=== PATIENT | female | born 1945 | race Caucasian/White ===

== ENCOUNTER 2016-08-18 08:45 | Outpatient (RCR) | payer MEDICARE, OTHER ==
[~2016-08-18 08:45] MED LIST: ACET325T38 PO; CELE200C PO; CETI10TA20 PO; CIPR-225 PO; METR500T PO; PANT40SU PO
[2016-08-21] MEDS ORDERED: CEFD300C3 PO (13:04)
[2016-08-21] MEDS ORDERED: CELE200C PO (13:04)
[2016-08-21] MEDS ORDERED: TRAMADOL (13:13)
[2016-09-02] MEDS ORDERED: PANT40TA3 PO (12:32)
[2016-09-02] MEDS ORDERED: TRAM50TA2 PO (12:32)
[2016-09-02] MEDS ORDERED: LEVO750T9 PO (12:38)
[2016-09-03] MEDS ORDERED: HYDR-3812 PO ×2 (15:54→17:06)
== END 2016-11-12 | disposition home or self-care (01) ==
LOC: LAB 08:45
PROVIDERS: ATTEND Surgery
DX: R10.31 Right lower quadrant pain (principal)
CPT/HCPCS: 87045; 87046; 87177; 87324

== ENCOUNTER 2016-10-07 09:56 | Outpatient (RCR) | payer MEDICARE, OTHER ==
[2016-09-08 12:07] LABS: BASOPHILS % (AUTO) 0 % (0-10); EOSINOPHILS # (AUTO) 0.1 10^3/uL (0.0-0.3); EOSINOPHILS % (AUTO) 1 % (0-10); LYMPHOCYTES # (AUTO) 1.3 X 10^3 (1.0-4.0); LYMPHOCYTES % (AUTO) 11 % (12-44); MEAN CORPUSCULAR HEMOGLOBIN 28 PG (25-34); MEAN CORPUSCULAR HGB CONC 32 G/DL (32-36); MEAN CORPUSCULAR VOLUME 87 FL (80-99); MONOCYTES # (AUTO) 0.8 X 10^3 (0.0-1.0); MONOCYTES % (AUTO) 7 % (0-12); NEUTROPHILS # (AUTO) 9.2 X 10^3 (1.8-7.8); NEUTROPHILS % (AUTO) 81 % (42-75); PLATELET COUNT 273 10^3/uL (130-400); RED BLOOD COUNT 4.52 10^6/uL (4.35-5.85); RED CELL DISTRIBUTION WIDTH 15.1 % (10.0-14.5); WHITE BLOOD COUNT 11.4 10^3/uL (4.3-11.0)
[2016-09-08 12:38] LABS: ALANINE AMINOTRANSFERASE < 6 U/L (0-55); ALBUMIN 4.3 G/DL (3.2-4.5); ANION GAP 10 MMOL/L (5-14); ASPARTATE AMINO TRANSFERASE 13 U/L (5-34); BILIRUBIN,TOTAL 0.4 MG/DL (0.1-1.0); BLOOD UREA NITROGEN 9 MG/DL (7-18); BUN/CREATININE RATIO 12; CALCIUM 9.6 MG/DL (8.5-10.1); CARBON DIOXIDE 27 MMOL/L (21-32); CHLORIDE 100 MMOL/L (98-107); CREATININE SERUM 0.73 MG/DL (0.60-1.30); GFR ESTIMATED > 60; GLUCOSE 97 MG/DL (70-105); LACTATE DEHYDROGENASE 184 U/L (125-220); POTASSIUM 5.1 MMOL/L (3.6-5.0); SODIUM 137 MMOL/L (135-145); TOTAL PROTEIN 7.1 G/DL (6.4-8.2); URIC ACID 4.8 MG/DL (2.6-7.2)
[2016-09-09 05:37] LABS: IMMUNOGLOBULIN IGA 76 mg/dL (71-263); IMMUNOGLOBULIN IGG 1020 mg/dL (672-1680)
[2016-09-09 07:48] LABS: IMMUNOGLOBULIN IGM 208 mg/dL (47-209)
[2016-09-17 10:31] LABS: BASOPHILS % (AUTO) 0 % (0-10); EOSINOPHILS % (AUTO) 1 % (0-10); LYMPHOCYTES % (AUTO) 12 % (12-44); MEAN CORPUSCULAR HEMOGLOBIN 28 PG (25-34); MEAN CORPUSCULAR HGB CONC 33 G/DL (32-36); MEAN CORPUSCULAR VOLUME 85 FL (80-99); MEAN PLATELET VOLUME 9.3 FL (7.4-10.4); MONOCYTES # (AUTO) 0.8 X 10^3 (0.0-1.0); MONOCYTES % (AUTO) 9 % (0-12); NEUTROPHILS # (AUTO) 6.6 X 10^3 (1.8-7.8); NEUTROPHILS % (AUTO) 78 % (42-75); PLATELET COUNT 267 10^3/uL (130-400); RED BLOOD COUNT 4.26 10^6/uL (4.35-5.85); RED CELL DISTRIBUTION WIDTH 14.5 % (10.0-14.5); WHITE BLOOD COUNT 8.5 10^3/uL (4.3-11.0)
[2016-09-17 11:00] LABS: ALANINE AMINOTRANSFERASE 10 U/L (0-55); ANION GAP 10 MMOL/L (5-14); ASPARTATE AMINO TRANSFERASE 15 U/L (5-34); BILIRUBIN,TOTAL 0.3 MG/DL (0.1-1.0); BLOOD UREA NITROGEN 7 MG/DL (7-18); BUN/CREATININE RATIO 11; CALCIUM 9.3 MG/DL (8.5-10.1); CARBON DIOXIDE 24 MMOL/L (21-32); CHLORIDE 101 MMOL/L (98-107); CREATININE SERUM 0.63 MG/DL (0.60-1.30); GFR ESTIMATED > 60; GLUCOSE 93 MG/DL (70-105); LACTATE DEHYDROGENASE 214 U/L (125-220); POTASSIUM 3.9 MMOL/L (3.6-5.0); SODIUM 135 MMOL/L (135-145); URIC ACID 4.5 MG/DL (2.6-7.2)
[2016-09-22 10:35] LABS: BASOPHILS % (AUTO) 0 % (0-10); EOSINOPHILS # (AUTO) 0.1 10^3/uL (0.0-0.3); EOSINOPHILS % (AUTO) 1 % (0-10); LYMPHOCYTES # (AUTO) 0.4 X 10^3 (1.0-4.0); LYMPHOCYTES % (AUTO) 3 % (12-44); MEAN CORPUSCULAR HEMOGLOBIN 28 PG (25-34); MEAN CORPUSCULAR HGB CONC 33 G/DL (32-36); MEAN CORPUSCULAR VOLUME 86 FL (80-99); MEAN PLATELET VOLUME 8.7 FL (7.4-10.4); MONOCYTES # (AUTO) 0.8 X 10^3 (0.0-1.0); MONOCYTES % (AUTO) 7 % (0-12); NEUTROPHILS # (AUTO) 10.8 X 10^3 (1.8-7.8); NEUTROPHILS % (AUTO) 89 % (42-75); PLATELET COUNT 287 10^3/uL (130-400); RED CELL DISTRIBUTION WIDTH 14.4 % (10.0-14.5)
[2016-09-22 11:11] LABS: ALANINE AMINOTRANSFERASE 8 U/L (0-55); ALBUMIN 3.9 G/DL (3.2-4.5); ANION GAP 12 MMOL/L (5-14); ASPARTATE AMINO TRANSFERASE 9 U/L (5-34); BILIRUBIN,TOTAL 0.5 MG/DL (0.1-1.0); BLOOD UREA NITROGEN 6 MG/DL (7-18); BUN/CREATININE RATIO 9; CARBON DIOXIDE 28 MMOL/L (21-32); CHLORIDE 97 MMOL/L (98-107); GFR ESTIMATED > 60; GLUCOSE 119 MG/DL (70-105); LACTATE DEHYDROGENASE 165 U/L (125-220); SODIUM 137 MMOL/L (135-145); TOTAL PROTEIN 6.6 G/DL (6.4-8.2); URIC ACID 3.1 MG/DL (2.6-7.2)
[2016-09-29 10:54] LABS: BASOPHILS % (AUTO) 0 % (0-10); EOSINOPHILS # (AUTO) 0.1 10^3/uL (0.0-0.3); EOSINOPHILS % (AUTO) 1 % (0-10); LYMPHOCYTES # (AUTO) 0.5 X 10^3 (1.0-4.0); LYMPHOCYTES % (AUTO) 4 % (12-44); MEAN CORPUSCULAR HEMOGLOBIN 28 PG (25-34); MEAN CORPUSCULAR HGB CONC 32 G/DL (32-36); MEAN CORPUSCULAR VOLUME 86 FL (80-99); MEAN PLATELET VOLUME 8.5 FL (7.4-10.4); MONOCYTES # (AUTO) 0.9 X 10^3 (0.0-1.0); MONOCYTES % (AUTO) 7 % (0-12); NEUTROPHILS # (AUTO) 11.8 X 10^3 (1.8-7.8); NEUTROPHILS % (AUTO) 89 % (42-75); PLATELET COUNT 357 10^3/uL (130-400); RED BLOOD COUNT 4.27 10^6/uL (4.35-5.85); RED CELL DISTRIBUTION WIDTH 14.6 % (10.0-14.5); WHITE BLOOD COUNT 13.3 10^3/uL (4.3-11.0)
[2016-09-29 11:37] LABS: ALANINE AMINOTRANSFERASE 9 U/L (0-55); ALBUMIN 4.1 G/DL (3.2-4.5); ANION GAP 8 MMOL/L (5-14); ASPARTATE AMINO TRANSFERASE 15 U/L (5-34); BILIRUBIN,TOTAL 0.3 MG/DL (0.1-1.0); BLOOD UREA NITROGEN 5 MG/DL (7-18); BUN/CREATININE RATIO 8; CALCIUM 9.7 MG/DL (8.5-10.1); CARBON DIOXIDE 28 MMOL/L (21-32); CHLORIDE 101 MMOL/L (98-107); CREATININE SERUM 0.64 MG/DL (0.60-1.30); GFR ESTIMATED > 60; GLUCOSE 103 MG/DL (70-105); LACTATE DEHYDROGENASE 213 U/L (125-220); SODIUM 137 MMOL/L (135-145); TOTAL PROTEIN 7.2 G/DL (6.4-8.2); URIC ACID 2.3 MG/DL (2.6-7.2)
[~2016-10-07] VITALS: Ht 162.6 cm; Wt 61.7 kg
[~2016-10-07 09:56] MED LIST changes: +ACETAMINOPHEN 500 MG TAB (TYLENOL) CANCER CTR PO PRN; +ALLOPURINOL 300 MG (ZYLOPRIM) TAB PO ONE; +BENDAMUSTINE HCL 150 MG in NS (IVPB) CANCER CENTER 50 ML IV SCH; +CEFD300C3 PO; +FAMOTIDINE 20MG/2ML IV (CANCER CTR) IV SCH; +HYDR-3812 PO; +LEVO750T9 PO; +MEPERIDINE (DEMEROL) INJ 50 MG/ML CANCER CTR IV ONE; +NS IV 1000 ML (CANCER CTR) IV SCH; +NS IV 500 ML (CANCER CENTER) 500 ML ONE; +ONDANSETRON 16 MG, DEXAMETHASONE 10 MG/NS 50 ML IVPB IV SCH; +PANT40TA3 PO; +TRAM50TA2 PO; +TRAMADOL; +diphenhydrAMINE 25 MG TAB (BENADRYL) CANCER CENTER PO SCH; +riTUXimab 500 MG, riTUXimab FOR IV INJ CONC 100 MG in NS (IVPB) CANCER CENTER ONLY 150 ML IV SCH
[2016-10-07 10:36] LABS: BASOPHILS # (AUTO) 0.1 10^3/uL (0.0-0.1); BASOPHILS % (AUTO) 1 % (0-10); EOSINOPHILS # (AUTO) 0.1 10^3/uL (0.0-0.3); EOSINOPHILS % (AUTO) 1 % (0-10); LYMPHOCYTES # (AUTO) 0.9 X 10^3 (1.0-4.0); LYMPHOCYTES % (AUTO) 8 % (12-44); MEAN CORPUSCULAR HEMOGLOBIN 29 PG (25-34); MEAN CORPUSCULAR HGB CONC 33 G/DL (32-36); MEAN CORPUSCULAR VOLUME 87 FL (80-99); MONOCYTES # (AUTO) 0.7 X 10^3 (0.0-1.0); MONOCYTES % (AUTO) 7 % (0-12); NEUTROPHILS # (AUTO) 9.6 X 10^3 (1.8-7.8); NEUTROPHILS % (AUTO) 85 % (42-75); PLATELET COUNT 313 10^3/uL (130-400); RED BLOOD COUNT 4.18 10^6/uL (4.35-5.85); RED CELL DISTRIBUTION WIDTH 14.3 % (10.0-14.5); WHITE BLOOD COUNT 11.3 10^3/uL (4.3-11.0)
[2016-10-07 10:56] LABS: ALANINE AMINOTRANSFERASE 8 U/L (0-55); ALBUMIN 3.9 G/DL (3.2-4.5); ANION GAP 11 MMOL/L (5-14); ASPARTATE AMINO TRANSFERASE 14 U/L (5-34); BILIRUBIN,TOTAL 0.2 MG/DL (0.1-1.0); BLOOD UREA NITROGEN 6 MG/DL (7-18); BUN/CREATININE RATIO 9; CALCIUM 9.1 MG/DL (8.5-10.1); CARBON DIOXIDE 24 MMOL/L (21-32); CHLORIDE 100 MMOL/L (98-107); GFR ESTIMATED > 60; GLUCOSE 108 MG/DL (70-105); LACTATE DEHYDROGENASE 217 U/L (125-220); POTASSIUM 3.6 MMOL/L (3.6-5.0); SODIUM 135 MMOL/L (135-145); TOTAL PROTEIN 6.9 G/DL (6.4-8.2); URIC ACID 2.3 MG/DL (2.6-7.2)
[2016-10-14 10:43] LABS: BASOPHILS # (AUTO) 0.1 10^3/uL (0.0-0.1); BASOPHILS % (AUTO) 1 % (0-10); EOSINOPHILS # (AUTO) 0.3 10^3/uL (0.0-0.3); EOSINOPHILS % (AUTO) 2 % (0-10); LYMPHOCYTES % (AUTO) 9 % (12-44); MEAN CORPUSCULAR HEMOGLOBIN 28 PG (25-34); MEAN CORPUSCULAR HGB CONC 33 G/DL (32-36); MEAN CORPUSCULAR VOLUME 86 FL (80-99); MEAN PLATELET VOLUME 8.7 FL (7.4-10.4); MONOCYTES # (AUTO) 0.8 X 10^3 (0.0-1.0); MONOCYTES % (AUTO) 7 % (0-12); NEUTROPHILS % (AUTO) 81 % (42-75); PLATELET COUNT 305 10^3/uL (130-400); RED CELL DISTRIBUTION WIDTH 15.5 % (10.0-14.5); WHITE BLOOD COUNT 11.1 10^3/uL (4.3-11.0)
[2016-10-14 11:02] LABS: ALANINE AMINOTRANSFERASE 11 U/L (0-55); ANION GAP 11 MMOL/L (5-14); ASPARTATE AMINO TRANSFERASE 13 U/L (5-34); BILIRUBIN,TOTAL 0.3 MG/DL (0.1-1.0); BLOOD UREA NITROGEN 7 MG/DL (7-18); BUN/CREATININE RATIO 10; CALCIUM 9.3 MG/DL (8.5-10.1); CARBON DIOXIDE 25 MMOL/L (21-32); CHLORIDE 98 MMOL/L (98-107); CREATININE SERUM 0.73 MG/DL (0.60-1.30); GFR ESTIMATED > 60; GLUCOSE 109 MG/DL (70-105); LACTATE DEHYDROGENASE 136 U/L (125-220); POTASSIUM 3.9 MMOL/L (3.6-5.0); SODIUM 134 MMOL/L (135-145); TOTAL PROTEIN 6.9 G/DL (6.4-8.2); URIC ACID 2.4 MG/DL (2.6-7.2)
== END 2016-10-14 10:48 | disposition home or self-care (01) ==
LOC: ONC 09:56
PROVIDERS: ATTEND Internal Medicine Hematology & Oncology
DX: Z51.11 Encounter for antineoplastic chemotherapy (principal); C85.13 Unspecified B-cell lymphoma, intra-abdominal lymph nodes; K57.92 Diverticulitis of intestine, part unspecified, without perforation or abscess without bleeding; R19.7 Diarrhea, unspecified; M89.8X0 Other specified disorders of bone, multiple sites; M25.50 Pain in unspecified joint; F17.210 Nicotine dependence, cigarettes, uncomplicated; Z79.899 Other long term (current) drug therapy
CPT/HCPCS: 36415; 36591; 80053; 80074; 82232; 82784; 83615; 84550; 85025; 96375; 96376; 96409; 96411; 96413; 96415; 99213; 99214

== ENCOUNTER → 2016-10-28 | Outpatient (CLI) | payer OTHER ==
[~2016-10-28] MED LIST changes: -ACETAMINOPHEN 500 MG TAB (TYLENOL) CANCER CTR PO PRN; -ALLOPURINOL 300 MG (ZYLOPRIM) TAB PO ONE; -BENDAMUSTINE HCL 150 MG in NS (IVPB) CANCER CENTER 50 ML IV SCH; +CEFU500T63 PO; +CIPR500T4 PO; +DOCU-143 PO; -FAMOTIDINE 20MG/2ML IV (CANCER CTR) IV SCH; +GENT100P4 IV; +MELA1TAB10 PO; -MEPERIDINE (DEMEROL) INJ 50 MG/ML CANCER CTR IV ONE; +MORP-34 PO; -NS IV 1000 ML (CANCER CTR) IV SCH; -NS IV 500 ML (CANCER CENTER) 500 ML ONE; +ONDA8TAB12 PO; +ONDA8TAB13 PO; -ONDANSETRON 16 MG, DEXAMETHASONE 10 MG/NS 50 ML IVPB IV SCH; -diphenhydrAMINE 25 MG TAB (BENADRYL) CANCER CENTER PO SCH; -riTUXimab 500 MG, riTUXimab FOR IV INJ CONC 100 MG in NS (IVPB) CANCER CENTER ONLY 150 ML IV SCH
[2016-10-28 11:23] LABS: BILIRUBIN,URINE NEGATIVE (NEGATIVE); KETONES,URINE NEGATIVE (NEGATIVE); LEUKOCYTE ESTERASE ,URINE 1+ (NEGATIVE); NITRITE,URINE NEGATIVE (NEGATIVE); PH,URINE 6 (5-9); PROTEIN,URINE 1+ (NEGATIVE); UROBILINOGEN,URINE NORMAL (NORMAL)
[2016-10-28 11:33] LABS: WBC,URINE 0-2 /HPF
== END ==
LOC: LAB 11:10
PROVIDERS: ATTEND Family Medicine
DX: R30.0 Dysuria (principal)
CPT/HCPCS: 81000

== ENCOUNTER → 2016-12-02 | Outpatient (CLI) | payer OTHER ==
[~2016-12-02] MED LIST changes: +BARIUM SUSPENSION 2.1% (VANILLA SILQ) 450 ML PO ONE; +CATHETER FLUSH 10 ML SYR IV PRN; +IOHEXOL 350 MG/ML 100 ML (OMNIPAQUE 350) VIAL IV ONE; +NS 100 ML (IVPB) BAG IV ONE
--- NOTE | 2016-12-02 13:19 | Diagnostic Imaging Report ---
PROCEDURE: CT chest, abdomen, and pelvis with contrast. TECHNIQUE: Multiple contiguous axial images were obtained through the chest, abdomen, and pelvis after the administration of intravenous contrast. INDICATION: Lymphoma. FINDINGS: The previous CT abdomen/pelvis exam performed on 08/15/16 noted abdominal and pelvic retroperitoneal adenopathy. Reportedly in the interval since the prior exam, a diagnosis of lymphoma has been established. The previous study did reveal a 3.1 x 4.3 cm soft tissue mass adjacent to the abdominal aorta on the left or just proximal to the bifurcation. This measured 4.3 x 3.1 cm in size. That mass has diminished and now measures only 1.5 x 2.3 cm. There are also frank masses in place on the right with the largest of these measuring approximately 2.9 x 3.8 cm. That mass has also decreased in size and now measures 1.8 x 2.1 cm. The previous study also identified a poorly defined 3.2 x 4.0 cm mass adjacent to the sigmoid colon. That finding has decreased in size as well and now measures 2.3 x 3.1 cm. There still appears to be generalized thickening of the wall of the sigmoid colon. This finding is of uncertain etiology. The remainder of the abdomen and pelvis has not changed adversely since the prior exam. There is cholelithiasis but there is no sign of acute cholecystitis. There is a small 7.5 mm area of diminished density within the left lobe of the liver on the initial precontrast series. This finding is not seen on the delayed series. I suspect this is more likely due to hemangioma than to a metastatic focus. If further imaging is desired, then MRI of the abdomen would be recommended. The liver is otherwise unremarkable. The spleen, adrenals, kidneys, aorta and inferior vena cava show no sign of an acute abnormality. The stomach is partially filled with oral contrast and consequently difficult to assess. The uterus and urinary bladder are grossly unremarkable. As noted on the prior exam, there is an area of mixed density involving the right ilium. That finding is essentially no different on this exam. There are no previous CT chest examinations available for comparison. The heart size is within normal limits. The lungs are generally clear and well aerated. There is no sign of failure, pneumonia or of a pleural effusion. There is no parenchymal lung mass identified either. There is no defect within the pulmonary arteries to indicate a pulmonary embolus. The aorta is not abnormally dilated and there is no sign of a dissection. There are a number of calcified right hilar nodes and a few calcified mediastinal nodes. These are not pathologically enlarged. The thyroid gland is unremarkable. There is no obvious breast mass. The bone windows show no evidence for a fracture or for a destructive lesion. IMPRESSION: 1. The appearance of the abdomen and pelvis has improved since the prior exam as the retroperitoneal adenopathy noted previously has decreased. 2. There is still generalized thickening of the wall of the sigmoid colon. This is of uncertain etiology. 3. The area of mixed density involving the right ilium seen previously is again visualized and no different. 4. There is no acute abnormality of the abdomen or pelvis identified. 5. There is no sign of an acute cardiopulmonary abnormality either. There is no evidence for metastatic disease to the thorax. 6. These results were discussed with Dr. Cano. Dictated by: Dictated on workstation # [id number]
== END ==
LOC: RAD 09:25
PROVIDERS: ATTEND Internal Medicine Hematology & Oncology
DX: C85.90 Non-Hodgkin lymphoma, unspecified, unspecified site (principal)
CPT/HCPCS: 71260; 74177

== ENCOUNTER 2016-12-31 19:11 | Inpatient (IN) | payer MEDICARE, OTHER ==
[~2016-12-31] VITALS: Ht 162.6 cm; Wt 57.4 kg
[~2016-12-31 19:11] MED LIST changes: -BARIUM SUSPENSION 2.1% (VANILLA SILQ) 450 ML PO ONE; -CATHETER FLUSH 10 ML SYR IV PRN; -CEFU500T63 PO; -CIPR500T4 PO; -DOCU-143 PO; -GENT100P4 IV; -IOHEXOL 350 MG/ML 100 ML (OMNIPAQUE 350) VIAL IV ONE; -MELA1TAB10 PO; -MORP-34 PO; -NS 100 ML (IVPB) BAG IV ONE; -ONDA8TAB12 PO; -ONDA8TAB13 PO
[2016-12-31] MEDS ORDERED: PHENAZOPYRIDINE 100 MG (PYRIDIUM) TABLET PO ONE (19:30)
[2016-12-31] MEDS ORDERED: NS IV 500 ML 500 ML IV SCH (19:30)
[2016-12-31] MEDS ORDERED: KETOROLAC 30 MG/ML VIAL IVP ONE (19:30)
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
[2016-12-31 19:49] LABS: BILIRUBIN,URINE NEGATIVE (NEGATIVE); KETONES,URINE NEGATIVE (NEGATIVE); LEUKOCYTE ESTERASE ,URINE 2+ (NEGATIVE); NITRITE,URINE NEGATIVE (NEGATIVE); PH,URINE 6 (5-9); PROTEIN,URINE 1+ (NEGATIVE); UROBILINOGEN,URINE NORMAL (NORMAL)
[2016-12-31 19:56] LABS: BASOPHILS % (AUTO) 0 % (0-10); EOSINOPHILS # (AUTO) 0.1 10^3/uL (0.0-0.3); EOSINOPHILS % (AUTO) 1 % (0-10); LYMPHOCYTES # (AUTO) 0.3 X 10^3 (1.0-4.0); LYMPHOCYTES % (AUTO) 3 % (12-44); MEAN CORPUSCULAR HEMOGLOBIN 29 PG (25-34); MEAN CORPUSCULAR HGB CONC 33 G/DL (32-36); MEAN CORPUSCULAR VOLUME 87 FL (80-99); MEAN PLATELET VOLUME 8.7 FL (7.4-10.4); MONOCYTES # (AUTO) 1.3 X 10^3 (0.0-1.0); MONOCYTES % (AUTO) 10 % (0-12); NEUTROPHILS # (AUTO) 11.1 X 10^3 (1.8-7.8); NEUTROPHILS % (AUTO) 86 % (42-75); PLATELET COUNT 358 10^3/uL (130-400); RED BLOOD COUNT 4.28 10^6/uL (4.35-5.85); RED CELL DISTRIBUTION WIDTH 14.9 % (10.0-14.5); WHITE BLOOD COUNT 12.9 10^3/uL (4.3-11.0)
[2016-12-31] MEDS ORDERED: ONDANSETRON 4 MG/2 ML (SDV) Z0FRAN ONE (19:57)
[2016-12-31] MEDS ORDERED: ONDANSETRON 4 MG/2 ML (SDV) Z0FRAN IVP ONE (20:00)
[2016-12-31 20:01] LABS: WBC,URINE 25-50 /HPF
[2016-12-31 20:13] LABS: ANION GAP 16 MMOL/L (5-14); BLOOD UREA NITROGEN 5 MG/DL (7-18); BUN/CREATININE RATIO 7; CALCIUM 9.3 MG/DL (8.5-10.1); CARBON DIOXIDE 24 MMOL/L (21-32); CHLORIDE 93 MMOL/L (98-107); CREATININE SERUM 0.75 MG/DL (0.60-1.30); GFR ESTIMATED > 60; GLUCOSE 124 MG/DL (70-105); POTASSIUM 3.4 MMOL/L (3.6-5.0); SODIUM 133 MMOL/L (135-145)
[2016-12-31 20:18] LABS: BAND NEUTROPHILS 3 %; NEUTROPHILS % (MANUAL) 86 %
[2016-12-31 20:19] LABS: BASOPHILS % (MANUAL) 1 %; EOSINOPHILS % (MANUAL) 0 %; LYMPHOCYTES % (MANUAL) 6 %
[2016-12-31] MEDS ORDERED: MEROPENEM 1,000 MG in NS (IVPB) 100 ML IV ONE (20:30)
[2016-12-31 21:25] VITALS: BP 153/70
[2016-12-31] MEDS ORDERED: ONDANSETRON 4 MG/2 ML (SDV) Z0FRAN IV PRN (22:45)
[2016-12-31] MEDS ORDERED: KETOROLAC 30 MG/ML VIAL IV PRN (22:45)
[2016-12-31] MEDS ORDERED: CATHETER FLUSH 10 ML SYR IV PRN (22:45)
[2016-12-31] MEDS: NS IV 1000 ML 1,000 ML IV SCH (22:47)
[2017-01-01] VITALS: BP 111/52
[2017-01-01] MEDS: MEROPENEM 500 MG/NS 100 ML IVPB IV SCH ×4 (00:04→06:02)
[2017-01-01 03:52] VITALS: BP 133/63
[2017-01-01] MEDS: CATHETER FLUSH 10 ML SYR IV SCH ×3 (06:00→20:48)
[2017-01-01] MEDS ORDERED: FLU TRIvalent (5 YOA+) 2016-17 (AFLURIA) 0.5 ML IM ONE (07:15)
[2017-01-01 08:00] VITALS: BP 150/63
[2017-01-01] MEDS ORDERED: CIPR500T4 PO (08:14)
--- NOTE | 2017-01-01 08:15 | CONSULTATION REPORT ---
DATE OF CONSULTATION: 01/01/2017 ATTENDING PHYSICIAN: Dr. Feliberto Ny SUMMARY: After reviewing the patient's record in the office, this is a 71-year-old white female known to me that was referred because of recurrent-persistent UTI that started after starting chemotherapy for a lymphoma. She was first on Macrodantin then we switch her to Cipro, that has worked with her before, but apparently did not help her this time. She continued to have problem and presented to the emergency room and was admitted, started on the meropenem and feeling and doing better. Her abdomen is soft but she has some suprapubic tenderness. IMPRESSION: UTI versus chemotherapy therapy cystitis. PLAN: Continue present management for a couple 3 days. She has an appointment with me on January the . She is to keep that. We will plan probably cystoscopy to look at the inside of the bladder. Thank you for letting me participate in the care of this patient. We will follow with you. Job ID: [id number] Dictated Date: 01/01/2017 07:14:36 [employer] Date: 01/01/2017 08:06:20/mel
[2017-01-01] MEDS ORDERED: ONDA8TAB12 PO (08:31)
[2017-01-01] MEDS ORDERED: MORP-34 PO (08:31)
[2017-01-01] MEDS ORDERED: MELA1TAB10 PO (08:33)
[2017-01-01] MEDS ORDERED: HYDR-3812 PO (08:33)
[2017-01-01] MEDS: PATCH REMOVAL TP SCH (08:39)
[2017-01-01] MEDS: PHENAZOPYRIDINE 100 MG (PYRIDIUM) TABLET PO SCH ×3 (08:39→20:48)
[2017-01-01] MEDS: NICOTINE 21 MG (NICODERM) PATCH TD SCH (08:39)
[2017-01-01] MEDS ORDERED: ONDANSETRON 8 MG (ZOFRAN) ORAL DISSOLVE TAB PO PRN (08:45)
[2017-01-01] MEDS: PANTOPRAZOLE 40 MG (PROTONIX) TAB PO SCH (08:59)
[2017-01-01] MEDS: morphine ER 30 MG (MS CONTIN) TAB PO SCH ×2 (08:59→20:47)
[2017-01-01] MEDS: HYDROcodone/APAP 5 MG/325 MG (LORTAB) TAB PO PRN ×4 (08:59→19:46)
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
[2017-01-01] MEDS: NS IV 1000 ML 1,000 ML IV SCH ×2 (09:07→20:47)
[2017-01-01] MEDS ORDERED: NS IV SCH (10:00)
[2017-01-01] MEDS ORDERED: GENTAMICIN IV SCH (10:00)
[2017-01-01 12:00] VITALS: BP 101/52
[2017-01-01 16:00] VITALS: BP 102/65
--- NOTE | 2017-01-01 16:39 | Oncology Consultation ---
Visit Information Visit Information Date of Admission Dec 31, 2016 at 20:43 Attending Physician Feliberto Ny MD Admitting Physician Feliberto Ny MD Chief Complaint multiple recurrence UTI in the setting of lymphoma Interval History Ms. 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 She was admitted from ER for recurrence of UTI, resistance to oral antibiotics. Hence she is getting the IV antibiotics. Her bladder pain is better since the IV antibiotics. When she first came to me for the diagnosis and treatment of lymphoma, she has already been treated with Cipro before multiple times. When I check here UA and C+S first time, she had already been resistance to Cipro. I sent to see Dr Mcmahan for cystoscope and to see if she had any structure issues of the bladder to explain the recurrence of the UTI. In terms of her lymphoma, she had good response after 3 cycles of treatment with 40-50% tumor reduction. I consulted the patient on: 01/01/17 16:32 Constitutional: no symptoms reported EENTM: no symptoms reported Respiratory: no symptoms reported Cardiovascular: no symptoms reported Gastrointestinal: abdominal pain (LLQ) Genitourinary: dysuria, frequency, pain Health Status Allergies Coded Allergies: Penicillins (Verified Allergy, Unknown, stomach pain, 07/10/16) Sulfa (Sulfonamide Antibiotics) (Verified Allergy, Unknown, NAUSEA, ) azithromycin (Unverified Allergy, Unknown, 09/03/16) REPORTS SEVERE ABDOMINAL CRAMPING cefdinir (Verified Allergy, Unknown, itching all over, 09/02/16) cephalexin (Unverified Allergy, Unknown, 09/03/16) REPORTS SEVERE ABDOMINAL CRAMPING levofloxacin (Verified Allergy, Unknown, NAUSEA, 07/10/16) Home Medications Acetaminophen (Tylenol) 325 Mg Tablet, 325 MG PO Q4H PRN for SEVERE PAIN, ( Reported) Cetirizine HCl (Zyrtec) 10 Mg Tablet, 10 MG PO DAILY, (Reported) Ciprofloxacin HCl (Ciprofloxacin HCl) 500 Mg Tablet, 500 MG PO BID for 10 Days, (Reported) 10 DAY THERAPY FILLED 12-30-16 Hydrocodone/Acetaminophen (Hydrocodon -Acetaminophen 5-325) 1 Each Tablet, 1 TAB PO Q4H PRN for PAIN, (Reported) Melatonin/Pyridoxine (Melatonin 3 mg Tablet) 1 Each Tablet, 3 MG PO HS, ( Reported) Morphine Sulfate (Morphine Sulfate ER) 30 Mg Tablet.er, 30 MG PO Q12H, (Reported ) Ondansetron HCl (Ondansetron HCl) 8 Mg Tablet, 8 MG PO Q8H PRN for NAUSEA, ( Reported) Pantoprazole Sodium (Pantoprazole Sodium) 40 Mg Tablet.dr, 40 MG PO DAILY, ( Reported) CWM-[id number]-Xtnpvu Hx Patient Social History Alcohol Use: Rarely Uses Recreational Drug Use: No Smoking Status: Current Everyday Smoker Type Used: Cigarettes Recent Foreign Travel: No Contact w/other who traveled: No Recent Infectious Disease Expo: No Recent Hopitalizations: No Physical Abuse Screen: No Sexual Abuse: No Family Medical History Family History: Arthritis 19 MOTHER FH: hearing loss 19 FATHER 19 MOTHER Myocardial infarction 19 MOTHER Physical Exam Vital Signs Vital Sign - Last 12Hours 12/31/16 19:20 Temp 98.3 Pulse 120 Resp 18 B/P (MAP) 160/93 Pulse Ox 96 O2 Delivery Room Air Capillary Refill : Less Than 3 SecondsLess Than 3 Seconds General Appearance: No Apparent Distress HEENT: PERRL/EOMI Neck: Non Tender, Supple Respiratory: Chest Non Tender, Lungs Clear, No Accessory Muscle Use, No Respiratory Distress Cardiovascular: Regular Rate, Rhythm, No Edema, No Gallop Gastrointestinal: Soft, Tenderness Neurologic/Psychiatric: Alert, Oriented x3 Data Review Labs Laboratory Tests 12/31/16 19:45 Laboratory Tests 12/31/16 19:42: Urine Specific [place] 1.010L, Urine Protein 1+H, Urine Leukocyte Esterase 2+H, Urine RBC (Auto) 4+H, Urine RBC 2-5H, Urine WBC 25-50H, Urine Bacteria FEWH 12/31/16 19:45: White Blood Count 12.9H, Red Blood Count 4.28L, Red Cell Distribution Width 14.9H, Neutrophils (%) (Auto) 86H, Lymphocytes (%) (Auto) 3L, Neutrophils # ( Auto) 11.1H, Lymphocytes # (Auto) 0.3L, Monocytes # (Auto) 1.3H, Sodium Level 133L, Potassium Level 3.4L, Chloride Level 93L, Anion Gap 16H, Blood Urea Nitrogen 5L, Glucose Level 124H 12/31/16 20:34: Impression & Plan Impression & Plan A/P; 1. Multiple recurrence of UTI. resistance to oral antibiotics. Agree with current IV treatment. Pt can be switched to daily Gentamicin as out-pt. F/u with Dr Mcmahan for possible cystoscope. I told patient to get the record from [facility] for her previous antibiotics treatment. I believe she had UTI before the chemo not after the chemo. However, if she did not have the UTI before and this is truly related to the chemo, I will need to try different regimen. In the mean time, she has to wait until her infection completely cleared before the chemo. 2. Pain control issue. Morphine ER 30mg bid and hydrocodon PRN. 3. Pt can be discharged from Hem/Onc point of view. She has the follow up appt with me next week as already scheduled. Thank you for the consultation. Thank you for take care this patient REBEL MACHADO MD Jan 01, 2017 16:39
[2017-01-01 20:00] VITALS: BP 122/68
[2017-01-01] MEDS ORDERED: TROUGH ORDER-PHARMACY XX NR (20:00)
[2017-01-01] MEDS ORDERED: KETOROLAC 30 MG/ML VIAL IV PRN (21:00)
[2017-01-02] VITALS: BP 132/75
[2017-01-02 04:00] VITALS: BP 145/75
[2017-01-02 05:01] LABS: BASOPHILS % (AUTO) 0 % (0-10); EOSINOPHILS # (AUTO) 0.2 10^3/uL (0.0-0.3); EOSINOPHILS % (AUTO) 2 % (0-10); LYMPHOCYTES # (AUTO) 0.2 X 10^3 (1.0-4.0); LYMPHOCYTES % (AUTO) 3 % (12-44); MEAN CORPUSCULAR HEMOGLOBIN 29 PG (25-34); MEAN CORPUSCULAR HGB CONC 32 G/DL (32-36); MEAN CORPUSCULAR VOLUME 89 FL (80-99); MEAN PLATELET VOLUME 8.8 FL (7.4-10.4); MONOCYTES # (AUTO) 0.8 X 10^3 (0.0-1.0); MONOCYTES % (AUTO) 11 % (0-12); NEUTROPHILS # (AUTO) 6.2 X 10^3 (1.8-7.8); NEUTROPHILS % (AUTO) 84 % (42-75); PLATELET COUNT 269 10^3/uL (130-400); RED BLOOD COUNT 3.26 10^6/uL (4.35-5.85); RED CELL DISTRIBUTION WIDTH 14.7 % (10.0-14.5); WHITE BLOOD COUNT 7.3 10^3/uL (4.3-11.0)
[2017-01-02 05:17] LABS: ANION GAP 11 MMOL/L (5-14); BLOOD UREA NITROGEN 7 MG/DL (7-18); BUN/CREATININE RATIO 9; CALCIUM 8.3 MG/DL (8.5-10.1); CARBON DIOXIDE 20 MMOL/L (21-32); CHLORIDE 110 MMOL/L (98-107); CREATININE SERUM 0.75 MG/DL (0.60-1.30); GFR ESTIMATED > 60; GLUCOSE 89 MG/DL (70-105); POTASSIUM 3.7 MMOL/L (3.6-5.0); SODIUM 141 MMOL/L (135-145)
[2017-01-02] MEDS: CATHETER FLUSH 10 ML SYR IV SCH (05:56)
[2017-01-02] MEDS: NS IV 1000 ML 1,000 ML IV SCH (06:38)
[2017-01-02 08:00] VITALS: BP 140/80
[2017-01-02] MEDS: NICOTINE 21 MG (NICODERM) PATCH TD SCH (08:37)
[2017-01-02] MEDS: HYDROcodone/APAP 5 MG/325 MG (LORTAB) TAB PO PRN (08:38)
[2017-01-02] MEDS: morphine ER 30 MG (MS CONTIN) TAB PO SCH (08:38)
[2017-01-02] MEDS: PANTOPRAZOLE 40 MG (PROTONIX) TAB PO SCH (08:38)
[2017-01-02] MEDS: PHENAZOPYRIDINE 100 MG (PYRIDIUM) TABLET PO SCH (08:38)
[2017-01-02] MEDS: PATCH REMOVAL TP SCH (08:39)
--- NOTE | 2017-01-02 09:14 | Discharge Summary ---
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 Since mid-October patient has had severe lower abdominal pain with urine cultures demonstrating a UTI. These UTIs have been treated with nitrofurantoin and/or Cipro with decent results. Patient reports that after being off the antibiotics within 3 to 4 days the symptoms return. She has seen Dr. Mcmahan, urology who started her on Macrobid but was switched to ciprofloxacin yesterday. Patient presented to the ER with intractable abdominal pain and looking at previous urine culture from November the Ecoli was resistant to both ciprofloxacin and Macrobid. Patient was started on meropenem secondary to all of her antibiotic allergies. This a.m. patient reports feeling better and the abdominal pain is improved. Patient desires to go home tomorrow. Patient reports that ketorolac she's getting for her pain is not controlling and would like to resume her home opioids. Discharge Summary Hospital Course Hospital Course Patient was treated with meropenem and switched to gentamycin- (Had to use gentamycin as previous urine cultures were resistant to cipro and nitrofurantoin - and pt was allergic to other antibiotics)- The next day after admission her pain had resolved- Dr. Townsend and Dr. Mcmahan saw patient. Will be holding on her chemotherapy until her UTI is resolved. For her chronic pain she was continued on her home pain regimen. Patient was stable for discharge 01/02/17 and she even requested to be discharged because she was feeling so much better. - she will complete gentamycin IV q48hrs for total of 7 days as outpatient at [facility] over the weekend and at [facility] during the week. Patient to keep her follow up appts with consultants. Follow up with [facility] in 1-2 weeks. Labs Procedures None. Consultations Dr. Townsend, Dr. Mcmahan Discharge Physical Examination Allergies: Coded Allergies: Penicillins (Verified Allergy, Unknown, stomach pain, 07/10/16) Sulfa (Sulfonamide Antibiotics) (Verified Allergy, Unknown, NAUSEA, ) azithromycin (Unverified Allergy, Unknown, 09/03/16) REPORTS SEVERE ABDOMINAL CRAMPING cefdinir (Verified Allergy, Unknown, itching all over, 09/02/16) cephalexin (Unverified Allergy, Unknown, 09/03/16) REPORTS SEVERE ABDOMINAL CRAMPING levofloxacin (Verified Allergy, Unknown, NAUSEA, 07/10/16) Vitals & I&Os Vital Signs Date Time Temp Pulse Resp B/P (MAP) Pulse Ox O2 Delivery O2 Flow Rate FiO2 01/02/17 12:20 100 20 140/80 95 01/02/17 09:15 98.8 01/02/17 08:00 Room Air General Appearance: Alert, Oriented X3, Cooperative HEENT: Atraumatic, PERRLA Respiratory: Clear to Auscultation Cardiovascular: Regular Rate Abdominal: Normal Bowel Sounds, Soft Extremities: No Clubbing, No Cyanosis Skin: No Rashes Neuro: Normal Gait, Normal Speech Psych/Mental Status: Mental Status NL, Mood NL Discharge Home Medications Reviewed and agree with Discharge Medication list on patient's Discharge Instruction sheet Condition at Discharge stable Instructions to Patient/Family Please see electronic discharge instructions given to patient. Clinical Quality Measures DVT/VTE Risk/Contraindication: Risk Factor Score Per Nursin RFS Level Per Nursing on Admit: 4+=Very High KIRA LUCERO MD Jan 02, 2017 09:14
[2017-01-02] MEDS ORDERED: GENT100P4 IV (09:18)
--- NOTE | 2017-01-02 09:21 | Discharge Inst-Simple/Standard ---
Discharge Inst-Standard Patient Instructions/Follow Up Plan of Care/Instructions/FU: Will complete outpatient gentamycin 400mg q48hrs starting 01/03/17 last dose 01/09/17 Activity as Tolerated: Yes Discharge Diet: Eat Small Frequent Meals Return to The Hospital For: worsening of condition KIRA LUCERO MD Jan 02, 2017 09:21
[2017-01-02 12:20] VITALS: BP 140/80
[2017-01-03] MEDS ORDERED: NS IV SCH (10:00)
[2017-01-03] MEDS ORDERED: GENTAMICIN IV SCH (10:00)
--- OUTSIDE RECORDS SUMMARY | 2017-01-04 05:16 | XMS REPORT ---
Author Author NUNO OSUNA Organization [employer] Address Unknown Phone Unavailable Care Team Providers Care Putty Patcher Name Role Phone NUNO OSUNA CP Unavailable Allergies No Known Allergies Problems Problem Type Condition Code Onset Dates Condition Status Problem Osteoarthritis M19.90 Active Problem Bronchitis J40 Active Medications No Known Medications Results No Known Results Summary Purpose [employer] Submission
--- OUTSIDE RECORDS SUMMARY | 2017-01-04 05:16 | XMS REPORT | Continuity of Care Document ---
Author Author [employer] Organization [facility] Address Unknown Phone Unavailable Care Team Providers Care Equity Structurer Name Role Phone [employer] Unavailable Unavailable Problems Medications Allergies, Adverse Reactions, Alerts Immunizations Results Vital Signs Encounters Procedures Plan of Care Social History Assessment and Plan Family History Value Date Source Advance Directives Order Name Results Value Date Source
--- OUTSIDE RECORDS SUMMARY | 2017-01-04 05:16 | XMS REPORT ---
Author Author RADHA GONZALES Organization [employer] Address Unknown Phone Unavailable Care Team Providers Care Cleaning Team Member Name Role Phone RADHA GONZALES CP Unavailable Allergies, Adverse Reactions, Alerts Substance Reaction Event Type Sulfacet-R stomach upset Drug Allergy Penicillamine stomach upset Drug Allergy Problems Problem Type Condition Code Onset Dates Condition Status Problem Osteoarthritis M19.90 Active Assessment Chest wall pain R07.89 Active Problem Bronchitis J40 Active Medications Medication Code System Code Instructions Start Date End Date Status Dosage Tylenol PM Extra Strength [facility] [address]-47 500-25 MG Orally Once a day 1 tablet at bedtime as needed Tylenol [facility] [address]-24 500 MG/15ML Orally not defined PredniSONE [facility] [address]-51 20 MG Orally Oct 17, 2015 Oct 22, 2015 as directed Chlor-Tablets [facility] [address]-30 4 MG Orally every 6 hrs 1 tablet as needed Procedures Procedure Coding System Code Date Office Visit, Est Pt., Level 3 CPT-4 35145 Oct 17, 2015 [facility] VISIT ESTABLISHED PATIENT CPT-4 G0467 Oct 17, 2015 Vital Signs Date/Time: Oct 17, 2015 Temperature 99.4 F Weight 149.3 lbs Height 61.2 in BMI 28.02 Index Blood Pressure Diastolic 92 mmHg Blood Pressure Systolic 162 mmHg Cardiac Monitoring Heart Rate 114 bpm Results No Known Results Summary Purpose [employer] Submission
--- OUTSIDE RECORDS SUMMARY | 2017-01-04 05:16 | XMS REPORT ---
Author Author RADHA GONZALES Organization [employer] Address Unknown Phone Unavailable Care Team Providers Care Encyclopedia Research Worker Name Role Phone RADHA GONZALES CP Unavailable Allergies, Adverse Reactions, Alerts Substance Reaction Event Type Sulfacet-R stomach upset Drug Allergy Penicillamine stomach upset Drug Allergy Problems Problem Type Condition Code Onset Dates Condition Status Problem Osteoarthritis M19.90 Active Assessment Cough R05 Active Problem Bronchitis J40 Active Medications Medication Code System Code Instructions Start Date End Date Status Dosage Chlor-Tablets [facility] [address]-04 4 MG Orally every 6 hrs 1 tablet as needed Tylenol [facility] [address]-05 500 MG/15ML Orally not defined Cipro [facility] [address]-61 500 MG Orally Twice a day Sep 17, 2015 Sep 27, 2015 1 tablet Tylenol PM Extra Strength [facility] [address]-43 500-25 MG Orally Once a day 1 tablet at bedtime as needed Celebrex [facility] [address]-25 200 MG Orally Twice a day 1 capsule Procedures Procedure Coding System Code Date Office Visit, Est Pt., Level 3 CPT-4 23938 Sep 17, 2015 [facility] VISIT ESTABLISHED PATIENT CPT-4 G0467 Sep 17, 2015 Vital Signs Date/Time: Sep 17, 2015 Temperature 98.3 F Weight 151.7 lbs Height 61.2 in BMI 28.47 Index Blood Pressure Diastolic 78 mmHg Blood Pressure Systolic 146 mmHg Cardiac Monitoring Heart Rate 96 bpm Results No Known Results Summary Purpose [employer] Submission
--- OUTSIDE RECORDS SUMMARY | 2017-01-04 05:16 | XMS REPORT ---
Author Author DAMI CARDOZO Organization [employer] Address Unknown Phone Unavailable Care Team Providers Care Motor Carrier Inspector Name Role Phone DAMI CARDOZO CP Unavailable Allergies, Adverse Reactions, Alerts Substance Reaction Event Type Sulfacet-R stomach upset Drug Allergy Penicillamine stomach upset Drug Allergy Problems Problem Type Condition Code Onset Dates Condition Status Problem Osteoarthritis M19.90 Active Assessment Bronchitis J40 Active Problem Bronchitis J40 Active Assessment Osteoarthritis M19.90 Active Assessment Painful swallowing R13.10 Active Medications Medication Code System Code Instructions Start Date End Date Status Dosage Chlor-Tablets [facility] [address]-10 4 MG Orally every 6 hrs 1 tablet as needed Tylenol PM Extra Strength [facility] [address]-17 500-25 MG Orally Once a day 1 tablet at bedtime as needed Acidophilus Probiotic Blend [facility] [address] 1 Orally 2 times a day Sep 07, 2015 Sep 17, 2015 1capsule twice a day while taking antibiotic Tylenol [facility] [address]-68 500 MG/15ML Orally not defined Celebrex [facility] [address]-75 200 MG Orally Twice a day 1 capsule Levaquin [facility] [address]-58 750 MG Orally Once a day Sep 07, 2015 Sep 17, 2015 1 tablet Procedures Procedure Coding System Code Date Office Visit, Est Pt., Level 3 CPT-4 69265 Sep 07, 2015 [facility] VISIT ESTABLISHED PATIENT CPT-4 G0467 Sep 07, 2015 Vital Signs Date/Time: Sep 07, 2015 Temperature 98.3 F Weight 150.5 lbs Height 61.2 in BMI 28.25 Index Blood Pressure Diastolic 86 mmHg Blood Pressure Systolic 138 mmHg Cardiac Monitoring Heart Rate 112 bpm Results No Known Results Summary Purpose [employer]ClinicalWorks Submission
--- OUTSIDE RECORDS SUMMARY | 2017-01-04 05:17 | XMS REPORT ---
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, unspecified B-cell lymphoma type C85.15 Active 935747129 Assessment Left lower quadrant pain R10.32 Jun, Active 128706566 ALLERGIES Substance Reaction Event Type Date Status Sulfacet-R stomach upset Drug Allergy Jun, Active Penicillamine stomach upset Drug Allergy Jun, Active Levaquin Unknown Drug Allergy Jun, Active SOCIAL HISTORY No smoking Hx information available PLAN OF CARE VITAL SIGNS Height 61.2 in 2016-07-03 Weight 140.0 lbs 2016-07-03 Heart Rate 86 bpm 2016-07-03 Respiratory Rate 20 2016-07-03 BMI 26.28 kg/m2 2016-07-03 Blood pressure systolic 142 mmHg 2016-07-03 Blood pressure diastolic 78 mmHg 2016-07-03 MEDICATIONS Medication Instructions Dosage Frequency Start Date End Date Duration Status Tylenol 500 MG/15ML Active Mucinex 600 MG Orally every 12 hrs 1 tablet as needed 12h Active Voltaren Active Zyrtec Allergy 10 MG Active Celebrex 200 MG Orally Twice a day as needed for pain 1 capsule Active RESULTS Name Result Date Reference Range TSH 2016-07-03 TSH 1.120 0.450-4.500 CBC 2016-07-03 WBC 14.7 3.4-10.8 RBC 4.28 3.77-5.28 Hemoglobin 11.9 11.1-15.9 Hematocrit 36.5 34.0-46.6 MCV 85 79-97 MCH 27.8 26.6-33.0 MCHC 32.6 31.5-35.7 RDW 13.4 12.3-15.4 Platelets 384 150-379 Neutrophils 87 Lymphs 7 Monocytes 6 Eos 0 Basos 0 Neutrophils (Absolute) 12.5 1.4-7.0 Lymphs (Absolute) 1.1 0.7-3.1 Monocytes(Absolute) 0.9 0.1-0.9 Eos (Absolute) 0.1 0.0-0.4 Baso (Absolute) 0.0 0.0-0.2 Immature Granulocytes 0 Immature Grans (Abs) 0.0 0.0-0.1 CMP 2016-07-03 Glucose, Serum 110 65-99 BUN 6 8-27 Creatinine, Serum 0.65 0.57-1.00 eGFR If NonAfricn Am 92 >59 eGFR If Africn Am 105 >59 BUN/Creatinine Ratio 9 11-26 Sodium, Serum 137 134-144 Potassium, Serum 4.4 3.5-5.2 Chloride, Serum 93 97-108 Carbon Dioxide, Total 26 18-29 Calcium, Serum 9.3 8.7-10.3 Protein, Total, Serum 6.9 6.0-8.5 Albumin, Serum 4.0 3.6-4.8 Globulin, Total 2.9 1.5-4.5 A/G Ratio 1.4 1.1-2.5 Bilirubin, Total <0.2 0.0-1.2 Alkaline Phosphatase, S 92 39-117 AST (SGOT) 13 0-40 ALT (SGPT) 9 0-32 PROCEDURES Procedure Date Ordered Related Diagnosis Body Site [facility] Jul 03, 2016 [facility] VISIT ESTABLISHED PATIENT Jul 03, 2016 VENIPUNCT, ROUTINE* Jul 03, 2016 Office Visit, Est Pt., Level 3 Jul 03, 2016 IMMUNIZATIONS No Known Immunizations
--- OUTSIDE RECORDS SUMMARY | 2017-01-04 05:17 | XMS REPORT ---
Author Author MAHAMED LI Organization [employer] Address Unknown Phone Unavailable Care Team Providers Care Game Author Name Role Phone MAHAMED LI CP Unavailable Allergies, Adverse Reactions, Alerts Substance Reaction Event Type Sulfacet-R stomach upset Drug Allergy Penicillamine stomach upset Drug Allergy Levaquin Info Not Available Drug Allergy Problems Problem Type Condition Code Onset Dates Condition Status Problem Osteoarthritis M19.90 Active Assessment Acute frontal sinusitis J01.10 Active Problem Bronchitis J40 Active Medications Medication Code System Code Instructions Start Date End Date Status Dosage Zyrtec Allergy [facility] [address]-72 10 MG Orally not defined Fluticasone Propionate [facility] [address]-23 50 MCG/ACT Nasally Once a day Nov 16, 2015 1 spray in each nostril Tylenol PM Extra Strength [facility] [address]-60 500-25 MG Orally Once a day 1 tablet at bedtime as needed Procedures Procedure Coding System Code Date [facility] VISIT ESTABLISHED PATIENT CPT-4 G0467 Nov 16, 2015 Office Visit, Est Pt., Level 3 CPT-4 37993 Nov 16, 2015 MEASURE BLOOD OXYGEN LEVEL CPT-4 79256 Nov 16, 2015 Vital Signs Date/Time: Nov 16, 2015 Temperature 97.6 F Weight 150.0 lbs Height 61.2 in Oximetry 97 % Blood Pressure Diastolic 84 mmHg Blood Pressure Systolic 130 mmHg Cardiac Monitoring Heart Rate 98 bpm BMI 28.15 Index Results No Known Results Summary Purpose [employer]ClinicalWorks Submission
--- OUTSIDE RECORDS SUMMARY | 2017-01-04 05:17 | XMS REPORT ---
Author Author RADHA GONZALES Organization [employer] Address Unknown Phone Unavailable Care Team Providers Care Welcome Desk Agent Name Role Phone RADHA GONZALES CP Unavailable Allergies No Known Allergies Problems Problem Type Condition Code Onset Dates Condition Status Problem Osteoarthritis M19.90 Active Problem Bronchitis J40 Active Medications No Known Medications Results No Known Results Summary Purpose [employer] Submission
--- OUTSIDE RECORDS SUMMARY | 2017-01-04 05:17 | XMS REPORT ---
Author Author NUNO OSUNA Organization [employer] Address Unknown Phone Unavailable Care Team Providers Care Db2 Systems Programmer Name Role Phone NUNO OSUNA CP Unavailable Allergies, Adverse Reactions, Alerts Substance Reaction Event Type Sulfacet-R stomach upset Drug Allergy Penicillamine stomach upset Drug Allergy Levaquin Info Not Available Drug Allergy Problems Problem Type Condition Code Onset Dates Condition Status Problem Osteoarthritis M19.90 Active Assessment Left lower quadrant pain R10.32 Active Problem Bronchitis J40 Active Assessment Osteoarthritis M19.90 Active Medications Medication Code System Code Instructions Start Date End Date Status Dosage Flagyl [facility] [address]-44 500 MG Orally every 8 hrs Jul 30, 2016 1 tablet Zyrtec Allergy [facility] [address]-25 10 MG Orally not defined Protonix [facility] [address]-76 40 MG Orally Once a day 1 tablet Celebrex [facility] [address]-31 200 mg Orally Twice a day as needed for pain 1 capsule Cipro [facility] [address]-00 500 MG Orally Twice a day Jul 30, 2016 1 tablet Procedures Procedure Coding System Code Date Office Visit, Est Pt., Level 4 CPT-4 62277 Jul 23, 2016 [facility] EST[facility] PATIENT CPT-4 G0467 Jul 23, 2016 Vital Signs Date/Time: Jul 23, 2016 Cardiac Monitoring Heart Rate 80 bpm Weight 139 lbs Height 61.2 in BMI 26.09 Index Blood Pressure Diastolic 74 mmHg Blood Pressure Systolic 132 mmHg Results No Known Results Summary Purpose [employer]Works Submission
--- OUTSIDE RECORDS SUMMARY | 2017-01-04 05:17 | XMS REPORT ---
Author Author DONYA CUEVAS Organization [employer] Address Unknown Phone Unavailable Care Team Providers Care Paper Tube Machine Operator Name Role Phone DONYA CUEVAS CP Unavailable Allergies, Adverse Reactions, Alerts Substance Reaction Event Type Sulfacet-R stomach upset Drug Allergy Penicillamine stomach upset Drug Allergy Problems Problem Type Condition Code Onset Dates Condition Status Problem Osteoarthritis M19.90 Active Assessment Pain of anterior chest wall with respiration R07.1 Active Problem Bronchitis J40 Active Medications Medication Code System Code Instructions Start Date End Date Status Dosage Voltaren [facility] [address]-49 not defined Chlor-Tablets [facility] [address]-21 4 MG Orally every 6 hrs 1 tablet as needed Tylenol [facility] [address]-16 500 MG/15ML Orally not defined Tylenol PM Extra Strength [facility] [address]-15 500-25 MG Orally Once a day 1 tablet at bedtime as needed Celebrex [facility] [address]-10 200 MG Orally Twice a day 1 capsule Cyclobenzaprine HCl [facility] [address]-21 5 MG Orally Three times a day SepSep 18, 2015 1 tablet Procedures Procedure Coding System Code Date Office Visit, Est Pt., Level 3 CPT-4 09411 Sep 11, 2015 Vital Signs Date/Time: Sep 11, 2015 Temperature 97.6 F Weight 152.4 lbs Height 61.2 in BMI 28.60 Index Blood Pressure Diastolic 92 mmHg Blood Pressure Systolic 150 mmHg Cardiac Monitoring Heart Rate 100 bpm Results No Known Results Summary Purpose [employer]ClinicalWorks Submission
--- OUTSIDE RECORDS SUMMARY | 2017-01-04 05:17 | XMS REPORT ---
Author Author CORRY OSHEA [facility] [employer] Address Unknown Phone Unavailable Care Team Providers Care Computer Systems Hardware Analyst Name Role Phone CORRY OSHEA Unavailable Allergies No Known Allergies Problems Problem Type Condition Code Onset Dates Condition Status Problem Osteoarthritis M19.90 Active Problem Bronchitis J40 Active Medications No Known Medications Results No Known Results Summary Purpose eClinicalWorks Submission
--- OUTSIDE RECORDS SUMMARY | 2017-01-04 05:20 | XMS REPORT | Continuity of Care Document ---
Author Author [employer] [facility] Address Unknown Phone Unavailable Care Team Providers Care Filtering Machine Tender Helper Name Role Phone [employer] Unavailable Unavailable Problems Medications Allergies, Adverse Reactions, Alerts Immunizations Results Vital Signs Encounters Procedures Plan of Care Social History Assessment and Plan Family History Value Date Source Advance Directives Order Name Results Value Date Source
== END 2017-01-02 12:20 | disposition home or self-care (01) | DRG 690 ==
LOC: DELPENDDIS → EDUNIT# 19:11 → ER 19:13 → 4TH 20:43 → UNDOADMIN 20:43
PROVIDERS: ADMIT Family Medicine; ATTEND Family Medicine
DX: N39.0 Urinary tract infection, site not specified (principal); C85.13 Unspecified B-cell lymphoma, intra-abdominal lymph nodes; F17.210 Nicotine dependence, cigarettes, uncomplicated; K59.00 Constipation, unspecified; M54.9 Dorsalgia, unspecified
CPT/HCPCS: 36415; 80048; 80170; 81000; 83605; 85007; 85025; 85027; 87040; 87088; 96361; 96374; 96375

== ENCOUNTER 2017-01-06 10:10 | Outpatient (RCR) | payer OTHER ==
[2016-10-21 14:09] LABS: BASOPHILS % (AUTO) 0 % (0-10); EOSINOPHILS # (AUTO) 0.1 10^3/uL (0.0-0.3); EOSINOPHILS % (AUTO) 1 % (0-10); LYMPHOCYTES # (AUTO) 0.3 X 10^3 (1.0-4.0); LYMPHOCYTES % (AUTO) 2 % (12-44); MEAN CORPUSCULAR HEMOGLOBIN 29 PG (25-34); MEAN CORPUSCULAR HGB CONC 33 G/DL (32-36); MEAN CORPUSCULAR VOLUME 87 FL (80-99); MONOCYTES # (AUTO) 1.2 X 10^3 (0.0-1.0); MONOCYTES % (AUTO) 8 % (0-12); NEUTROPHILS % (AUTO) 89 % (42-75); PLATELET COUNT 298 10^3/uL (130-400); RED BLOOD COUNT 3.98 10^6/uL (4.35-5.85); RED CELL DISTRIBUTION WIDTH 15.8 % (10.0-14.5); WHITE BLOOD COUNT 14.6 10^3/uL (4.3-11.0)
[2016-10-21 14:49] LABS: ANION GAP 8 MMOL/L (5-14); BLOOD UREA NITROGEN 7 MG/DL (7-18); BUN/CREATININE RATIO 10; CALCIUM 9.8 MG/DL (8.5-10.1); CARBON DIOXIDE 29 MMOL/L (21-32); CHLORIDE 95 MMOL/L (98-107); CREATININE SERUM 0.71 MG/DL (0.60-1.30); GFR ESTIMATED > 60; GLUCOSE 118 MG/DL (70-105); POTASSIUM 4.9 MMOL/L (3.6-5.0); SODIUM 132 MMOL/L (135-145)
[2016-10-28 10:44] LABS: BASOPHILS % (AUTO) 0 % (0-10); EOSINOPHILS # (AUTO) 0.1 10^3/uL (0.0-0.3); EOSINOPHILS % (AUTO) 1 % (0-10); LYMPHOCYTES # (AUTO) 0.3 X 10^3 (1.0-4.0); LYMPHOCYTES % (AUTO) 2 % (12-44); MEAN CORPUSCULAR HEMOGLOBIN 28 PG (25-34); MEAN CORPUSCULAR HGB CONC 32 G/DL (32-36); MEAN CORPUSCULAR VOLUME 89 FL (80-99); MEAN PLATELET VOLUME 8.7 FL (7.4-10.4); MONOCYTES # (AUTO) 1.2 X 10^3 (0.0-1.0); MONOCYTES % (AUTO) 9 % (0-12); NEUTROPHILS # (AUTO) 11.9 X 10^3 (1.8-7.8); NEUTROPHILS % (AUTO) 88 % (42-75); PLATELET COUNT 325 10^3/uL (130-400); RED BLOOD COUNT 3.82 10^6/uL (4.35-5.85); RED CELL DISTRIBUTION WIDTH 15.5 % (10.0-14.5); WHITE BLOOD COUNT 13.5 10^3/uL (4.3-11.0)
[2016-10-28 11:39] LABS: ANION GAP 12 MMOL/L (5-14); BLOOD UREA NITROGEN 6 MG/DL (7-18); BUN/CREATININE RATIO 9; CALCIUM 9.4 MG/DL (8.5-10.1); CARBON DIOXIDE 28 MMOL/L (21-32); CHLORIDE 95 MMOL/L (98-107); GFR ESTIMATED > 60; GLUCOSE 115 MG/DL (70-105); POTASSIUM 4.7 MMOL/L (3.6-5.0); SODIUM 135 MMOL/L (135-145)
[2016-11-04 12:17] LABS: BASOPHILS % (AUTO) 0 % (0-10); EOSINOPHILS # (AUTO) 0.1 10^3/uL (0.0-0.3); EOSINOPHILS % (AUTO) 1 % (0-10); LYMPHOCYTES # (AUTO) 0.3 X 10^3 (1.0-4.0); LYMPHOCYTES % (AUTO) 3 % (12-44); MEAN CORPUSCULAR HEMOGLOBIN 28 PG (25-34); MEAN CORPUSCULAR HGB CONC 31 G/DL (32-36); MEAN CORPUSCULAR VOLUME 90 FL (80-99); MEAN PLATELET VOLUME 8.2 FL (7.4-10.4); MONOCYTES # (AUTO) 0.9 X 10^3 (0.0-1.0); MONOCYTES % (AUTO) 10 % (0-12); NEUTROPHILS % (AUTO) 85 % (42-75); PLATELET COUNT 361 10^3/uL (130-400); RED BLOOD COUNT 3.63 10^6/uL (4.35-5.85); RED CELL DISTRIBUTION WIDTH 14.6 % (10.0-14.5); WHITE BLOOD COUNT 8.3 10^3/uL (4.3-11.0)
[2016-11-04 12:33] LABS: ANION GAP 8 MMOL/L (5-14); BLOOD UREA NITROGEN 5 MG/DL (7-18); BUN/CREATININE RATIO 7; CALCIUM 8.8 MG/DL (8.5-10.1); CARBON DIOXIDE 29 MMOL/L (21-32); CHLORIDE 99 MMOL/L (98-107); CREATININE SERUM 0.74 MG/DL (0.60-1.30); GFR ESTIMATED > 60; GLUCOSE 107 MG/DL (70-105); POTASSIUM 4.7 MMOL/L (3.6-5.0); SODIUM 136 MMOL/L (135-145)
[2016-11-11 10:31] LABS: BASOPHILS # (AUTO) 0.1 10^3/uL (0.0-0.1); BASOPHILS % (AUTO) 1 % (0-10); EOSINOPHILS # (AUTO) 0.1 10^3/uL (0.0-0.3); EOSINOPHILS % (AUTO) 1 % (0-10); LYMPHOCYTES # (AUTO) 0.5 X 10^3 (1.0-4.0); LYMPHOCYTES % (AUTO) 5 % (12-44); MEAN CORPUSCULAR HEMOGLOBIN 28 PG (25-34); MEAN CORPUSCULAR HGB CONC 32 G/DL (32-36); MEAN CORPUSCULAR VOLUME 89 FL (80-99); MEAN PLATELET VOLUME 8.2 FL (7.4-10.4); MONOCYTES # (AUTO) 0.6 X 10^3 (0.0-1.0); MONOCYTES % (AUTO) 6 % (0-12); NEUTROPHILS # (AUTO) 8.3 X 10^3 (1.8-7.8); NEUTROPHILS % (AUTO) 88 % (42-75); PLATELET COUNT 321 10^3/uL (130-400); RED BLOOD COUNT 3.63 10^6/uL (4.35-5.85); RED CELL DISTRIBUTION WIDTH 15.2 % (10.0-14.5); WHITE BLOOD COUNT 9.4 10^3/uL (4.3-11.0)
[2016-11-11 10:57] LABS: ALANINE AMINOTRANSFERASE < 6 U/L (0-55); ALBUMIN 3.6 G/DL (3.2-4.5); ANION GAP 9 MMOL/L (5-14); ASPARTATE AMINO TRANSFERASE 9 U/L (5-34); BILIRUBIN,TOTAL 0.2 MG/DL (0.1-1.0); BLOOD UREA NITROGEN 8 MG/DL (7-18); BUN/CREATININE RATIO 11; CALCIUM 8.8 MG/DL (8.5-10.1); CARBON DIOXIDE 26 MMOL/L (21-32); CHLORIDE 102 MMOL/L (98-107); CREATININE SERUM 0.71 MG/DL (0.60-1.30); GFR ESTIMATED > 60; GLUCOSE 93 MG/DL (70-105); LACTATE DEHYDROGENASE 142 U/L (125-220); POTASSIUM 3.9 MMOL/L (3.6-5.0); SODIUM 137 MMOL/L (135-145); TOTAL PROTEIN 6.3 G/DL (6.4-8.2)
[2016-11-19 14:03] LABS: BASOPHILS % (AUTO) 0 % (0-10); EOSINOPHILS # (AUTO) 0.1 10^3/uL (0.0-0.3); EOSINOPHILS % (AUTO) 1 % (0-10); LYMPHOCYTES # (AUTO) 0.1 X 10^3 (1.0-4.0); LYMPHOCYTES % (AUTO) 1 % (12-44); MEAN CORPUSCULAR HEMOGLOBIN 29 PG (25-34); MEAN CORPUSCULAR HGB CONC 32 G/DL (32-36); MEAN CORPUSCULAR VOLUME 89 FL (80-99); MEAN PLATELET VOLUME 8.9 FL (7.4-10.4); MONOCYTES # (AUTO) 0.8 X 10^3 (0.0-1.0); MONOCYTES % (AUTO) 7 % (0-12); NEUTROPHILS % (AUTO) 91 % (42-75); PLATELET COUNT 264 10^3/uL (130-400); RED BLOOD COUNT 3.68 10^6/uL (4.35-5.85); RED CELL DISTRIBUTION WIDTH 15.7 % (10.0-14.5); WHITE BLOOD COUNT 12.1 10^3/uL (4.3-11.0)
[2016-11-19 14:09] LABS: BILIRUBIN,URINE NEGATIVE (NEGATIVE); KETONES,URINE NEGATIVE (NEGATIVE); LEUKOCYTE ESTERASE ,URINE 2+ (NEGATIVE); NITRITE,URINE NEGATIVE (NEGATIVE); PH,URINE 6.5 (5-9); PROTEIN,URINE NEGATIVE (NEGATIVE); UROBILINOGEN,URINE NORMAL (NORMAL)
[2016-11-19 14:25] LABS: ANION GAP 8 MMOL/L (5-14); BLOOD UREA NITROGEN 6 MG/DL (7-18); BUN/CREATININE RATIO 8; CARBON DIOXIDE 29 MMOL/L (21-32); CHLORIDE 97 MMOL/L (98-107); CREATININE SERUM 0.73 MG/DL (0.60-1.30); GFR ESTIMATED > 60; GLUCOSE 121 MG/DL (70-105); SODIUM 134 MMOL/L (135-145)
[2016-11-25 11:20] LABS: BASOPHILS % (AUTO) 1 % (0-10); EOSINOPHILS # (AUTO) 0.1 10^3/uL (0.0-0.3); EOSINOPHILS % (AUTO) 1 % (0-10); LYMPHOCYTES # (AUTO) 0.3 X 10^3 (1.0-4.0); LYMPHOCYTES % (AUTO) 4 % (12-44); MEAN CORPUSCULAR HEMOGLOBIN 28 PG (25-34); MEAN CORPUSCULAR HGB CONC 32 G/DL (32-36); MEAN CORPUSCULAR VOLUME 90 FL (80-99); MEAN PLATELET VOLUME 8.5 FL (7.4-10.4); MONOCYTES # (AUTO) 0.6 X 10^3 (0.0-1.0); MONOCYTES % (AUTO) 9 % (0-12); NEUTROPHILS % (AUTO) 86 % (42-75); PLATELET COUNT 314 10^3/uL (130-400); RED BLOOD COUNT 3.84 10^6/uL (4.35-5.85); RED CELL DISTRIBUTION WIDTH 15.4 % (10.0-14.5)
[2016-11-25 12:20] LABS: ANION GAP 10 MMOL/L (5-14); BLOOD UREA NITROGEN 6 MG/DL (7-18); BUN/CREATININE RATIO 8; CALCIUM 9.4 MG/DL (8.5-10.1); CARBON DIOXIDE 28 MMOL/L (21-32); CHLORIDE 99 MMOL/L (98-107); CREATININE SERUM 0.74 MG/DL (0.60-1.30); GFR ESTIMATED > 60; GLUCOSE 105 MG/DL (70-105); POTASSIUM 5.1 MMOL/L (3.6-5.0); SODIUM 137 MMOL/L (135-145)
[2016-12-02 09:05] LABS: BASOPHILS % (AUTO) 0 % (0-10); EOSINOPHILS # (AUTO) 0.1 10^3/uL (0.0-0.3); EOSINOPHILS % (AUTO) 1 % (0-10); LYMPHOCYTES # (AUTO) 0.3 X 10^3 (1.0-4.0); LYMPHOCYTES % (AUTO) 3 % (12-44); MEAN CORPUSCULAR HEMOGLOBIN 29 PG (25-34); MEAN CORPUSCULAR HGB CONC 32 G/DL (32-36); MEAN CORPUSCULAR VOLUME 89 FL (80-99); MEAN PLATELET VOLUME 8.6 FL (7.4-10.4); MONOCYTES # (AUTO) 0.7 X 10^3 (0.0-1.0); MONOCYTES % (AUTO) 6 % (0-12); NEUTROPHILS # (AUTO) 9.8 X 10^3 (1.8-7.8); NEUTROPHILS % (AUTO) 90 % (42-75); PLATELET COUNT 320 10^3/uL (130-400); RED BLOOD COUNT 4.19 10^6/uL (4.35-5.85); RED CELL DISTRIBUTION WIDTH 15.9 % (10.0-14.5); WHITE BLOOD COUNT 10.9 10^3/uL (4.3-11.0)
[2016-12-02 09:41] LABS: ANION GAP 8 MMOL/L (5-14); BLOOD UREA NITROGEN 8 MG/DL (7-18); BUN/CREATININE RATIO 10; CALCIUM 9.9 MG/DL (8.5-10.1); CARBON DIOXIDE 28 MMOL/L (21-32); CHLORIDE 101 MMOL/L (98-107); GFR ESTIMATED > 60; GLUCOSE 101 MG/DL (70-105); POTASSIUM 4.9 MMOL/L (3.6-5.0); SODIUM 137 MMOL/L (135-145)
[2016-12-02 10:39] LABS: BILIRUBIN,URINE NEGATIVE (NEGATIVE); KETONES,URINE NEGATIVE (NEGATIVE); LEUKOCYTE ESTERASE ,URINE 3+ (NEGATIVE); NITRITE,URINE NEGATIVE (NEGATIVE); PH,URINE 6.5 (5-9); PROTEIN,URINE 1+ (NEGATIVE); UROBILINOGEN,URINE NORMAL (NORMAL)
[2016-12-02 10:47] LABS: SQUAMOUS EPITHELIAL CELL,UR 0-2 /HPF; WBC,URINE 50-100 /HPF
[2016-12-09 10:37] LABS: BASOPHILS # (AUTO) 0.1 10^3/uL (0.0-0.1); BASOPHILS % (AUTO) 1 % (0-10); EOSINOPHILS # (AUTO) 0.1 10^3/uL (0.0-0.3); EOSINOPHILS % (AUTO) 1 % (0-10); LYMPHOCYTES # (AUTO) 0.4 X 10^3 (1.0-4.0); LYMPHOCYTES % (AUTO) 5 % (12-44); MEAN CORPUSCULAR HEMOGLOBIN 29 PG (25-34); MEAN CORPUSCULAR HGB CONC 33 G/DL (32-36); MEAN CORPUSCULAR VOLUME 89 FL (80-99); MEAN PLATELET VOLUME 8.9 FL (7.4-10.4); MONOCYTES # (AUTO) 0.7 X 10^3 (0.0-1.0); MONOCYTES % (AUTO) 8 % (0-12); NEUTROPHILS # (AUTO) 7.2 X 10^3 (1.8-7.8); NEUTROPHILS % (AUTO) 85 % (42-75); PLATELET COUNT 247 10^3/uL (130-400); RED BLOOD COUNT 3.92 10^6/uL (4.35-5.85); RED CELL DISTRIBUTION WIDTH 15.2 % (10.0-14.5); WHITE BLOOD COUNT 8.4 10^3/uL (4.3-11.0)
[2016-12-09 11:03] LABS: ALANINE AMINOTRANSFERASE 7 U/L (0-55); ALBUMIN 3.9 G/DL (3.2-4.5); ANION GAP 11 MMOL/L (5-14); ASPARTATE AMINO TRANSFERASE 11 U/L (5-34); BILIRUBIN,TOTAL 0.3 MG/DL (0.1-1.0); BLOOD UREA NITROGEN 6 MG/DL (7-18); BUN/CREATININE RATIO 8; CALCIUM 9.3 MG/DL (8.5-10.1); CARBON DIOXIDE 26 MMOL/L (21-32); CHLORIDE 98 MMOL/L (98-107); CREATININE SERUM 0.74 MG/DL (0.60-1.30); GFR ESTIMATED > 60; GLUCOSE 101 MG/DL (70-105); LACTATE DEHYDROGENASE 130 U/L (125-220); POTASSIUM 3.9 MMOL/L (3.6-5.0); SODIUM 135 MMOL/L (135-145); TOTAL PROTEIN 6.8 G/DL (6.4-8.2)
[2016-12-16 09:24] LABS: BASOPHILS % (AUTO) 0 % (0-10); EOSINOPHILS # (AUTO) 0.2 10^3/uL (0.0-0.3); EOSINOPHILS % (AUTO) 2 % (0-10); LYMPHOCYTES # (AUTO) 0.1 X 10^3 (1.0-4.0); LYMPHOCYTES % (AUTO) 1 % (12-44); MEAN CORPUSCULAR HEMOGLOBIN 29 PG (25-34); MEAN CORPUSCULAR HGB CONC 32 G/DL (32-36); MEAN CORPUSCULAR VOLUME 90 FL (80-99); MEAN PLATELET VOLUME 8.5 FL (7.4-10.4); MONOCYTES # (AUTO) 0.7 X 10^3 (0.0-1.0); MONOCYTES % (AUTO) 8 % (0-12); NEUTROPHILS # (AUTO) 8.1 X 10^3 (1.8-7.8); NEUTROPHILS % (AUTO) 89 % (42-75); PLATELET COUNT 241 10^3/uL (130-400); RED BLOOD COUNT 3.93 10^6/uL (4.35-5.85); WHITE BLOOD COUNT 9.1 10^3/uL (4.3-11.0)
[2016-12-16 10:19] LABS: ANION GAP 9 MMOL/L (5-14); BLOOD UREA NITROGEN 7 MG/DL (7-18); BUN/CREATININE RATIO 9; CALCIUM 9.4 MG/DL (8.5-10.1); CARBON DIOXIDE 30 MMOL/L (21-32); CHLORIDE 99 MMOL/L (98-107); CREATININE SERUM 0.81 MG/DL (0.60-1.30); GFR ESTIMATED > 60; GLUCOSE 101 MG/DL (70-105); POTASSIUM 4.5 MMOL/L (3.6-5.0); SODIUM 138 MMOL/L (135-145)
[2016-12-23 11:40] LABS: BASOPHILS % (AUTO) 0 % (0-10); EOSINOPHILS # (AUTO) 0.1 10^3/uL (0.0-0.3); EOSINOPHILS % (AUTO) 1 % (0-10); LYMPHOCYTES # (AUTO) 0.2 X 10^3 (1.0-4.0); LYMPHOCYTES % (AUTO) 2 % (12-44); MEAN CORPUSCULAR HEMOGLOBIN 29 PG (25-34); MEAN CORPUSCULAR HGB CONC 32 G/DL (32-36); MEAN CORPUSCULAR VOLUME 90 FL (80-99); MEAN PLATELET VOLUME 8.5 FL (7.4-10.4); MONOCYTES # (AUTO) 0.8 X 10^3 (0.0-1.0); MONOCYTES % (AUTO) 9 % (0-12); NEUTROPHILS % (AUTO) 88 % (42-75); PLATELET COUNT 241 10^3/uL (130-400); RED BLOOD COUNT 3.82 10^6/uL (4.35-5.85); RED CELL DISTRIBUTION WIDTH 15.9 % (10.0-14.5); WHITE BLOOD COUNT 9.1 10^3/uL (4.3-11.0)
[2016-12-23 12:18] LABS: ANION GAP 9 MMOL/L (5-14); BLOOD UREA NITROGEN 7 MG/DL (7-18); BUN/CREATININE RATIO 9; CALCIUM 9.2 MG/DL (8.5-10.1); CARBON DIOXIDE 28 MMOL/L (21-32); CHLORIDE 100 MMOL/L (98-107); CREATININE SERUM 0.77 MG/DL (0.60-1.30); GFR ESTIMATED > 60; GLUCOSE 116 MG/DL (70-105); POTASSIUM 4.6 MMOL/L (3.6-5.0); SODIUM 137 MMOL/L (135-145)
[2016-12-30 12:04] LABS: BASOPHILS % (AUTO) 0 % (0-10); EOSINOPHILS # (AUTO) 0.1 10^3/uL (0.0-0.3); EOSINOPHILS % (AUTO) 1 % (0-10); LYMPHOCYTES # (AUTO) 0.3 X 10^3 (1.0-4.0); LYMPHOCYTES % (AUTO) 2 % (12-44); MEAN CORPUSCULAR HEMOGLOBIN 29 PG (25-34); MEAN CORPUSCULAR HGB CONC 33 G/DL (32-36); MEAN CORPUSCULAR VOLUME 88 FL (80-99); MEAN PLATELET VOLUME 8.5 FL (7.4-10.4); MONOCYTES # (AUTO) 1.1 X 10^3 (0.0-1.0); MONOCYTES % (AUTO) 9 % (0-12); NEUTROPHILS # (AUTO) 10.8 X 10^3 (1.8-7.8); NEUTROPHILS % (AUTO) 88 % (42-75); PLATELET COUNT 324 10^3/uL (130-400); RED BLOOD COUNT 4.12 10^6/uL (4.35-5.85); RED CELL DISTRIBUTION WIDTH 15.2 % (10.0-14.5); WHITE BLOOD COUNT 12.3 10^3/uL (4.3-11.0)
[2016-12-30 12:39] LABS: ANION GAP 11 MMOL/L (5-14); BLOOD UREA NITROGEN 7 MG/DL (7-18); BUN/CREATININE RATIO 9; CALCIUM 9.1 MG/DL (8.5-10.1); CARBON DIOXIDE 27 MMOL/L (21-32); CHLORIDE 97 MMOL/L (98-107); CREATININE SERUM 0.76 MG/DL (0.60-1.30); GFR ESTIMATED > 60; GLUCOSE 133 MG/DL (70-105); POTASSIUM 4.5 MMOL/L (3.6-5.0); SODIUM 135 MMOL/L (135-145)
[~2017-01-06] VITALS: Ht 162.6 cm; Wt 58.1 kg
[~2017-01-06 10:10] MED LIST changes: +ACETAMINOPHEN 500 MG TAB (TYLENOL) CANCER CTR ONE; +ACETAMINOPHEN 500 MG TAB (TYLENOL) CANCER CTR PO PRN; +BENDAMUSTINE HCL 150 MG in NS (IVPB) CANCER CENTER 50 ML IV SCH; +CIPR500T4 PO; +FAMOTIDINE 20MG/2ML IV (CANCER CTR) IV SCH; +GENT100P4 IV; +MELA1TAB10 PO; +MEPERIDINE (DEMEROL) INJ 50 MG/ML CANCER CTR IV PRN; +MORP-34 PO; +NS (IVPB) CANCER CENTER 250 ML ONE; +NS IV 1000 ML (CANCER CTR) IV SCH; +NS IV 500 ML (CANCER CENTER) 500 ML ONE; +ONDA8TAB12 PO; +ONDANSETRON 16 MG, DEXAMETHASONE 10 MG/NS 50 ML IVPB IV SCH; +cefTRIAXone 2,000 MG/NS 50 ML IVPB (CANCER CTR) IV SCH; +diphenhydrAMINE 25 MG TAB (BENADRYL) CANCER CENTER PO ONE; +diphenhydrAMINE 25 MG TAB (BENADRYL) CANCER CENTER PO SCH; +riTUXimab 500 MG, riTUXimab FOR IV INJ CONC 100 MG in NS (IVPB) CANCER CENTER ONLY 150 ML IV SCH
== END 2017-01-12 | disposition home or self-care (01) ==
LOC: ONC 10:10
PROVIDERS: ATTEND Internal Medicine Hematology & Oncology
DX: Z51.11 Encounter for antineoplastic chemotherapy (principal); C85.13 Unspecified B-cell lymphoma, intra-abdominal lymph nodes; F17.210 Nicotine dependence, cigarettes, uncomplicated
CPT/HCPCS: 36415; 36591; 80048; 80053; 81000; 83615; 83735; 85025; 87088; 87186; 96375; 96409; 96411; 96413; 96415; 99213

== ENCOUNTER 2017-01-09 10:20 | Outpatient (RCR) | payer MEDICARE ==
[2017-01-03 10:00] VITALS: BP 165/77
[2017-01-05] MEDS: NS IV SCH (11:40)
[2017-01-05] MEDS: GENTAMICIN IV SCH (11:40)
[2017-01-05 12:48] VITALS: BP 164/71
[2017-01-07] MEDS: GENTAMICIN IV SCH (10:30)
[2017-01-07] MEDS: NS IV SCH (10:30)
[2017-01-07 10:56] LABS: ANION GAP 11 MMOL/L (5-14); BLOOD UREA NITROGEN 6 MG/DL (7-18); BUN/CREATININE RATIO 8; CALCIUM 8.1 MG/DL (8.5-10.1); CARBON DIOXIDE 33 MMOL/L (21-32); CHLORIDE 91 MMOL/L (98-107); CREATININE SERUM 0.71 MG/DL (0.60-1.30); GFR ESTIMATED > 60; GLUCOSE 108 MG/DL (70-105); POTASSIUM 3.1 MMOL/L (3.6-5.0); SODIUM 135 MMOL/L (135-145)
[2017-01-07 11:30] VITALS: BP 120/54
[~2017-01-09] VITALS: Ht 162.6 cm; Wt 57.2 kg
[~2017-01-09 10:20] MED LIST changes: -ACETAMINOPHEN 500 MG TAB (TYLENOL) CANCER CTR ONE; -ACETAMINOPHEN 500 MG TAB (TYLENOL) CANCER CTR PO PRN; -BENDAMUSTINE HCL 150 MG in NS (IVPB) CANCER CENTER 50 ML IV SCH; -FAMOTIDINE 20MG/2ML IV (CANCER CTR) IV SCH; +FLU TRIvalent (5 YOA+) 2016-17 (AFLURIA) 0.5 ML IM ONE; +GENTAMICIN IV SCH; -MEPERIDINE (DEMEROL) INJ 50 MG/ML CANCER CTR IV PRN; -NS (IVPB) CANCER CENTER 250 ML ONE; -NS IV 1000 ML (CANCER CTR) IV SCH; -NS IV 500 ML (CANCER CENTER) 500 ML ONE; +NS IV SCH; -ONDANSETRON 16 MG, DEXAMETHASONE 10 MG/NS 50 ML IVPB IV SCH; -cefTRIAXone 2,000 MG/NS 50 ML IVPB (CANCER CTR) IV SCH; -diphenhydrAMINE 25 MG TAB (BENADRYL) CANCER CENTER PO ONE; -diphenhydrAMINE 25 MG TAB (BENADRYL) CANCER CENTER PO SCH; -riTUXimab 500 MG, riTUXimab FOR IV INJ CONC 100 MG in NS (IVPB) CANCER CENTER ONLY 150 ML IV SCH
[2017-01-09] MEDS: NS IV SCH (10:40)
[2017-01-09] MEDS: GENTAMICIN IV SCH (10:40)
[2017-01-09 11:49] VITALS: BP 125/61
== END 2017-01-09 12:25 | disposition home or self-care (01) ==
LOC: SDC 10:20
PROVIDERS: ATTEND Family Medicine
DX: N39.0 Urinary tract infection, site not specified (principal)
CPT/HCPCS: 36415; 36591; 80048; 96365

== ENCOUNTER → 2017-02-04 | Outpatient (CLI) | payer MEDICARE, OTHER ==
[~2017-02-04] MED LIST changes: +BARIUM SUSPENSION 2.1% (VANILLA SILQ) 450 ML PO ONE; +CATHETER FLUSH 10 ML SYR IV PRN; +CEFU500T63 PO; +DOCU-143 PO; -FLU TRIvalent (5 YOA+) 2016-17 (AFLURIA) 0.5 ML IM ONE; -GENTAMICIN IV SCH; +IOHEXOL 350 MG/ML 100 ML (OMNIPAQUE 350) VIAL IV ONE; +NS 100 ML (IVPB) BAG IV ONE; -NS IV SCH; +ONDA8TAB13 PO
--- NOTE | 2017-02-04 13:07 | Diagnostic Imaging Report ---
PROCEDURE: CT abdomen and pelvis with contrast. TECHNIQUE: Multiple contiguous axial images were obtained through the abdomen and pelvis after administration of intravenous contrast. INDICATION: UTI. Fecal material is seen in the urine. History of lymphoma. CONTRAST: 100 mL of Omnipaque 350 was administered intravenously. FINDINGS: The lung bases appear clear. The liver, spleen, pancreas, and adrenal glands appear unremarkable. The gallbladder demonstrates multiple stones with no CT evidence of cholecystitis. The kidneys have symmetric contrast enhancement and excretion. The abdominal aorta is normal in caliber. There are left periaortic poorly defined enlarged lymph nodes and soft tissue thickening which appear slightly less prominent and associated with less enhancement compared to 12/02/2016. There is air seen in the urinary bladder, concerning for a colovesical fistula. There is also a collection along the superior left side aspect of the urinary bladder measuring 5.9 x 5 x 3.7 cm with contents suggestive of fecal material. This is located between the sigmoid colon and the urinary bladder. The sigmoid has thickening of its wall, probably the sequela of diverticulitis. There is minimal stranding and minimal inflammatory change otherwise. No significant free fluid in the pelvis is seen. The osseous structures demonstrate internal fixation of an old right femoral neck fracture with intact appearing hardware. 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 Degenerative changes in the lumbar spine are also noted. 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 Along the site of the fistula between the bladder and the sigmoid colon, there is a large cavity containing mostly fecal material this is probably a dilated contained cavity within the fistula tract itself, with no significant air/fluid level to suggest an abscess. The findings were discussed with Dr. Mcmahan by Dr. Londono at the time of dictation. Dictated by: Dictated on workstation # [id number]
== END ==
LOC: RAD 09:52
PROVIDERS: ATTEND Urology
DX: N32.1 Vesicointestinal fistula (principal); Z87.440 Personal history of urinary (tract) infections; Z85.72 Personal history of non-Hodgkin lymphomas
CPT/HCPCS: 74177

== ENCOUNTER 2017-02-06 08:59 | Outpatient (CLI) | payer MEDICARE ==
[~2017-02-06] VITALS: Ht 162.6 cm; Wt 53.3 kg
[~2017-02-06 08:59] MED LIST changes: -BARIUM SUSPENSION 2.1% (VANILLA SILQ) 450 ML PO ONE; -CATHETER FLUSH 10 ML SYR IV PRN; -CEFU500T63 PO; -DOCU-143 PO; -IOHEXOL 350 MG/ML 100 ML (OMNIPAQUE 350) VIAL IV ONE; -NS 100 ML (IVPB) BAG IV ONE; -ONDA8TAB13 PO
[2017-02-06] MEDS ORDERED: CELE200C PO (09:32)
[2017-02-06] MEDS ORDERED: CEFU500T63 PO (09:32)
[2017-02-06 09:41] VITALS: BP 119/59
== END 2017-02-06 10:37 ==
LOC: PREOP 08:59
PROVIDERS: ATTEND Surgery
DX: Z01.818 Encounter for other preprocedural examination (principal); K63.2 Fistula of intestine
CPT/HCPCS: 87081

== ENCOUNTER 2017-02-09 08:34 | Inpatient (IN) | payer MEDICARE ==
[~2017-02-09] VITALS: Ht 162.6 cm; Wt 69.0 kg
[2017-02-09] VITALS (11 sets, daily range): BP systolic 95–131; BP diastolic 53–71
[~2017-02-09 08:34] MED LIST changes: +CEFU500T63 PO
[2017-02-09] MEDS ORDERED: BUPIVACAINE 0.5% 30 ML (SENSORCAINE) VIAL ONE (09:23)
[2017-02-09] MEDS ORDERED: LIDOCAINE 1% INJ 20 ML (XYLOCAINE) VIAL ONE (09:24)
[2017-02-09] MEDS ORDERED: metroNIDAZOLE 500 MG/100 ML IVPB (PRE-MIX) IV ONE (09:30)
[2017-02-09] MEDS ORDERED: CLINDAMYCIN 600 MG/50 ML IVPB 50 ML IV ONE (09:40)
[2017-02-09] MEDS ORDERED: CLINDAMYCIN 600 MG/NS 50 ML IVPB IV ONE ×2 (09:45)
[2017-02-09] MEDS ORDERED: SCOPOLAMINE 1.5 MG (TRANSDERM-SCOP) PATCH ONE (09:49)
[2017-02-09] MEDS ORDERED: FAMOTIDINE 20MG/2ML IV (PEPCID) ONE (09:50)
[2017-02-09] MEDS ORDERED: ONDANSETRON 4 MG/2 ML (SDV) Z0FRAN ONE ×2 (09:50→09:56)
[2017-02-09] MEDS ORDERED: LIDOCAINE JELLY 2% (XYLOCAINE) 5 ML TUBE ONE (09:56)
[2017-02-09] MEDS ORDERED: fentaNYL INJECTION 100 MCG/2 ML AMP ONE (09:56)
[2017-02-09] MEDS ORDERED: LACTATED RINGERS 1,000 ML IV ONE ×3 (09:56→12:43)
[2017-02-09] MEDS ORDERED: ROCURONIUM 50 MG/5 ML (ZEMURON) VIAL IV ONE (09:56)
[2017-02-09] MEDS ORDERED: LIDOCAINE PF 2% 10 ML (XYLOCAINE) AMP ONE (09:56)
[2017-02-09] MEDS ORDERED: MIDAZOLAM 2 MG/2 ML (VERSED) VIAL ONE (09:56)
[2017-02-09] MEDS ORDERED: proPOfol 200 MG/20 ML (DIPRIVAN) VIAL IV ONE (09:56)
[2017-02-09] MEDS: LACTATED RINGERS 1,000 ML IV PRN ×2 (09:58→11:00)
[2017-02-09] MEDS ORDERED: METHYLENE BLUE 1% INJ 1 ML AMP ONE (11:33)
[2017-02-09] MEDS ORDERED: ISOFLURANE (FORANE) 15 ML/15 MIN INHALATION ONE ×3 (12:43→13:14)
[2017-02-09] MEDS ORDERED: PHENYLEPHRINE 100 MCG/ML 10 ML (ANESTHESIA) SYR ONE (12:43)
[2017-02-09] MEDS ORDERED: MEPERIDINE (DEMEROL) INJ 50 MG/ML IVP PRN (13:15)
[2017-02-09] MEDS ORDERED: ONDANSETRON 4 MG/2 ML (SDV) Z0FRAN IVP PRN (13:15)
[2017-02-09] MEDS: morphine INJ 10 MG/ML 1ML (SYR OR VIAL) IVP PRN ×3 (13:27→13:44)
--- NOTE | 2017-02-09 14:57 | Progress Note-Post Operative ---
Post-Operative Progess Note Surgeon (s)/Writing Center Director (s) Surgeon ENRIQUE ROCHA DO Writing Center Director: Dr. Cabrera Pre-Operative Diagnosis colovesicle fistula Post-Operative Diagnosis same Post-Op Procedure Note Date of Procedure: February 09, 2017 Name of Procedure Performed: exploratory laparotomy, sigmoid colon resection and end to end anastamosis Description of the Procedure: as above Findings of the Procedure inflamed sigmoid colon, intact bladder see operative note for further information Anesthesia Type general Estimated blood loss (mL): 200mL Specimen(s) collected/removed sigmoid colon ENRIQUE ROCHA DO February 09, 2017 14:57
[2017-02-09] MEDS ORDERED: CATHETER FLUSH 10 ML SYR IV PRN (15:45)
[2017-02-09] MEDS: metroNIDAZOLE 500MG/100ML IVPB 100 ML IV SCH ×2 (16:06→21:55)
[2017-02-09] MEDS: LACTATED RINGERS 1,000 ML IV SCH ×2 (16:06→22:30)
[2017-02-09] MEDS ORDERED: ONDA8TAB13 PO (16:54)
[2017-02-09] MEDS: NICOTINE 14 MG (NICODERM) PATCH TD SCH (19:46)
[2017-02-09] MEDS: EPIDURAL (SUFENTA 0.6MCG/ML BUPIVA 0.125%) 100 ML BAG IV PRN (20:06)
[2017-02-09] MEDS: CIPROFLOXACIN IV 400MG/200ML 200 ML IV SCH (20:34)
[2017-02-09] MEDS ORDERED: KETOROLAC 30 MG/ML VIAL IV ONE (23:45)
[2017-02-10] VITALS (25 sets, daily range): BP systolic 95–167; BP diastolic 46–84
[2017-02-10] MEDS: EPIDURAL (SUFENTA 0.6MCG/ML BUPIVA 0.125%) 100 ML BAG IV PRN ×2 (02:45→08:35)
[2017-02-10] MEDS ORDERED: NS IV 1000 ML 1,000 ML IV ONE ×2 (03:15→06:45)
[2017-02-10 04:49] LABS: BASOPHILS % (AUTO) 0 % (0-10); EOSINOPHILS % (AUTO) 1 % (0-10); LYMPHOCYTES # (AUTO) 0.3 X 10^3 (1.0-4.0); LYMPHOCYTES % (AUTO) 3 % (12-44); MEAN CORPUSCULAR HEMOGLOBIN 29 PG (25-34); MEAN CORPUSCULAR HGB CONC 33 G/DL (32-36); MEAN CORPUSCULAR VOLUME 90 FL (80-99); MEAN PLATELET VOLUME 8.5 FL (7.4-10.4); MONOCYTES # (AUTO) 0.8 X 10^3 (0.0-1.0); MONOCYTES % (AUTO) 10 % (0-12); NEUTROPHILS % (AUTO) 86 % (42-75); PLATELET COUNT 253 10^3/uL (130-400); RED BLOOD COUNT 2.96 10^6/uL (4.35-5.85); RED CELL DISTRIBUTION WIDTH 15.7 % (10.0-14.5); WHITE BLOOD COUNT 8.1 10^3/uL (4.3-11.0)
[2017-02-10] MEDS: metroNIDAZOLE 500MG/100ML IVPB 100 ML IV SCH ×3 (05:09→21:15)
[2017-02-10] MEDS: LACTATED RINGERS 1,000 ML IV SCH ×3 (05:09→18:55)
[2017-02-10 05:10] LABS: BAND NEUTROPHILS 2 %; EOSINOPHILS % (MANUAL) 1 %; NEUTROPHILS % (MANUAL) 95 %
[2017-02-10 05:11] LABS: ALBUMIN 2.6 G/DL (3.2-4.5); ANION GAP 10 MMOL/L (5-14); BLOOD UREA NITROGEN 7 MG/DL (7-18); BUN/CREATININE RATIO 10; CALCIUM 7.8 MG/DL (8.5-10.1); CARBON DIOXIDE 24 MMOL/L (21-32); CHLORIDE 100 MMOL/L (98-107); CREATININE SERUM 0.71 MG/DL (0.60-1.30); GFR ESTIMATED > 60; GLUCOSE 83 MG/DL (70-105); MAGNESIUM 1.4 MG/DL (1.8-2.4); PHOSPHORUS 4.3 MG/DL (2.3-4.7); POTASSIUM 3.6 MMOL/L (3.6-5.0); SODIUM 134 MMOL/L (135-145)
[2017-02-10] MEDS: MAGNESIUM 1 GM/100 ML IVPB 100 ML IV SCH ×2 (06:39→07:45)
[2017-02-10] MEDS: POTASSIUM CL 10MEQ/50ML IVPB 50 ML IV SCH ×2 (06:39→07:45)
[2017-02-10] MEDS: KCL 20 MEQ TAB (K-DUR) PO SCH ×2 (06:39→06:45)
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
[2017-02-10] MEDS: morphine INJ 4 MG/ML 1 ML (VIAL/SYRINGE) IVP PRN ×3 (07:03→11:16)
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
--- NOTE | 2017-02-10 08:48 | Diagnostic Imaging Report ---
EXAMINATION: Portable upright radiograph of the chest. INDICATION: Dyspnea. Colovesical fistula. FINDINGS: The lungs are clear. The heart size is normal. No effusion or pneumothorax. The mediastinum and gill appear unremarkable. A right internal jugular infusion port is seen with the tip at the SVC level. IMPRESSION: No acute process. Dictated by: Dictated on workstation # [id number]
[2017-02-10] MEDS: CIPROFLOXACIN IV 400MG/200ML 200 ML IV SCH ×2 (08:52→21:15)
[2017-02-10] MEDS: NICOTINE 14 MG (NICODERM) PATCH TD SCH (08:52)
[2017-02-10] MEDS: FAMOTIDINE 20MG/2ML IV (PEPCID) IVP SCH (08:53)
--- NOTE | 2017-02-10 09:40 | Progress Note ---
Subjective Subjective/Events-last exam Patient is easily aroused. Even respirations. No distress noted at this time. Alert and oriented x 3. NO flatus or bowel movement. Serous fluid to RICHARD drain. Objective Exam Vital Signs Date Time Temp Pulse Resp B/P (MAP) Pulse Ox O2 Delivery O2 Flow Rate FiO2 02/10/17 08:56 99.8 73 19 154/71 98 Room Air 02/10/17 08:00 79 21 167/84 98 Room Air 02/10/17 07:00 84 12 146/66 97 Room Air 02/10/17 07:00 79 02/10/17 06:18 99.7 02/10/17 06:00 56 17 124/62 94 Room Air 02/10/17 05:00 86 19 144/62 96 Room Air 02/10/17 04:06 99.6 02/10/17 04:00 93 18 130/54 93 Room Air 02/10/17 03:00 84 11 124/55 97 Room Air 02/10/17 02:30 98.1 02/10/17 02:00 83 15 110/46 94 Room Air 02/10/17 01:00 90 15 108/51 93 Room Air 02/10/17 01:00 90 02/10/17 00:48 100.2 02/10/17 00:47 100.3 02/10/17 00:00 96.8 83 20 124/58 96 Room Air 02/09/17 23:55 101.5 02/09/17 23:00 60 19 112/71 95 Room Air 02/09/17 22:57 101.1 02/09/17 22:00 103 15 95/70 95 Room Air 02/09/17 22:00 100.5 02/09/17 21:00 100 21 126/63 94 Room Air 02/09/17 20:00 87 16 124/59 94 Room Air 02/09/17 19:00 87 02/09/17 19:00 87 15 131/59 96 Room Air 02/09/17 18:00 84 14 120/62 96 Room Air 02/09/17 17:00 80 14 111/58 91 Room Air 02/09/17 16:00 77 8 107/61 95 Nasal Cannula 2.00 02/09/17 16:00 97 02/09/17 16:00 96.8 02/09/17 15:00 71 14 123/62 99 Nasal Cannula 2.00 02/09/17 14:13 66 02/09/17 14:10 96.6 70 14 118/62 92 Nasal Cannula 2.00 02/09/17 10:07 98.7 83 16 114/53 97 Room Air I & O 02/10/17 07:00 Intake Total 4104 ml Output Total 1025 ml Balance 3079 ml Capillary Refill : Less Than 3 Seconds General Appearance: No Apparent Distress, WD/WN HEENT: PERRL/EOMI Neck: Full Range of Motion, Non Tender, Supple Respiratory: Chest Non Tender, Lungs Clear, Normal Breath Sounds, No Accessory Muscle Use, No Respiratory Distress Cardiovascular: Regular Rate, Rhythm Gastrointestinal: soft, tenderness (around the incision sites. ) Extremity: Normal Capillary Refill, Normal Range of Motion, Non Tender Neurologic/Psychiatric: Alert, Oriented x3, No Motor/Sensory Deficits, Normal Mood/Affect Skin: Warm/Dry, Other (midline incision and RICHARD drain LLQ- minimal drainage at this time. ) Results Lab Laboratory Tests Test 02/09/17 09:08 02/10/17 04:36 Range/Units Hemoglobin 11.0 L 8.7 #L 11.5-16.0 G/DL Hematocrit 34 L 27 L 35-52 % Platelet Count 345 253 130-400 10^3/uL White Blood Count 8.1 4.3-11.0 10^3/uL Red Blood Count 2.96 L 4.35-5.85 10^6/uL Mean Corpuscular Volume 90 80-99 FL Mean Corpuscular Hemoglobin 29 25-34 PG Mean Corpuscular Hemoglobin Concent 33 32-36 G/DL Red Cell Distribution Width 15.7 H 10.0-14.5 % Mean Platelet Volume 8.5 7.4-10.4 FL Neutrophils (%) (Auto) 86 H 42-75 % Lymphocytes (%) (Auto) 3 L 12-44 % Monocytes (%) (Auto) 10 0-12 % Eosinophils (%) (Auto) 1 0-10 % Basophils (%) (Auto) 0 0-10 % Neutrophils # (Auto) 7.0 1.8-7.8 X 10^3 Lymphocytes # (Auto) 0.3 L 1.0-4.0 X 10^3 Monocytes # (Auto) 0.8 0.0-1.0 X 10^3 Eosinophils # (Auto) 0.0 0.0-0.3 10^3/uL Basophils # (Auto) 0.0 0.0-0.1 10^3/uL Neutrophils % (Manual) 95 % Monocytes % (Manual) 2 % Eosinophils % (Manual) 1 % Band Neutrophils 2 % Blood Morphology Comment NORMAL Sodium Level 134 L 135-145 MMOL/L Potassium Level 3.6 3.6-5.0 MMOL/L Chloride Level 100 98-107 MMOL/L Carbon Dioxide Level 24 21-32 MMOL/L Anion Gap 10 5-14 MMOL/L Blood Urea Nitrogen 7 7-18 MG/DL Creatinine 0.71 0.60-1.30 MG/DL Estimat Glomerular Filtration Rate > 60 BUN/Creatinine Ratio 10 Glucose Level 83 70-105 MG/DL Lactic Acid Level 0.57 0.50-2.00 MMOL/L Calcium Level 7.8 L 8.5-10.1 MG/DL Phosphorus Level 4.3 2.3-4.7 MG/DL Magnesium Level 1.4 L 1.8-2.4 MG/DL Albumin 2.6 L 3.2-4.5 G/DL Laboratory Tests 02/10/17 04:36: White Blood Count 8.1, Red Blood Count 2.96L, Hemoglobin 8.7#L, Hematocrit 27L, Mean Corpuscular Volume 90, Mean Corpuscular Hemoglobin 29, Mean Corpuscular Hemoglobin Concent 33, Red Cell Distribution Width 15.7H, Platelet Count 253, Mean Platelet Volume 8.5, Neutrophils (%) (Auto) 86H, Lymphocytes (%) (Auto) 3L , Monocytes (%) (Auto) 10, Eosinophils (%) (Auto) 1, Basophils (%) (Auto) 0, Neutrophils # (Auto) 7.0, Lymphocytes # (Auto) 0.3L, Monocytes # (Auto) 0.8, Eosinophils # (Auto) 0.0, Basophils # (Auto) 0.0, Neutrophils % (Manual) 95, Monocytes % (Manual) 2, Eosinophils % (Manual) 1, Band Neutrophils 2, Blood Morphology Comment NORMAL, Sodium Level 134L, Potassium Level 3.6, Chloride Level 100, Carbon Dioxide Level 24, Anion Gap 10, Blood Urea Nitrogen 7, Creatinine 0.71, Estimat Glomerular Filtration Rate > 60, BUN/Creatinine Ratio 10, Glucose Level 83, Lactic Acid Level 0.57, Calcium Level 7.8L, Phosphorus Level 4.3, Magnesium Level 1.4L, Albumin 2.6L Assessment/Plan Assessment/Plan Assessment/Plan S/P exploratory laparotomy, sigmoid colon resection and end to end anastomosis Anemia-postoperative We will continue to monitor labs, vital signs and I&O. Instructed to continue with IS 10X per hr SCD- DVT prophylaxis PT Evaluation. Pain control Chanel- Patient pain controlled. Some fever last night, no now. Urine output picking up. RICHARD serosang. Passed a little flatus. Using incentive spirometry. general no acute distress heart reg lungs nonlabored abdomen incisional tenderness incision c/d/i no erythema richard drain serosang ext nontender assessment as above pain control incentive spirometry continue cipro flagyl due to fistula/abscess leave chau in due to procedure will need cystogram in approximately 6 days. leave in ICU tonight if stable to floor tomorrow. start sips of clears. Clinical Quality Measures DVT/VTE Risk/Contraindication: Risk Factor Score Per Nursin RFS Level Per Nursing on Admit: 4+=Very High JUNE MCCLAIN APRN February 10, 2017 09:40 ENRIQUE ROCHA DO February 10, 2017 14:04
--- NOTE | 2017-02-10 11:07 | OPERATIVE REPORT ---
DATE OF SERVICE: 02/09/2017 PREOPERATIVE DIAGNOSIS: Colovesical fistula. POSTOPERATIVE DIAGNOSIS: Colovesical fistula. PROCEDURES: Exploratory laparotomy, sigmoid colon resection and end to end anastomosis. SURGEON: Reece Buchanan DO [employer] OPERATOR: Balaji Cabrera DO, who assisted in retraction, dissection and closure. ANESTHESIA: General. ESTIMATED BLOOD LOSS: 200 mL. COMPLICATIONS: None. INDICATIONS: The patient is a 71-year-old female with B-cell lymphoma. 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 She has also been urinating fecal material. She had a CAT scan demonstrating suspected colovesical fistula and also significant inflammation of the sigmoid colon. On CT scan, she has had thickening of the sigmoid colon as well. She has had persistent pain that continues to be ongoing. Risks and benefits of the procedure were discussed with the patient and she wished to proceed. She had undergone a prep prior to surgery. The patient has consent signed and on the chart. PROCEDURE IN DETAIL: The patient was taken to the operating suite. She was prepped and draped in sterile fashion. A surgical pause was performed. A midline incision was made and the abdomen was entered. There appears to be a urachal remnant, which was dissected off the abdominal wall and LigaSure was used to ligate it. The sigmoid colon was located with significant inflammation with adherence to the bladder and to the uterus. Significant adhesions in the pelvis around the sigmoid colon. Also feels thickened and hard from chronic changes. The descending colon near the proximal sigmoid colon had normal appearance, soft. This was dissected around and a JARED 75 stapler was then fired across. LigaSure was then used to divide the mesentery from the colon until further dissection could not be performed. The colon was continued mobilized along the white line of Toldt, moving from the easiest way to the adherent areas of the colon. The colon had to be finger fractured away from the uterus, a small amount of oozing was present around the uterus, which cautery was used to achieve hemostasis. The distal portion of the sigmoid colon was still adherent, but the rectum was able to be dissected around. Once this was dissected around, a contour stapler was fired, the distal end of the dissection. This was also carried proximally with dissection along with finger fracturing of the sigmoid colon away further from the uterus and adherent tissue. The LigaSure was then used to continue to divide the mesentery. The sigmoid colon was from the mesentery and then had adherence still to the bladder region. This was able to be dissected down and the fistula on the colon was able to be visualized, which seemed to erupt into an empty cavity. This, once removed, caused the specimen to be able to be removed. The bladder was insufflated with irrigation with methylene blue in it. There were no bladder contents leaking. The methylene blue was not able to be visualized. This was then drained. The abdomen and pelvis were irrigated with copious amounts of irrigation. A second time, the bladder was inflated with the irrigation and methylene blue and again, no leaking of bladder contents was visualized. At this time, the descending colon was mobilized along the white line of Toldt to get length. A pursestring stapler was fired at the distal portion of the descending colon, which a 29 anvil was then placed within the colon and then secured. The end anastomosis was then created without tension. Some 3-0 silk sutures were placed at the anastomosis for reinforcement. Two good donuts were produced on the staple lines. The abdomen was then irrigated with copious amounts of irrigation. We did a leak test, which no air bubbles were present on the anastomosis. A 19 catie drain was placed into the cavity of rupture that I feel was created from a diverticular perforation and where the fistula was present. The drain was secured in the left lower quadrant, which was placed through a stab incision. The abdomen again was irrigated with copious amounts of irrigation. Hemostasis had been achieved. The midline incision was then closed with 1-0 looped PDS in a running fashion. The wound was then irrigated with copious amounts of irrigation. The skin was then closed with atif. The patient's Garcia to be left in until cystogram in approximately 1 week. She will also remain on antibiotics until removed. The patient will go to the intensive care unit. The patient tolerated the procedure well without any complications. She was taken to the recovery room in stable condition. Job ID: [id number] DocumentID: [id number] Dictated Date: 02/10/2017 07:58:39 Academic Assistant Date: 02/10/2017 11:07:12 Dictated By: DO SUSANA DAMIAN
--- NOTE | 2017-02-10 12:03 | Anesthesia-General Post-Op ---
General Patient Condition Mental Status/LOC: Same as Preop Cardiovascular: Satisfactory Nausea/Vomiting: Absent Respiratory: Satisfactory Pain: Controlled Complications: Absent Post Op Complications Complications None Follow Up Care/Instructions Patient Instructions None needed. Anesthesia/Patient Condition Patient Condition Patient is doing well, no complaints, stable vital signs, no apparent adverse anesthesia problems. No complications reported per nursing. ALESHA TURNER CRNA February 10, 2017 12:03
[2017-02-10] MEDS ORDERED: morphine PCA 30 MG/30 ML VIAL IV ONE (12:07)
--- NOTE | 2017-02-10 12:07 | Anesthesia Pain Mgmt-Epidural ---
Anesthesia-Pain Mgmnt Epidural Pre-Procedure Chart Review and Risk/Benefits/Options Discussed Progress Note Patient reports poorly controlled pain. No level obtained on right side, L-1 level on left side. Epidural catheter had been at 11cm, when looking at site, epidural at 8cm. Bolused with 8ml of epidural drip. Will reassess in 15 mins. If no improvement, will replace epidural. In addition, patient has long standing narcotic use (60mg Morphine and 30mg hydrocodone per day). Surgeon to start morphine PIT FURNACE OPERATOR to deal with narcotic withdrawl. ALESHA TURNER CRNA February 10, 2017 12:07
[2017-02-10] MEDS ORDERED: LIDOCAINE PF 2% 10 ML (XYLOCAINE) AMP ONE (12:35)
--- NOTE | 2017-02-10 13:09 | Anesthesia Pain Mgmt-Epidural ---
Anesthesia-Pain Mgmnt Epidural Pre-Procedure Indication: Req Pain Mgmt by Surgeon Surgeon: Chanel Chart Review and Risk/Benefits/Options Discussed Procedure Epidural : Level: L2-L3 Epidural: Continuous, Post-Op Pain Relief Conditon: Good pain control Date of Service: February 10, 2017 Time of Service: 12:30 Progress Note No relief with previous bolus. Patient agreeable to have epidural replaced. Placed in a sitting position. Previously placed epidural removed with tip intact. Back prepped with betadine X 3, L2-L3 interspace localized with 3ml lidocaine. #18G Tuohy needle inserted and loss of resistance @ 6cm with NS. Threaded catheter, with positive blood return. Needle and catheter removed. Second attempt, epidural space found with air @ 6cm, catheter threaded with ease to 12 cm. No paresthesia, no heme, no CSF. Negative test dose 5ml 1.5% lidocaine with epi. Epidural bolused with 5ml 2% PF lidocaine. Patient reports good pain control. Will continue to follow. ALESHA TURNER CRNA February 10, 2017 13:09
[2017-02-10] MEDS ORDERED: PHENYLEPHRINE 100 MCG/ML 10 ML (ANESTHESIA) SYR ONE (13:14)
[2017-02-10] MEDS ORDERED: ONDANSETRON 4 MG/2 ML (SDV) Z0FRAN IVP PRN (13:30)
[2017-02-10] MEDS: morphine PCA 30 MG/30 ML VIAL IV PRN (13:32)
[2017-02-10] MEDS ORDERED: LIDOCAINE PF 2% 10 ML (XYLOCAINE) AMP INJ ONE (13:45)
[2017-02-10] MEDS ORDERED: NALOXONE 0.4 MG/ML 1 ML (NARCAN) VIAL IV PRN (13:45)
[2017-02-10 15:17] LABS: BASOPHILS % (AUTO) 0 % (0-10); EOSINOPHILS % (AUTO) 1 % (0-10); LYMPHOCYTES # (AUTO) 0.2 X 10^3 (1.0-4.0); LYMPHOCYTES % (AUTO) 3 % (12-44); MEAN CORPUSCULAR HEMOGLOBIN 29 PG (25-34); MEAN CORPUSCULAR HGB CONC 32 G/DL (32-36); MEAN CORPUSCULAR VOLUME 91 FL (80-99); MEAN PLATELET VOLUME 8.9 FL (7.4-10.4); MONOCYTES # (AUTO) 0.8 X 10^3 (0.0-1.0); MONOCYTES % (AUTO) 9 % (0-12); NEUTROPHILS # (AUTO) 7.5 X 10^3 (1.8-7.8); NEUTROPHILS % (AUTO) 88 % (42-75); PLATELET COUNT 252 10^3/uL (130-400); RED CELL DISTRIBUTION WIDTH 15.5 % (10.0-14.5); WHITE BLOOD COUNT 8.5 10^3/uL (4.3-11.0)
[2017-02-10] MEDS ORDERED: NS IV 500 ML 500 ML IV ONE (18:30)
[2017-02-10] MEDS: EPIDURAL (SUFENTA 0.6MCG/ML BUPIVA 0.125%) 100 ML BAG EPI SCH (19:09)
[2017-02-11] VITALS (23 sets, daily range): BP systolic 108–143; BP diastolic 40–103
[2017-02-11] MEDS: EPIDURAL (SUFENTA 0.6MCG/ML BUPIVA 0.125%) 100 ML BAG EPI SCH ×4 (01:13→20:46)
[2017-02-11] MEDS: metroNIDAZOLE 500MG/100ML IVPB 100 ML IV SCH ×3 (05:09→20:46)
[2017-02-11 05:10] LABS: BASOPHILS % (AUTO) 0 % (0-10); EOSINOPHILS # (AUTO) 0.1 10^3/uL (0.0-0.3); EOSINOPHILS % (AUTO) 2 % (0-10); LYMPHOCYTES # (AUTO) 0.2 X 10^3 (1.0-4.0); LYMPHOCYTES % (AUTO) 3 % (12-44); MEAN CORPUSCULAR HEMOGLOBIN 29 PG (25-34); MEAN CORPUSCULAR HGB CONC 33 G/DL (32-36); MEAN CORPUSCULAR VOLUME 90 FL (80-99); MEAN PLATELET VOLUME 8.3 FL (7.4-10.4); MONOCYTES # (AUTO) 0.9 X 10^3 (0.0-1.0); MONOCYTES % (AUTO) 13 % (0-12); NEUTROPHILS # (AUTO) 5.7 X 10^3 (1.8-7.8); NEUTROPHILS % (AUTO) 82 % (42-75); PLATELET COUNT 261 10^3/uL (130-400); RED BLOOD COUNT 2.64 10^6/uL (4.35-5.85); RED CELL DISTRIBUTION WIDTH 15.7 % (10.0-14.5)
[2017-02-11 05:27] LABS: ANION GAP 7 MMOL/L (5-14); BLOOD UREA NITROGEN 5 MG/DL (7-18); BUN/CREATININE RATIO 7; CALCIUM 7.8 MG/DL (8.5-10.1); CARBON DIOXIDE 24 MMOL/L (21-32); CHLORIDE 103 MMOL/L (98-107); CREATININE SERUM 0.71 MG/DL (0.60-1.30); GFR ESTIMATED > 60; GLUCOSE 91 MG/DL (70-105); MAGNESIUM 1.7 MG/DL (1.8-2.4); PHOSPHORUS 3.5 MG/DL (2.3-4.7); SODIUM 134 MMOL/L (135-145)
[2017-02-11] MEDS: KCL 20 MEQ TAB (K-DUR) PO SCH (05:37)
[2017-02-11] MEDS: LACTATED RINGERS 1,000 ML IV SCH ×4 (06:20→22:12)
--- NOTE | 2017-02-11 07:08 | Pulmonary Progress Note ---
Subjective Subjective/Events-last exam No complications noted. Pt is doing much better. Exam Exam Vital Signs Date Time Temp Pulse Resp B/P (MAP) Pulse Ox O2 Delivery O2 Flow Rate FiO2 02/11/17 06:00 94 12 140/59 Room Air 02/11/17 05:00 89 17 143/67 Room Air 02/11/17 04:00 99.0 02/11/17 04:00 94 17 114/53 Room Air 02/11/17 03:00 93 8 126/57 Room Air 02/11/17 02:00 89 11 117/44 Room Air 02/11/17 01:00 89 18 116/57 Room Air 02/11/17 01:00 89 02/11/17 00:00 96 18 113/57 Room Air 02/11/17 00:00 98.6 02/10/17 23:00 88 17 98/46 Room Air 02/10/17 22:00 95 8 119/53 Room Air 02/10/17 21:00 90 21 132/61 Room Air 02/10/17 20:00 100.1 02/10/17 20:00 89 20 140/62 Room Air 02/10/17 19:00 77 02/10/17 19:00 77 13 153/62 Room Air 02/10/17 18:00 89 22 132/56 Room Air 02/10/17 17:00 85 12 125/55 Room Air 02/10/17 16:00 88 20 123/58 Room Air 02/10/17 15:00 86 17 116/53 Room Air 02/10/17 14:00 89 15 115/51 Room Air 02/10/17 13:32 17 02/10/17 13:00 77 02/10/17 13:00 71 29 104/49 95 Room Air 02/10/17 12:00 76 18 95/47 96 Room Air 02/10/17 11:19 99.0 72 22 149/61 96 Room Air 02/10/17 11:00 73 19 162/73 98 Room Air 02/10/17 10:00 83 11 156/71 97 Room Air 02/10/17 08:56 99.8 73 19 154/71 98 Room Air 02/10/17 08:00 79 21 167/84 98 Room Air I & O 02/11/17 07:00 Intake Total 2490 ml Output Total 1330 ml Balance 1160 ml General Appearance: No Apparent Distress, WD/WN HEENT: PERRL/EOMI Neck: Full Range of Motion, Non Tender, Supple Respiratory: Chest Non Tender, Lungs Clear, Normal Breath Sounds, No Accessory Muscle Use, No Respiratory Distress Cardiovascular: Regular Rate, Rhythm Capillary Refill: Less Than 3 Seconds Gastrointestinal: soft, tenderness (around the incision sites. ) Extremity: Normal Capillary Refill, Normal Range of Motion, Non Tender Neurologic/Psychiatric: Alert, Oriented x3, No Motor/Sensory Deficits, Normal Mood/Affect Skin: Warm/Dry, Other (midline incision and SIERRA drain LLQ- minimal drainage at this time. ) Results Lab Laboratory Tests 02/09/17 09:08 02/10/17 04:36 02/10/17 14:25 02/11/17 05:00 Assessment/Plan Assessment/Plan S/P ex lap sig colon resection exploratory laparotomy, sigmoid colon resection and end to end anastomosis -pain control -monitoring Electrolyte replacement Anemia -monitor When ok with Dr. Buchanan patient can be transferred to floor. with endtidal C02 monitor if still on BLOCKER METAL BASE. Clinical Quality Measures DVT/VTE Risk/Contraindication: Risk Factor Score Per Nursin RFS Level Per Nursing on Admit: 4+=Very High GABRIELLE SANCHES DO February 11, 2017 07:08
--- NOTE | 2017-02-11 08:37 | Progress Note ---
Subjective Subjective/Events-last exam Patient resting in bed. Even respirations. No distress or sign of discomfort. Objective Exam Vital Signs Date Time Temp Pulse Resp B/P (MAP) Pulse Ox O2 Delivery O2 Flow Rate FiO2 02/11/17 07:00 92 02/11/17 06:00 94 12 140/59 Room Air 02/11/17 05:00 89 17 143/67 Room Air 02/11/17 04:00 99.0 02/11/17 04:00 94 17 114/53 Room Air 02/11/17 03:00 93 8 126/57 Room Air 02/11/17 02:00 89 11 117/44 Room Air 02/11/17 01:00 89 18 116/57 Room Air 02/11/17 01:00 89 02/11/17 00:00 96 18 113/57 Room Air 02/11/17 00:00 98.6 02/10/17 23:00 88 17 98/46 Room Air 02/10/17 22:00 95 8 119/53 Room Air 02/10/17 21:00 90 21 132/61 Room Air 02/10/17 20:00 100.1 02/10/17 20:00 89 20 140/62 Room Air 02/10/17 19:00 77 02/10/17 19:00 77 13 153/62 Room Air 02/10/17 18:00 89 22 132/56 Room Air 02/10/17 17:00 85 12 125/55 Room Air 02/10/17 16:00 88 20 123/58 Room Air 02/10/17 15:00 86 17 116/53 Room Air 02/10/17 14:00 89 15 115/51 Room Air 02/10/17 13:32 17 02/10/17 13:00 77 02/10/17 13:00 71 29 104/49 95 Room Air 02/10/17 12:00 76 18 95/47 96 Room Air 02/10/17 11:19 99.0 72 22 149/61 96 Room Air 02/10/17 11:00 73 19 162/73 98 Room Air 02/10/17 10:00 83 11 156/71 97 Room Air 02/10/17 08:56 99.8 73 19 154/71 98 Room Air I & O 02/11/17 06:59 Intake Total 2490 ml Output Total 1330 ml Balance 1160 ml Capillary Refill : Less Than 3 Seconds General Appearance: No Apparent Distress, WD/WN HEENT: PERRL/EOMI Neck: Full Range of Motion, Non Tender, Supple Respiratory: Chest Non Tender, No Accessory Muscle Use, No Respiratory Distress Cardiovascular: Regular Rate, Rhythm Gastrointestinal: soft, tenderness (around the incision sites. ) Extremity: Normal Capillary Refill, Normal Range of Motion, Non Tender Neurologic/Psychiatric: Alert, Oriented x3, No Motor/Sensory Deficits, Normal Mood/Affect Skin: Warm/Dry, Other (midline incision and RICHARD drain LLQ- minimal drainage at this time. ) Results Lab Laboratory Tests Test 02/09/17 09:08 02/10/17 04:36 02/10/17 14:25 02/11/17 05:00 Range/Units Hemoglobin 11.0 L 8.7 #L 8.1 L 7.7 L 11.5-16.0 G/DL Hematocrit 34 L 27 L 25 L 24 L 35-52 % Platelet Count 345 253 252 261 130-400 10^3/uL White Blood Count 8.1 8.5 7.0 4.3-11.0 10^3/uL Red Blood Count 2.96 L 2.80 L 2.64 L 4.35-5.85 10^6/uL Mean Corpuscular Volume 90 91 90 80-99 FL Mean Corpuscular Hemoglobin 29 29 29 25-34 PG Mean Corpuscular Hemoglobin Concent 33 32 33 32-36 G/DL Red Cell Distribution Width 15.7 H 15.5 H 15.7 H 10.0-14.5 % Mean Platelet Volume 8.5 8.9 8.3 7.4-10.4 FL Neutrophils (%) (Auto) 86 H 88 H 82 H 42-75 % Lymphocytes (%) (Auto) 3 L 3 L 3 L 12-44 % Monocytes (%) (Auto) 10 9 13 H 0-12 % Eosinophils (%) (Auto) 1 1 2 0-10 % Basophils (%) (Auto) 0 0 0 0-10 % Neutrophils # (Auto) 7.0 7.5 5.7 1.8-7.8 X 10^3 Lymphocytes # (Auto) 0.3 L 0.2 L 0.2 L 1.0-4.0 X 10^3 Monocytes # (Auto) 0.8 0.8 0.9 0.0-1.0 X 10^3 Eosinophils # (Auto) 0.0 0.0 0.1 0.0-0.3 10^3/uL Basophils # (Auto) 0.0 0.0 0.0 0.0-0.1 10^3/uL Neutrophils % (Manual) 95 % Monocytes % (Manual) 2 % Eosinophils % (Manual) 1 % Band Neutrophils 2 % Blood Morphology Comment NORMAL Sodium Level 134 L 134 L 135-145 MMOL/L Potassium Level 3.6 4.0 3.6-5.0 MMOL/L Chloride Level 100 103 98-107 MMOL/L Carbon Dioxide Level 24 24 21-32 MMOL/L Anion Gap 10 7 5-14 MMOL/L Blood Urea Nitrogen 7 5 L 7-18 MG/DL Creatinine 0.71 0.71 0.60-1.30 MG/DL Estimat Glomerular Filtration Rate > 60 > 60 BUN/Creatinine Ratio 10 7 Glucose Level 83 91 70-105 MG/DL Lactic Acid Level 0.57 0.50-2.00 MMOL/L Calcium Level 7.8 L 7.8 L 8.5-10.1 MG/DL Phosphorus Level 4.3 3.5 2.3-4.7 MG/DL Magnesium Level 1.4 L 1.7 L 1.8-2.4 MG/DL Albumin 2.6 L 3.2-4.5 G/DL Laboratory Tests 02/10/17 14:25: White Blood Count 8.5, Red Blood Count 2.80L, Hemoglobin 8.1L, Hematocrit 25L, Mean Corpuscular Volume 91, Mean Corpuscular Hemoglobin 29, Mean Corpuscular Hemoglobin Concent 32, Red Cell Distribution Width 15.5H, Platelet Count 252, Mean Platelet Volume 8.9, Neutrophils (%) (Auto) 88H, Lymphocytes (%) (Auto) 3L , Monocytes (%) (Auto) 9, Eosinophils (%) (Auto) 1, Basophils (%) (Auto) 0, Neutrophils # (Auto) 7.5, Lymphocytes # (Auto) 0.2L, Monocytes # (Auto) 0.8, Eosinophils # (Auto) 0.0, Basophils # (Auto) 0.0 02/11/17 05:00: White Blood Count 7.0, Red Blood Count 2.64L, Hemoglobin 7.7L, Hematocrit 24L, Mean Corpuscular Volume 90, Mean Corpuscular Hemoglobin 29, Mean Corpuscular Hemoglobin Concent 33, Red Cell Distribution Width 15.7H, Platelet Count 261, Mean Platelet Volume 8.3, Neutrophils (%) (Auto) 82H, Lymphocytes (%) (Auto) 3L , Monocytes (%) (Auto) 13H, Eosinophils (%) (Auto) 2, Basophils (%) (Auto) 0, Neutrophils # (Auto) 5.7, Lymphocytes # (Auto) 0.2L, Monocytes # (Auto) 0.9, Eosinophils # (Auto) 0.1, Basophils # (Auto) 0.0, Sodium Level 134L, Potassium Level 4.0, Chloride Level 103, Carbon Dioxide Level 24, Anion Gap 7, Blood Urea Nitrogen 5L, Creatinine 0.71, Estimat Glomerular Filtration Rate > 60, BUN/ Creatinine Ratio 7, Glucose Level 91, Calcium Level 7.8L, Phosphorus Level 3.5, Magnesium Level 1.7L Assessment/Plan Assessment/Plan Assessment/Plan S/P exploratory laparotomy, sigmoid colon resection and end to end anastomosis Anemia-postoperative We will continue to monitor labs, vital signs and I&O. Instructed to continue with IS 10X per hr SCD- DVT prophylaxis PT Evaluation. Pain control Chanel- Patient pain controlled. Urine output improved and clear with fine sediment. RICHARD serosang. Passed a little flatus. Using incentive spirometry. Tolerating sips of clears. No new complaints general no acute distress heart reg lungs nonlabored abdomen incisional tenderness incision c/d/i no erythema richard drain serosang ext nontender assessment as above postoperative anemia will follow, likely dilutional will keep dvt prophylaxis only scd's at this time since slightly trending down. pain control incentive spirometry continue cipro flagyl due to fistula/abscess leave chau in due to procedure will need cystogram in approximately 5 days. leave in ICU tonight if stable to floor tomorrow. sips of clears. Clinical Quality Measures DVT/VTE Risk/Contraindication: Risk Factor Score Per Nursin RFS Level Per Nursing on Admit: 4+=Very High JUNE MCCLAIN APRN February 11, 2017 8:37 am ENRIQUE ROCHA DO February 11, 2017 1:53 pm
--- NOTE | 2017-02-11 09:00 | Progress Note (SOAP) ---
Subjective Subjective 71 yo F with colovesicular fistula s/p surgery- pt reports feeling much better now that her epidural is working- starting sips today. No complaints beyond the bed is uncomfortable. She is happy with how her incision looks. Review of Systems General: No Chills, No Night Sweats HEENT: No Head Aches Pulmonary: No Dyspnea, No Cough Cardiovascular: No: Chest Pain, Edema, Lt Headedness, Orthopnea, Other, Palpitations, Paroxysmal Noc. Dyspnea Gastrointestinal: Abdominal Pain (improved) Genitourinary: Other (chau) Musculoskeletal: back pain (improved) Neurological: Weakness Objective Exam Vital Signs Vital Signs Date Time Temp Pulse Resp B/P (MAP) Pulse Ox O2 Delivery O2 Flow Rate FiO2 02/11/17 07:00 92 02/11/17 06:00 94 12 140/59 Room Air 02/11/17 05:00 89 17 143/67 Room Air 02/11/17 04:00 99.0 02/11/17 04:00 94 17 114/53 Room Air 02/11/17 03:00 93 8 126/57 Room Air 02/11/17 02:00 89 11 117/44 Room Air 02/11/17 01:00 89 18 116/57 Room Air 02/11/17 01:00 89 02/11/17 00:00 96 18 113/57 Room Air 02/11/17 00:00 98.6 02/10/17 23:00 88 17 98/46 Room Air 02/10/17 22:00 95 8 119/53 Room Air 02/10/17 21:00 90 21 132/61 Room Air 02/10/17 20:00 100.1 02/10/17 20:00 89 20 140/62 Room Air 02/10/17 19:00 77 02/10/17 19:00 77 13 153/62 Room Air 02/10/17 18:00 89 22 132/56 Room Air 02/10/17 17:00 85 12 125/55 Room Air 02/10/17 16:00 88 20 123/58 Room Air 02/10/17 15:00 86 17 116/53 Room Air 02/10/17 14:00 89 15 115/51 Room Air 02/10/17 13:32 17 02/10/17 13:00 77 02/10/17 13:00 71 29 104/49 95 Room Air 02/10/17 12:00 76 18 95/47 96 Room Air 02/10/17 11:19 99.0 72 22 149/61 96 Room Air 02/10/17 11:00 73 19 162/73 98 Room Air 02/10/17 10:00 83 11 156/71 97 Room Air I & O 02/11/17 06:59 Intake Total 2490 ml Output Total 1330 ml Balance 1160 ml General Appearance: No Apparent Distress, WD/WN HEENT: PERRL/EOMI Neck: Full Range of Motion, Non Tender, Supple Respiratory: Chest Non Tender, No Accessory Muscle Use, No Respiratory Distress Cardiovascular: Regular Rate, Rhythm Gastrointestinal: Soft, Other (incision clean dry intact- stapled) Rectal: Deferred Back: No CVA Tenderness Extremity: Normal Capillary Refill, Normal Range of Motion, Non Tender Neurologic/Psychiatric: Alert, Oriented x3, No Motor/Sensory Deficits, Normal Mood/Affect Skin: Warm/Dry, Other (midline incision and SIERRA drain LLQ- minimal drainage at this time. ) Results Lab Laboratory Tests 02/10/17 14:25: White Blood Count 8.5, Red Blood Count 2.80L, Hemoglobin 8.1L, Hematocrit 25L, Mean Corpuscular Volume 91, Mean Corpuscular Hemoglobin 29, Mean Corpuscular Hemoglobin Concent 32, Red Cell Distribution Width 15.5H, Platelet Count 252, Mean Platelet Volume 8.9, Neutrophils (%) (Auto) 88H, Lymphocytes (%) (Auto) 3L , Monocytes (%) (Auto) 9, Eosinophils (%) (Auto) 1, Basophils (%) (Auto) 0, Neutrophils # (Auto) 7.5, Lymphocytes # (Auto) 0.2L, Monocytes # (Auto) 0.8, Eosinophils # (Auto) 0.0, Basophils # (Auto) 0.0 02/11/17 05:00: White Blood Count 7.0, Red Blood Count 2.64L, Hemoglobin 7.7L, Hematocrit 24L, Mean Corpuscular Volume 90, Mean Corpuscular Hemoglobin 29, Mean Corpuscular Hemoglobin Concent 33, Red Cell Distribution Width 15.7H, Platelet Count 261, Mean Platelet Volume 8.3, Neutrophils (%) (Auto) 82H, Lymphocytes (%) (Auto) 3L , Monocytes (%) (Auto) 13H, Eosinophils (%) (Auto) 2, Basophils (%) (Auto) 0, Neutrophils # (Auto) 5.7, Lymphocytes # (Auto) 0.2L, Monocytes # (Auto) 0.9, Eosinophils # (Auto) 0.1, Basophils # (Auto) 0.0, Sodium Level 134L, Potassium Level 4.0, Chloride Level 103, Carbon Dioxide Level 24, Anion Gap 7, Blood Urea Nitrogen 5L, Creatinine 0.71, Estimat Glomerular Filtration Rate > 60, BUN/ Creatinine Ratio 7, Glucose Level 91, Calcium Level 7.8L, Phosphorus Level 3.5, Magnesium Level 1.7L Assessment/Plan Assessment/Plan Assessment/Plan 71 yo F admitted 02/09/17 colovesicular fistula- demonstrated on CT- suspected with her history of UTIs s/p 02/09/17 exploratory laparotomy, sigmoid colon resection and end to end anastamosis -Dr. Buchanan -metronidazole, ciprofloxacin. 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 Townsend chronic back pain and post-malignancy pain- her home medications are morphine 30mg BID, hydrocodone 5/325mg , colace. post-operative anemia- monitor hgb, transfuse if <7 hypomagnesemia- replacing tobaccoism- encourage cessation, nicotine patch oligouria- IVF, improved- monitor uop Dispo: continue to monitor- - likely to transfer to floor today. Problems: Clinical Quality Measures DVT/VTE Risk/Contraindication: Risk Factor Score Per Nursin RFS Level Per Nursing on Admit: 4+=Very High KIRA LUCERO MD February 11, 2017 09:00
[2017-02-11] MEDS: NICOTINE PATCH REMOVAL TP SCH (09:30)
[2017-02-11] MEDS: CIPROFLOXACIN IV 400MG/200ML 200 ML IV SCH ×2 (09:34→20:46)
[2017-02-11] MEDS: NICOTINE 14 MG (NICODERM) PATCH TD SCH (09:34)
[2017-02-11] MEDS: FAMOTIDINE 20MG/2ML IV (PEPCID) IVP SCH (09:34)
--- NOTE | 2017-02-11 09:35 | Diagnostic Imaging Report ---
EXAMINATION: Portable upright radiograph of the chest. INDICATION: Dyspnea. FINDINGS: The lungs are clear. The heart size is normal. No effusion or pneumothorax. The mediastinum and gill appear unremarkable. There is an infusion port with the tip at the SVC level. IMPRESSION: No acute process. Dictated by: Dictated on workstation # [id number]
[2017-02-11] MEDS: MAGNESIUM 1 GM/100 ML IVPB 100 ML IV SCH ×2 (10:55→11:59)
--- NOTE | 2017-02-11 11:48 | Physical Therapy Evaluation ---
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, chronic back pain, post - malignancy pain, post - operative anemia, hypomagnesemia, tobaccoism, oliguria Current History abdominal pain from fistula causing recurrent UTI, worsened by constipation Reviewed History: Yes Social History Home: Single Level Current Living Status: Alone Entry Into Home: Stairs With Railing PT Steps Into Home: 3 Prior/Core FIM Prior Level of Function Functional [place] Measure 0=Not Assessed/NA 4=Minimal Assistance 1=Total Assistance 5=Supervision or Setup 2=Maximal Assistance 6=Modified [place] 3=Moderate Assistance 7=Complete [place] Bed Mobility: 7 Transfers (B,C,W/C) (FIM): 7 Gait: 7 PT Evaluation-Current Subjective Patient in bed pre tx, has 1-2/10 pain in abdomen, agrees to PT. Patient is extremely impulsive and needs max cues to slow down, wait, etc. Pt/Family Goals to be independent at home Objective Patient Orientation: Person, Place, Situation Attachments: Drains, Garcia Catheter ROM/Strength ROM Lower Extremities WNL Strenght Lower Extremities 5/5 gross left lower extremity, 4/5 gross right lower extremity, patient still had some numbness in right leg from epidural Integumentary/Posture Bladder Incontinence: Garcia Cath Sensory Vision: Functional Hearing: Functional Sensation Right Lower Extremit: Intact Sensation Left Lower Extremity: Intact Sensation Lower Extremities decreased light touch sensation on right leg Transfers Functional [place] Measure 0=Not Assessed/NA 4=Minimal Assistance 1=Total Assistance 5=Supervision or Setup 2=Maximal Assistance 6=Modified [place] 3=Moderate Assistance 7=Complete [place] Transfers (B, C, W/C) (FIM): 4 Scootin Rollin Supine to/from Sit: 5 Sit to/from Stand: 4 impulsive, cues for safety and hand placement Gait Mode of Locomotion: Walk Anticipated Mode of Locomotion: Walk Gait (FIM): 1 Distance: 10' Gait Level of Assist: 4 Gait Persons Needed: 1 Gait Assistive Device: FWW Comments/Gait Description Patient initially wanted to ambulate without the walker but therapist insisted. After taking a few steps patient was glad she was using the walker because she had trouble bearing weight and advancing her right leg. Balance Sitting Static: Normal Sitting Dynamic: Normal Standing Static: Fair Standing Dynamic: Fair Treatment seated ex x 20 (AP, LAQ) Assessment/Needs Patient has impaired mobility, strength, balance, endurance post abdominal surgery. Rehab Potential: Fair PT Ed Educational Aide Goals Ed Educational Aide Goals PT Ed Educational Aide Goals Time Frame: February 18, 2017 Transfers (B,C,W/C) (FIM): 5 Gait (FIM): 2 Distance: 50' Gait Level of Assist: 5 Gait Assistive Device: FWW PT Plan Problem List Problem List: Activity Tolerance, Functional Strength, Safety, Balance, Gait, Transfer, Bed Mobility Treatment/Plan Treatment Plan: Continue Plan of Care Treatment Plan: Bed Mobility, Education, Functional Activity Gaetano, Functional Strength, Gait, Safety, Therapeutic Exercise, Transfers Treatment Duration: February 18, 2017 # of days/week 5-6 Visits Per Week: 5-6 Minutes/Day (M-F): 15-30 Minutes/Day (Sat/Nguyen): 15-30 Pt/Family Agrees w/Plan: Yes Safety Risks/Education Patient Education: Gait Training, Transfer Techniques, Correct Positioning, Safety Issues Teaching Recipient: Patient Teaching Methods: Demonstration, Discussion Response to Teaching: Reinforcement Needed Discharge Recommendations Plan Patient will perform bed mobility and transfer training, balance and endurance training, functional strengthening, stair training, gait training, and education to improve functional mobility and independence at home. Therapy D/C Recommendations: Home w/ Family Support Time/GCodes Time In: 1110 Time Out: 1140 Total Billed Treatment Time: 30 Total Billed Treatment 1 visit EVL 15' GT 15' LATONYA WILLINGHAM PT February 11, 2017 11:48
[2017-02-11] MEDS: morphine PCA 30 MG/30 ML VIAL IV PRN (13:41)
--- NOTE | 2017-02-11 15:00 | Anesthesia Pain Mgmt-Epidural ---
Anesthesia-Pain Mgmnt Epidural Pre-Procedure Indication: Analgesia Chart Review and Risk/Benefits/Options Discussed Procedure Epidural: Post-Op Pain Relief Conditon: Good motor strength, Good pain control, Neuro exam unremarkable, No nausea, No pruritus, Site clear no drainage LULI BUSH CRNA February 11, 2017 15:00
[2017-02-12] VITALS (14 sets, daily range): BP systolic 109–146; BP diastolic 53–90
[2017-02-12] MEDS: EPIDURAL (SUFENTA 0.6MCG/ML BUPIVA 0.125%) 100 ML BAG EPI SCH ×4 (05:03→23:10)
[2017-02-12] MEDS: metroNIDAZOLE 500MG/100ML IVPB 100 ML IV SCH ×3 (05:03→22:04)
[2017-02-12 05:18] LABS: BASOPHILS % (AUTO) 0 % (0-10); EOSINOPHILS # (AUTO) 0.2 10^3/uL (0.0-0.3); EOSINOPHILS % (AUTO) 2 % (0-10); LYMPHOCYTES # (AUTO) 0.3 X 10^3 (1.0-4.0); LYMPHOCYTES % (AUTO) 5 % (12-44); MEAN CORPUSCULAR HEMOGLOBIN 29 PG (25-34); MEAN CORPUSCULAR HGB CONC 32 G/DL (32-36); MEAN CORPUSCULAR VOLUME 91 FL (80-99); MEAN PLATELET VOLUME 8.7 FL (7.4-10.4); MONOCYTES # (AUTO) 0.7 X 10^3 (0.0-1.0); MONOCYTES % (AUTO) 10 % (0-12); NEUTROPHILS # (AUTO) 5.7 X 10^3 (1.8-7.8); NEUTROPHILS % (AUTO) 82 % (42-75); PLATELET COUNT 271 10^3/uL (130-400); RED BLOOD COUNT 2.73 10^6/uL (4.35-5.85); RED CELL DISTRIBUTION WIDTH 15.5 % (10.0-14.5)
[2017-02-12 05:39] LABS: ANION GAP 8 MMOL/L (5-14); BLOOD UREA NITROGEN 3 MG/DL (7-18); BUN/CREATININE RATIO 4; CALCIUM 7.8 MG/DL (8.5-10.1); CARBON DIOXIDE 25 MMOL/L (21-32); CHLORIDE 104 MMOL/L (98-107); CREATININE SERUM 0.68 MG/DL (0.60-1.30); GFR ESTIMATED > 60; GLUCOSE 89 MG/DL (70-105); MAGNESIUM 1.5 MG/DL (1.8-2.4); PHOSPHORUS 3.2 MG/DL (2.3-4.7); POTASSIUM 3.7 MMOL/L (3.6-5.0); SODIUM 137 MMOL/L (135-145)
[2017-02-12] MEDS: KCL 20 MEQ TAB (K-DUR) PO SCH (07:03)
[2017-02-12] MEDS: POTASSIUM CL 10MEQ/50ML IVPB 50 ML IV SCH (07:03)
[2017-02-12] MEDS: MAGNESIUM 1 GM/100 ML IVPB 100 ML IV SCH ×3 (07:03→08:57)
--- NOTE | 2017-02-12 07:43 | Pulmonary Progress Note ---
Subjective Subjective/Events-last exam PT feels improved. Pain is better controlled. No complications noted. Exam Exam Vital Signs Date Time Temp Pulse Resp B/P (MAP) Pulse Ox O2 Delivery O2 Flow Rate FiO2 02/12/17 06:34 95 02/12/17 06:00 98 10 136/61 91 Room Air 02/12/17 05:00 97 14 134/60 94 Room Air 02/12/17 04:00 97 02/12/17 04:00 98.6 02/12/17 04:00 94 17 134/60 94 Room Air 02/12/17 03:00 94 14 123/57 91 Room Air 02/12/17 02:12 93 02/12/17 02:00 92 17 116/57 92 Room Air 02/12/17 01:14 92 17 121/60 96 Room Air 02/12/17 01:01 88 02/12/17 00:00 97 02/12/17 00:00 98.7 02/12/17 00:00 90 18 120/53 94 Room Air 02/12/17 00:00 97.9 02/11/17 23:00 89 15 112/59 94 Room Air 02/11/17 22:11 98 02/11/17 22:00 97 23 128/76 92 Room Air 02/11/17 21:00 100 22 118/57 96 Room Air 02/11/17 20:00 99.0 02/11/17 20:00 104 22 131/69 93 Room Air 02/11/17 20:00 97 02/11/17 19:06 104 02/11/17 19:00 101 15 119/103 99 Room Air 02/11/17 18:00 97 17 116/64 96 Room Air 02/11/17 17:00 98 18 129/61 100 Room Air 02/11/17 16:00 93 15 121/63 99 Room Air 02/11/17 15:54 98.7 Room Air 02/11/17 15:54 97 02/11/17 15:00 93 12 108/40 95 Room Air 02/11/17 14:31 98 02/11/17 14:00 94 13 117/59 97 Room Air 02/11/17 13:41 14 02/11/17 13:00 89 15 122/53 96 Room Air 02/11/17 12:00 98.5 Room Air 02/11/17 12:00 96 02/11/17 11:00 86 17 129/62 Room Air 02/11/17 10:00 91 15 132/65 Room Air 02/11/17 09:00 10 124/61 Room Air 02/11/17 08:00 97 02/11/17 08:00 98.6 94 14 120/56 97 Room Air I & O 02/12/17 07:00 Intake Total 3650 ml Output Total 2815 ml Balance 835 ml General Appearance: No Apparent Distress, WD/WN HEENT: PERRL/EOMI Neck: Full Range of Motion, Non Tender, Supple Respiratory: Chest Non Tender, No Accessory Muscle Use, No Respiratory Distress Cardiovascular: Regular Rate, Rhythm Capillary Refill: Less Than 3 Seconds Gastrointestinal: soft, tenderness (around the incision sites. ) Extremity: Normal Capillary Refill, Normal Range of Motion, Non Tender Neurologic/Psychiatric: Alert, Oriented x3, No Motor/Sensory Deficits, Normal Mood/Affect Skin: Warm/Dry, Other (midline incision and SIERRA drain LLQ- minimal drainage at this time. ) Results Lab Laboratory Tests 02/10/17 14:25 02/11/17 05:00 02/12/17 05:00 Assessment/Plan Assessment/Plan S/P ex lap sig colon resection exploratory laparotomy, sigmoid colon resection and end to end anastomosis -pain control -monitoring Electrolyte replacement Anemia -monitor When ok with Dr. Buchanan patient can be transferred to floor. with endtidal C02 monitor if still on POLICE COMMUNICATIONS OPERATOR and telemetry. I am going to sign off pt is doing much better. Please call with any questions. Clinical Quality Measures DVT/VTE Risk/Contraindication: Risk Factor Score Per Nursin RFS Level Per Nursing on Admit: 4+=Very High GABRIELLE SANCHES DO February 12, 2017 07:43
[2017-02-12] MEDS: LACTATED RINGERS 1,000 ML IV SCH ×2 (07:51→14:30)
--- NOTE | 2017-02-12 08:39 | Progress Note ---
Subjective Subjective/Events-last exam Patient resting. Even respirations. Rates pain 4/10. Reports that she is passing flatus. Objective Exam Vital Signs Date Time Temp Pulse Resp B/P (MAP) Pulse Ox O2 Delivery O2 Flow Rate FiO2 02/12/17 08:00 96 02/12/17 06:34 95 02/12/17 06:00 98 10 136/61 91 Room Air 02/12/17 05:00 97 14 134/60 94 Room Air 02/12/17 04:00 97 02/12/17 04:00 98.6 02/12/17 04:00 94 17 134/60 94 Room Air 02/12/17 03:00 94 14 123/57 91 Room Air 02/12/17 02:12 93 02/12/17 02:00 92 17 116/57 92 Room Air 02/12/17 01:14 92 17 121/60 96 Room Air 02/12/17 01:01 88 02/12/17 00:00 97 02/12/17 00:00 98.7 02/12/17 00:00 90 18 120/53 94 Room Air 02/12/17 00:00 97.9 02/11/17 23:00 89 15 112/59 94 Room Air 02/11/17 22:11 98 02/11/17 22:00 97 23 128/76 92 Room Air 02/11/17 21:00 100 22 118/57 96 Room Air 02/11/17 20:00 99.0 02/11/17 20:00 104 22 131/69 93 Room Air 02/11/17 20:00 97 02/11/17 19:06 104 02/11/17 19:00 101 15 119/103 99 Room Air 02/11/17 18:00 97 17 116/64 96 Room Air 02/11/17 17:00 98 18 129/61 100 Room Air 02/11/17 16:00 93 15 121/63 99 Room Air 02/11/17 15:54 98.7 Room Air 02/11/17 15:54 97 02/11/17 15:00 93 12 108/40 95 Room Air 02/11/17 14:31 98 02/11/17 14:00 94 13 117/59 97 Room Air 02/11/17 13:41 14 02/11/17 13:00 89 15 122/53 96 Room Air 02/11/17 12:00 98.5 Room Air 02/11/17 12:00 96 02/11/17 11:00 86 17 129/62 Room Air 02/11/17 10:00 91 15 132/65 Room Air 02/11/17 09:00 10 124/61 Room Air I & O 02/12/17 07:00 Intake Total 3650 ml Output Total 2815 ml Balance 835 ml Capillary Refill : Less Than 3 Seconds General Appearance: No Apparent Distress, WD/WN HEENT: PERRL/EOMI Neck: Full Range of Motion, Non Tender, Supple Respiratory: Chest Non Tender, No Accessory Muscle Use, No Respiratory Distress Cardiovascular: Regular Rate, Rhythm Gastrointestinal: soft, tenderness (around the incision sites. ) Extremity: Normal Capillary Refill, Normal Range of Motion, Non Tender Neurologic/Psychiatric: Alert, Oriented x3, No Motor/Sensory Deficits, Normal Mood/Affect Skin: Warm/Dry, Other (midline incision and RICHARD drain LLQ- minimal drainage at this time. ) Results Lab Laboratory Tests Test 02/10/17 14:25 02/11/17 05:00 02/12/17 05:00 Range/Units White Blood Count 8.5 7.0 7.0 4.3-11.0 10^3/uL Red Blood Count 2.80 L 2.64 L 2.73 L 4.35-5.85 10^6/uL Hemoglobin 8.1 L 7.7 L 7.8 L 11.5-16.0 G/DL Hematocrit 25 L 24 L 25 L 35-52 % Mean Corpuscular Volume 91 90 91 80-99 FL Mean Corpuscular Hemoglobin 29 29 29 25-34 PG Mean Corpuscular Hemoglobin Concent 32 33 32 32-36 G/DL Red Cell Distribution Width 15.5 H 15.7 H 15.5 H 10.0-14.5 % Platelet Count 252 261 271 130-400 10^3/uL Mean Platelet Volume 8.9 8.3 8.7 7.4-10.4 FL Neutrophils (%) (Auto) 88 H 82 H 82 H 42-75 % Lymphocytes (%) (Auto) 3 L 3 L 5 L 12-44 % Monocytes (%) (Auto) 9 13 H 10 0-12 % Eosinophils (%) (Auto) 1 2 2 0-10 % Basophils (%) (Auto) 0 0 0 0-10 % Neutrophils # (Auto) 7.5 5.7 5.7 1.8-7.8 X 10^3 Lymphocytes # (Auto) 0.2 L 0.2 L 0.3 L 1.0-4.0 X 10^3 Monocytes # (Auto) 0.8 0.9 0.7 0.0-1.0 X 10^3 Eosinophils # (Auto) 0.0 0.1 0.2 0.0-0.3 10^3/uL Basophils # (Auto) 0.0 0.0 0.0 0.0-0.1 10^3/uL Sodium Level 134 L 137 135-145 MMOL/L Potassium Level 4.0 3.7 3.6-5.0 MMOL/L Chloride Level 103 104 98-107 MMOL/L Carbon Dioxide Level 24 25 21-32 MMOL/L Anion Gap 7 8 5-14 MMOL/L Blood Urea Nitrogen 5 L 3 L 7-18 MG/DL Creatinine 0.71 0.68 0.60-1.30 MG/DL Estimat Glomerular Filtration Rate > 60 > 60 BUN/Creatinine Ratio 7 4 Glucose Level 91 89 70-105 MG/DL Calcium Level 7.8 L 7.8 L 8.5-10.1 MG/DL Phosphorus Level 3.5 3.2 2.3-4.7 MG/DL Magnesium Level 1.7 L 1.5 L 1.8-2.4 MG/DL Laboratory Tests 02/12/17 05:00: White Blood Count 7.0, Red Blood Count 2.73L, Hemoglobin 7.8L, Hematocrit 25L, Mean Corpuscular Volume 91, Mean Corpuscular Hemoglobin 29, Mean Corpuscular Hemoglobin Concent 32, Red Cell Distribution Width 15.5H, Platelet Count 271, Mean Platelet Volume 8.7, Neutrophils (%) (Auto) 82H, Lymphocytes (%) (Auto) 5L , Monocytes (%) (Auto) 10, Eosinophils (%) (Auto) 2, Basophils (%) (Auto) 0, Neutrophils # (Auto) 5.7, Lymphocytes # (Auto) 0.3L, Monocytes # (Auto) 0.7, Eosinophils # (Auto) 0.2, Basophils # (Auto) 0.0, Sodium Level 137, Potassium Level 3.7, Chloride Level 104, Carbon Dioxide Level 25, Anion Gap 8, Blood Urea Nitrogen 3L, Creatinine 0.68, Estimat Glomerular Filtration Rate > 60, BUN/ Creatinine Ratio 4, Glucose Level 89, Calcium Level 7.8L, Phosphorus Level 3.2, Magnesium Level 1.5L Assessment/Plan Assessment/Plan Assessment/Plan S/P exploratory laparotomy, sigmoid colon resection and end to end anastomosis Anemia-postoperative- H&H- 2.73 and 7.8. We will continue to monitor labs, vital signs and I&O. Continue with IS 10x Q1hr SCD- DVT prophylaxis Continue with PT. Increase diet to soft diet since tolerating clear liquids. Pain control. Move to 4th floor. Chanel- Passing flatus. Tolerating sips. Hgb stable. Pain controlled. urine output good. Denies n/v fever sweats chills shortness of breath or chest pain. gen no acute distress heart reg lungs nonlabored abdomen soft, incision c/d/i, richard serosang ext nontender assessment as above move to floor dysphagia 1 diet scd's epidural for pain control pt Clinical Quality Measures DVT/VTE Risk/Contraindication: Risk Factor Score Per Nursin RFS Level Per Nursing on Admit: 4+=Very High JUNE MCCLAIN APRN February 12, 2017 08:39 ENRIQUE ROCHA DO February 12, 2017 14:50
--- NOTE | 2017-02-12 08:44 | Diagnostic Imaging Report ---
CLINICAL INDICATION: Patient with dyspnea. EXAM: Portable chest x-ray, upright view. COMPARISON: Portable chest x-ray dated 02/11/2017. FINDINGS: There is interval development of subtle airspace opacity involving the medial right lung base which may represent atelectasis versus infiltrate. Otherwise, the lungs are clear. There is no pleural effusion or pneumothorax. A stable [id number] overlies the right chest with the tip overlying the mid to distal superior vena cava. The pulmonary vasculature and cardiac silhouette are within normal limits. There is no pleural effusion or pneumothorax. There are suspected partially calcified lymph nodes in the right hilar region. The remainder of this exam shows no significant interval change compared to the prior study of comparison. IMPRESSION: 1. There is a minimal increase in the atelectasis versus infiltrate in the medial right lung base. 2. Otherwise, the remainder of this exam shows no significant interval change compared to the prior study of comparison. Dictated by: Dictated on workstation # [id number]
--- NOTE | 2017-02-12 08:53 | Progress Note (SOAP) ---
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 No new complaints. Pt having some anxiety this AM though because her epidural pole says the line has a kink in it and she is afraid she is going to have terrible pains. No overnight events. Afebrile. Review of Systems General: No Chills, No Night Sweats HEENT: No Head Aches Pulmonary: No Dyspnea, No Cough Cardiovascular: No: Chest Pain, Edema, Lt Headedness, Orthopnea, Other, Palpitations, Paroxysmal Noc. Dyspnea Gastrointestinal: Abdominal Pain (improved) Genitourinary: Other (chau) Musculoskeletal: back pain (improved) Neurological: Weakness Objective Exam Vital Signs Vital Signs Date Time Temp Pulse Resp B/P (MAP) Pulse Ox O2 Delivery O2 Flow Rate FiO2 02/12/17 08:00 96 02/12/17 06:34 95 02/12/17 06:00 98 10 136/61 91 Room Air 02/12/17 05:00 97 14 134/60 94 Room Air 02/12/17 04:00 97 02/12/17 04:00 98.6 02/12/17 04:00 94 17 134/60 94 Room Air 02/12/17 03:00 94 14 123/57 91 Room Air 02/12/17 02:12 93 02/12/17 02:00 92 17 116/57 92 Room Air 02/12/17 01:14 92 17 121/60 96 Room Air 02/12/17 01:01 88 02/12/17 00:00 97 02/12/17 00:00 98.7 02/12/17 00:00 90 18 120/53 94 Room Air 02/12/17 00:00 97.9 02/11/17 23:00 89 15 112/59 94 Room Air 02/11/17 22:11 98 02/11/17 22:00 97 23 128/76 92 Room Air 02/11/17 21:00 100 22 118/57 96 Room Air 02/11/17 20:00 99.0 02/11/17 20:00 104 22 131/69 93 Room Air 02/11/17 20:00 97 02/11/17 19:06 104 02/11/17 19:00 101 15 119/103 99 Room Air 02/11/17 18:00 97 17 116/64 96 Room Air 02/11/17 17:00 98 18 129/61 100 Room Air 02/11/17 16:00 93 15 121/63 99 Room Air 02/11/17 15:54 98.7 Room Air 02/11/17 15:54 97 02/11/17 15:00 93 12 108/40 95 Room Air 02/11/17 14:31 98 02/11/17 14:00 94 13 117/59 97 Room Air 02/11/17 13:41 14 02/11/17 13:00 89 15 122/53 96 Room Air 02/11/17 12:00 98.5 Room Air 02/11/17 12:00 96 02/11/17 11:00 86 17 129/62 Room Air 02/11/17 10:00 91 15 132/65 Room Air 02/11/17 09:00 10 124/61 Room Air I & O 02/12/17 07:00 Intake Total 3650 ml Output Total 2815 ml Balance 835 ml General Appearance: No Apparent Distress, WD/WN HEENT: PERRL/EOMI Neck: Full Range of Motion, Non Tender, Supple Respiratory: Chest Non Tender, No Accessory Muscle Use, No Respiratory Distress Cardiovascular: Regular Rate, Rhythm Gastrointestinal: Soft, Other (incision clean dry intact- stapled) Rectal: Deferred Back: No CVA Tenderness Extremity: Normal Capillary Refill, Normal Range of Motion, Non Tender Neurologic/Psychiatric: Alert, Oriented x3, No Motor/Sensory Deficits, Normal Mood/Affect Skin: Warm/Dry, Other (midline incision and SIERRA drain LLQ- minimal drainage at this time. ) Results Lab Laboratory Tests 02/12/17 05:00: White Blood Count 7.0, Red Blood Count 2.73L, Hemoglobin 7.8L, Hematocrit 25L, Mean Corpuscular Volume 91, Mean Corpuscular Hemoglobin 29, Mean Corpuscular Hemoglobin Concent 32, Red Cell Distribution Width 15.5H, Platelet Count 271, Mean Platelet Volume 8.7, Neutrophils (%) (Auto) 82H, Lymphocytes (%) (Auto) 5L , Monocytes (%) (Auto) 10, Eosinophils (%) (Auto) 2, Basophils (%) (Auto) 0, Neutrophils # (Auto) 5.7, Lymphocytes # (Auto) 0.3L, Monocytes # (Auto) 0.7, Eosinophils # (Auto) 0.2, Basophils # (Auto) 0.0, Sodium Level 137, Potassium Level 3.7, Chloride Level 104, Carbon Dioxide Level 25, Anion Gap 8, Blood Urea Nitrogen 3L, Creatinine 0.68, Estimat Glomerular Filtration Rate > 60, BUN/ Creatinine Ratio 4, Glucose Level 89, Calcium Level 7.8L, Phosphorus Level 3.2, Magnesium Level 1.5L Assessment/Plan Assessment/Plan Assessment/Plan 71 yo F admitted 02/09/17 colovesicular fistula- demonstrated on CT- suspected with her history of UTIs s/p 02/09/17 exploratory laparotomy, sigmoid colon resection and end to end anastamosis -Dr. Buchanan -metronidazole, ciprofloxacin. 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 Townsend chronic back pain and post-malignancy pain- her home medications are morphine 30mg BID, hydrocodone 5/325mg , colace. post-operative anemia- monitor hgb, transfuse if <7- hemoglobin stable. hypomagnesemia- replacing tobaccoism- encourage cessation, nicotine patch Dispo: continue to monitor- - transfer to floor today. will need to get rid of the epidural, pain control, pt will have cystogram Thursday02/16/17- possible d/c to home this . Problems: Clinical Quality Measures DVT/VTE Risk/Contraindication: Risk Factor Score Per Nursin RFS Level Per Nursing on Admit: 4+=Very High KIRA LUCERO MD February 12, 2017 08:53
[2017-02-12] MEDS: NICOTINE 14 MG (NICODERM) PATCH TD SCH (09:19)
[2017-02-12] MEDS: FAMOTIDINE 20MG/2ML IV (PEPCID) IVP SCH (09:19)
[2017-02-12] MEDS: CIPROFLOXACIN IV 400MG/200ML 200 ML IV SCH ×2 (10:13→20:39)
--- NOTE | 2017-02-12 10:16 | Physical Therapy Daily Note ---
PT Daily Note-Current Subjective Patient is in bed and agrees to PT. Patient c/o 5/10 left sided pain. RN present. Pain Numeric Pain Scale: 5-Moderate Pain Location: Left Location Body Site: Side Pain Description: Acute Mental Status Patient Orientation: Normal For Age Attachments: Garcia Catheter, IV Transfers Functional [place] Measure 0=Not Assessed/NA 4=Minimal Assistance 1=Total Assistance 5=Supervision or Setup 2=Maximal Assistance 6=Modified [place] 3=Moderate Assistance 7=Complete IndependenceIRFPAI Quality Coding Scale 6 Independent with activity with or without an assistive device 5 Patient requires set up or clean up by helper. Patient completes activity by themselves 4 Supervision or touching assist (CGA). [place] provide cues , steadying assist 3 The helper provides less than half the effort to complete the activity 2 The helper provides more than half the effort to complete the activity 1 Dependent. The helper does all the effort to complete an activity 7 Patient refused to complete or attempt activity 9 The patient did not perform the activity before the current illness or injury 88 Not attempted due to Medical conditions or safety concerns Transfers (B, C, W/C) (FIM): 5 Scootin Rollin Supine to/from Sit: 5 Sit to/from Stand: 5 Gait Training Gait (FIM): 5 Distance (FIM): 3=150 ft Distance: 250' x 1; 100' x 1 Gait Level of Assist: 5 Gait Assistive Device: FWW safe and functional with FWW Assessment Patient is up in recliner with needs met. Patient appears very anxious, however , tolerated treatment well. PT instructed patient to ambulate with nursing PRN. PT Metal Products Viewer Goals Metal Products Viewer Goals PT Correction Goals Time Frame: February 18, 2017 Transfers (B,C,W/C) (FIM): 5 Gait (FIM): 2 Distance: 50' Gait Level of Assist: 5 Gait Assistive Device: FWW PT Plan Treatment/Plan Treatment Plan: Continue Plan of Care Treatment Plan: Bed Mobility, Education, Functional Activity Gaetano, Functional Strength, Gait, Safety, Therapeutic Exercise, Transfers Treatment Duration: February 18, 2017 Visits Per Week: 5-6 Minutes/Day (M-F): 15-30 Minutes/Day (Sat/Nguyen): 15-30 Time/GCodes Time In: 830 Time Out: 853 Total Billed Treatment Time: 23 Total Billed Treatment 1 visit FA x 2 23 min MADISON VÁZQUEZ PT February 12, 2017 10:16
[2017-02-12] MEDS: ONDANSETRON 4 MG/2 ML (SDV) Z0FRAN IV PRN ×2 (11:31→22:05)
[2017-02-12] MEDS: NICOTINE PATCH REMOVAL TP SCH (14:30)
--- NOTE | 2017-02-12 14:49 | Anesthesia Pain Mgmt-Epidural ---
Anesthesia-Pain Mgmnt Epidural Pre-Procedure Indication: Req Pain Mgmt by Surgeon Surgeon: Chanel Requesting Physician: Chanel Chart Review and Risk/Benefits/Options Discussed Procedure Conditon: Good motor strength, Good pain control, Neuro exam unremarkable ( Minimal numbness B/L thighs) Date of Service: February 12, 2017 Time of Service: 14:30 Progress Note Seen from [id number]. Doing well. Pain is under good control. She is concerned about her pain relief when epidural is removed tomorrow. She is ambulating in the room and doing well. No nausea/Headache. MONTSERRAT WINSTON DO February 12, 2017 14:49
[2017-02-13 00:05] VITALS: BP 128/59
[2017-02-13] MEDS: LACTATED RINGERS 1,000 ML IV SCH ×3 (00:05→14:51)
[2017-02-13 04:10] VITALS: BP 127/58
[2017-02-13 04:37] LABS: BASOPHILS # (AUTO) 0.1 10^3/uL (0.0-0.1); BASOPHILS % (AUTO) 1 % (0-10); EOSINOPHILS % (AUTO) 0 % (0-10); LYMPHOCYTES # (AUTO) 1.3 X 10^3 (1.0-4.0); LYMPHOCYTES % (AUTO) 13 % (12-44); MEAN CORPUSCULAR HEMOGLOBIN 30 PG (25-34); MEAN CORPUSCULAR HGB CONC 35 G/DL (32-36); MEAN CORPUSCULAR VOLUME 87 FL (80-99); MEAN PLATELET VOLUME 12.3 FL (7.4-10.4); MONOCYTES # (AUTO) 0.8 X 10^3 (0.0-1.0); MONOCYTES % (AUTO) 8 % (0-12); NEUTROPHILS # (AUTO) 7.8 X 10^3 (1.8-7.8); NEUTROPHILS % (AUTO) 78 % (42-75); PLATELET COUNT 83 10^3/uL (130-400); RED BLOOD COUNT 3.97 10^6/uL (4.35-5.85); RED CELL DISTRIBUTION WIDTH 14.1 % (10.0-14.5)
[2017-02-13] MEDS: EPIDURAL (SUFENTA 0.6MCG/ML BUPIVA 0.125%) 100 ML BAG EPI SCH (05:55)
[2017-02-13] MEDS: metroNIDAZOLE 500MG/100ML IVPB 100 ML IV SCH ×3 (06:28→22:25)
[2017-02-13] MEDS: ONDANSETRON 4 MG/2 ML (SDV) Z0FRAN IV PRN ×3 (08:11→22:52)
[2017-02-13] MEDS: CIPROFLOXACIN IV 400MG/200ML 200 ML IV SCH ×2 (08:12→21:31)
[2017-02-13] MEDS: NICOTINE PATCH REMOVAL TP SCH (08:12)
[2017-02-13] MEDS: FAMOTIDINE 20MG/2ML IV (PEPCID) IVP SCH (08:12)
[2017-02-13] MEDS: NICOTINE 14 MG (NICODERM) PATCH TD SCH (08:12)
[2017-02-13 08:20] VITALS: BP 115/71
[2017-02-13 08:39] LABS: BASOPHILS % (AUTO) 0 % (0-10); EOSINOPHILS # (AUTO) 0.2 10^3/uL (0.0-0.3); EOSINOPHILS % (AUTO) 2 % (0-10); LYMPHOCYTES # (AUTO) 0.3 X 10^3 (1.0-4.0); LYMPHOCYTES % (AUTO) 3 % (12-44); MEAN CORPUSCULAR HEMOGLOBIN 29 PG (25-34); MEAN CORPUSCULAR HGB CONC 32 G/DL (32-36); MEAN CORPUSCULAR VOLUME 91 FL (80-99); MEAN PLATELET VOLUME 8.3 FL (7.4-10.4); MONOCYTES % (AUTO) 12 % (0-12); NEUTROPHILS # (AUTO) 7.3 X 10^3 (1.8-7.8); NEUTROPHILS % (AUTO) 83 % (42-75); PLATELET COUNT 298 10^3/uL (130-400); RED BLOOD COUNT 2.79 10^6/uL (4.35-5.85); RED CELL DISTRIBUTION WIDTH 15.4 % (10.0-14.5); WHITE BLOOD COUNT 8.7 10^3/uL (4.3-11.0)
--- NOTE | 2017-02-13 08:41 | Progress Note ---
Subjective Subjective/Events-last exam Patient in bed. Patient is alert and oriented. Even respirations. No distress. Patient passing flatus but no stool yet. Had some pureed eggs this morning and nauseated. Objective Exam Vital Signs Date Time Temp Pulse Resp B/P (MAP) Pulse Ox O2 Delivery O2 Flow Rate FiO2 02/13/17 08:20 97.8 96 20 115/71 95 Room Air 02/13/17 07:00 93 02/13/17 06:58 92 02/13/17 06:30 20 02/13/17 04:10 100.4 89 20 127/58 94 Room Air 02/13/17 02:33 93 02/13/17 01:20 87 02/13/17 00:05 100.2 93 20 128/59 95 Room Air 02/12/17 23:51 92 02/12/17 20:51 100.2 96 18 121/58 96 Room Air 02/12/17 20:15 93 02/12/17 19:00 95 02/12/17 18:19 98 02/12/17 17:26 20 02/12/17 16:28 99.1 92 20 144/66 99 Room Air 02/12/17 14:24 97 02/12/17 13:00 84 02/12/17 12:00 99.3 93 20 109/71 97 Room Air 02/12/17 10:30 98.2 99 20 132/90 97 Room Air 02/12/17 10:06 100 02/12/17 09:00 97 20 135/60 Room Air I & O 02/13/17 07:00 Intake Total 3620 ml Output Total 2700 ml Balance 920 ml Capillary Refill : Less Than 3 Seconds General Appearance: No Apparent Distress, WD/WN HEENT: PERRL/EOMI Neck: Full Range of Motion, Non Tender, Supple Respiratory: Chest Non Tender, No Accessory Muscle Use, No Respiratory Distress Cardiovascular: Regular Rate, Rhythm Gastrointestinal: soft, distended (distended this am.), tenderness (around the incision sites. ) Extremity: Normal Capillary Refill, Normal Range of Motion, Non Tender Neurologic/Psychiatric: Alert, Oriented x3, No Motor/Sensory Deficits, Normal Mood/Affect Skin: Warm/Dry, Other (midline incision and SIERRA drain LLQ- minimal drainage at this time. ) Results Lab Laboratory Tests 02/13/17 04:10: White Blood Count 10.0, Red Blood Count 3.97L, Hemoglobin 12.0#, Hematocrit 35, Mean Corpuscular Volume 87, Mean Corpuscular Hemoglobin 30, Mean Corpuscular Hemoglobin Concent 35, Red Cell Distribution Width 14.1, Platelet Count 83L, Mean Platelet Volume 12.3H, Neutrophils (%) (Auto) 78H, Lymphocytes (%) (Auto) 13, Monocytes (%) (Auto) 8, Eosinophils (%) (Auto) 0, Basophils (%) (Auto) 1, Neutrophils # (Auto) 7.8, Lymphocytes # (Auto) 1.3, Monocytes # (Auto) 0.8, Eosinophils # (Auto) 0.0, Basophils # (Auto) 0.1 Assessment/Plan Assessment/Plan Assessment/Plan S/P exploratory laparotomy, sigmoid colon resection and end to end anastomosis Aplwpp-bpsyimqqxyxhx-[id number] this morning look skewed. Ordered redraw. We will continue to monitor labs, vital signs and I&O. Continue with IS 10x Q1hr SCD- DVT prophylaxis Continue with PT. Back to clear liquids for now. Pain control. PT Chanel- Patient slight nausea with eggs this morning. Hgb improving. Patient no other complaints at this time. Using incentive spirometer some. Ambulating. general no acute distress heart reg lungs nonlabored abdomen incision c/d/i drain more serous, slight distention ext nontender assessment as above increase activity lovenox and scd for dvt prophylaxis epidural out today cystogram on thursday Clinical Quality Measures DVT/VTE Risk/Contraindication: Risk Factor Score Per Nursin RFS Level Per Nursing on Admit: 4+=Very High JUNE MCCLAIN APRN February 13, 2017 08:41 ENRIQUE ROCHA DO February 13, 2017 14:37
--- NOTE | 2017-02-13 08:44 | Discharge Inst-Simple/Standard ---
Discharge Inst-Standard Patient Instructions/Follow Up Plan of Care/Instructions/FU: Follow up with Dr. Buchanan in 1 week Follow up with PCP in one week Soft diet for 2-3 days and slowly advance diet as tolerated. Use incentive spirometer at home as directed. At least 10 times an hour while awake. Will need to come to the clinic if output to SIERRA drain is less than 30ml in 24 hours. Ambulate 6 times a day. Activity as Tolerated: No Discharge Diet: Soft Diet Other Inst to Patient Follow up Appt: Make appointment for 1 week. Instructions: No lifting greater than 10 pounds. No strenuous activity. May shower in 24 hours, no tub bath or soaking. Use incentive spirometer at home as directed. At least 10 times an hour while awake. Ambulate 6 times a day. No Smoking Skin/Wound Care: Keep incision clean and dry. If SIERRA drain is draining less than 30 ml in 24 hour period, come to clinic to have it pulled out. Symptoms to Report: Appetite Changes, Extremity Discoloration, Numbness/Tingling, Swelling Increased , Bleeding Excessive, Eyesight Changes, Pain Increased, Urine Color Change, Constipation(Persistent), Fever over 101 degree F, Pain/Pressure in chest, Urinating Difficulty, Cough Up/Vomit Blood, Heart Beat Irreg/Pounding, Pain/ Pressure in jaw, Vaginal Bleeding Increase, Cramps in feet or legs, Lightheadedness, Pain/Pressure in shoulder, Diarrhea(Persistent), Memory Changes Suddenly, Questions/Concerns, Weight gain consecutive days, Dizziness/ Fainting, Nausea/Vomiting, Shortness of Breath, Weight gain over 2 pounds If questions or concerns contact your physician Or seek help at emergency department. JUNE MCCLAIN APRN February 13, 2017 08:44
[2017-02-13 09:08] LABS: ALANINE AMINOTRANSFERASE 6 U/L (0-55); ALBUMIN 2.5 G/DL (3.2-4.5); ANION GAP 8 MMOL/L (5-14); ASPARTATE AMINO TRANSFERASE 15 U/L (5-34); BILIRUBIN,TOTAL 0.3 MG/DL (0.1-1.0); BLOOD UREA NITROGEN 4 MG/DL (7-18); BUN/CREATININE RATIO 6; CARBON DIOXIDE 28 MMOL/L (21-32); CHLORIDE 100 MMOL/L (98-107); CREATININE SERUM 0.71 MG/DL (0.60-1.30); GFR ESTIMATED > 60; GLUCOSE 115 MG/DL (70-105); POTASSIUM 3.5 MMOL/L (3.6-5.0); SODIUM 136 MMOL/L (135-145); TOTAL PROTEIN 4.7 G/DL (6.4-8.2)
--- NOTE | 2017-02-13 09:27 | Physical Therapy Daily Note ---
PT Daily Note-Current Subjective Patient c/o nausea this a.m. Dr. Buchanan is aware. Pain Numeric Pain Scale: 5-Moderate Pain Location: Lower Location Body Site: Abdomen Pain Description: Pressure Mental Status Patient Orientation: Normal For Age Attachments: Agrcia Catheter, IV Transfers Functional [place] Measure 0=Not Assessed/NA 4=Minimal Assistance 1=Total Assistance 5=Supervision or Setup 2=Maximal Assistance 6=Modified [place] 3=Moderate Assistance 7=Complete IndependenceIRFPAI Quality Coding Scale 6 Independent with activity with or without an assistive device 5 Patient requires set up or clean up by helper. Patient completes activity by themselves 4 Supervision or touching assist (CGA). [place] provide cues , steadying assist 3 The helper provides less than half the effort to complete the activity 2 The helper provides more than half the effort to complete the activity 1 Dependent. The helper does all the effort to complete an activity 7 Patient refused to complete or attempt activity 9 The patient did not perform the activity before the current illness or injury 88 Not attempted due to Medical conditions or safety concerns Transfers (B, C, W/C) (FIM): 6 Scootin Rollin Supine to/from Sit: 6 Sit to/from Stand: 6 Gait Training Gait (FIM): 6 Distance (FIM): 3=150 ft Distance: 250' x 1; 150' x 1 Gait Level of Assist: 6 Gait Assistive Device: FWW safe and functional with FWW; very slow, steady gait sequence Exercises Seated Therapy Exercises: Ankle pumps, Long arc quads Seated Reps: 15 Assessment Patient tolerated treatment well and continues to be very anxious. PT encouraged patient to perform bilateral LE exercises in recliner to improve circulation and strength. PT [employer] Goals Prison Goals PT Prison Goals Time Frame: February 18, 2017 Transfers (B,C,W/C) (FIM): 5 Gait (FIM): 2 Distance: 50' Gait Level of Assist: 5 Gait Assistive Device: FWW PT Plan Treatment/Plan Treatment Plan: Continue Plan of Care Treatment Plan: Bed Mobility, Education, Functional Activity Gaetano, Functional Strength, Gait, Safety, Therapeutic Exercise, Transfers Treatment Duration: February 18, 2017 Visits Per Week: 5-6 Minutes/Day (M-F): 15-30 Minutes/Day (Sat/Nguyen): 15-30 Time/GCodes Time In: 841 Time Out: 904 Total Billed Treatment Time: 23 Total Billed Treatment 1 visit FA x 2 23 min MADISON VÁZQUEZ PT February 13, 2017 09:27
--- NOTE | 2017-02-13 10:26 | Diagnostic Imaging Report ---
EXAMINATION: Portable erect AP chest obtained at 4:30h. indication: Dyspnea The heart size is within normal limits and stable when compared to 02/12/17. The prior study did note a minimal atelectasis/infiltrate in the medial aspect of the right lung base. This portion of the right lung does seem better aerated on this study. The lungs are otherwise generally clear. The mediastinum is not widened. The osseous structures are intact. The Port-A-Cath on the right remains in good position. IMPRESSION: The appearance of the chest has improved since the prior exam as the medial aspect of the right lung base does seem better aerated. No new abnormality has developed. Dictated by: Dictated on workstation # [id number]
[2017-02-13] MEDS: morphine PCA 30 MG/30 ML VIAL IV PRN (11:00)
[2017-02-13 12:53] VITALS: BP 117/73
--- NOTE | 2017-02-13 14:20 | Anesthesia Pain Mgmt-Epidural ---
Anesthesia-Pain Mgmnt Epidural Pre-Procedure Indication: Surgical Anesthesia Surgeon: Chanel Requesting Physician: Chanel Chart Review and Risk/Benefits/Options Discussed Procedure Epidural: Continuous Block: Continuous Conditon: Good motor strength, Good pain control, Neuro exam unremarkable Catheter Removed: Catheter tip smooth, Catheter tip intact, Site clean Date of Service: February 13, 2017 Time of Service: 14:18 Progress Note Anesthesia Note ([id number]( Pt S/E by Raudel Stewart CRNA earlier this morning and discussed with patient that epidural will be D/C'd today. Catheter pulled by me, tip intact. Bandage applied. Pt tolerated well. We will be available if needed. MONTSERRAT WINSTON DO February 13, 2017 14:20
[2017-02-13] MEDS ORDERED: ENOXAPARIN 40 MG/0.4 ML (LOVENOX) SYR SQ SCH (15:00)
[2017-02-13 16:16] VITALS: BP 132/61
[2017-02-13] MEDS: HYDROcodone/APAP 5 MG/325 MG (LORTAB) TAB PO PRN ×2 (17:33→21:31)
[2017-02-13 20:51] VITALS: BP 140/65
[2017-02-13] MEDS: ENOXAPARIN 40 MG/0.4 ML (LOVENOX) SYR SQ SCH (21:31)
[2017-02-14 00:33] VITALS: BP 137/64
[2017-02-14] MEDS: HYDROcodone/APAP 5 MG/325 MG (LORTAB) TAB PO PRN ×5 (03:49→20:56)
[2017-02-14 04:00] VITALS: BP 143/66
[2017-02-14] MEDS: ONDANSETRON 4 MG/2 ML (SDV) Z0FRAN IV PRN ×3 (05:26→22:29)
[2017-02-14] MEDS: metroNIDAZOLE 500MG/100ML IVPB 100 ML IV SCH ×3 (05:27→22:19)
[2017-02-14] MEDS: morphine PCA 30 MG/30 ML VIAL IV PRN ×2 (05:43→21:09)
[2017-02-14] MEDS: LACTATED RINGERS 1,000 ML IV SCH ×2 (05:45→22:19)
[2017-02-14 05:47] LABS: BASOPHILS % (AUTO) 0 % (0-10); EOSINOPHILS # (AUTO) 0.1 10^3/uL (0.0-0.3); EOSINOPHILS % (AUTO) 2 % (0-10); LYMPHOCYTES # (AUTO) 0.2 X 10^3 (1.0-4.0); LYMPHOCYTES % (AUTO) 2 % (12-44); MEAN CORPUSCULAR HEMOGLOBIN 30 PG (25-34); MEAN CORPUSCULAR HGB CONC 33 G/DL (32-36); MEAN CORPUSCULAR VOLUME 91 FL (80-99); MEAN PLATELET VOLUME 8.7 FL (7.4-10.4); MONOCYTES # (AUTO) 0.8 X 10^3 (0.0-1.0); MONOCYTES % (AUTO) 10 % (0-12); NEUTROPHILS % (AUTO) 86 % (42-75); PLATELET COUNT 261 10^3/uL (130-400); RED BLOOD COUNT 2.74 10^6/uL (4.35-5.85); RED CELL DISTRIBUTION WIDTH 15.1 % (10.0-14.5); WHITE BLOOD COUNT 8.1 10^3/uL (4.3-11.0)
[2017-02-14 06:07] LABS: ANION GAP 8 MMOL/L (5-14); BLOOD UREA NITROGEN 4 MG/DL (7-18); BUN/CREATININE RATIO 6; CALCIUM 8.1 MG/DL (8.5-10.1); CARBON DIOXIDE 29 MMOL/L (21-32); CHLORIDE 100 MMOL/L (98-107); CREATININE SERUM 0.63 MG/DL (0.60-1.30); GFR ESTIMATED > 60; GLUCOSE 97 MG/DL (70-105); MAGNESIUM 1.6 MG/DL (1.8-2.4); PHOSPHORUS 3.8 MG/DL (2.3-4.7); POTASSIUM 3.4 MMOL/L (3.6-5.0); SODIUM 137 MMOL/L (135-145)
[2017-02-14 08:00] VITALS: BP 144/66
[2017-02-14] MEDS: FAMOTIDINE 20MG/2ML IV (PEPCID) IVP SCH (08:31)
[2017-02-14] MEDS: NICOTINE 14 MG (NICODERM) PATCH TD SCH (08:31)
[2017-02-14] MEDS: CIPROFLOXACIN IV 400MG/200ML 200 ML IV SCH ×2 (08:31→20:01)
[2017-02-14] MEDS: NICOTINE PATCH REMOVAL TP SCH (08:32)
--- NOTE | 2017-02-14 09:21 | Physical Therapy Progress Note ---
Therapy Progress Note Attempted PT treatment. Patient stated that she had been vomiting all night and is still vomiting. She refused to work with PT secondary to nausea. GRIS WINSTON PT February 14, 2017 09:21
--- NOTE | 2017-02-14 10:48 | Diagnostic Imaging Report ---
INDICATION: Dyspnea Upright portable chest shows normal heart size and vascularity. The lungs are clear. There is no effusion or pneumothorax. Port-A-Cath is present. IMPRESSION: No acute abnormality is seen with no change from 02/13/17. Dictated by: Dictated on workstation # [id number]
[2017-02-14] MEDS ORDERED: FUROSEMIDE 40 MG/4 ML INJ (LASIX) IVP NR (11:45)
[2017-02-14 12:00] VITALS: BP 136/65
--- NOTE | 2017-02-14 12:37 | Progress Note (SOAP) ---
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 She is upset that her thighs have more edema. Reports a good bowel movement this am and passing flatus. Would like to drink some fluids. -just a few small areas in her emesis basin of mucus from spitting. No emesis while I was examining patient. Review of Systems General: No Chills, No Night Sweats HEENT: No Head Aches Pulmonary: No Dyspnea, No Cough Cardiovascular: No: Chest Pain, Edema, Lt Headedness, Orthopnea, Other, Palpitations, Paroxysmal Noc. Dyspnea Gastrointestinal: Abdominal Pain, Nausea, Vomiting Genitourinary: Other (chau) Musculoskeletal: back pain (improved/ chronic) Neurological: Weakness Objective Exam Vital Signs Vital Signs Date Time Temp Pulse Resp B/P (MAP) Pulse Ox O2 Delivery O2 Flow Rate FiO2 02/14/17 11:00 93 02/14/17 08:00 96.9 76 18 144/66 94 Room Air 02/14/17 07:10 82 02/14/17 06:00 18 02/14/17 05:43 18 02/14/17 04:00 98.5 80 19 143/66 95 Room Air 02/14/17 02:33 92 02/14/17 00:33 98.9 87 16 137/64 98 Room Air 02/13/17 22:08 96 02/13/17 20:51 99.5 89 14 140/65 98 Room Air 02/13/17 18:49 95 02/13/17 18:17 16 02/13/17 16:16 97.0 90 16 132/61 97 Room Air 02/13/17 15:14 96 02/13/17 13:28 110 02/13/17 12:53 98.2 86 20 117/73 97 Room Air I & O 02/14/17 07:00 Intake Total 3220 ml Output Total 2660 ml Balance 560 ml General Appearance: WD/WN, Mild Distress HEENT: PERRL/EOMI Neck: Full Range of Motion, Non Tender, Supple Respiratory: Chest Non Tender, No Accessory Muscle Use, No Respiratory Distress Cardiovascular: Regular Rate, Rhythm Gastrointestinal: Soft, Distended (minimally), Other Rectal: Deferred Back: No CVA Tenderness Extremity: Normal Capillary Refill, Normal Range of Motion, Non Tender Neurologic/Psychiatric: Alert, Oriented x3, No Motor/Sensory Deficits, Normal Mood/Affect Skin: Warm/Dry, Other (midline incision and SIERRA drain LLQ- minimal drainage at this time. ) Results Lab Laboratory Tests 02/14/17 05:33: White Blood Count 8.1, Red Blood Count 2.74L, Hemoglobin 8.1L, Hematocrit 25L, Mean Corpuscular Volume 91, Mean Corpuscular Hemoglobin 30, Mean Corpuscular Hemoglobin Concent 33, Red Cell Distribution Width 15.1H, Platelet Count 261, Mean Platelet Volume 8.7, Neutrophils (%) (Auto) 86H, Lymphocytes (%) (Auto) 2L , Monocytes (%) (Auto) 10, Eosinophils (%) (Auto) 2, Basophils (%) (Auto) 0, Neutrophils # (Auto) 7.0, Lymphocytes # (Auto) 0.2L, Monocytes # (Auto) 0.8, Eosinophils # (Auto) 0.1, Basophils # (Auto) 0.0, Sodium Level 137, Potassium Level 3.4L, Chloride Level 100, Carbon Dioxide Level 29, Anion Gap 8, Blood Urea Nitrogen 4L, Creatinine 0.63, Estimat Glomerular Filtration Rate > 60, BUN/ Creatinine Ratio 6, Glucose Level 97, Calcium Level 8.1L, Phosphorus Level 3.8, Magnesium Level 1.6L Assessment/Plan Assessment/Plan Assessment/Plan 71 yo F admitted 02/09/17 colovesicular fistula- demonstrated on CT- suspected with her history of UTIs s/p 02/09/17 exploratory laparotomy, sigmoid colon resection and end to end anastamosis -Dr. Buchanan -metronidazole, ciprofloxacin. 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 Townsend chronic back pain and post-malignancy pain- her home medications are morphine 30mg BID, hydrocodone 5/325mg , colace. post-operative anemia- monitor hgb, transfuse if <7- hemoglobin stable. hypomagnesemia- replacing tobaccoism- encourage cessation, nicotine patch nausea/vomiting- zofran weakness- PT/OT Dispo: continue to monitor- gave pt 20mg lasix IV- to help with edema- monitor her nausea. Problems: Clinical Quality Measures DVT/VTE Risk/Contraindication: Risk Factor Score Per Nursin RFS Level Per Nursing on Admit: 3=High KIRA LUCERO MD February 14, 2017 12:37
[2017-02-14] MEDS: MAGNESIUM 1 GM/100 ML IVPB 100 ML IV SCH ×3 (13:32→14:51)
--- NOTE | 2017-02-14 14:28 | Progress Note ---
Subjective Subjective/Events-last exam Patient reports nausea overnight. Increasing edema abdomen and lower extremities Hgb stable. Pain controlled. Passing flatus and had bowel movement. Denies fever sweats chills shortness of breath or chest pain. Objective Exam Vital Signs Date Time Temp Pulse Resp B/P (MAP) Pulse Ox O2 Delivery O2 Flow Rate FiO2 02/14/17 12:56 82 02/14/17 12:00 98.2 81 20 136/65 96 Room Air 02/14/17 11:00 93 02/14/17 08:00 96.9 76 18 144/66 94 Room Air 02/14/17 07:10 82 02/14/17 06:00 18 02/14/17 05:43 18 02/14/17 04:00 98.5 80 19 143/66 95 Room Air 02/14/17 02:33 92 02/14/17 00:33 98.9 87 16 137/64 98 Room Air 02/13/17 22:08 96 02/13/17 20:51 99.5 89 14 140/65 98 Room Air 02/13/17 18:49 95 02/13/17 18:17 16 02/13/17 16:16 97.0 90 16 132/61 97 Room Air 02/13/17 15:14 96 I & O 02/14/17 07:00 Intake Total 3220 ml Output Total 2660 ml Balance 560 ml Capillary Refill : Less Than 3 Seconds General Appearance: WD/WN HEENT: PERRL/EOMI Neck: Full Range of Motion, Non Tender, Supple Respiratory: Chest Non Tender, No Accessory Muscle Use, No Respiratory Distress Cardiovascular: Regular Rate, Rhythm Gastrointestinal: soft, distended (slight distention), tenderness (around the incision sites. ) Extremity: Normal Capillary Refill, Normal Range of Motion, Non Tender Neurologic/Psychiatric: Alert, Oriented x3, No Motor/Sensory Deficits, Normal Mood/Affect Skin: Warm/Dry, Other (midline incision and SIERRA drain LLQ serous appearing drainage. Garcia with yellowish urine. B/l lower extremities with edema.) Results Lab Laboratory Tests 02/14/17 05:33: White Blood Count 8.1, Red Blood Count 2.74L, Hemoglobin 8.1L, Hematocrit 25L, Mean Corpuscular Volume 91, Mean Corpuscular Hemoglobin 30, Mean Corpuscular Hemoglobin Concent 33, Red Cell Distribution Width 15.1H, Platelet Count 261, Mean Platelet Volume 8.7, Neutrophils (%) (Auto) 86H, Lymphocytes (%) (Auto) 2L , Monocytes (%) (Auto) 10, Eosinophils (%) (Auto) 2, Basophils (%) (Auto) 0, Neutrophils # (Auto) 7.0, Lymphocytes # (Auto) 0.2L, Monocytes # (Auto) 0.8, Eosinophils # (Auto) 0.1, Basophils # (Auto) 0.0, Sodium Level 137, Potassium Level 3.4L, Chloride Level 100, Carbon Dioxide Level 29, Anion Gap 8, Blood Urea Nitrogen 4L, Creatinine 0.63, Estimat Glomerular Filtration Rate > 60, BUN/ Creatinine Ratio 6, Glucose Level 97, Calcium Level 8.1L, Phosphorus Level 3.8, Magnesium Level 1.6L Assessment/Plan Assessment/Plan Assessment/Plan s/p sigmoid resection with EEA colovesicular fistula edema lower extremities postoperative anemia- stable monitor pain control increase activity nausea back off on diet if nauseated, if not may increase 20mg lasix IV- to help with edema incentive spirometer dvt/gi prophylaxis Clinical Quality Measures DVT/VTE Risk/Contraindication: Risk Factor Score Per Nursin RFS Level Per Nursing on Admit: 3=High ENRIQUE ROCHA DO February 14, 2017 14:28
[2017-02-14 16:00] VITALS: BP 141/65
--- NOTE | 2017-02-14 16:46 | Diagnostic Imaging Report ---
Indication: Nausea and vomiting with abdominal pain A supine view the abdomen shows skin atif in the midline. A drain is present. EKG leads are seen. No unsuspected foreign body is seen. There are air-filled loops of large and small bowel which may related to mild ileus. Impression: Probable mild ileus. Dictated by: Dictated on workstation # [id number]
[2017-02-14 20:00] VITALS: BP 142/63
[2017-02-14] MEDS: ENOXAPARIN 40 MG/0.4 ML (LOVENOX) SYR SQ SCH (20:01)
[2017-02-15] VITALS (7 sets, daily range): BP systolic 131–170; BP diastolic 64–75
[2017-02-15] MEDS: ONDANSETRON 4 MG/2 ML (SDV) Z0FRAN IV PRN ×5 (01:06→22:16)
[2017-02-15] MEDS: HYDROcodone/APAP 5 MG/325 MG (LORTAB) TAB PO PRN ×5 (04:29→21:17)
[2017-02-15] MEDS: metroNIDAZOLE 500MG/100ML IVPB 100 ML IV SCH ×3 (06:03→22:16)
[2017-02-15 06:09] LABS: BASOPHILS % (AUTO) 0 % (0-10); EOSINOPHILS # (AUTO) 0.1 10^3/uL (0.0-0.3); EOSINOPHILS % (AUTO) 2 % (0-10); LYMPHOCYTES # (AUTO) 0.2 X 10^3 (1.0-4.0); LYMPHOCYTES % (AUTO) 3 % (12-44); MEAN CORPUSCULAR HEMOGLOBIN 29 PG (25-34); MEAN CORPUSCULAR HGB CONC 32 G/DL (32-36); MEAN CORPUSCULAR VOLUME 90 FL (80-99); MEAN PLATELET VOLUME 8.5 FL (7.4-10.4); MONOCYTES # (AUTO) 0.8 X 10^3 (0.0-1.0); MONOCYTES % (AUTO) 10 % (0-12); NEUTROPHILS # (AUTO) 6.7 X 10^3 (1.8-7.8); NEUTROPHILS % (AUTO) 85 % (42-75); PLATELET COUNT 282 10^3/uL (130-400); RED BLOOD COUNT 2.57 10^6/uL (4.35-5.85); WHITE BLOOD COUNT 7.8 10^3/uL (4.3-11.0)
[2017-02-15 06:46] LABS: ANION GAP 8 MMOL/L (5-14); BLOOD UREA NITROGEN 3 MG/DL (7-18); BUN/CREATININE RATIO 5; CALCIUM 7.7 MG/DL (8.5-10.1); CARBON DIOXIDE 31 MMOL/L (21-32); CHLORIDE 97 MMOL/L (98-107); GFR ESTIMATED > 60; GLUCOSE 101 MG/DL (70-105); MAGNESIUM 1.9 MG/DL (1.8-2.4); PHOSPHORUS 3.7 MG/DL (2.3-4.7); SODIUM 136 MMOL/L (135-145)
[2017-02-15] MEDS: CIPROFLOXACIN IV 400MG/200ML 200 ML IV SCH ×2 (08:35→20:29)
[2017-02-15] MEDS: NICOTINE 14 MG (NICODERM) PATCH TD SCH (08:35)
[2017-02-15] MEDS: FAMOTIDINE 20MG/2ML IV (PEPCID) IVP SCH (08:35)
[2017-02-15] MEDS: NICOTINE PATCH REMOVAL TP SCH (08:36)
--- NOTE | 2017-02-15 09:01 | Progress Note (SOAP) ---
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 Wonders about other options in regards to pain management. Could try fentanyl patch. Pt notes her incision is a little red. Pt is not happy with all the weight she has gained. Review of Systems General: No Chills, No Night Sweats HEENT: No Head Aches Pulmonary: No Dyspnea, No Cough Cardiovascular: No: Chest Pain, Edema, Lt Headedness, Orthopnea, Other, Palpitations, Paroxysmal Noc. Dyspnea Gastrointestinal: Abdominal Pain, Nausea, Vomiting Genitourinary: Other (chau) Musculoskeletal: back pain (improved/ chronic) Neurological: Weakness Objective Exam Vital Signs Vital Signs Date Time Temp Pulse Resp B/P (MAP) Pulse Ox O2 Delivery O2 Flow Rate FiO2 02/15/17 07:18 84 02/15/17 06:30 95 02/15/17 06:11 20 02/15/17 04:24 98.2 82 16 131/71 97 Room Air 02/15/17 03:41 94 02/15/17 01:18 85 02/15/17 00:53 97.8 85 18 132/71 98 Room Air 02/14/17 21:52 95 02/14/17 21:09 20 02/14/17 21:00 20 02/14/17 20:00 97.7 87 20 142/63 98 Room Air 02/14/17 18:30 89 02/14/17 18:14 20 02/14/17 16:00 96.3 85 20 141/65 97 Room Air 02/14/17 15:05 94 02/14/17 12:56 82 02/14/17 12:00 98.2 81 20 136/65 96 Room Air 02/14/17 11:00 93 I & O 02/15/17 07:00 Intake Total 1900 ml Output Total 4075 ml Balance -2175 ml General Appearance: WD/WN HEENT: PERRL/EOMI Neck: Full Range of Motion, Non Tender, Supple Respiratory: Chest Non Tender, No Accessory Muscle Use, No Respiratory Distress Cardiovascular: Regular Rate, Rhythm Gastrointestinal: Soft, Distended (minimally), Other Rectal: Deferred Back: No CVA Tenderness Extremity: Normal Capillary Refill, Normal Range of Motion, Non Tender Neurologic/Psychiatric: Alert, Oriented x3, No Motor/Sensory Deficits, Normal Mood/Affect Skin: Warm/Dry, Other (midline incision and SIERRA drain LLQ serous appearing drainage. Chau with yellowish urine. B/l lower extremities with edema.) Results Lab Laboratory Tests 02/15/17 05:17: White Blood Count 7.8, Red Blood Count 2.57L, Hemoglobin 7.5L, Hematocrit 23L, Mean Corpuscular Volume 90, Mean Corpuscular Hemoglobin 29, Mean Corpuscular Hemoglobin Concent 32, Red Cell Distribution Width 15.0H, Platelet Count 282, Mean Platelet Volume 8.5, Neutrophils (%) (Auto) 85H, Lymphocytes (%) (Auto) 3L , Monocytes (%) (Auto) 10, Eosinophils (%) (Auto) 2, Basophils (%) (Auto) 0, Neutrophils # (Auto) 6.7, Lymphocytes # (Auto) 0.2L, Monocytes # (Auto) 0.8, Eosinophils # (Auto) 0.1, Basophils # (Auto) 0.0, Sodium Level 136, Potassium Level 3.0L, Chloride Level 97L, Carbon Dioxide Level 31, Anion Gap 8, Blood Urea Nitrogen 3L, Creatinine 0.60, Estimat Glomerular Filtration Rate > 60, BUN/ Creatinine Ratio 5, Glucose Level 101, Calcium Level 7.7L, Phosphorus Level 3.7 , Magnesium Level 1.9 Assessment/Plan Assessment/Plan Assessment/Plan 71 yo F admitted 02/09/17 colovesicular fistula- demonstrated on CT- suspected with her history of UTIs s/p 02/09/17 exploratory laparotomy, sigmoid colon resection and end to end anastamosis -Dr. Buchanan -metronidazole, ciprofloxacin. 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 Townsend chronic back pain and post-malignancy pain- her home medications are morphine 30mg BID, hydrocodone 5/325mg , colace. post-operative anemia- monitor hgb, transfuse if <7- hemoglobin stable. hypomagnesemia- replacing prn tobaccoism- encourage cessation, nicotine patch nausea/vomiting- zofran weakness- PT/OT hypokalemia- replacing. DVT: scds, lovenox- GI ppx- d/c'd famotidine 12/17/16- started protonix 40mg iv 12/16/16 as this is what pt was using at home and it worked for her. Dispo: continue to monitor- cystogram tomorrow. 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 Problems: Clinical Quality Measures DVT/VTE Risk/Contraindication: Risk Factor Score Per Nursin RFS Level Per Nursing on Admit: 3=High KIRA LUCERO MD February 15, 2017 09:01
--- NOTE | 2017-02-15 09:33 | Diagnostic Imaging Report ---
INDICATION: Dyspnea Upright portable chest shows normal heart size and vascularity. The lungs are clear. There is no effusion or pneumothorax. There is no change from 02/14/2017. IMPRESSION: Stable chest. Dictated by: Dictated on workstation # [id number]
[2017-02-15] MEDS: POTASSIUM CL 10MEQ/50ML IVPB 50 ML IV SCH ×4 (09:55→11:44)
[2017-02-15] MEDS: PANTOPRAZOLE 40 MG/10 ML (PROTONIX) VIAL IV SCH (09:55)
[2017-02-15] MEDS: LACTATED RINGERS 1,000 ML IV SCH (13:14)
--- NOTE | 2017-02-15 13:44 | Progress Note ---
Subjective Subjective/Events-last exam Patient having nausea and is spitting up. States passing flatus today. Good BM yesterday she states. Not ambulating much. Not very successful with incentive spirometer. Abdominal x ray ileus. Chest x ray stable. Denies fever sweats chills shortness of breath or chest pain. Objective Exam Vital Signs Date Time Temp Pulse Resp B/P (MAP) Pulse Ox O2 Delivery O2 Flow Rate FiO2 02/15/17 11:44 98 02/15/17 08:30 97.8 83 20 155/75 97 Room Air 02/15/17 07:18 84 02/15/17 06:30 95 02/15/17 06:11 20 02/15/17 04:24 98.2 82 16 131/71 97 Room Air 02/15/17 03:41 94 02/15/17 01:18 85 02/15/17 00:53 97.8 85 18 132/71 98 Room Air 02/14/17 21:52 95 02/14/17 21:09 20 02/14/17 21:00 20 02/14/17 20:00 97.7 87 20 142/63 98 Room Air 02/14/17 18:30 89 02/14/17 18:14 20 02/14/17 16:00 96.3 85 20 141/65 97 Room Air 02/14/17 15:05 94 I & O 02/15/17 07:00 Intake Total 1900 ml Output Total 4075 ml Balance -2175 ml Capillary Refill : Less Than 3 Seconds General Appearance: WD/WN (laying in bed) HEENT: PERRL/EOMI Neck: Full Range of Motion, Non Tender, Supple Respiratory: Chest Non Tender, No Accessory Muscle Use, No Respiratory Distress Cardiovascular: Regular Rate, Rhythm Gastrointestinal: soft, distended (slightly improved), tenderness (around the incision sites. ) Extremity: Normal Capillary Refill, Normal Range of Motion, Non Tender, Other ( lower ext swelling improving after lasix) Neurologic/Psychiatric: Alert, Oriented x3, No Motor/Sensory Deficits, Normal Mood/Affect Skin: Warm/Dry, Other (midline incision and SIERRA drain LLQ serous appearing drainage. Garcia with yellowish urine. B/l lower extremities with edema.) Results Lab Laboratory Tests 02/15/17 05:17: White Blood Count 7.8, Red Blood Count 2.57L, Hemoglobin 7.5L, Hematocrit 23L, Mean Corpuscular Volume 90, Mean Corpuscular Hemoglobin 29, Mean Corpuscular Hemoglobin Concent 32, Red Cell Distribution Width 15.0H, Platelet Count 282, Mean Platelet Volume 8.5, Neutrophils (%) (Auto) 85H, Lymphocytes (%) (Auto) 3L , Monocytes (%) (Auto) 10, Eosinophils (%) (Auto) 2, Basophils (%) (Auto) 0, Neutrophils # (Auto) 6.7, Lymphocytes # (Auto) 0.2L, Monocytes # (Auto) 0.8, Eosinophils # (Auto) 0.1, Basophils # (Auto) 0.0, Sodium Level 136, Potassium Level 3.0L, Chloride Level 97L, Carbon Dioxide Level 31, Anion Gap 8, Blood Urea Nitrogen 3L, Creatinine 0.60, Estimat Glomerular Filtration Rate > 60, BUN/ Creatinine Ratio 5, Glucose Level 101, Calcium Level 7.7L, Phosphorus Level 3.7 , Magnesium Level 1.9 Assessment/Plan Assessment/Plan Assessment/Plan s/p sigmoid resection with EEA colovesicular fistula edema lower extremities improving postoperative anemia- stable monitor postoperative ileus pain control increase activity reinforced informed to ambulate TID nausea back off on diet if nauseated, if not may increase incentive spirometer reinforced dvt/gi prophylaxis cystogram tomorrow Clinical Quality Measures DVT/VTE Risk/Contraindication: Risk Factor Score Per Nursin RFS Level Per Nursing on Admit: 3=High ENRIQUE ROCHA DO February 15, 2017 13:44
[2017-02-15] MEDS: ENOXAPARIN 40 MG/0.4 ML (LOVENOX) SYR SQ SCH (20:29)
[2017-02-15] MEDS: morphine PCA 30 MG/30 ML VIAL IV PRN (22:20)
[2017-02-16 04:00] VITALS: BP 158/78
[2017-02-16] MEDS: HYDROcodone/APAP 5 MG/325 MG (LORTAB) TAB PO PRN ×5 (04:13→21:20)
[2017-02-16] MEDS: LACTATED RINGERS 1,000 ML IV SCH ×2 (05:41→22:28)
[2017-02-16] MEDS: metroNIDAZOLE 500MG/100ML IVPB 100 ML IV SCH (05:41)
[2017-02-16] MEDS: ONDANSETRON 4 MG/2 ML (SDV) Z0FRAN IV PRN (06:00)
[2017-02-16 08:19] VITALS: BP 149/65
[2017-02-16] MEDS: NICOTINE 14 MG (NICODERM) PATCH TD SCH (08:30)
[2017-02-16] MEDS: CIPROFLOXACIN IV 400MG/200ML 200 ML IV SCH (08:30)
[2017-02-16] MEDS: NICOTINE PATCH REMOVAL TP SCH (08:30)
[2017-02-16] MEDS: PANTOPRAZOLE 40 MG/10 ML (PROTONIX) VIAL IV SCH (08:30)
--- NOTE | 2017-02-16 08:34 | Progress Note (SOAP) ---
Subjective Subjective 71 yo F with colovesicular fistula s/p surgery- Nursing reports no episodes of emesis. Pt is lying flat in bed and she reports this is the first time she has been allowed to do this. Pt not wanting to use the production assembler and stay with the hydrocodone/apap for pain. Going to have a cystogram today. Pt reports having good bowel movements. Review of Systems General: No Chills, No Night Sweats, Fatigue, Malaise HEENT: No Head Aches Pulmonary: No Dyspnea, No Cough Cardiovascular: No: Chest Pain, Edema, Lt Headedness, Orthopnea, Other, Palpitations, Paroxysmal Noc. Dyspnea Gastrointestinal: Abdominal Pain, Nausea Genitourinary: Other (chau) Musculoskeletal: back pain ( chronic) Neurological: Weakness Objective Exam Vital Signs Vital Signs Date Time Temp Pulse Resp B/P (MAP) Pulse Ox O2 Delivery O2 Flow Rate FiO2 02/16/17 08:19 97.9 87 16 149/65 95 Room Air 02/16/17 08:07 97 02/16/17 07:00 84 02/16/17 05:44 20 02/16/17 04:00 97.6 91 15 158/78 98 Room Air 02/16/17 02:21 100 02/16/17 01:00 83 02/15/17 23:59 98.5 92 13 159/70 93 Room Air 02/15/17 22:20 18 02/15/17 21:02 99 02/15/17 21:00 20 02/15/17 20:00 98.2 82 18 133/71 95 Room Air 02/15/17 19:04 110 02/15/17 18:18 96 02/15/17 17:25 16 02/15/17 16:00 98.0 87 18 131/64 95 Room Air 02/15/17 15:23 95 02/15/17 13:11 85 02/15/17 12:00 97.4 87 18 170/73 95 Room Air 02/15/17 11:44 98 I & O 02/16/17 07:00 Intake Total 3500 ml Output Total 2920 ml Balance 580 ml General Appearance: WD/WN (laying in bed) HEENT: PERRL/EOMI Neck: Full Range of Motion, Non Tender, Supple Respiratory: Chest Non Tender, No Accessory Muscle Use, No Respiratory Distress Cardiovascular: Regular Rate, Rhythm Gastrointestinal: Soft, Distended (minimally), Other (incision clean/dry/intact ) Rectal: Deferred Back: No CVA Tenderness Extremity: Normal Capillary Refill, Normal Range of Motion, Non Tender, Other ( lower ext swelling improving after lasix) Neurologic/Psychiatric: Alert, Oriented x3, No Motor/Sensory Deficits, Normal Mood/Affect Skin: Warm/Dry, Other (midline incision and SIERRA drain LLQ serous appearing drainage. Chau with yellowish urine. B/l lower extremities with edema.) Assessment/Plan Assessment/Plan Assessment/Plan 71 yo F admitted 02/09/17 colovesicular fistula- demonstrated on CT- suspected with her history of UTIs s/p 02/09/17 exploratory laparotomy, sigmoid colon resection and end to end anastamosis -Dr. Buchanan -metronidazole, ciprofloxacin. 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 Townsend chronic back pain and post-malignancy pain- her home medications are morphine 30mg BID, hydrocodone 5/325mg , colace. post-operative anemia- monitor hgb, transfuse if <7- hemoglobin stable. hypomagnesemia- replacing prn tobaccoism- encourage cessation, nicotine patch nausea/vomiting- zofran weakness- PT/OT hypokalemia- replacing. DVT: scds, lovenox- GI ppx- d/c'd famotidine 12/17/16- started protonix 40mg iv 12/16/16 as this is what pt was using at home and it worked for her. Dispo: continue to monitor- cystogram today -consider a fentanyl patch and try to back off the oral/production assembler opioids? -Pt is having good bowel movements- -awaiting labs this am- expect mag and potassium to be low- will need to replace iv. Problems: Clinical Quality Measures DVT/VTE Risk/Contraindication: Risk Factor Score Per Nursin RFS Level Per Nursing on Admit: 3=High KIRA LUCERO MD February 16, 2017 08:34
--- NOTE | 2017-02-16 09:05 | Progress Note ---
Subjective Subjective/Events-last exam Patient resting in bed. C/O back pain with some redness to her sacrum. Just had a bout of diarrhea. No signs of N/V. Objective Exam Vital Signs Date Time Temp Pulse Resp B/P (MAP) Pulse Ox O2 Delivery O2 Flow Rate FiO2 02/16/17 08:19 97.9 87 16 149/65 95 Room Air 02/16/17 08:07 97 02/16/17 07:00 84 02/16/17 05:44 20 02/16/17 04:00 97.6 91 15 158/78 98 Room Air 02/16/17 02:21 100 02/16/17 01:00 83 02/15/17 23:59 98.5 92 13 159/70 93 Room Air 02/15/17 22:20 18 02/15/17 21:02 99 02/15/17 21:00 20 02/15/17 20:00 98.2 82 18 133/71 95 Room Air 02/15/17 19:04 110 02/15/17 18:18 96 02/15/17 17:25 16 02/15/17 16:00 98.0 87 18 131/64 95 Room Air 02/15/17 15:23 95 02/15/17 13:11 85 02/15/17 12:00 97.4 87 18 170/73 95 Room Air 02/15/17 11:44 98 I & O 02/16/17 07:00 Intake Total 3500 ml Output Total 2920 ml Balance 580 ml Capillary Refill : Less Than 3 Seconds General Appearance: WD/WN (laying in bed) HEENT: PERRL/EOMI Neck: Full Range of Motion, Non Tender, Supple Respiratory: Chest Non Tender, No Accessory Muscle Use, No Respiratory Distress Cardiovascular: Regular Rate, Rhythm Gastrointestinal: soft, tenderness (around the incision sites. ) Extremity: Normal Capillary Refill, Normal Range of Motion, Non Tender, Pedal Edema Neurologic/Psychiatric: Alert, Oriented x3, No Motor/Sensory Deficits, Normal Mood/Affect Skin: Warm/Dry, Other (midline incision and RICHARD drain LLQ serous appearing drainage. Garcia with yellowish urine. B/l lower extremities with edema.) Results Lab Laboratory Tests Test 02/15/17 05:17 Range/Units White Blood Count 7.8 4.3-11.0 10^3/uL Red Blood Count 2.57 L 4.35-5.85 10^6/uL Hemoglobin 7.5 L 11.5-16.0 G/DL Hematocrit 23 L 35-52 % Mean Corpuscular Volume 90 80-99 FL Mean Corpuscular Hemoglobin 29 25-34 PG Mean Corpuscular Hemoglobin Concent 32 32-36 G/DL Red Cell Distribution Width 15.0 H 10.0-14.5 % Platelet Count 282 130-400 10^3/uL Mean Platelet Volume 8.5 7.4-10.4 FL Neutrophils (%) (Auto) 85 H 42-75 % Lymphocytes (%) (Auto) 3 L 12-44 % Monocytes (%) (Auto) 10 0-12 % Eosinophils (%) (Auto) 2 0-10 % Basophils (%) (Auto) 0 0-10 % Neutrophils # (Auto) 6.7 1.8-7.8 X 10^3 Lymphocytes # (Auto) 0.2 L 1.0-4.0 X 10^3 Monocytes # (Auto) 0.8 0.0-1.0 X 10^3 Eosinophils # (Auto) 0.1 0.0-0.3 10^3/uL Basophils # (Auto) 0.0 0.0-0.1 10^3/uL Sodium Level 136 135-145 MMOL/L Potassium Level 3.0 L 3.6-5.0 MMOL/L Chloride Level 97 L 98-107 MMOL/L Carbon Dioxide Level 31 21-32 MMOL/L Anion Gap 8 5-14 MMOL/L Blood Urea Nitrogen 3 L 7-18 MG/DL Creatinine 0.60 0.60-1.30 MG/DL Estimat Glomerular Filtration Rate > 60 BUN/Creatinine Ratio 5 Glucose Level 101 70-105 MG/DL Calcium Level 7.7 L 8.5-10.1 MG/DL Phosphorus Level 3.7 2.3-4.7 MG/DL Magnesium Level 1.9 1.8-2.4 MG/DL Assessment/Plan Assessment/Plan Assessment/Plan s/p sigmoid resection with EEA colovesicular fistula edema noted to lower extremities- +1 pitting. postoperative anemia- stable monitor postoperative ileus Continue with pain control. Encouraged walking and sitting in the chair to help with redness to sacrum. incentive spirometer encouraged. dvt/gi prophylaxis cystogram today Buchanan- Patient feeling better today. Passing gas and having bm she states. Still having nausea on occasion. Using IS some but not good at it she states. No other complaints at this time. general no acute distress less abdominal distention incision c/d/i richard serosang ext still some edema b/l assessment as above again discussed activity need to ambulate more. dc stopper setter vicodin for pain control cystogram to be done Clinical Quality Measures DVT/VTE Risk/Contraindication: Risk Factor Score Per Nursin RFS Level Per Nursing on Admit: 3=High JUNE MCCLAIN APRN February 16, 2017 09:05 ENRIQUE BUCHANAN DO February 16, 2017 16:54
[2017-02-16 10:05] LABS: BASOPHILS % (AUTO) 0 % (0-10); EOSINOPHILS # (AUTO) 0.1 10^3/uL (0.0-0.3); EOSINOPHILS % (AUTO) 1 % (0-10); LYMPHOCYTES # (AUTO) 0.2 X 10^3 (1.0-4.0); LYMPHOCYTES % (AUTO) 3 % (12-44); MEAN CORPUSCULAR HEMOGLOBIN 29 PG (25-34); MEAN CORPUSCULAR HGB CONC 32 G/DL (32-36); MEAN CORPUSCULAR VOLUME 91 FL (80-99); MEAN PLATELET VOLUME 8.5 FL (7.4-10.4); MONOCYTES # (AUTO) 0.6 X 10^3 (0.0-1.0); MONOCYTES % (AUTO) 8 % (0-12); NEUTROPHILS # (AUTO) 6.2 X 10^3 (1.8-7.8); NEUTROPHILS % (AUTO) 88 % (42-75); PLATELET COUNT 301 10^3/uL (130-400); RED BLOOD COUNT 2.57 10^6/uL (4.35-5.85); RED CELL DISTRIBUTION WIDTH 15.2 % (10.0-14.5); WHITE BLOOD COUNT 7.1 10^3/uL (4.3-11.0)
[2017-02-16] MEDS ORDERED: FUROSEMIDE 40 MG/4 ML INJ (LASIX) IVP NR (10:17)
[2017-02-16 10:20] LABS: ANION GAP 6 MMOL/L (5-14); BLOOD UREA NITROGEN 3 MG/DL (7-18); BUN/CREATININE RATIO 5; CALCIUM 7.7 MG/DL (8.5-10.1); CARBON DIOXIDE 33 MMOL/L (21-32); CHLORIDE 97 MMOL/L (98-107); CREATININE SERUM 0.63 MG/DL (0.60-1.30); GFR ESTIMATED > 60; GLUCOSE 120 MG/DL (70-105); MAGNESIUM 1.6 MG/DL (1.8-2.4); PHOSPHORUS 3.4 MG/DL (2.3-4.7); POTASSIUM 3.1 MMOL/L (3.6-5.0); SODIUM 136 MMOL/L (135-145)
[2017-02-16] MEDS ORDERED: fentaNYL PATCH 25 MCG (DURAGESIC) TD SCH (11:15)
--- NOTE | 2017-02-16 11:20 | Physical Therapy Daily Note ---
PT Daily Note-Current Subjective Patient agrees to PT. Pain Numeric Pain Scale: 5-Moderate Pain Location: Lower Location Body Site: Abdomen Pain Description: Pressure Mental Status Patient Orientation: Normal For Age Attachments: Garcia Catheter, IV Transfers Functional [place] Measure 0=Not Assessed/NA 4=Minimal Assistance 1=Total Assistance 5=Supervision or Setup 2=Maximal Assistance 6=Modified [place] 3=Moderate Assistance 7=Complete IndependenceIRFPAI Quality Coding Scale 6 Independent with activity with or without an assistive device 5 Patient requires set up or clean up by helper. Patient completes activity by themselves 4 Supervision or touching assist (CGA). [place] provide cues , steadying assist 3 The helper provides less than half the effort to complete the activity 2 The helper provides more than half the effort to complete the activity 1 Dependent. The helper does all the effort to complete an activity 7 Patient refused to complete or attempt activity 9 The patient did not perform the activity before the current illness or injury 88 Not attempted due to Medical conditions or safety concerns Transfers (B, C, W/C) (FIM): 6 Scootin Rollin Supine to/from Sit: 6 Sit to/from Stand: 6 Gait Training Gait (FIM): 6 Distance (FIM): 3=150 ft Distance: 400' Gait Level of Assist: 6 Gait Assistive Device: FWW safe and steady gait sequence with FWW Exercises Seated Therapy Exercises: Ankle pumps, Long arc quads Seated Reps: 25 Assessment Patient requires much encouragement to perform exercises and is self limiting with mobility. PT attempts to increase activity, however, patient requires much encouragement and then is reluctant to participate. Patient is stable with gross motor skills to be up with nursing staff or family PRN in hallway. PT [employer] Plant Operator Goals Assisted Goals PT Railway Track Plant Operator Goals Time Frame: February 18, 2017 Transfers (B,C,W/C) (FIM): 5 Gait (FIM): 2 Distance: 50' Gait Level of Assist: 5 Gait Assistive Device: FWW PT Plan Treatment/Plan Treatment Plan: Continue Plan of Care Treatment Plan: Bed Mobility, Education, Functional Activity Gaetano, Functional Strength, Gait, Safety, Therapeutic Exercise, Transfers Treatment Duration: February 18, 2017 Visits Per Week: 5-6 Minutes/Day (M-F): 15-30 Minutes/Day (Sat/Nguyen): 15-30 Time/GCodes Time In: 1000 Time Out: 1023 Total Billed Treatment Time: 23 Total Billed Treatment 1 visit FA x 2 23 min MADISON VÁZQUEZ PT February 16, 2017 11:19
[2017-02-16] MEDS: POTASSIUM CL 10MEQ/50ML IVPB 50 ML IV SCH ×4 (11:45→14:40)
[2017-02-16 12:00] VITALS: BP 132/62
[2017-02-16] MEDS ORDERED: ONDANSETRON 4 MG/2 ML (SDV) Z0FRAN IV PRN (12:00)
[2017-02-16 16:00] VITALS: BP 126/58
--- NOTE | 2017-02-16 16:05 | Diagnostic Imaging Report ---
INDICATION: Shortness of breath. TECHNIQUE: Portable chest at 3:27 PM. FINDINGS: The right IJ Port-A-Cath tip projects over the SVC. The heart size and pulmonary vascularity are normal. The lungs are clear. There are no effusions or pneumothoraces. IMPRESSION: Negative chest. Dictated by: Dictated on workstation # [id number]
[2017-02-16] MEDS: MAGNESIUM 1 GM/100 ML IVPB 100 ML IV SCH ×2 (16:48→16:49)
[2017-02-16 20:03] VITALS: BP 142/64
[2017-02-16] MEDS: ENOXAPARIN 40 MG/0.4 ML (LOVENOX) SYR SQ SCH (21:20)
[2017-02-17] VITALS: BP 137/68
[2017-02-17] MEDS: HYDROcodone/APAP 5 MG/325 MG (LORTAB) TAB PO PRN ×3 (01:45→14:45)
[2017-02-17 03:30] VITALS: BP 163/79
[2017-02-17 06:34] LABS: BASOPHILS % (AUTO) 0 % (0-10); EOSINOPHILS # (AUTO) 0.2 10^3/uL (0.0-0.3); EOSINOPHILS % (AUTO) 2 % (0-10); LYMPHOCYTES # (AUTO) 0.4 X 10^3 (1.0-4.0); LYMPHOCYTES % (AUTO) 4 % (12-44); MEAN CORPUSCULAR HEMOGLOBIN 29 PG (25-34); MEAN CORPUSCULAR HGB CONC 32 G/DL (32-36); MEAN CORPUSCULAR VOLUME 90 FL (80-99); MEAN PLATELET VOLUME 8.7 FL (7.4-10.4); MONOCYTES # (AUTO) 0.7 X 10^3 (0.0-1.0); MONOCYTES % (AUTO) 7 % (0-12); NEUTROPHILS % (AUTO) 86 % (42-75); PLATELET COUNT 404 10^3/uL (130-400); RED BLOOD COUNT 3.11 10^6/uL (4.35-5.85); RED CELL DISTRIBUTION WIDTH 15.5 % (10.0-14.5); WHITE BLOOD COUNT 9.3 10^3/uL (4.3-11.0)
[2017-02-17 06:58] LABS: ANION GAP 10 MMOL/L (5-14); BLOOD UREA NITROGEN 4 MG/DL (7-18); BUN/CREATININE RATIO 6; CARBON DIOXIDE 30 MMOL/L (21-32); CHLORIDE 96 MMOL/L (98-107); CREATININE SERUM 0.67 MG/DL (0.60-1.30); POTASSIUM 3.7 MMOL/L (3.6-5.0); SODIUM 136 MMOL/L (135-145)
[2017-02-17 06:59] LABS: CALCIUM 8.2 MG/DL (8.5-10.1); GFR ESTIMATED > 60; GLUCOSE 78 MG/DL (70-105); PHOSPHORUS 3.8 MG/DL (2.3-4.7)
[2017-02-17 07:35] VITALS: BP 184/77
[2017-02-17] MEDS: NICOTINE 14 MG (NICODERM) PATCH TD SCH (09:04)
[2017-02-17] MEDS: NICOTINE PATCH REMOVAL TP SCH (09:04)
[2017-02-17] MEDS: LACTATED RINGERS 1,000 ML IV SCH ×2 (09:04→12:01)
[2017-02-17] MEDS: PANTOPRAZOLE 40 MG/10 ML (PROTONIX) VIAL IV SCH (09:04)
--- NOTE | 2017-02-17 09:51 | Physical Therapy Daily Note ---
PT Daily Note-Current Subjective Patient reluctantly agrees to PT. Patient rates 10/10 abdominal pain at rest, however, does not appear to be in visible pain. Pain Numeric Pain Scale: 10-Worst Possible Pain Location: Lower Location Body Site: Abdomen Pain Description: Pressure Mental Status Patient Orientation: Normal For Age Attachments: Drains, Garcia Catheter, IV Transfers Functional [place] Measure 0=Not Assessed/NA 4=Minimal Assistance 1=Total Assistance 5=Supervision or Setup 2=Maximal Assistance 6=Modified [place] 3=Moderate Assistance 7=Complete IndependenceIRFPAI Quality Coding Scale 6 Independent with activity with or without an assistive device 5 Patient requires set up or clean up by helper. Patient completes activity by themselves 4 Supervision or touching assist (CGA). [place] provide cues , steadying assist 3 The helper provides less than half the effort to complete the activity 2 The helper provides more than half the effort to complete the activity 1 Dependent. The helper does all the effort to complete an activity 7 Patient refused to complete or attempt activity 9 The patient did not perform the activity before the current illness or injury 88 Not attempted due to Medical conditions or safety concerns Transfers (B, C, W/C) (FIM): 6 Scootin Rollin Supine to/from Sit: 6 Sit to/from Stand: 6 Gait Training Gait (FIM): 6 Distance (FIM): 3=150 ft Distance: 400' x 1; 200' x 1 Gait Level of Assist: 6 Gait Assistive Device: FWW steady, functional Assessment Patient is currently at modified independent to independent [facility] with gross motor skills. PT encouraged patient to ambulate with staff PRN to decrease pain and to promote healing. Patient voices understanding. Dr. Buchanan notified of patient's progress. PT [facility] Goals Manager Music Goals PT Manager Music Goals Time Frame: February 18, 2017 Transfers (B,C,W/C) (FIM): 5 Gait (FIM): 2 Distance: 50' Gait Level of Assist: 5 Gait Assistive Device: FWW PT Plan Treatment/Plan Treatment Plan: Continue Plan of Care Treatment Plan: Bed Mobility, Education, Functional Activity Gaetano, Functional Strength, Gait, Safety, Therapeutic Exercise, Transfers Treatment Duration: February 18, 2017 Visits Per Week: 5-6 Minutes/Day (M-F): 15-30 Minutes/Day (Sat/Nguyen): 15-30 Time/GCodes Time In: 835 Time Out: 858 Total Billed Treatment Time: 23 Total Billed Treatment 1 visit FA x 2 23 min MADISON VÁZQUEZ PT February 17, 2017 09:51
--- NOTE | 2017-02-17 10:58 | Progress Note ---
Subjective Subjective/Events-last exam patient sitting up in chair. Alert and oriented. No distress is noted. Objective Exam Vital Signs Date Time Temp Pulse Resp B/P (MAP) Pulse Ox O2 Delivery O2 Flow Rate FiO2 02/17/17 07:35 98.5 83 18 184/77 97 Room Air 02/17/17 07:00 81 02/17/17 03:30 98.2 81 18 163/79 97 Room Air 02/17/17 01:00 86 02/17/17 00:00 98.6 89 16 137/68 95 Room Air 02/16/17 20:03 98.2 88 18 142/64 98 Room Air 02/16/17 20:00 95 02/16/17 19:00 82 02/16/17 16:00 99.0 90 18 126/58 98 Room Air 02/16/17 13:00 88 02/16/17 12:00 98.5 85 20 132/62 96 Room Air 02/16/17 11:07 20 I & O 02/17/17 07:00 Intake Total 3240 ml Output Total 4885 ml Balance -1645 ml Capillary Refill : Less Than 3 Seconds General Appearance: WD/WN (laying in bed) HEENT: PERRL/EOMI Neck: Full Range of Motion, Non Tender, Supple Respiratory: Chest Non Tender, No Accessory Muscle Use, No Respiratory Distress Cardiovascular: Regular Rate, Rhythm Gastrointestinal: soft, tenderness (around the incision sites. Minimal) Extremity: Normal Capillary Refill, Normal Range of Motion, Non Tender, Pedal Edema Neurologic/Psychiatric: Alert, Oriented x3, No Motor/Sensory Deficits, Normal Mood/Affect Skin: Warm/Dry, Other (midline incision and VON drain LLQ serous appearing drainage. Chau with yellowish urine. B/l lower extremities with edema.) Results Lab Laboratory Tests Test 02/16/17 09:50 02/17/17 06:15 Range/Units White Blood Count 7.1 9.3 4.3-11.0 10^3/uL Red Blood Count 2.57 L 3.11 L 4.35-5.85 10^6/uL Hemoglobin 7.5 L 9.0 L 11.5-16.0 G/DL Hematocrit 23 L 28 L 35-52 % Mean Corpuscular Volume 91 90 80-99 FL Mean Corpuscular Hemoglobin 29 29 25-34 PG Mean Corpuscular Hemoglobin Concent 32 32 32-36 G/DL Red Cell Distribution Width 15.2 H 15.5 H 10.0-14.5 % Platelet Count 301 404 H 130-400 10^3/uL Mean Platelet Volume 8.5 8.7 7.4-10.4 FL Neutrophils (%) (Auto) 88 H 86 H 42-75 % Lymphocytes (%) (Auto) 3 L 4 L 12-44 % Monocytes (%) (Auto) 8 7 0-12 % Eosinophils (%) (Auto) 1 2 0-10 % Basophils (%) (Auto) 0 0 0-10 % Neutrophils # (Auto) 6.2 8.0 H 1.8-7.8 X 10^3 Lymphocytes # (Auto) 0.2 L 0.4 L 1.0-4.0 X 10^3 Monocytes # (Auto) 0.6 0.7 0.0-1.0 X 10^3 Eosinophils # (Auto) 0.1 0.2 0.0-0.3 10^3/uL Basophils # (Auto) 0.0 0.0 0.0-0.1 10^3/uL Sodium Level 136 136 135-145 MMOL/L Potassium Level 3.1 L 3.7 3.6-5.0 MMOL/L Chloride Level 97 L 96 L 98-107 MMOL/L Carbon Dioxide Level 33 H 30 21-32 MMOL/L Anion Gap 6 10 5-14 MMOL/L Blood Urea Nitrogen 3 L 4 L 7-18 MG/DL Creatinine 0.63 0.67 0.60-1.30 MG/DL Estimat Glomerular Filtration Rate > 60 > 60 BUN/Creatinine Ratio 5 6 Glucose Level 120 H 78 70-105 MG/DL Calcium Level 7.7 L 8.2 L 8.5-10.1 MG/DL Phosphorus Level 3.4 3.8 2.3-4.7 MG/DL Magnesium Level 1.6 L 2.0 1.8-2.4 MG/DL Laboratory Tests 02/17/17 06:15: White Blood Count 9.3, Red Blood Count 3.11L, Hemoglobin 9.0L, Hematocrit 28L, Mean Corpuscular Volume 90, Mean Corpuscular Hemoglobin 29, Mean Corpuscular Hemoglobin Concent 32, Red Cell Distribution Width 15.5H, Platelet Count 404H, Mean Platelet Volume 8.7, Neutrophils (%) (Auto) 86H, Lymphocytes (%) (Auto) 4L , Monocytes (%) (Auto) 7, Eosinophils (%) (Auto) 2, Basophils (%) (Auto) 0, Neutrophils # (Auto) 8.0H, Lymphocytes # (Auto) 0.4L, Monocytes # (Auto) 0.7, Eosinophils # (Auto) 0.2, Basophils # (Auto) 0.0, Sodium Level 136, Potassium Level 3.7, Chloride Level 96L, Carbon Dioxide Level 30, Anion Gap 10, Blood Urea Nitrogen 4L, Creatinine 0.67, Estimat Glomerular Filtration Rate > 60, BUN/ Creatinine Ratio 6, Glucose Level 78, Calcium Level 8.2L, Phosphorus Level 3.8, Magnesium Level 2.0 Assessment/Plan Assessment/Plan Assessment/Plan s/p sigmoid resection with EEA colovesicular fistula edema noted to lower extremities- +1 pitting. postoperative anemia- stable monitor postoperative ileus Continue with pain control. Encouraged ambulating several times a day. incentive spirometer encouraged 10x an hour while awake. dvt/gi prophylaxis cystogram today- results pending. Possible DC home today. Chanel- patient doing well with PT. Patient passing flatus and having bowel movements. Patient cystogram no leakage of contrast. Patient reports pain 10/10 but appears to be very comfortable in chair. Exam performed and does not seem to cause any discomfort. Her hgb stable. Electrolytes have been corrected. General no acute distress sitting in chair. heart reg lungs nonlobored abdomen incision c/d/i VON serous drainage ext less edema s/p sigmoid resection c eea for colovesicular fistula postoperative anemia stable postoperative ileus resolved b cell lympoma hypomagnesemia resolved hypokalemia resolved chronic pain post malignancy instructed wanted to limit narcotic use due to possible bowel issues in near future which she states has had before continue incentive spirometer dc chau if urinates without difficulty can be dc home home health when drainage on Von less than 30 mL in 24 hours will plan on removal of drain follow up in office 1 week Clinical Quality Measures DVT/VTE Risk/Contraindication: Risk Factor Score Per Nursin RFS Level Per Nursing on Admit: 3=High JUNE MCCLAIN APRN February 17, 2017 10:58 ENRIQUE ROCHA DO February 17, 2017 15:30
[2017-02-17 12:00] VITALS: BP 142/64
--- NOTE | 2017-02-17 13:36 | Diagnostic Imaging Report ---
EXAMINATION: The CT cystogram was performed with and without intravesical contrast. INDICATION: Colovesical fistula status post repair. TECHNIQUE: Utilizing a Garcia catheter in place, 75 mL of Omnipaque 350 was administered into the urinary bladder after initial scanning without contrast. Subsequently, contrast injection was performed into the urinary bladder and scanning was performed over the pelvis. FINDINGS: Post surgical changes are seen with a surgical drain noted above the urinary bladder in the upper to mid pelvis. There is evidence of colonic anastomosis seen in the sigmoid colon with interval removal of the abnormal collection seen in the pelvis based on the study of 02/04/2017. After distention of the urinary bladder with contrast, there is no extravasation noted outside the urinary bladder into the surrounding tissue or abnormal filling of the colon noted. There are calcifications seen in the uterus suggestive of fibroids. A minimal amount of free fluid in the pelvis is seen. Slight stranding and remaining soft tissue air are related to post operative findings. Anterior skin atif and mild edema in the anterior abdominal wall are probably also related to post operative findings. There are internal fixation screws seen through the right femoral neck. 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 IMPRESSION: No extravasation of contrast from the bladder to suggest a tear or a fistula is seen at this time. Dictated by: Dictated on workstation # [id number]
[2017-02-17] MEDS ORDERED: DOCU-143 PO (15:31)
--- NOTE | 2017-02-17 16:41 | Discharge Inst-Home Health ---
Discharge Inst-to Home Health Patient Instructions Patient Instructions/FollowUp: Ambulate 6 times a day Use IS 10 x an hour while awake. Soft diet for 2 more days and then increase diet as tolerated. Follow up with PCP in one week Follow up with Dr. Buchanan in one week. Home Health per Dr. Buchanan. VIA [place], [place] DISCHARGE ORDERS Allergies: Coded Allergies: nitrofurantoin (Verified Allergy, Intermediate, N/V, 02/06/17) potassium chloride (Verified Allergy, Intermediate, NUMBNESS IN HANDS, ) Penicillins (Verified Allergy, Unknown, stomach pain, 02/06/17) Sulfa (Sulfonamide Antibiotics) (Verified Allergy, Unknown, NAUSEA, ) azithromycin (Unverified Allergy, Unknown, 02/06/17) REPORTS SEVERE ABDOMINAL CRAMPING cefdinir (Verified Allergy, Unknown, itching all over, 02/06/17) cephalexin (Unverified Allergy, Unknown, 02/06/17) REPORTS SEVERE ABDOMINAL CRAMPING levofloxacin (Verified Allergy, Unknown, NAUSEA, 02/06/17) Height (Feet): 5 Height (Inches): 4.00 Weight (Pounds): 152 Weight (Ounces): 2.0 Home Health Need/Face to Face Reason Pt Homebound S/P exploratory laparotomy, sigmoid colon resection and end to end anastomosis Anemia- Post operation. I Have Seen Pt [id number]: Yes Date of Face to Face: February 17, 2017 Discharged To: Home Diagnosis/Conditions HH Order: S/P exploratory laparotomy, sigmoid colon resection and end to end anastomosis Anemia- Post operation. Consult/Follow Up/New Order *I certify that based on my findings, the following services are medically necessary Home Health Services: Services: Nursing Services, Physical Therapy-Evaluate & Treat, Wound Care-Eval/ Treat, Other (Help with med organization, Incentive Spirometer and SIERRA Drain. ) My clinical findings support the need for the above services; see Diagnosis. I certify that this patient is under my care and that I, a nurse practitioner or a physician; a diagnostic assistant working with me, had a face to face encounter that - meets the physician face to face encounter requirements with this patient as dated. JUNE MCCLAIN APRN February 17, 2017 16:41
[2017-02-19] MEDS ORDERED: FENTANYL PATCH REMOVAL TP SCH (11:14)
--- NOTE | 2017-02-20 10:08 | Discharge Summary ---
Diagnosis/Chief Complaint Date of Admission February 09, 2017 at 08:34 Date of Discharge February 17, 2017 at 17:20 Discharge Date: February 17, 2017 Discharge Diagnosis S/P exploratory laparotomy, sigmoid colon resection and end to end anastomosis Anemia-postoperative ileus- postoperative. diagnosed per xray. Reason Hospital Visit The patient is a 71-year-old female with B-cell lymphoma. 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 She has also been urinating fecal material. She had a CAT scan demonstrating suspected colovesical fistula and also significant inflammation of the sigmoid colon. On CT scan, she has had thickening of the sigmoid colon as well. She has had persistent pain that continues to be ongoing. Discharge Summary Procedures: NAME:MALLORY CHRIS [facility] REC#:[id number] :1945 LOCATION:4TH ADMIT DATE:02/09/17 DATE OF SERVICE: 02/09/2017 PREOPERATIVE DIAGNOSIS: Colovesical fistula. POSTOPERATIVE DIAGNOSIS: Colovesical fistula. PROCEDURES: Exploratory laparotomy, sigmoid colon resection and end to end anastomosis. SURGEON: Reece Rocha DO LAB SCIENTIST: Balaji Cabrera DO, who assisted in retraction, dissection and closure. ANESTHESIA: General. ESTIMATED BLOOD LOSS: 200 mL. COMPLICATIONS: None. INDICATIONS: The patient is a 71-year-old female with B-cell lymphoma. 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 She has also been urinating fecal material. She had a CAT scan demonstrating suspected colovesical fistula and also significant inflammation of the sigmoid colon. On CT scan, she has had thickening of the sigmoid colon as well. She has had persistent pain that continues to be ongoing. Risks and benefits of the procedure were discussed with the patient and she wished to proceed. She had undergone a prep prior to surgery. The patient has consent signed and on the chart. PROCEDURE IN DETAIL: The patient was taken to the operating suite. She was prepped and draped in sterile fashion. A surgical pause was performed. A midline incision was made and the abdomen was entered. There appears to be a urachal remnant, which was dissected off the abdominal wall and LigaSure was used to ligate it. The sigmoid colon was located with significant inflammation with adherence to the bladder and to the uterus. Significant adhesions in the pelvis around the sigmoid colon. Also feels thickened and hard from chronic changes. The descending colon near the proximal sigmoid colon had normal appearance, soft. This was dissected around and a JARED 75 stapler was then fired across. LigaSure was then used to divide the mesentery from the colon until further dissection could not be performed. The colon was continued mobilized along the white line of Toldt, moving from the easiest way to the adherent areas of the colon. The colon had to be finger fractured away from the uterus, a small amount of oozing was present around the uterus, which cautery was used to achieve hemostasis. The distal portion of the sigmoid colon was still adherent, but the rectum was able to be dissected around. Once this was dissected around, a contour stapler was fired, the distal end of the dissection. This was also carried proximally with dissection along with finger fracturing of the sigmoid colon away further from the uterus and adherent tissue. The LigaSure was then used to continue to divide the mesentery. The sigmoid colon was from the mesentery and then had adherence still to the bladder region. This was able to be dissected down and the fistula on the colon was able to be visualized, which seemed to erupt into an empty cavity. This, once removed, caused the specimen to be able to be removed. The bladder was insufflated with irrigation with methylene blue in it. There were no bladder contents leaking. The methylene blue was not able to be visualized. This was then drained. The abdomen and pelvis were irrigated with copious amounts of irrigation. A second time, the bladder was inflated with the irrigation and methylene blue and again, no leaking of bladder contents was visualized. At this time, the descending colon was mobilized along the white line of Toldt to get length. A pursestring stapler was fired at the distal portion of the descending colon, which a 29 anvil was then placed within the colon and then secured. The end anastomosis was then created without tension. Some 3-0 silk sutures were placed at the anastomosis for reinforcement. Two good donuts were produced on the staple lines. The abdomen was then irrigated with copious amounts of irrigation. We did a leak test, which no air bubbles were present on the anastomosis. A 19 catie drain was placed into the cavity of rupture that I feel was created from a diverticular perforation and where the fistula was present. The drain was secured in the left lower quadrant, which was placed through a stab incision. The abdomen again was irrigated with copious amounts of irrigation. Hemostasis had been achieved. The midline incision was then closed with 1-0 looped PDS in a running fashion. The wound was then irrigated with copious amounts of irrigation. The skin was then closed with atif. The patient's Garcia to be left in until cystogram in approximately 1 week. She will also remain on antibiotics until removed. The patient will go to the intensive care unit. The patient tolerated the procedure well without any complications. She was taken to the recovery room in stable condition. Job ID: [id number] DocumentID: [id number] Dictated Date: 02/10/2017 07:58:39 Supervisor Ski [employer] Date: 02/10/2017 11:07:12 Dictated By: REECE ROCHA DO [id number] Discharge Physical Examination Allergies: Coded Allergies: nitrofurantoin (Verified Allergy, Intermediate, N/V, 02/06/17) potassium chloride (Verified Allergy, Intermediate, NUMBNESS IN HANDS, ) Penicillins (Verified Allergy, Unknown, stomach pain, 02/06/17) Sulfa (Sulfonamide Antibiotics) (Verified Allergy, Unknown, NAUSEA, ) azithromycin (Unverified Allergy, Unknown, 02/06/17) REPORTS SEVERE ABDOMINAL CRAMPING cefdinir (Verified Allergy, Unknown, itching all over, 02/06/17) cephalexin (Unverified Allergy, Unknown, 02/06/17) REPORTS SEVERE ABDOMINAL CRAMPING levofloxacin (Verified Allergy, Unknown, NAUSEA, 02/06/17) Vitals & I&Os Vital Signs Date Time Temp Pulse Resp B/P (MAP) Pulse Ox O2 Delivery O2 Flow Rate FiO2 02/17/17 17:20 02/17/17 13:00 90 02/17/17 12:00 98.8 20 97 Room Air General Appearance: Alert, Oriented X3, Cooperative Cardiovascular: Regular Rate Abdominal: Soft Hospital Course The patient is a 71-year-old female with B-cell lymphoma. She had been having recurrent urinary tract infections and appeared to have had a fistula from the sigmoid colon to the bladder. She had also been urinating fecal material. She had a CAT scan demonstrating suspected colovesical fistula and also significant inflammation of the sigmoid colon. On CT scan, she had thickening of the sigmoid colon as well. She has had persistent pain that continues to be ongoing. Risks and benefits of the procedure were discussed with the patient and she wished to proceed. She had undergone a prep prior to surgery. The patient also consent signed and on the chart. The patient will go to the intensive care unit are surgery. The patient underwent exploratory laparotomy, sigmoid colon resection and end to end anastomosis. The patient tolerated the procedure well without any complications. She was taken to the recovery room in stable condition and later to the ICU. A Garcia was left in patient to monitor Urine and urine output. Patient also had a SIERRA drain to the left lower quadrant with serous fluid and later Serosanguineous fluid. The patient also had epidural to help with pain control. Pulmonology and Medicine was also consulted on patient. Patient was later diagnosed with Anemia Post operatively. Patient progressively got better as days went along. Physical therapy evaluated and worked with patient. Patient was encouraged to use the incentive spirometer. Patient was also on Cipro and Flagyl. She started passing flatus 3 days later after surgery and then was placed on sips of clear. Patient continued to tolerated clear liquids and then advanced to soft diet. Patient also tolerated soft diet. Patient was eventually moved to the 4th floor. H&H stabilized, Epidural discontinued. 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 Patient taking medication PO. Ct cystogram was done on Thursday, no extravasation of contrast from the bladder to suggest a tear or a fistula is seen at this time. Patient's Garcia was discontinued. Patient was able to void before going home with no difficulty. Patient was discharged with home health to help with wound care and PT. Patient to see Dr. Rocha in clinic in 1-2 weeks. Discharge Instructions to patient/family Please see electonic discharge instructions given to patient. Discharge Medications Reviewed and agree with Discharge Medication list on patient's Discharge Instruction sheet Clinical Quality Measures DVT/VTE Risk/Contraindication: Risk Factor Score Per Nursin RFS Level Per Nursing on Admit: 4+=Very High JUNE MCCLAIN APRN February 20, 2017 10:07 am
== END 2017-02-17 17:20 | disposition home or self-care (01) | DRG 982 ==
LOC: 4TH 08:34 → SURG 08:35 → ICU 14:05 → 4TH 02-12 09:45
PROVIDERS: ADMIT Surgery; ATTEND Surgery
PROC: 0DTN0ZZ Resection of Sigmoid Colon, Open Approach (ICD-10-PCS; principal; 2017-02-09 10:15)
PROC: 3E0S3BZ Introduction of Anesthetic Agent into Epidural Space, Percutaneous Approach (ICD-10-PCS; 2017-02-10)
PROC: 3E0S3BZ Introduction of Anesthetic Agent into Epidural Space, Percutaneous Approach (ICD-10-PCS; 2017-02-10)
PROC: 3E0 Administration, Physiological Systems and Anatomical Regions, Introduction (ICD-10-PCS; 2017-02-17)
DX: N32.1 Vesicointestinal fistula (principal); K57.20 Diverticulitis of large intestine with perforation and abscess without bleeding; K52.9 Noninfective gastroenteritis and colitis, unspecified; C82.90 Follicular lymphoma, unspecified, unspecified site; N39.0 Urinary tract infection, site not specified; K56.7 Ileus, unspecified; G89.3 Neoplasm related pain (acute) (chronic); F17.210 Nicotine dependence, cigarettes, uncomplicated; K59.03 Drug induced constipation; M19.91 Primary osteoarthritis, unspecified site; G47.9 Sleep disorder, unspecified; Z87.828 Personal history of other (healed) physical injury and trauma; D64.9 Anemia, unspecified; E83.42 Hypomagnesemia; M54.9 Dorsalgia, unspecified; K59.00 Constipation, unspecified; E87.6 Hypokalemia
CPT/HCPCS: 36415; 71010; 72192; 74000; 80048; 80053; 82040; 83605; 83735; 84100; 85007; 85014; 85018; 85025; 85027; 85049; 86850; 86900; 86901; 88307; 94664; 94760

== ENCOUNTER 2017-03-09 08:56 | Emergency (ER) | payer MEDICARE ==
[~2017-03-09] VITALS: Ht 162.6 cm; Wt 51.7 kg
[~2017-03-09 08:56] MED LIST changes: +DOCU-143 PO; +ONDA8TAB13 PO
[2017-03-09 09:26] LABS: BILIRUBIN,URINE NEGATIVE (NEGATIVE); KETONES,URINE NEGATIVE (NEGATIVE); LEUKOCYTE ESTERASE ,URINE NEGATIVE (NEGATIVE); NITRITE,URINE NEGATIVE (NEGATIVE); PH,URINE 6 (5-9); PROTEIN,URINE NEGATIVE (NEGATIVE); UROBILINOGEN,URINE NORMAL (NORMAL)
[2017-03-09 09:35] LABS: WBC,URINE RARE /HPF
[2017-03-09] MEDS ORDERED: morphine INJ 10 MG/ML 1ML (SYR OR VIAL) IM ONE (10:15)
--- NOTE | 2017-03-09 10:58 | Diagnostic Imaging Report ---
Clinical indication: Patient complains of increased pain over right SI joint region. Patient's history of bowel resection lymphoma. Patient has been on chemotherapy for 3 months. No known trauma or injury. Exam: Axial CT scan of the pelvis performed without IV contrast. Coronal and sagittal reformatted images are created. Comparison: CT scan abdomen and pelvis performed with IV contrast dated 02/04/2017. Findings: Stable mixed lytic and sclerotic lesion involving the posterior superior right iliac crest. Stable small sclerotic and lytic area involving the lateral right proximal femoral head. There is stable sclerotic and subchondral cystic area involving the anterior left acetabular region. There is no acute fracture or dislocation. There is screws within the healed proximal right femoral neck region. Small degenerative spurs involving both lateral acetabular roof regions. There are degenerative spurs involving the lower lumbar spine. Incidental note made of gallstones. There is postop changes with anastomotic sutures involving the sigmoid colon region. There is again seen patchy dystrophic calcification in the pelvis which may represent uterine fibroids. Remainder of the extra abdominal and intrapelvic structures are stable. Impression: 1: There is no acute fracture or dislocation. 2: There is stable mixed sclerotic and lytic areas involving the right iliac crest, right femoral head and anterior left acetabulum. 3: Stable postop changes to the right hip. 4: The remainder of this exam shows no significant interval change compared to the prior study of comparison. Dictated by: Dictated on workstation # [id number]
[2017-03-09] MEDS ORDERED: fentaNYL PATCH 50 MCG (DURAGESIC) TD ONE (11:15)
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
[2017-03-09 11:36] VITALS: BP 142/78
== END 2017-03-09 11:36 | disposition home or self-care (01) ==
LOC: EDUNIT# 08:56 → ER 08:58
DX: M54.5 Low back pain (principal); M53.3 Sacrococcygeal disorders, not elsewhere classified; G89.29 Other chronic pain; R93.7 Abnormal findings on diagnostic imaging of other parts of musculoskeletal system; C85.90 Non-Hodgkin lymphoma, unspecified, unspecified site; K80.20 Calculus of gallbladder without cholecystitis without obstruction; F17.210 Nicotine dependence, cigarettes, uncomplicated; Z98.890 Other specified postprocedural states
CPT/HCPCS: 72192; 81000; 99282

== ENCOUNTER 2017-04-07 08:58 | Outpatient (RCR) | payer OTHER ==
[2017-01-13 10:53] LABS: BASOPHILS % (AUTO) 1 % (0-10); EOSINOPHILS # (AUTO) 0.2 10^3/uL (0.0-0.3); EOSINOPHILS % (AUTO) 3 % (0-10); LYMPHOCYTES # (AUTO) 0.3 X 10^3 (1.0-4.0); LYMPHOCYTES % (AUTO) 4 % (12-44); MEAN CORPUSCULAR HEMOGLOBIN 29 PG (25-34); MEAN CORPUSCULAR HGB CONC 33 G/DL (32-36); MEAN CORPUSCULAR VOLUME 89 FL (80-99); MEAN PLATELET VOLUME 8.6 FL (7.4-10.4); MONOCYTES # (AUTO) 0.7 X 10^3 (0.0-1.0); MONOCYTES % (AUTO) 9 % (0-12); NEUTROPHILS % (AUTO) 83 % (42-75); PLATELET COUNT 468 10^3/uL (130-400); RED BLOOD COUNT 3.57 10^6/uL (4.35-5.85); RED CELL DISTRIBUTION WIDTH 14.9 % (10.0-14.5); WHITE BLOOD COUNT 7.2 10^3/uL (4.3-11.0)
[2017-01-13 11:20] LABS: CREATININE SERUM 0.93 MG/DL (0.60-1.30); POTASSIUM 3.9 MMOL/L (3.6-5.0)
[2017-01-20 10:48] LABS: BASOPHILS % (AUTO) 0 % (0-10); EOSINOPHILS # (AUTO) 0.2 10^3/uL (0.0-0.3); EOSINOPHILS % (AUTO) 2 % (0-10); LYMPHOCYTES # (AUTO) 0.4 X 10^3 (1.0-4.0); LYMPHOCYTES % (AUTO) 4 % (12-44); MEAN CORPUSCULAR HEMOGLOBIN 29 PG (25-34); MEAN CORPUSCULAR HGB CONC 33 G/DL (32-36); MEAN CORPUSCULAR VOLUME 89 FL (80-99); MEAN PLATELET VOLUME 8.7 FL (7.4-10.4); MONOCYTES # (AUTO) 0.7 X 10^3 (0.0-1.0); MONOCYTES % (AUTO) 7 % (0-12); NEUTROPHILS # (AUTO) 8.9 X 10^3 (1.8-7.8); NEUTROPHILS % (AUTO) 88 % (42-75); PLATELET COUNT 388 10^3/uL (130-400); RED BLOOD COUNT 3.52 10^6/uL (4.35-5.85); RED CELL DISTRIBUTION WIDTH 15.4 % (10.0-14.5); WHITE BLOOD COUNT 10.1 10^3/uL (4.3-11.0)
[2017-01-20 11:33] LABS: ALANINE AMINOTRANSFERASE < 6 U/L (0-55); ALBUMIN 3.5 G/DL (3.2-4.5); ANION GAP 12 MMOL/L (5-14); ASPARTATE AMINO TRANSFERASE 16 U/L (5-34); BILIRUBIN,TOTAL 0.3 MG/DL (0.1-1.0); BLOOD UREA NITROGEN 14 MG/DL (7-18); BUN/CREATININE RATIO 12; CALCIUM 8.8 MG/DL (8.5-10.1); CARBON DIOXIDE 27 MMOL/L (21-32); CHLORIDE 97 MMOL/L (98-107); CREATININE SERUM 1.14 MG/DL (0.60-1.30); GFR ESTIMATED 47; GLUCOSE 105 MG/DL (70-105); LACTATE DEHYDROGENASE 248 U/L (125-220); POTASSIUM 3.6 MMOL/L (3.6-5.0); SODIUM 136 MMOL/L (135-145); TOTAL PROTEIN 6.3 G/DL (6.4-8.2)
[2017-01-26 11:10] LABS: BASOPHILS % (AUTO) 1 % (0-10); EOSINOPHILS # (AUTO) 0.1 10^3/uL (0.0-0.3); EOSINOPHILS % (AUTO) 2 % (0-10); LYMPHOCYTES # (AUTO) 0.4 X 10^3 (1.0-4.0); LYMPHOCYTES % (AUTO) 4 % (12-44); MEAN CORPUSCULAR HEMOGLOBIN 29 PG (25-34); MEAN CORPUSCULAR HGB CONC 33 G/DL (32-36); MEAN CORPUSCULAR VOLUME 90 FL (80-99); MEAN PLATELET VOLUME 8.7 FL (7.4-10.4); MONOCYTES # (AUTO) 0.7 X 10^3 (0.0-1.0); MONOCYTES % (AUTO) 8 % (0-12); NEUTROPHILS # (AUTO) 6.8 X 10^3 (1.8-7.8); NEUTROPHILS % (AUTO) 85 % (42-75); PLATELET COUNT 335 10^3/uL (130-400); RED BLOOD COUNT 3.59 10^6/uL (4.35-5.85); RED CELL DISTRIBUTION WIDTH 15.9 % (10.0-14.5)
[2017-01-26 11:49] LABS: CALCIUM 9.1 MG/DL (8.5-10.1); CREATININE SERUM 0.99 MG/DL (0.60-1.30); POTASSIUM 5.1 MMOL/L (3.6-5.0)
[2017-02-03 10:03] LABS: BASOPHILS % (AUTO) 0 % (0-10); EOSINOPHILS # (AUTO) 0.1 10^3/uL (0.0-0.3); EOSINOPHILS % (AUTO) 0 % (0-10); LYMPHOCYTES # (AUTO) 0.3 X 10^3 (1.0-4.0); LYMPHOCYTES % (AUTO) 2 % (12-44); MEAN CORPUSCULAR HEMOGLOBIN 29 PG (25-34); MEAN CORPUSCULAR HGB CONC 32 G/DL (32-36); MEAN CORPUSCULAR VOLUME 90 FL (80-99); MONOCYTES % (AUTO) 7 % (0-12); NEUTROPHILS # (AUTO) 12.5 X 10^3 (1.8-7.8); NEUTROPHILS % (AUTO) 90 % (42-75); PLATELET COUNT 280 10^3/uL (130-400); RED BLOOD COUNT 3.66 10^6/uL (4.35-5.85); RED CELL DISTRIBUTION WIDTH 16.4 % (10.0-14.5); WHITE BLOOD COUNT 13.9 10^3/uL (4.3-11.0)
[2017-02-03 10:22] LABS: ALBUMIN 3.6 G/DL (3.2-4.5); BILIRUBIN,TOTAL 0.4 MG/DL (0.1-1.0); CALCIUM 8.9 MG/DL (8.5-10.1); CREATININE SERUM 1.03 MG/DL (0.60-1.30); POTASSIUM 3.8 MMOL/L (3.6-5.0); TOTAL PROTEIN 6.4 G/DL (6.4-8.2)
[2017-03-11 15:18] LABS: BASOPHILS % (AUTO) 1 % (0-10); EOSINOPHILS # (AUTO) 0.2 10^3/uL (0.0-0.3); EOSINOPHILS % (AUTO) 3 % (0-10); LYMPHOCYTES # (AUTO) 0.5 X 10^3 (1.0-4.0); LYMPHOCYTES % (AUTO) 11 % (12-44); MEAN CORPUSCULAR HEMOGLOBIN 30 PG (25-34); MEAN CORPUSCULAR HGB CONC 32 G/DL (32-36); MEAN CORPUSCULAR VOLUME 93 FL (80-99); MEAN PLATELET VOLUME 9.2 FL (7.4-10.4); MONOCYTES # (AUTO) 0.6 X 10^3 (0.0-1.0); MONOCYTES % (AUTO) 12 % (0-12); NEUTROPHILS # (AUTO) 3.4 X 10^3 (1.8-7.8); NEUTROPHILS % (AUTO) 73 % (42-75); PLATELET COUNT 266 10^3/uL (130-400); RED CELL DISTRIBUTION WIDTH 16.9 % (10.0-14.5); WHITE BLOOD COUNT 4.7 10^3/uL (4.3-11.0)
[2017-03-11 15:42] LABS: ALANINE AMINOTRANSFERASE 6 U/L (0-55); ALBUMIN 3.9 G/DL (3.2-4.5); ANION GAP 10 MMOL/L (5-14); ASPARTATE AMINO TRANSFERASE 16 U/L (5-34); BILIRUBIN,TOTAL 0.4 MG/DL (0.1-1.0); BLOOD UREA NITROGEN 8 MG/DL (7-18); BUN/CREATININE RATIO 10; CALCIUM 9.4 MG/DL (8.5-10.1); CARBON DIOXIDE 28 MMOL/L (21-32); CHLORIDE 100 MMOL/L (98-107); CREATININE SERUM 0.77 MG/DL (0.60-1.30); GFR ESTIMATED > 60; GLUCOSE 94 MG/DL (70-105); LACTATE DEHYDROGENASE 259 U/L (125-220); POTASSIUM 4.3 MMOL/L (3.6-5.0); SODIUM 138 MMOL/L (135-145); TOTAL PROTEIN 6.7 G/DL (6.4-8.2)
[2017-03-30 14:06] LABS: BASOPHILS % (AUTO) 1 % (0-10); EOSINOPHILS # (AUTO) 0.2 10^3/uL (0.0-0.3); EOSINOPHILS % (AUTO) 4 % (0-10); LYMPHOCYTES # (AUTO) 0.5 X 10^3 (1.0-4.0); LYMPHOCYTES % (AUTO) 13 % (12-44); MEAN CORPUSCULAR HEMOGLOBIN 30 PG (25-34); MEAN CORPUSCULAR HGB CONC 32 G/DL (32-36); MEAN CORPUSCULAR VOLUME 92 FL (80-99); MEAN PLATELET VOLUME 9.3 FL (7.4-10.4); MONOCYTES # (AUTO) 0.8 X 10^3 (0.0-1.0); MONOCYTES % (AUTO) 19 % (0-12); NEUTROPHILS # (AUTO) 2.5 X 10^3 (1.8-7.8); NEUTROPHILS % (AUTO) 63 % (42-75); PLATELET COUNT 215 10^3/uL (130-400); RED BLOOD COUNT 3.62 10^6/uL (4.35-5.85); RED CELL DISTRIBUTION WIDTH 14.1 % (10.0-14.5)
[2017-03-30 14:28] LABS: ALANINE AMINOTRANSFERASE 7 U/L (0-55); ALBUMIN 3.8 GM/DL (3.2-4.5); ANION GAP 8 MMOL/L (5-14); ASPARTATE AMINO TRANSFERASE 11 U/L (5-34); BILIRUBIN,TOTAL 0.4 MG/DL (0.1-1.0); BLOOD UREA NITROGEN 12 MG/DL (7-18); BUN/CREATININE RATIO 16 (0-20); CALCIUM 8.9 MG/DL (8.5-10.1); CARBON DIOXIDE 28 MMOL/L (21-32); CHLORIDE 103 MMOL/L (98-107); CREATININE SERUM 0.73 MG/DL (0.60-1.30); GFR ESTIMATED > 60; GLUCOSE 90 MG/DL (70-105); HEMOLYSIS 2 (-100-29); ICTERUS 0.4 (-100-1.9); LACTATE DEHYDROGENASE 163 U/L (125-220); LIPEMIA 6 (-100-49); POTASSIUM 3.8 MMOL/L (3.6-5.0); SODIUM 139 MMOL/L (135-145); TOTAL PROTEIN 6.6 GM/DL (6.4-8.2)
[2017-04-06 09:17] LABS: BASOPHILS % (AUTO) 0 % (0-10); EOSINOPHILS # (AUTO) 0.2 10^3/uL (0.0-0.3); EOSINOPHILS % (AUTO) 2 % (0-10); LYMPHOCYTES # (AUTO) 0.5 X 10^3 (1.0-4.0); LYMPHOCYTES % (AUTO) 7 % (12-44); MEAN CORPUSCULAR HEMOGLOBIN 30 PG (25-34); MEAN CORPUSCULAR HGB CONC 33 G/DL (32-36); MEAN CORPUSCULAR VOLUME 91 FL (80-99); MEAN PLATELET VOLUME 9.1 FL (7.4-10.4); MONOCYTES # (AUTO) 0.6 X 10^3 (0.0-1.0); MONOCYTES % (AUTO) 8 % (0-12); NEUTROPHILS # (AUTO) 5.9 X 10^3 (1.8-7.8); NEUTROPHILS % (AUTO) 83 % (42-75); PLATELET COUNT 245 10^3/uL (130-400); RED BLOOD COUNT 3.71 10^6/uL (4.35-5.85); RED CELL DISTRIBUTION WIDTH 13.5 % (10.0-14.5); WHITE BLOOD COUNT 7.1 10^3/uL (4.3-11.0)
[2017-04-06 09:46] LABS: ALANINE AMINOTRANSFERASE 7 U/L (0-55); ALBUMIN 3.6 GM/DL (3.2-4.5); ANION GAP 8 MMOL/L (5-14); ASPARTATE AMINO TRANSFERASE 13 U/L (5-34); BILIRUBIN,TOTAL 0.3 MG/DL (0.1-1.0); BLOOD UREA NITROGEN 10 MG/DL (7-18); BUN/CREATININE RATIO 14 (0-20); CALCIUM 8.9 MG/DL (8.5-10.1); CARBON DIOXIDE 27 MMOL/L (21-32); CHLORIDE 104 MMOL/L (98-107); CREATININE SERUM 0.73 MG/DL (0.60-1.30); GFR ESTIMATED > 60; GLUCOSE 122 MG/DL (70-105); HEMOLYSIS 8 (-100-29); ICTERUS 0.3 (-100-1.9); LIPEMIA 18 (-100-49); POTASSIUM 3.4 MMOL/L (3.6-5.0); SODIUM 139 MMOL/L (135-145); TOTAL PROTEIN 6.5 GM/DL (6.4-8.2)
[~2017-04-07] VITALS: Ht 162.6 cm; Wt 54.4 kg
[~2017-04-07 08:58] MED LIST changes: +ACETAMINOPHEN 500 MG TAB (TYLENOL) CANCER CTR PO PRN; +BENDAMUSTINE HCL 150 MG in NS (IVPB) CANCER CENTER 50 ML IV SCH; +FAMOTIDINE 20MG/2ML IV (CANCER CTR) IV SCH; +NS IV 1000 ML (CANCER CTR) IV SCH; +ONDANSETRON 16 MG, DEXAMETHASONE 10 MG/NS 50 ML IVPB IV SCH; +diphenhydrAMINE 25 MG TAB (BENADRYL) CANCER CENTER PO SCH; +morphine INJ 10 MG/ML 1ML (SYR OR VIAL) ONE; +riTUXimab 500 MG, riTUXimab FOR IV INJ CONC 100 MG in NS (IVPB) CANCER CENTER ONLY 150 ML IV SCH
[2017-04-07] MEDS ORDERED: NS IV 500 ML (CANCER CENTER) 500 ML ONE (10:53)
== END 2017-04-13 | disposition home or self-care (01) ==
LOC: ONC 08:58
PROVIDERS: ATTEND Internal Medicine Hematology & Oncology
DX: Z51.11 Encounter for antineoplastic chemotherapy (principal); C85.13 Unspecified B-cell lymphoma, intra-abdominal lymph nodes; F17.210 Nicotine dependence, cigarettes, uncomplicated; K57.92 Diverticulitis of intestine, part unspecified, without perforation or abscess without bleeding; R19.7 Diarrhea, unspecified; M89.8X0 Other specified disorders of bone, multiple sites; M25.50 Pain in unspecified joint; Z79.899 Other long term (current) drug therapy
CPT/HCPCS: 36415; 36591; 80048; 80053; 82728; 83540; 83615; 85025; 96375; 96409; 96411; 96413; 96415; 99213

== ENCOUNTER → 2017-06-25 | Outpatient (CLI) | payer MEDICARE ==
[~2017-06-25] MED LIST changes: -ACETAMINOPHEN 500 MG TAB (TYLENOL) CANCER CTR PO PRN; -BENDAMUSTINE HCL 150 MG in NS (IVPB) CANCER CENTER 50 ML IV SCH; -FAMOTIDINE 20MG/2ML IV (CANCER CTR) IV SCH; -NS IV 1000 ML (CANCER CTR) IV SCH; -ONDANSETRON 16 MG, DEXAMETHASONE 10 MG/NS 50 ML IVPB IV SCH; -diphenhydrAMINE 25 MG TAB (BENADRYL) CANCER CENTER PO SCH; -morphine INJ 10 MG/ML 1ML (SYR OR VIAL) ONE; -riTUXimab 500 MG, riTUXimab FOR IV INJ CONC 100 MG in NS (IVPB) CANCER CENTER ONLY 150 ML IV SCH
[2017-06-25 17:03] LABS: BILIRUBIN,URINE NEGATIVE (NEGATIVE); KETONES,URINE NEGATIVE (NEGATIVE); LEUKOCYTE ESTERASE ,URINE NEGATIVE (NEGATIVE); NITRITE,URINE NEGATIVE (NEGATIVE); PH,URINE 6 (5-9); PROTEIN,URINE NEGATIVE (NEGATIVE); UROBILINOGEN,URINE NORMAL (NORMAL)
[2017-06-25 17:24] LABS: SQUAMOUS EPITHELIAL CELL,UR 0-2 /HPF; WBC,URINE 0-2 /HPF
== END ==
LOC: LAB 16:44
PROVIDERS: ATTEND Family Medicine
DX: R35.0 Frequency of micturition (principal); R30.0 Dysuria
CPT/HCPCS: 81000

== ENCOUNTER 2017-06-30 10:25 | Outpatient (RCR) | payer MEDICARE ==
[2017-04-15 09:32] LABS: BASOPHILS % (AUTO) 1 % (0-10); EOSINOPHILS # (AUTO) 0.1 10^3/uL (0.0-0.3); EOSINOPHILS % (AUTO) 2 % (0-10); LYMPHOCYTES # (AUTO) 0.2 X 10^3 (1.0-4.0); LYMPHOCYTES % (AUTO) 3 % (12-44); MEAN CORPUSCULAR HEMOGLOBIN 30 PG (25-34); MEAN CORPUSCULAR HGB CONC 33 G/DL (32-36); MEAN CORPUSCULAR VOLUME 92 FL (80-99); MEAN PLATELET VOLUME 9.1 FL (7.4-10.4); MONOCYTES # (AUTO) 0.6 X 10^3 (0.0-1.0); MONOCYTES % (AUTO) 9 % (0-12); NEUTROPHILS # (AUTO) 4.9 X 10^3 (1.8-7.8); NEUTROPHILS % (AUTO) 84 % (42-75); PLATELET COUNT 251 10^3/uL (130-400); RED BLOOD COUNT 3.92 10^6/uL (4.35-5.85); RED CELL DISTRIBUTION WIDTH 13.7 % (10.0-14.5); WHITE BLOOD COUNT 5.9 10^3/uL (4.3-11.0)
[2017-04-15 10:07] LABS: ALANINE AMINOTRANSFERASE 8 U/L (0-55); ALBUMIN 3.8 GM/DL (3.2-4.5); ANION GAP 8 MMOL/L (5-14); ASPARTATE AMINO TRANSFERASE 13 U/L (5-34); BILIRUBIN,TOTAL 0.3 MG/DL (0.1-1.0); BLOOD UREA NITROGEN 7 MG/DL (7-18); BUN/CREATININE RATIO 9; CALCIUM 9.3 MG/DL (8.5-10.1); CARBON DIOXIDE 29 MMOL/L (21-32); CHLORIDE 102 MMOL/L (98-107); CREATININE SERUM 0.76 MG/DL (0.60-1.30); GFR ESTIMATED > 60; GLUCOSE 112 MG/DL (70-105); POTASSIUM 4.5 MMOL/L (3.6-5.0); SODIUM 139 MMOL/L (135-145); TOTAL PROTEIN 6.6 GM/DL (6.4-8.2)
[2017-04-21 09:31] LABS: BASOPHILS # (AUTO) 0.1 10^3/uL (0.0-0.1); BASOPHILS % (AUTO) 1 % (0-10); EOSINOPHILS # (AUTO) 0.1 10^3/uL (0.0-0.3); EOSINOPHILS % (AUTO) 3 % (0-10); LYMPHOCYTES # (AUTO) 0.3 X 10^3 (1.0-4.0); LYMPHOCYTES % (AUTO) 6 % (12-44); MEAN CORPUSCULAR HEMOGLOBIN 30 PG (25-34); MEAN CORPUSCULAR HGB CONC 33 G/DL (32-36); MEAN CORPUSCULAR VOLUME 91 FL (80-99); MEAN PLATELET VOLUME 9.1 FL (7.4-10.4); MONOCYTES # (AUTO) 0.5 X 10^3 (0.0-1.0); MONOCYTES % (AUTO) 8 % (0-12); NEUTROPHILS # (AUTO) 4.7 X 10^3 (1.8-7.8); NEUTROPHILS % (AUTO) 83 % (42-75); PLATELET COUNT 237 10^3/uL (130-400); RED BLOOD COUNT 4.29 10^6/uL (4.35-5.85); RED CELL DISTRIBUTION WIDTH 13.9 % (10.0-14.5); WHITE BLOOD COUNT 5.7 10^3/uL (4.3-11.0)
[2017-04-21 10:03] LABS: ALANINE AMINOTRANSFERASE 8 U/L (0-55); ANION GAP 8 MMOL/L (5-14); ASPARTATE AMINO TRANSFERASE 13 U/L (5-34); BILIRUBIN,TOTAL 0.4 MG/DL (0.1-1.0); BLOOD UREA NITROGEN 7 MG/DL (7-18); BUN/CREATININE RATIO 9; CARBON DIOXIDE 30 MMOL/L (21-32); CHLORIDE 103 MMOL/L (98-107); CREATININE SERUM 0.81 MG/DL (0.60-1.30); GFR ESTIMATED > 60; GLUCOSE 108 MG/DL (70-105); POTASSIUM 4.9 MMOL/L (3.6-5.0); SODIUM 141 MMOL/L (135-145)
[2017-04-29 10:15] LABS: BASOPHILS # (AUTO) 0.1 10^3/uL (0.0-0.1); BASOPHILS % (AUTO) 2 % (0-10); EOSINOPHILS # (AUTO) 0.2 10^3/uL (0.0-0.3); EOSINOPHILS % (AUTO) 3 % (0-10); LYMPHOCYTES # (AUTO) 0.4 X 10^3 (1.0-4.0); LYMPHOCYTES % (AUTO) 7 % (12-44); MEAN CORPUSCULAR HEMOGLOBIN 30 PG (25-34); MEAN CORPUSCULAR HGB CONC 33 G/DL (32-36); MEAN CORPUSCULAR VOLUME 91 FL (80-99); MEAN PLATELET VOLUME 9.9 FL (7.4-10.4); MONOCYTES # (AUTO) 0.5 X 10^3 (0.0-1.0); MONOCYTES % (AUTO) 10 % (0-12); NEUTROPHILS # (AUTO) 4.2 X 10^3 (1.8-7.8); NEUTROPHILS % (AUTO) 79 % (42-75); PLATELET COUNT 176 10^3/uL (130-400); RED BLOOD COUNT 4.32 10^6/uL (4.35-5.85); RED CELL DISTRIBUTION WIDTH 13.9 % (10.0-14.5); WHITE BLOOD COUNT 5.3 10^3/uL (4.3-11.0)
[2017-04-29 10:35] LABS: ALANINE AMINOTRANSFERASE 12 U/L (0-55); ANION GAP 10 MMOL/L (5-14); ASPARTATE AMINO TRANSFERASE 16 U/L (5-34); BILIRUBIN,TOTAL 0.4 MG/DL (0.1-1.0); BLOOD UREA NITROGEN 11 MG/DL (7-18); BUN/CREATININE RATIO 13; CALCIUM 9.5 MG/DL (8.5-10.1); CARBON DIOXIDE 21 MMOL/L (21-32); CHLORIDE 105 MMOL/L (98-107); CREATININE SERUM 0.86 MG/DL (0.60-1.30); GFR ESTIMATED > 60; GLUCOSE 122 MG/DL (70-105); POTASSIUM 4.5 MMOL/L (3.6-5.0); SODIUM 136 MMOL/L (135-145); TOTAL PROTEIN 7.1 GM/DL (6.4-8.2)
[2017-05-04 09:29] LABS: BASOPHILS # (AUTO) 0.1 10^3/uL (0.0-0.1); BASOPHILS % (AUTO) 1 % (0-10); EOSINOPHILS # (AUTO) 0.3 10^3/uL (0.0-0.3); EOSINOPHILS % (AUTO) 5 % (0-10); LYMPHOCYTES # (AUTO) 0.3 X 10^3 (1.0-4.0); LYMPHOCYTES % (AUTO) 5 % (12-44); MEAN CORPUSCULAR HEMOGLOBIN 30 PG (25-34); MEAN CORPUSCULAR HGB CONC 33 G/DL (32-36); MEAN CORPUSCULAR VOLUME 90 FL (80-99); MEAN PLATELET VOLUME 9.4 FL (7.4-10.4); MONOCYTES # (AUTO) 0.6 X 10^3 (0.0-1.0); MONOCYTES % (AUTO) 11 % (0-12); NEUTROPHILS # (AUTO) 4.3 X 10^3 (1.8-7.8); NEUTROPHILS % (AUTO) 78 % (42-75); PLATELET COUNT 154 10^3/uL (130-400); RED BLOOD COUNT 3.99 10^6/uL (4.35-5.85); RED CELL DISTRIBUTION WIDTH 13.6 % (10.0-14.5); WHITE BLOOD COUNT 5.5 10^3/uL (4.3-11.0)
[2017-05-04 10:03] LABS: ALANINE AMINOTRANSFERASE 9 U/L (0-55); ALBUMIN 3.9 GM/DL (3.2-4.5); ANION GAP 7 MMOL/L (5-14); ASPARTATE AMINO TRANSFERASE 11 U/L (5-34); BILIRUBIN,TOTAL 0.3 MG/DL (0.1-1.0); BLOOD UREA NITROGEN 14 MG/DL (7-18); BUN/CREATININE RATIO 19; CALCIUM 9.4 MG/DL (8.5-10.1); CARBON DIOXIDE 28 MMOL/L (21-32); CHLORIDE 103 MMOL/L (98-107); CREATININE SERUM 0.75 MG/DL (0.60-1.30); GFR ESTIMATED > 60; GLUCOSE 81 MG/DL (70-105); LACTATE DEHYDROGENASE 159 U/L (125-220); POTASSIUM 4.1 MMOL/L (3.6-5.0); SODIUM 138 MMOL/L (135-145); TOTAL PROTEIN 6.7 GM/DL (6.4-8.2)
[2017-05-11 10:37] LABS: BASOPHILS % (AUTO) 0 % (0-10); EOSINOPHILS # (AUTO) 0.3 10^3/uL (0.0-0.3); EOSINOPHILS % (AUTO) 4 % (0-10); LYMPHOCYTES # (AUTO) 0.1 X 10^3 (1.0-4.0); LYMPHOCYTES % (AUTO) 2 % (12-44); MEAN CORPUSCULAR HEMOGLOBIN 30 PG (25-34); MEAN CORPUSCULAR HGB CONC 33 G/DL (32-36); MEAN CORPUSCULAR VOLUME 90 FL (80-99); MONOCYTES # (AUTO) 0.5 X 10^3 (0.0-1.0); MONOCYTES % (AUTO) 8 % (0-12); NEUTROPHILS # (AUTO) 5.9 X 10^3 (1.8-7.8); NEUTROPHILS % (AUTO) 86 % (42-75); PLATELET COUNT 175 10^3/uL (130-400); RED BLOOD COUNT 4.05 10^6/uL (4.35-5.85); RED CELL DISTRIBUTION WIDTH 13.7 % (10.0-14.5); WHITE BLOOD COUNT 6.8 10^3/uL (4.3-11.0)
[2017-05-11 11:35] LABS: ALANINE AMINOTRANSFERASE 12 U/L (0-55); ALBUMIN 3.8 GM/DL (3.2-4.5); ANION GAP 9 MMOL/L (5-14); ASPARTATE AMINO TRANSFERASE 14 U/L (5-34); BILIRUBIN,TOTAL 0.3 MG/DL (0.1-1.0); BLOOD UREA NITROGEN 9 MG/DL (7-18); BUN/CREATININE RATIO 12; CALCIUM 9.3 MG/DL (8.5-10.1); CARBON DIOXIDE 27 MMOL/L (21-32); CHLORIDE 103 MMOL/L (98-107); CREATININE SERUM 0.77 MG/DL (0.60-1.30); GFR ESTIMATED > 60; GLUCOSE 97 MG/DL (70-105); POTASSIUM 4.6 MMOL/L (3.6-5.0); SODIUM 139 MMOL/L (135-145); TOTAL PROTEIN 6.6 GM/DL (6.4-8.2)
[2017-05-18 10:13] LABS: BASOPHILS % (AUTO) 1 % (0-10); EOSINOPHILS # (AUTO) 0.2 10^3/uL (0.0-0.3); EOSINOPHILS % (AUTO) 4 % (0-10); LYMPHOCYTES # (AUTO) 0.2 X 10^3 (1.0-4.0); LYMPHOCYTES % (AUTO) 3 % (12-44); MEAN CORPUSCULAR HEMOGLOBIN 30 PG (25-34); MEAN CORPUSCULAR HGB CONC 33 G/DL (32-36); MEAN CORPUSCULAR VOLUME 90 FL (80-99); MONOCYTES # (AUTO) 0.4 X 10^3 (0.0-1.0); MONOCYTES % (AUTO) 10 % (0-12); NEUTROPHILS # (AUTO) 3.7 X 10^3 (1.8-7.8); NEUTROPHILS % (AUTO) 82 % (42-75); PLATELET COUNT 176 10^3/uL (130-400); RED BLOOD COUNT 3.97 10^6/uL (4.35-5.85); WHITE BLOOD COUNT 4.5 10^3/uL (4.3-11.0)
[2017-05-18 10:39] LABS: ALANINE AMINOTRANSFERASE 8 U/L (0-55); ALBUMIN 3.8 GM/DL (3.2-4.5); ANION GAP 8 MMOL/L (5-14); ASPARTATE AMINO TRANSFERASE 14 U/L (5-34); BILIRUBIN,TOTAL 0.3 MG/DL (0.1-1.0); BLOOD UREA NITROGEN 13 MG/DL (7-18); BUN/CREATININE RATIO 16; CALCIUM 9.7 MG/DL (8.5-10.1); CARBON DIOXIDE 29 MMOL/L (21-32); CHLORIDE 103 MMOL/L (98-107); CREATININE SERUM 0.82 MG/DL (0.60-1.30); GFR ESTIMATED > 60; GLUCOSE 87 MG/DL (70-105); POTASSIUM 4.8 MMOL/L (3.6-5.0); SODIUM 140 MMOL/L (135-145); TOTAL PROTEIN 6.6 GM/DL (6.4-8.2)
[2017-05-25 09:47] LABS: BASOPHILS % (AUTO) 1 % (0-10); EOSINOPHILS # (AUTO) 0.2 10^3/uL (0.0-0.3); EOSINOPHILS % (AUTO) 5 % (0-10); LYMPHOCYTES # (AUTO) 0.3 X 10^3 (1.0-4.0); LYMPHOCYTES % (AUTO) 6 % (12-44); MEAN CORPUSCULAR HEMOGLOBIN 30 PG (25-34); MEAN CORPUSCULAR HGB CONC 34 G/DL (32-36); MEAN CORPUSCULAR VOLUME 91 FL (80-99); MEAN PLATELET VOLUME 9.9 FL (7.4-10.4); MONOCYTES # (AUTO) 0.5 X 10^3 (0.0-1.0); MONOCYTES % (AUTO) 11 % (0-12); NEUTROPHILS # (AUTO) 3.8 X 10^3 (1.8-7.8); NEUTROPHILS % (AUTO) 78 % (42-75); PLATELET COUNT 184 10^3/uL (130-400); RED BLOOD COUNT 3.78 10^6/uL (4.35-5.85); RED CELL DISTRIBUTION WIDTH 14.5 % (10.0-14.5); WHITE BLOOD COUNT 4.8 10^3/uL (4.3-11.0)
[2017-05-25 10:25] LABS: ALBUMIN 3.8 GM/DL (3.2-4.5); BILIRUBIN,TOTAL 0.4 MG/DL (0.1-1.0); CALCIUM 9.6 MG/DL (8.5-10.1); CREATININE SERUM 0.93 MG/DL (0.60-1.30); POTASSIUM 4.6 MMOL/L (3.6-5.0); TOTAL PROTEIN 6.6 GM/DL (6.4-8.2)
[2017-06-01 09:56] LABS: BASOPHILS % (AUTO) 1 % (0-10); EOSINOPHILS # (AUTO) 0.1 10^3/uL (0.0-0.3); EOSINOPHILS % (AUTO) 3 % (0-10); LYMPHOCYTES # (AUTO) 0.2 X 10^3 (1.0-4.0); LYMPHOCYTES % (AUTO) 5 % (12-44); MEAN CORPUSCULAR HEMOGLOBIN 30 PG (25-34); MEAN CORPUSCULAR HGB CONC 33 G/DL (32-36); MEAN CORPUSCULAR VOLUME 90 FL (80-99); MEAN PLATELET VOLUME 9.2 FL (7.4-10.4); MONOCYTES # (AUTO) 0.4 X 10^3 (0.0-1.0); MONOCYTES % (AUTO) 9 % (0-12); NEUTROPHILS # (AUTO) 3.9 X 10^3 (1.8-7.8); NEUTROPHILS % (AUTO) 82 % (42-75); PLATELET COUNT 175 10^3/uL (130-400); RED CELL DISTRIBUTION WIDTH 14.6 % (10.0-14.5); WHITE BLOOD COUNT 4.7 10^3/uL (4.3-11.0)
[2017-06-01 10:41] LABS: ALANINE AMINOTRANSFERASE 6 U/L (0-55); ANION GAP 6 MMOL/L (5-14); ASPARTATE AMINO TRANSFERASE 13 U/L (5-34); BILIRUBIN,TOTAL 0.3 MG/DL (0.1-1.0); BLOOD UREA NITROGEN 9 MG/DL (7-18); BUN/CREATININE RATIO 12; CALCIUM 9.4 MG/DL (8.5-10.1); CARBON DIOXIDE 29 MMOL/L (21-32); CHLORIDE 105 MMOL/L (98-107); CREATININE SERUM 0.78 MG/DL (0.60-1.30); GFR ESTIMATED > 60; GLUCOSE 93 MG/DL (70-105); POTASSIUM 4.8 MMOL/L (3.6-5.0); SODIUM 140 MMOL/L (135-145); TOTAL PROTEIN 6.5 GM/DL (6.4-8.2)
[2017-06-09 13:50] LABS: BASOPHILS % (AUTO) 1 % (0-10); EOSINOPHILS # (AUTO) 0.2 10^3/uL (0.0-0.3); EOSINOPHILS % (AUTO) 4 % (0-10); LYMPHOCYTES # (AUTO) 0.4 X 10^3 (1.0-4.0); LYMPHOCYTES % (AUTO) 6 % (12-44); MEAN CORPUSCULAR HEMOGLOBIN 30 PG (25-34); MEAN CORPUSCULAR HGB CONC 34 G/DL (32-36); MEAN CORPUSCULAR VOLUME 90 FL (80-99); MEAN PLATELET VOLUME 8.9 FL (7.4-10.4); MONOCYTES # (AUTO) 0.5 X 10^3 (0.0-1.0); MONOCYTES % (AUTO) 7 % (0-12); NEUTROPHILS # (AUTO) 5.1 X 10^3 (1.8-7.8); NEUTROPHILS % (AUTO) 82 % (42-75); PLATELET COUNT 204 10^3/uL (130-400); RED BLOOD COUNT 3.87 10^6/uL (4.35-5.85); RED CELL DISTRIBUTION WIDTH 14.6 % (10.0-14.5); WHITE BLOOD COUNT 6.2 10^3/uL (4.3-11.0)
[2017-06-09 14:26] LABS: ALANINE AMINOTRANSFERASE 6 U/L (0-55); ALBUMIN 4.1 GM/DL (3.2-4.5); ANION GAP 7 MMOL/L (5-14); ASPARTATE AMINO TRANSFERASE 12 U/L (5-34); BILIRUBIN,TOTAL 0.4 MG/DL (0.1-1.0); BLOOD UREA NITROGEN 9 MG/DL (7-18); BUN/CREATININE RATIO 12; CALCIUM 9.3 MG/DL (8.5-10.1); CARBON DIOXIDE 31 MMOL/L (21-32); CHLORIDE 105 MMOL/L (98-107); CREATININE SERUM 0.78 MG/DL (0.60-1.30); GFR ESTIMATED > 60; GLUCOSE 119 MG/DL (70-105); POTASSIUM 4.7 MMOL/L (3.6-5.0); SODIUM 143 MMOL/L (135-145); TOTAL PROTEIN 6.7 GM/DL (6.4-8.2)
[~2017-06-30] VITALS: Ht 162.6 cm; Wt 52.2 kg
[~2017-06-30 10:25] MED LIST changes: +ACETAMINOPHEN 500 MG TAB (TYLENOL) CANCER CTR PO PRN; +BENDAMUSTINE HCL 150 MG in NS (IVPB) CANCER CENTER 50 ML IV SCH; +FAMOTIDINE 20MG/2ML IV (CANCER CTR) IV SCH; +NS IV 1000 ML (CANCER CTR) IV SCH; +ONDANSETRON 16 MG, DEXAMETHASONE 10 MG/NS 50 ML IVPB IV SCH; +diphenhydrAMINE 25 MG TAB (BENADRYL) CANCER CENTER PO SCH; +riTUXimab 500 MG, riTUXimab FOR IV INJ CONC 100 MG in NS (IVPB) CANCER CENTER ONLY 150 ML IV SCH
[2017-06-30 10:50] LABS: BASOPHILS % (AUTO) 1 % (0-10); EOSINOPHILS # (AUTO) 0.2 10^3/uL (0.0-0.3); EOSINOPHILS % (AUTO) 4 % (0-10); LYMPHOCYTES # (AUTO) 0.3 X 10^3 (1.0-4.0); LYMPHOCYTES % (AUTO) 6 % (12-44); MEAN CORPUSCULAR HEMOGLOBIN 31 PG (25-34); MEAN CORPUSCULAR HGB CONC 34 G/DL (32-36); MEAN CORPUSCULAR VOLUME 92 FL (80-99); MEAN PLATELET VOLUME 9.2 FL (7.4-10.4); MONOCYTES # (AUTO) 0.5 X 10^3 (0.0-1.0); MONOCYTES % (AUTO) 8 % (0-12); NEUTROPHILS # (AUTO) 4.9 X 10^3 (1.8-7.8); NEUTROPHILS % (AUTO) 81 % (42-75); PLATELET COUNT 203 10^3/uL (130-400); RED BLOOD COUNT 3.83 10^6/uL (4.35-5.85); RED CELL DISTRIBUTION WIDTH 15.8 % (10.0-14.5)
[2017-06-30] MEDS ORDERED: NS IV 500 ML (CANCER CENTER) 500 ML ONE (11:19)
[2017-06-30 11:41] LABS: ALBUMIN 4.2 GM/DL (3.2-4.5); BILIRUBIN,TOTAL 0.4 MG/DL (0.1-1.0); CALCIUM 9.5 MG/DL (8.5-10.1); CREATININE SERUM 1.06 MG/DL (0.60-1.30); TOTAL PROTEIN 7.1 GM/DL (6.4-8.2)
[2017-06-30 11:44] LABS: POTASSIUM 5.6 MMOL/L (3.6-5.0)
== END 2017-07-08 10:32 | disposition home or self-care (01) ==
LOC: ONC 10:25
PROVIDERS: ATTEND Internal Medicine Hematology & Oncology
DX: Z51.11 Encounter for antineoplastic chemotherapy (principal); C85.13 Unspecified B-cell lymphoma, intra-abdominal lymph nodes; F17.210 Nicotine dependence, cigarettes, uncomplicated; K57.92 Diverticulitis of intestine, part unspecified, without perforation or abscess without bleeding; R19.7 Diarrhea, unspecified; M89.8X0 Other specified disorders of bone, multiple sites; M25.50 Pain in unspecified joint; Z79.899 Other long term (current) drug therapy
CPT/HCPCS: 36415; 36591; 80053; 83615; 85025; 96375; 96409; 96411; 96413; 99213

== ENCOUNTER 2017-07-08 10:41 | Outpatient (RCR) | payer MEDICARE ==
[~2017-07-08 10:41] MED LIST changes: -ACETAMINOPHEN 500 MG TAB (TYLENOL) CANCER CTR PO PRN; -BENDAMUSTINE HCL 150 MG in NS (IVPB) CANCER CENTER 50 ML IV SCH; -FAMOTIDINE 20MG/2ML IV (CANCER CTR) IV SCH; -NS IV 1000 ML (CANCER CTR) IV SCH; -ONDANSETRON 16 MG, DEXAMETHASONE 10 MG/NS 50 ML IVPB IV SCH; -diphenhydrAMINE 25 MG TAB (BENADRYL) CANCER CENTER PO SCH; -riTUXimab 500 MG, riTUXimab FOR IV INJ CONC 100 MG in NS (IVPB) CANCER CENTER ONLY 150 ML IV SCH
== END 2017-07-11 | disposition home or self-care (01) ==
PROVIDERS: ATTEND Family Medicine
DX: M54.31 Sciatica, right side (principal)

== ENCOUNTER 2017-08-03 15:31 | Emergency (ER) | payer MEDICARE ==
[~2017-08-03] VITALS: Ht 162.6 cm; Wt 53.1 kg
--- OUTSIDE RECORDS SUMMARY | 2017-08-03 15:39 | XMS REPORT | Encounter Summary ---
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, [address] extranodal and [place], [place] [address] sites ([facility]) Phone: Phone: P [phone] rocedures Fax: NM PET SCAN [phone] [place] ([place]) * Radiology Services Status Reason Specialty Diagnoses / Referred By Referred To Procedures Contact Contact Closed Radiology Diagnoses Joo Norton 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, [address] extranodal and [facility] [place] [place] [address] sites ([facility]) Phone: Phone: P [phone] rocedures Fax: NM PET SCAN [phone] [place] ([place]) Reason for Visit * Radiology Services Status Reason Specialty Diagnoses / Referred By Referred To Procedures Contact Contact Closed Radiology Diagnoses Joo Norton 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, [address] extranodal and [place] [address] sites ([facility]) Phone: Phone: P [phone] rocedures Fax: NM PET SCAN [phone] [place] ([place]) Encounter Details Date Type Department Care Team Description 06/03/2017 [facility] Joo Norton MD Encounter [facility] Radiology [address] [place] [address] [place] [address] [phone] Social History Tobacco Use Types Packs/Day Years Used Date Current Every Day Smoker Cigarettes 0.5 50 Smokeless Tobacco: Never Used Alcohol Use Drinks/Week oz/Week Comments No 0 Standard 0.0 drinks or equivalent Sex Assigned at Date Recorded Not on file as of this encounter Functional Status Functional Status Response Date of Assessment Does the patient have a hearing impairment: No 06/03/2017 Does the patient have a visual impairment: Yes 06/03/2017 Does the patient have impaired ambulation: No 06/03/2017 Does the patient have an activity of daily living No 06/03/2017 (ADL) impairment: Does the patient have an instrumental activity of No 06/03/2017 daily living (IADL) impairment: Cognitive Status Response Date of Assessment Does the patient have a cognitive impairment: No 06/03/2017 as of this encounter Medications at Time of Discharge Medication Sig. Disp. Refills Start Date End Date cetirizine (ZYRTEC) 10 mg Take 10 mg by mouth every tablet morning. morphine IR (MS-IR) 30 mg Take 30 mg by mouth every tablet 4 hours as needed for Pain ONDANSETRON HCL (ZOFRAN Take by mouth as Needed. PO) triamcinolone acetonide Apply topically to 80 g 1 04/28/2017 (KENALOG) 0.1 % topical affected area twice cream daily. as of this encounter Plan of Treatment Not on fileas of this encounter Results * NM PET SCAN [place] ([place]) (06/03/2017 12:37 PM) Specimen Performing Laboratory [facility] RAD RESULTS Impressions 1. Interval marked improvement in multiple previously noted hypermetabolic lesions throughout the neck, chest, abdomen and pelvis as described above consistent with response to therapy. 2. Mild residual retroperitoneal soft tissue thickening and right inguinal adenopathy demonstrates only mild FDG uptake. Deauville score 3. 3. Calcified coronary artery disease. Tiny sub-5 mm pulmonary densities too small definitely characterize. Continued attention on follow-up is recommended. Finalized by Jacob Vasquez M.D. on 06/03/2017 1:29 PM. Dictated by Jacob Vasquez M.D. on 06/03/2017 1:13 PM. Narrative PET/CT NECK, CHEST, ABDOMEN AND PELVIS CLINICAL HISTORY:Female, 71 years old. Lymphoma. Currently receiving chemotherapy. RADIOPHARMACEUTICAL:11.9 mCi F-18 Fluorodeoxyglucose (FDG) IV. TECHNIQUE:Beginning approximately 71 minutes after tracer administration, routine whole body PET/CT imaging was performed from the level of the base of the skull to the upper thighs.PET images were reviewed in standard orthogonal projections.Low dose non-contrast CT imaging was performed for attenuation correction and localization purposes. BLOOD GLUCOSE LEVEL AT THE TIME OF RADIOPHARMACEUTICAL ADMINISTRATION:91 mg/ dl COMPARISON: Outside PET/CT scan dated 09/02/2016. FINDINGS: The current mean hepatic SUV is 2.0, previously 2.1. The maximal hepatic SUV is 2.5. The maximal mediastinal blood pool SUV is 1.8. Head/Neck: Resolution of previously noted hypermetabolic lesions within the neck. Chest: Resolution of previously noted hypermetabolic lesions within the chest. Abdomen/Pelvis: Interval marked improvement in previously noted hypermetabolic abdominal and pelvic lymphadenopathy. Residual mild ill-defined soft tissue density within the left periaortic region on CT image 146 to assess a maximal SUV of 2.4. Additional areas of mild ill-defined retroperitoneal soft tissue thickening also demonstrate only minimal FDG uptake. Mild residual right inguinal adenopathy on CT image 200 demonstrates a maximal SUV of 2.3. Previously noted hypermetabolic hepatic lesion has resolved. Osseous Structures: Essential resolution of multiple previously noted hypermetabolic osseous lesions. Minimal residual activity within the proximal left femoral shaft now demonstrates a maximal SUV of 1.7, previously 10.0. Extensive hypermetabolic activity surrounding the proximal left femur on the prior study is also markedly improved without significant residual FDG uptake. Additional significant low dose CT findings: Right-sided chest port is in place. Calcified coronary artery disease. Stable scattered tiny sub-5 mm pulmonary densities too small to characterize. Uncorrected PET images:The uncorrected PET images demonstrate no additional abnormality. Procedure Note Interface, Radiant Results - 06/03/2017 1:32 PM CDT PET/CT NECK, CHEST, ABDOMEN AND PELVIS CLINICAL HISTORY: Female, 71 years old. Lymphoma. Currently receiving chemotherapy. RADIOPHARMACEUTICAL: 11.9 mCi F-18 Fluorodeoxyglucose (FDG) IV. TECHNIQUE: Beginning approximately 71 minutes after tracer administration, routine whole body PET/CT imaging was performed from the level of the base of the skull to the upper thighs. PET images were reviewed in standard orthogonal projections. Low dose non-contrast CT imaging was performed for attenuation correction and localization purposes. BLOOD GLUCOSE LEVEL AT THE TIME OF RADIOPHARMACEUTICAL ADMINISTRATION: 91 mg/dl COMPARISON: Outside PET/CT scan dated 09/02/2016. FINDINGS: The current mean hepatic SUV is 2.0, previously 2.1. The maximal hepatic SUV is 2.5. The maximal mediastinal blood pool SUV is 1.8. Head/Neck: Resolution of previously noted hypermetabolic lesions within the neck. Chest: Resolution of previously noted hypermetabolic lesions within the chest. Abdomen/Pelvis: Interval marked improvement in previously noted hypermetabolic abdominal and pelvic lymphadenopathy. Residual mild ill-defined soft tissue density within the left periaortic region on CT image 146 to assess a maximal SUV of 2.4. Additional areas of mild ill-defined retroperitoneal soft tissue thickening also demonstrate only minimal FDG uptake. Mild residual right inguinal adenopathy on CT image 200 demonstrates a maximal SUV of 2.3. Previously noted hypermetabolic hepatic lesion has resolved. Osseous Structures: Essential resolution of multiple previously noted hypermetabolic osseous lesions. Minimal residual activity within the proximal left femoral shaft now demonstrates a maximal SUV of 1.7, previously 10.0. Extensive hypermetabolic activity surrounding the proximal left femur on the prior study is also markedly improved without significant residual FDG uptake. Additional significant low dose CT findings: Right-sided chest port is in place. Calcified coronary artery disease. Stable scattered tiny sub-5 mm pulmonary densities too small to characterize. Uncorrected PET images: The uncorrected PET images demonstrate no additional abnormality. IMPRESSION 1. Interval marked improvement in multiple previously noted hypermetabolic lesions throughout the neck, chest, abdomen and pelvis as described above consistent with response to therapy. 2. Mild residual retroperitoneal soft tissue thickening and right inguinal adenopathy demonstrates only mild FDG uptake. Deauville score 3. 3. Calcified coronary artery disease. Tiny sub-5 mm pulmonary densities too small definitely characterize. Continued attention on follow-up is recommended. Finalized by Jacob Vasquez M.D. on 06/03/2017 1:29 PM. Dictated by Jacob Vasquez M.D. on 06/03/2017 1:13 PM. in this encounter Visit Diagnoses Diagnosis Lymphoma, unspecified body region, unspecified lymphoma type (HCC) in this encounter Administered Medications Medication Order MAR Action Action Date Dose Rate Site RP DX F-18 FDG injection 10 millicurie Given 06/03/2017 11.9 10 millicurie, Intravenous, ONCE, 1 12:45 CDT millicuries dose, 06/03/17 at 1245 in this encounter
--- OUTSIDE RECORDS SUMMARY | 2017-08-03 15:39 | XMS REPORT | Continuity of Care Document ---
Author Author [facility] Organization [facility] Address Unknown Phone Unavailable Care Team Providers Care Chain Carrier Name Role Phone [employer] Unavailable Unavailable Problems Medications Allergies, Adverse Reactions, Alerts Immunizations Results Vital Signs Encounters Location Location Details Encounter Type Encounter Number Reason For Visit Attending Provider ADM Date DC Date Status Source CA SERIES [id number] FABY SONI 06/03/20172016 Active [facility] O 06/11/2018 Active [facility] Procedures Plan of Care Social History Assessment and Plan Family History Value Date Source Advance Directives Order Name Results Value Date Source
--- OUTSIDE RECORDS SUMMARY | 2017-08-03 15:39 | XMS REPORT | Encounter Summary ---
Author Author [facility] Organization [facility] Address Unknown Phone Unavailable Care Team Providers Care Property Disposal Officer Name Role Phone PCP Unavailable Encounter Details Date Type Department Care Team Description 06/03/2017 Procedure Pass [facility] Radiology [address] [place] [address] Social History Tobacco Use Types Packs/Day Years [...] impairment: No 06/03/2017 as of this encounter Plan of Treatment Not on fileas of this encounter Visit Diagnoses Not on filein this encounter
--- OUTSIDE RECORDS SUMMARY | 2017-08-03 15:39 | XMS REPORT | Encounter Summary ---
Author Author [facility] Organization [facility] Address Unknown Phone Unavailable Care Team Providers Care Operations Intelligence Name Role Phone PCP Unavailable Encounter Details Date Type Department Care Team Description 06/03/2017 Hospital [facility] Joo Norton MD Encounter Cancer Center - OP Lab [address] [place] [address] [phone] Social History Tobacco Use Types Packs/Day Years [...] on fileas of this encounter Results * HIV AB SCREEN(1 AND 2) (06/03/2017 11:05 AM) Component Value Ref Range HIV 1 and 2 AG AB Screen NEG NEG-NEG Specimen Performing Laboratory Blood [facility] [address] [id number] * LDH-LACTATE DEHYDROGENASE (06/03/2017 11:05 AM) Component Value Ref Range Lactate Dehydrogenase 170 100 - 210 U/L Specimen Performing Laboratory [facility] [address] [place] [address] * COMPREHENSIVE METABOLIC PANEL (06/03/2017 11:05 AM) Component Value Ref Range Sodium 140 137 - 147 MMOL/L Potassium 5.4 (H) 3.5 - 5.1 MMOL/L Chloride 107 98 - 110 MMOL/L Glucose 106 (H) 70 - 100 MG/DL Blood Urea Nitrogen 8 7 - 25 MG/DL Creatinine 0.90 0.4 - 1.00 MG/DL Calcium 9.6 8.5 - 10.6 MG/DL Total Protein 7.0 6.0 - 8.0 G/DL Total Bilirubin 0.4 0.3 - 1.2 MG/DL Albumin 4.2 3.5 - 5.0 G/DL Alk Phosphatase 84 25 - 110 U/L AST (SGOT) 10 7 - 40 U/L CO2 29 21 - 30 MMOL/L ALT (SGPT) 4 (L) 7 - 56 U/L Anion Gap 4 3 - 12 eGFR Non >60 >60 mL/min Comment: The eGFR is not validated for use in drug dosing adjustments. Continue to use estimated creatinine clearance per dosing reference text. Please contact the Clinical Pharmacist for questions. eGFR >60 >60 mL/min Comment: The eGFR is not validated for use in drug dosing adjustments. Continue to use estimated creatinine clearance per dosing reference text. Please contact the Clinical Pharmacist for questions. Specimen Performing Laboratory Blood MAIN [facility] [address] [place] [address] * CBC AND DIFF (06/03/2017 11:05 AM) Component Value Ref Range White Blood Cells 6.1 4.5 - 11.0 K/UL RBC 3.92 (L) 4.0 - 5.0 M/UL Hemoglobin 11.9 (L) 12.0 - 15.0 GM/DL Hematocrit 35.1 (L) 36 - 45 % MCV 89.7 80 - 100 FL MCH 30.4 26 - 34 PG MCHC 33.9 32.0 - 36.0 G/DL RDW 15.1 (H) 11 - 15 % Platelet Count 165 150 - 400 K/UL MPV 7.7 7 - 11 FL Neutrophils 82 (H) 41 - 77 % Lymphocytes 5 (L) 24 - 44 % Monocytes 8 4 - 12 % Eosinophils 4 0 - 5 % Basophils 1 0 - 2 % Absolute Neutrophil Count 5.00 1.8 - 7.0 K/UL Absolute Lymph Count 0.30 (L) 1.0 - 4.8 K/UL Absolute Monocyte Count 0.50 0 - 0.80 K/UL Absolute Eosinophil Count 0.20 0 - 0.45 K/UL Absolute Basophil Count 0.10 0 - 0.20 K/UL Specimen Performing Laboratory Blood [facility] [address] [phone] in this encounter Visit Diagnoses Diagnosis Lymphoma, unspecified body region, unspecified lymphoma type (HCC) Encounter for screening for HIV in this encounter
--- OUTSIDE RECORDS SUMMARY | 2017-08-03 15:39 | XMS REPORT | Clinical Summary ---
Author Author [facility] Organization [facility] Address Unknown Phone Unavailable Care Team Providers Care Forming Yardage Control Operator Name Role Phone PCP Unavailable Source Comments Some departments are not documenting in the electronic medical record. If you do not see the information that you expected, contact Release of Information in the Health Information Management department at [phone] for further assistance in locating additional records.[facility] Allergies Active Allergy Reactions Severity Noted Date Comments Ciprofloxacin UNKNOWN Low 04/28/2017 Penicillins SEE COMMENTS Low 04/28/2017 Severe stomach Current Medications Prescription Sig. Disp. Refills Start End Date Status Date morphine IR (MS-IR) 30 mg Take 30 mg by mouth every Active tablet 4 hours as needed for Pain cetirizine (ZYRTEC) 10 mg Take 10 mg by mouth every Active tablet morning. ONDANSETRON HCL (ZOFRAN Take by mouth as Needed. Active PO) triamcinolone acetonide Apply topically to 80 g 1 04/28/20 Active (KENALOG) 0.1 % topical affected area twice 17 cream daily. 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 Low-grade follicular lymphoma with CR after BR x 6 completed May 2017 2. Jerome-Lazara like cells on initial pathology report, reviewed by pathology ( and [facility]) and not concerning for transformation 3. Multifocal sclerotic and lytic lesions on imaging consistent with bone involvement from lymphoma 4. Subcutaneous lymphomatous disease 5. Severe sigmoid diverticulitis status post sigmoid colectomy that interrupted lymphoma therapy 6. Active cigarette smoker 7. Prior right hip fracture 8. ECOG PS 0 Plan: 1. Since last visit, we have had her pathology reviewed here at [facility] and I discussed her case personally with Dr. Townsend. Her pathology has been additionally reviewed at the [facility] by Dr. Gia Peters. In summary, there is no evidence of histologic transformation in the scattered CD15 positive and CD30 positive cells were felt to be reflective of some germinal center activation and not reflective of histologic transformation. This is excellent news. 2. Her PET/CT shows a CR with a Deauville score of 3. This is excellent news. Patients who achieve a PET negative complete remission after induction chemotherapy for follicular lymphoma have a much better prognosis compared to those who do not. 3. Overall, my enthusiasm for rituximab maintenance in the typical patient who receives bendamustine based therapy for follicular lymphoma has waned somewhat given data that patients treated with bendamustine based induction appear to not benefit from Rituxan maintenance, but that those induced with CHOP or CVP do seem to have benefit.. However, she has had several treatment interruptions and Dr. Townsend was interested in potentially offering her a few cycles of maintenance therapy for consolidation. My overall feeling is is that this would be reasonable, but I am reassured by her PET/CT results showing a CR and would not recommend an extended course of Rituxan maintenance at this time. 4. At this point I would recommend either clinical surveillance or a CT scan no more often than annually. I typically will get a CT at the 2 year tena given that recurrence at less than 2 years from completing therapy is associated with a poorer prognosis and more aggressive clinical course. 5. Ms Chris has requested to see me annually for follow up. I will plan to see her back in May 2018 absent new or concerning issues and will leave her in Dr Townsend's capable hands in the interim. I have discussed the diagnosis and treatment plan with the patient and she expresses understanding and wishes to proceed. L ast Assessment & Plan: Impression: 1. Low-grade lymphoma, CD10 and BCL-2 positive, responding to Bendamustine and Rituxan 2. Indeterminate Jerome-Lazara like cells on initial pathology report, concerning for potential mixed process or transformed disease 3. Multifocal sclerotic and lytic lesions on imaging consistent with bone involvement from lymphoma 4. Subcutaneous lymphomatous disease 5. Severe sigmoid diverticulitis status post sigmoid colectomy 6. Active cigarette smoker 7. Prior right hip fracture 8. ECOG PS 0 Plan: 1. This is a very complex case with an indeterminate pathologic diagnosis and several interruptions in therapy secondary to infectious complications. 2. From my perspective, of paramount importance is determining the underlying histologic diagnosis that she had at the beginning. The presence of Elxk-Zocrnwmro-cmwr cells that stain positive for CD15 and CD30 is concerning to me either for a biphenotypic lymphoma or potential transformation to Hodgkin's disease. Bendamustine has good activity in Hodgkin lymphoma and I would expect it to respond similar to follicular lymphoma at least in the early phases, but there is no data regarding durable long-term remissions with induction therapy with bendamustine and Rituxan alone. I requested that her outside pathology be centrally reviewed here to attempt to make a determination of what exactly she has. Additionally, there was an indication in her outside pathology report that had been sent to the [facility] for review, but I did not see any finalized reports indicating that an outside pathologist had reviewed her slides and rendered an opinion. 3. From a treatment angle, she appears to be responding to the bendamustine and Rituxan and is now had 5 cycles of therapy with a partial response after 3 cycles and is tolerating treatment well. It does appear that this colonic abscess may have been present from the initiation of therapy and is certainly exacerbated during therapy, but overall she has not had other significant infections or other complications with treatment and her performance status remains intact. 4. I recommend that she continue with bendamustine and Rituxan at current doses for sixth and final planned cycle of therapy. 5. I recommend she get a PET/CT scan performed in late May to assess her response. If there are any sites of disease that have persistent uptake, I would recommend a biopsy of these areas to determine whether or not there is persistent lymphoma - the likelihood of a true complete remission after bendamustine based therapy if she does indeed have a component of Hodgkin lymphoma would be small. She is requested to have her restaging imaging performed here at . 6. We have requested all of her pathology and imaging studies here for internal review. 7. I called and attempted to contact Dr. Townsend to further discuss her case and ensure that I have not missed any crucial details, but she was unfortunately out of the office. I do look forward to speaking with her regarding Ms. Chris's case. 8. I will see her back at the end of May with her restaging PET/CT as well as lab values for treatment planning purposes. I have discussed the diagnosis and treatment plan with the patient and she expresses understanding and wishes to proceed. 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) (Primary Dx) 06/03/2017 Hospital Oncology Faby Norton MD Encounter 06/03/2017 Hospital Radiology Faby Norton MD Encounter 06/03/2017 Procedure Pass Radiology 05/08/2017 Telephone Oncology Rosalba Espinosa RN Test (prep questions) 05/07/2017 Ancillary Radiology Outpatient, Radiologist Diagnosis unknown Orders 05/05/2017 Telephone Oncology Rosalba Espinosa RN Appointment 05/04/2017 [facility] Faby Norton MD Non-Hodgkin lymphoma, Encounter unspecified, unspecified site (HCC) from Last 3 Months Family History Medical History Relation Name Comments Cancer Father Unclear subtype Rashes/Skin Problems Mother Stroke Mother Relation Name Status Comments Father Mother Social History Tobacco Use Types Packs/Day Years Used Date Current Every Day Smoker Cigarettes 0.5 50 Smokeless Tobacco: Never Used Alcohol Use Drinks/Week oz/Week Comments No 0 Standard 0.0 drinks or equivalent Sex Assigned at Date Recorded Not on file Last Filed Vital Signs Vital Sign Reading Time Taken Blood Pressure 122/52 06/03/2017 2:47 PM CDT Pulse 80 06/03/2017 2:47 PM CDT Temperature 36.8 C (98.3 F) 06/03/2017 2:47 PM CDT Respiratory Rate 16 06/03/2017 2:47 PM CDT Oxygen Saturation 99% 06/03/2017 2:47 PM CDT Inhaled Oxygen - - Concentration Weight 53.3 kg (117 lb 6.4 oz) 06/03/2017 2:47 PM CDT Height 153 cm (5' 0.24") 06/03/2017 2:47 PM CDT Body Mass Index 22.75 06/03/2017 2:47 PM CDT Plan of Treatment Health Maintenance Due Date Last Done Comments HEPATITIS C SCREENING 1945 PHYSICAL (COMPREHENSIVE) 12/16/1954 EXAM PERTUSSIS VACCINE 12/16/1958 TETANUS VACCINE 12/16/1964 BREAST CANCER SCREENING 1987 COLORECTAL CANCER 12/16/1997 SCREENING SHINGLES VACCINE 2007 OSTEOPOROSIS SCREENING 12/16/2012 PREVNAR/PNEUMOVAX (#1) 12/16/2012 INFLUENZA VACCINE 05/12/2017 Results * PATHOLOGY REPORTS FROM OUTSIDE SCAN (06/24/2017 8:10 AM) Only the most recent of 2 results within the time period is included. Narrative Ordered by an unspecified provider. * NM PET SCAN TORSO (SKULL-THIGHS) (06/03/2017 [...] attention on follow-up is recommended. Finalized by Tena Vasquez M.D. on 06/03/2017 1:29 PM. Dictated by Tena Vasquez M.D. on 06/03/2017 1:13 PM. Narrative [...] attention on follow-up is recommended. Finalized by Tena Vasquez M.D. on 06/03/2017 1:29 PM. Dictated by Tena Vasquez M.D. on 06/03/2017 1:13 PM. * HIV AB SCREEN(1 AND 2) (06/03/2017 11:05 AM) Component Value Ref Range HIV 1 and 2 AG AB Screen NEG NEG-NEG Specimen Performing Laboratory Blood MAIN LAB [address] [place] [address] * CBC AND DIFF (06/03/2017 11:05 AM) [...] - 0.20 K/UL Specimen Performing Laboratory Blood [facility] [address] [place] [address] * LDH-LACTATE DEHYDROGENASE (06/03/2017 11:05 AM) Component Value Ref Range Lactate Dehydrogenase 170 100 - 210 U/L Specimen Performing Laboratory Blood [facility] [address] [place] [address] * COMPREHENSIVE METABOLIC PANEL (06/03/2017 11:05 AM) [...] Specimen Performing Laboratory Blood MAIN [facility] [address] [place] [address] * OUTSIDE PATHOLOGY CONSULT (05/06/2017 2:12 PM) Only the most recent of 2 results within the time period is included. Component Value Ref Range PATHOLOGY REPORT [facility] [email or web address] Sulma Ayers MD, PhD, Director of Anatomic Pathology Department of Pathology and Laboratory Medicine [address] [place] [id number] Surgical Pathology Office: [phone] PATHOLOGY CONSULTATION NAME: MALLORY CHRIS SURG PATH #: [id number] MR #: [id number] ALT ID #: LOCATION: [facility] DATE OF PROCEDURE: 05/06/2017 AGE: 71 SEX: F DATE RECEIVED: 05/06/2017 : 1945 TIME RECEIVED: 14:12 PHYSICIAN: FABY MCARTHUR MD DATE OF REPORT: 05/06/2017 COPY TO: DATE OF PRINTIN05/06/2017 ################################################## ###################### Final Diagnosis: A. Outside case [id number] (Date Collected: 09/03/2016) Subcutaneous mass, left chest, excisional biopsy: Follicular lymphoma, grade 1, diffuse pattern Attestation: By this signature, I attest that I have personally formulated the final interpretation expressed in this report and that the above diagnosis is based upon my examination of the slides and/or other material indicated in this report. +++ +++ paj/05/06/2017 ################################################## ###################### Material Received: A: Outside Slides x13 [id number], [facility] [address] [place] [address] History: 70 year old female with a history of low grade B cell lymphoma Gross Description: B. Received are thirteen (13) outside slides labeled "[id number]", and a properly identified surgical pathology report from [facility] [address] [place] [address]. ; . paj/05/06/2017 Microscopic Description: Sections show a diffuse infiltrate of small mature lymphocytes with mild to moderate nuclear irregularity. Outside immunostains show the malignant cells are positive for CD10, CD20, CD23, BCL2, and PAX5. They are negative for CD3, CD15, and CD30. The Ki-67 proliferation index is 10%. CD21 highlights multifocal and effaced germinal centers, involving 10-20% of the tissue. Concurrent flow cytometry shows CD10(+) monoclonal B cells. If immunohistochemical stains and/or in situ hybridization are cited in this report, the performance characteristics were determined by the Department of Pathology and Laboratory Medicine of the [facility] ([employer] [facility] [employer]) in compliance with CLIA'88 regulations. Some of these tests rely on the use of "analyte specific reagents" and are subject to specific labeling requirements by the FDA. Known positive and negative control tissues demonstrate appropriate staining. Results should be interpreted with caution given the likelihood of false negativity on decalcified specimens. This testing was developed by the Department of Pathology and Laboratory Medicine of the [facility]. It has not been cleared or approved by the FDA. The FDA has determined that such clearance or approval is not necessary. Specimen Performing Laboratory [facility] RESULTS from Last 3 Months
--- OUTSIDE RECORDS SUMMARY | 2017-08-03 15:40 | XMS REPORT | Encounter Summary ---
Author Author [facility] Organization [facility] Address Unknown Phone Unavailable Care Team Providers Care Sales Analyst Name Role Phone PCP Unavailable Encounter Details Date Type Department Care Team Description 05/04/2017 Hospital Clinlab Faby Norton MD Non-Hodgkin lymphoma, Encounter [address] unspecified, [place] [address] [place] [address] site ([facility]) [phone] Social History Tobacco Use Types Packs/Day Years Used Date Current Every Day Smoker Cigarettes 0.5 50 Smokeless Tobacco: Never Used Alcohol Use Drinks/Week oz/Week Comments No 0 Standard 0.0 drinks or equivalent Sex Assigned at Date Recorded Not on file as of this encounter Functional Status Functional Status Response Date of Assessment Does the patient have a hearing impairment: No 04/28/2017 Does the patient have a visual impairment: Yes 04/28/2017 Does the patient have impaired ambulation: No 04/28/2017 Does the patient have an activity of daily living No 04/28/2017 (ADL) impairment: Does the patient have an instrumental activity of No 04/28/2017 daily living (IADL) impairment: Cognitive Status Response Date of Assessment Does the patient have a cognitive impairment: No 04/28/2017 as of this encounter Medications at Time [...] on fileas of this encounter Results * PATHOLOGY REPORTS FROM OUTSIDE SCAN (06/24/2017 8:10 AM) Narrative Ordered by an unspecified provider. * PATHOLOGY REPORTS FROM OUTSIDE SCAN (06/24/2017 8:07 AM) Narrative Ordered by an unspecified provider. * OUTSIDE PATHOLOGY CONSULT (05/06/2017 2:12 PM) Component Value Ref Range PATHOLOGY REPORT [facility] www.[employer] Sulma Ayers MD, PhD, Director of Anatomic Pathology Department of Pathology and Laboratory Medicine [address] [place] [id number] Surgical Pathology Office: [phone] PATHOLOGY CONSULTATION NAME: MALLORY CHRIS SURG PATH #: [id number] MR #: [id number] ALT ID #: LOCATION: [facility] DATE OF PROCEDURE: 05/06/2017 AGE: 71 SEX: F DATE RECEIVED: 05/06/2017 : 1945 TIME RECEIVED: 14:12 PHYSICIAN: FABY MCARTHUR MD DATE OF REPORT: 05/06/2017 COPY TO: DATE OF PRINTIN05/06/2017 ################################################## ###################### Final Diagnosis: A. Outside case [id number] (Date Collected: 09/03/2016) Subcutaneous mass, left chest, excisional biopsy: Follicular lymphoma, grade 1, diffuse pattern Attestation: By this signature, I attest that I have personally formulated the final interpretation expressed in this report and that the above diagnosis is based upon my examination of the slides and/or other material indicated in this report. +++ +++ karma/05/06/2017 ################################################## ###################### Material Received: A: Outside Slides x13 [id number], Via [facility] [address] [place] [address] History: 70 year old female with a history of low grade B cell lymphoma Gross Description: B. Received are thirteen (13) outside slides labeled "[id number]", and a properly identified surgical pathology report from [facility] [address] [place] [address]. ; . paj/05/06/2017 Microscopic Description: Sections show [...] of Pathology and Laboratory Medicine of the [facility] ([employer] [facility]) in compliance with CLIA'88 regulations. [...] of Pathology and Laboratory Medicine of the [facility]. It has not been cleared or approved by the FDA. The FDA has determined that such clearance or approval is not necessary. Specimen Performing Laboratory [facility] RESULTS * OUTSIDE PATHOLOGY CONSULT (05/04/2017 4:05 PM) Component Value Ref Range PATHOLOGY REPORT [facility] [email or web address] Sulma Ayers MD, PhD, Director of Anatomic Pathology Department of Pathology and Laboratory Medicine [address] [place] [id number] Surgical Pathology Office: [phone] PATHOLOGY CONSULTATION NAME: MALLORY CHRIS SURG PATH #: [id number] MR #: [id number] ALT ID #: LOCATION: [facility] DATE OF PROCEDURE: 05/04/2017 AGE: 71 SEX: F DATE RECEIVED: 05/04/2017 : 1945 TIME RECEIVED: 16:05 PHYSICIAN: FABY MCARTHUR MD DATE OF REPORT: 05/06/2017 COPY TO: DATE OF PRINTIN05/06/2017 ################################################## ###################### Final Diagnosis: A. Outside case [id number] (Date Collected: 08/20/2016) Soft tissue, retroperitoneum, core needle biopsy: Low grade B cell lymphoma. See comment. Comment: The immunophenotype of this B cell lymphoma is unusual, making subclassification difficult. The presence of BCL6 positivity is suggestive of follicular lymphoma, grade 1, diffuse pattern. Attestation: By this signature, I attest that I have personally formulated the final interpretation expressed in this report and that the above diagnosis is based upon my examination of the slides and/or other material indicated in this report. +++ +++ karma/05/04/2017 ################################################## ###################### Material Received: A: Outside Slides x10 (4 damaged) [id number], [facility] [address] [place] [address] History: 70 year old female Gross Description: A. Received are ten (10) (4 damaged) outside slides labeled "[id number]", and a properly identified surgical pathology report from [facility] [address] [place] [address]. ; paj/05/04/2017 Microscopic Description: Sections show a diffuse infiltrate of small mature lymphocytes with moderate nuclear irregularity. There is a minor focal nodular pattern. Outside immunostains were provided for review. The malignant cels are positive for CD20, BCL2 (diffuse), and BCL6 (nodular). They are negative for CD3, CD5, CD10, and cyclin D1. The Ki-67 proliferation index is 10%. CD21 highlights multifocal and effaced germinal centers, involving only 10-20% of the tissue. If immunohistochemical stains and/or in situ hybridization are cited in this report, the performance characteristics were determined by the Department of Pathology and Laboratory Medicine of the [facility] ([place] [facility]) in compliance with CLIA'88 regulations. [...] of Pathology and Laboratory Medicine of the [facility]. It has not been cleared or approved by the FDA. The FDA has determined that such clearance or approval is not necessary. Specimen Performing Laboratory [facility] RESULTS in this encounter Visit Diagnoses Not on filein this encounter Admitting Diagnoses Diagnosis Non-Hodgkin lymphoma, unspecified, unspecified site (HCC) Non-Hodgkin lymphoma, unspecified, unspecified site in this encounter
--- OUTSIDE RECORDS SUMMARY | 2017-08-03 15:40 | XMS REPORT | Encounter Summary ---
Author Author [facility] Organization [facility] Address Unknown Phone Unavailable Care Team Providers Care Transplant Nurse Practitioner Name Role Phone PCP Unavailable Reason for Visit * Reason Comments Heme/Onc Care Encounter Details Date Type Department Care Team Description 06/03/2017 Office Visit [facility] Joo Norton MD Grade 2 follicular Cancer Center - OP Exam [address] lymphoma of lymph nodes [address] [place] [address] of multiple regions (HCC ) [place], [place] [phone] (Primary Dx) [address] [phone] Social History Tobacco Use Types Packs/Day Years Used Date Current Every Day Smoker Cigarettes 0.5 50 Smokeless Tobacco: Never Used Alcohol Use Drinks/Week oz/Week Comments No 0 Standard 0.0 drinks or equivalent Sex Assigned at Date Recorded Not on file as of this encounter Last Filed Vital Signs Vital Sign Reading [...] Mass Index 22.75 06/03/2017 2:47 PM CDT in this encounter Functional Status Functional Status Response [...] impairment: No 06/03/2017 as of this encounter Progress Notes * Joo Norton MD - 06/03/2017 2:40 PM CDT Formatting of this note may be different from the original. Date of Service: 06/03/2017 Subjective: Reason for Visit: Heme/Onc Care Shameka Cintron is a 71 y.o. female. 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 Noted inguinal swelling May 2016 that she notes was about 3 cm incised and resolved on its own. She did not seek medical evaluation for this. 2. Presented August 2017 with abdominal pain. Labs at that time revealed leukocytosis and thrombocytosis. She had a CT of abdomen pelvis which revealed extensive adenopathy. 3. 08/20/2016 underwent retroperitoneal biopsy which revealed CD5 negative CD10 negative CD19 positive CD 20 positive CCD1 negative strongly BCL-2 positive B- cell lymphoma. 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 09/02/2016 PET/CT revealed diffuse hypermetabolic adenopathy above and below the diaphragm as well as multiple sclerotic and lytic bone lesions that were indeterminate. A gas-containing lesion in the sigmoid colon was noted on this exam. 5. 09/03/2016 underwent a needle biopsy of a subcutaneous mass in her left chest which revealed CD5 negative CD10 positive CD19 positive CD20 positive BCL- 2 positive small B-cell lymphoma. Additionally noted on this exam were multiple Jerome-Lazara like cells that stain positive for CD15 as well as CD30. Ki-67 was 30-40%. The opinion was that this represented a follicular lymphoma. There was a note that the pathology was meant to be sent out to [facility] for second opinion, but I do not have any of those results available. 6. Staging bone marrow not performed. 7. BR started 09/17/2016. 8. Re-staging after 3 cycles showed partial response. 9. 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 She underwent resection and the pathology revealed diverticulitis with abscess. There is no evidence of lymphoma on the specimen. 10. BR was resumed 04/06/2017 for cycle 5 and completed May 2017 with CR on PET/CT (Deau[place] 3). Interim History: She is doing well. Some minor fatigue and nausea after last infusion, but this has now resolved. No recent fevers or infections. Abdominal pain has resolved. No blood in stool, melena or change in bowel habits. Denies new or progressive adenopathy, fevers, night sweats or unintentional weight loss. I have reviewed and updated the past medical, social and family histories in the history section and they are up to date as of this visit. I have extensively reviewed the laboratory, pathology and radiology, both internal and external, and the ramos findings are summarized above. Review of Systems All other systems reviewed and are negative. Objective: cetirizine (ZYRTEC) 10 mg tablet Take 10 mg by mouth every morning. morphine IR (MS-IR) 30 mg tablet Take 30 mg by mouth every 4 hours as needed for Pain ONDANSETRON HCL (ZOFRAN PO) Take by mouth as Needed. triamcinolone acetonide (KENALOG) 0.1 % topical cream Apply topically to affected area twice daily. Vitals: 06/03/17 1447 BP: 122/52 Pulse: 80 Resp: 16 Temp: 36.8 C (98.3 F) TempSrc: Oral SpO2: 99% Weight: 53.3 kg (117 lb 6.4 oz) Height: 153 cm (60.24") Body mass index is 22.75 kg/(m^2). Pain Score: Five Pain Loc: Back Pain Addressed: Current regimen working to control pain. Patient Evaluated for a Clinical Trial: Patient not eligible for a treatment trial (including not needing treatment, needs palliative care, in remission). Eastern Cooperative Oncology Group performance status is 0, Fully active, able to carry on all pre-disease performance without restriction.. Physical Exam Constitutional: She appears well-developed. No distress. HENT: Head: Normocephalic. Eyes: Conjunctivae are normal. No scleral icterus. Neck: Neck supple. Cardiovascular: Normal rate and regular rhythm. Pulmonary/Chest: Effort normal and breath sounds normal. Abdominal: Soft. Liver and spleen nonpalpable. Well-healed midline incision. Musculoskeletal: She exhibits no edema. Lymphadenopathy: No palpable cervical, supraclavicular, axillary or inguinal adenopathy. Neurological: She is alert. Skin: No rash noted. Psychiatric: She has a normal mood and affect. Nursing note and vitals reviewed. Assessment and Plan: Problem Grade 2 Follicular Lymphoma of Lymph Nodes of Multiple Regions (Hcc) Impression: 1. Low-grade follicular lymphoma with CR after BR x 6 completed May 2017 2. Jerome-Lazara like cells on initial pathology report, reviewed by pathology ( and [facility]) and not concerning for transformation 3. Multifocal sclerotic and lytic lesions on imaging consistent with bone involvement from lymphoma 4. Subcutaneous lymphomatous disease 5. Severe sigmoid diverticulitis status post sigmoid colectomy that interrupted lymphoma therapy 6. Active cigarette smoker 7. Prior right hip fracture 8. ECOG PS 0 Plan: 1. Since last visit, we have had her pathology reviewed here at and I discussed her case personally with Dr. Townsend. Her pathology has been additionally reviewed at the [facility] by Dr. Gia Peters. In summary, there [...] and more aggressive clinical course. 5. Ms Cintron has requested to see me annually for follow up. I will plan to see her back in May 2018 absent new or concerning issues and will leave her in Dr Townsend's capable hands in the interim. I have discussed the diagnosis and treatment plan with the patient and she expresses understanding and wishes to proceed. 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
--- OUTSIDE RECORDS SUMMARY | 2017-08-03 15:40 | XMS REPORT | Encounter Summary ---
Author Author [facility] Organization [facility] Address Unknown Phone Unavailable Care Team Providers Care Screen Printer Helper Name Role Phone PCP Unavailable Encounter Details Date Type Department Care Team Description 05/07/2017 Ancillary [facility] Outpatient, Radiologist Diagnosis unknown Orders Hospital Radiology [address] [facility] [address] [place] [address] Social History Tobacco Use Types Packs/Day Years [...] impairment: No 04/28/2017 as of this encounter Plan of Treatment Not on fileas of this encounter Results * NM PET/CT EXTERNAL IMAGING (09/02/2016) Narrative This order has been auto finalized and does not contain a result. in this encounter Visit Diagnoses Diagnosis Diagnosis unknown Other unknown and unspecified cause of morbidity or mortality in this encounter
--- OUTSIDE RECORDS SUMMARY | 2017-08-03 15:40 | XMS REPORT | Encounter Summary ---
Author Author [facility] Organization [facility] Address Unknown Phone Unavailable Care Team Providers Care Circular Head Saw Operator Name Role Phone PCP Unavailable Reason for Visit * Reason Comments Appointment Encounter Details Date Type Department Care Team Description 05/05/2017 Telephone [facility] Rosalba Espinosa RN Appointment Cancer Center - OP Exam [address] [address] Social History Tobacco Use Types Packs/Day Years [...] impairment: No 04/28/2017 as of this encounter Miscellaneous Notes * Telephone Encounter - Rosalba Espinosa RN - 05/05/2017 10:11 AM CDT Patient called to inquire if she should get her scan locally in [place]. Informed patient that we would prefer she get her PET scan completed here so out radiologists would read her scan. Have her scheduled for same day PET scan and Visit for her convenience since she lives a distance. She was in agreement with this plan. in this encounter Plan of Treatment Not on fileas of this encounter Visit Diagnoses Not on filein this encounter
--- OUTSIDE RECORDS SUMMARY | 2017-08-03 15:40 | XMS REPORT | Encounter Summary ---
Author Author [facility] Organization [facility] Address Unknown Phone Unavailable Care Team Providers Care Review Manager Name Role Phone PCP Unavailable Reason for Visit * Reason Comments Test prep questions Encounter Details Date Type Department Care Team Description 05/08/2017 Telephone [facility] Rosalba Espinosa RN Test (prep questions) Cancer Center - OP Exam [address] [address] Social History Tobacco Use Types [...] Telephone Encounter - Rosalba Espinosa RN - 05/08/2017 9:12 AM CDT Patient called to inquire why lab draw was so far before PET scan. Informed patient that labs would be drawn then and IV would have to be started and dye injected about 1 hour before start of actual PET scanning time. She voiced understanding of the prep. Also reiterated that she is to not having anything to eat at least 6 hours before injection given. Denies any further questions. in this encounter Plan of Treatment Not on fileas of this encounter Visit Diagnoses Not on filein this encounter
[2017-08-03] MEDS ORDERED: morphine INJ 10 MG/ML 1ML (SYR OR VIAL) IM STA (17:21)
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
[2017-08-03] MEDS ORDERED: PRD20T PO (17:24)
[2017-08-03] MEDS ORDERED: OXYC-471 PO (17:24)
[2017-08-03 17:37] VITALS: BP 192/82
== END 2017-08-03 17:37 | disposition home or self-care (01) ==
LOC: EDUNIT# 15:31 → ER 15:33
DX: M54.16 Radiculopathy, lumbar region (principal); Z87.440 Personal history of urinary (tract) infections; Z87.19 Personal history of other diseases of the digestive system; Z85.72 Personal history of non-Hodgkin lymphomas; Z82.49 Family history of ischemic heart disease and other diseases of the circulatory system
CPT/HCPCS: 96372; 99284

== ENCOUNTER 2017-08-05 09:36 | Emergency (ER) | payer MEDICARE ==
[~2017-08-05] VITALS: Ht 157.5 cm; Wt 63.5 kg
[~2017-08-05 09:36] MED LIST changes: +OXYC-471 PO; +PRD20T PO
--- OUTSIDE RECORDS SUMMARY | 2017-08-05 09:45 | XMS REPORT | Continuity of Care Document ---
Author Author [facility] Address Unknown Phone Unavailable Care Team Providers Care Central Office Trouble Shooter Name Role Phone [employer] Unavailable Unavailable Problems Medications Allergies, Adverse Reactions, Alerts Immunizations Results Vital Signs Encounters Location Location Details Encounter Type Encounter Number Reason For Visit Attending Provider ADM Date DC Date Status Source [place] SERIES [id number] FABY SONI 06/03/20172016 Active [facility] 06/11/2018 Active [facility] Procedures Plan of Care Social History Assessment and Plan Family History Value Date Source Advance Directives Order Name Results Value Date Source
--- OUTSIDE RECORDS SUMMARY | 2017-08-05 09:46 | XMS REPORT | Encounter Summary ---
Author Author [facility] Organization [facility] Address Unknown Phone Unavailable Care Team Providers Care Mortgage Loan Originator Name Role Phone PCP Unavailable Encounter Details Date Type Department Care Team Description 06/03/2017 Procedure Pass [facility] Radiology [address] [place] [address] Social History Tobacco Use Types Packs/Day Years [...]
--- OUTSIDE RECORDS SUMMARY | 2017-08-05 09:46 | XMS REPORT | Encounter Summary ---
Author Author [facility] Organization [facility] Address Unknown Phone Unavailable Care Team Providers Care Tester Compressed Gases Name Role Phone PCP Unavailable Reason for Referral * Radiology Services Status Reason Specialty Diagnoses / Referred By Referred To Procedures Contact Contact Closed Radiology Diagnoses Joo Norton Op 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, [address] extranodal and [place], [place] [address] sites ([facility]) Phone: Phone: P [phone] rocedures Fax: [place] PET SCAN [phone] [place] ([place]) * Radiology Services Status Reason Specialty Diagnoses / Referred By Referred To Procedures Contact Contact Closed Radiology Diagnoses Joo Norton 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, [address] extranodal and [place], [place] [address] sites ([facility]) Phone: Phone: P [phone] rocedures Fax: [place] PET SCAN [phone] [place] ([place]) Reason for Visit * Radiology Services Status Reason Specialty Diagnoses / Referred By Referred To Procedures Contact Contact Closed Radiology Diagnoses Joo Norton 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, [address] extranodal and [place], [place] [address] sites ([facility]) Phone: Phone: P [phone] rocedures Fax: [place] PET SCAN [phone] [place] ([place]) Encounter Details Date Type Department Care Team Description 06/03/2017 [facility] Joo Norton MD Encounter Cancer Center Radiology [address] [place] [address] [place] [address] [phone] Social History Tobacco Use Types Packs/Day Years [...]
--- OUTSIDE RECORDS SUMMARY | 2017-08-05 09:46 | XMS REPORT | Encounter Summary ---
Author Author [facility] Organization [facility] Address Unknown Phone Unavailable Care Team Providers Care Manager Non Profit Name Role Phone PCP Unavailable Encounter Details Date Type Department Care Team Description 06/03/2017 Hospital [facility] Joo Norton MD Encounter Cancer Center - OP Lab [address] [place] [address] [phone] Social History Tobacco Use Types Packs/Day Years [...] Specimen Performing Laboratory Blood MAIN LAB [address] [phone] * LDH-LACTATE DEHYDROGENASE (06/03/2017 11:05 AM) Component Value Ref Range Lactate Dehydrogenase 170 100 - 210 U/L Specimen Performing Laboratory Blood MAIN LAB [address] [place] [address] * COMPREHENSIVE METABOLIC PANEL (06/03/2017 11:05 AM) [...] Specimen Performing Laboratory Blood MAIN LAB [address] [place] [address] * CBC AND DIFF (06/03/2017 11:05 AM) [...] - 0.20 K/UL Specimen Performing Laboratory Blood [facility] [address] [address] in this encounter Visit Diagnoses Diagnosis Lymphoma, unspecified body region, unspecified lymphoma type (HCC) Encounter for screening for HIV in this encounter
--- OUTSIDE RECORDS SUMMARY | 2017-08-05 09:46 | XMS REPORT | Clinical Summary ---
Author Author [facility] Organization [facility] Address Unknown Phone Unavailable Care Team Providers Care Information Broker Name Role Phone PCP Unavailable Source Comments Some departments are not documenting in the electronic medical record. If you do not see the information that you expected, contact Release of Information in the Health Information Management department at [phone] for further assistance in locating additional records.[facility] Allergies Active Allergy Reactions Severity Noted Date [...] pathology report, reviewed by pathology ( and [facility]) and not concerning for transformation [...] pathology has been additionally reviewed at the [facility] by Dr. Gia Peters. In [...] had at the beginning. The presence of Vkti-Nnokstuao-cgjt cells that stain positive for CD15 and [...] report that had been sent to the [facility] for review, but I did not see [...] 05/05/2017 Telephone Oncology Rosalba Espinosa RN Appointment from Last 3 Months Family History Medical [...] NEG-NEG Specimen Performing Laboratory Blood MAIN LAB [address] [place] [id number] * CBC AND DIFF (06/03/2017 11:05 AM) [...] Laboratory Blood [facility] [address] [address] * LDH-LACTATE DEHYDROGENASE (06/03/2017 11:05 AM) Component Value Ref Range Lactate Dehydrogenase 170 100 - 210 U/L Specimen Performing Laboratory Blood MAIN LAB [address] [place] [address] * COMPREHENSIVE METABOLIC PANEL (06/03/2017 11:05 AM) [...] Specimen Performing Laboratory Blood MAIN LAB [address] [place] [address] * OUTSIDE PATHOLOGY CONSULT (05/06/2017 2:12 PM) Component Value Ref Range PATHOLOGY REPORT [facility] [email or web address] Sulma Ayers MD, PhD, Director of Anatomic Pathology Department of Pathology and Laboratory Medicine [address] [place] [id number] Surgical Pathology Office: [phone] PATHOLOGY CONSULTATION NAME: MALLORY CHRIS SURG PATH #: [id number] MR #: [id number] ALT ID #: LOCATION: [facility] DATE OF PROCEDURE: 05/06/2017 AGE: 71 SEX: F DATE RECEIVED: 05/06/2017 : 1945 TIME RECEIVED: 14:12 PHYSICIAN: FABY MCARTHUR MD DATE OF REPORT: 05/06/2017 COPY TO: DATE OF PRINTIN05/06/2017 ################################################## ###################### Final Diagnosis: A. Outside case [id number] (Date Collected: 09/03/2016) Subcutaneous mass, left chest, [...] ###################### Material Received: A: Outside Slides x13 [id number], [facility] [address] [place] [address] History: 70 year old female with a history of low grade B cell lymphoma Gross Description: B. Received are thirteen (13) outside slides labeled "[id number]", and a properly identified surgical pathology report from [facility] [address] [place] [address]. ; . paj/05/06/2017 Microscopic Description: Sections show [...]
--- OUTSIDE RECORDS SUMMARY | 2017-08-05 09:47 | XMS REPORT | Encounter Summary ---
Author Author [facility] Organization [facility] Address Unknown Phone Unavailable Care Team Providers Care Horticulture Supervisor Name Role Phone PCP Unavailable Reason for Visit * Reason Comments Heme/Onc Care Encounter Details Date Type Department Care Team Description 06/03/2017 Office Visit [facility] Joo Norton MD Grade 2 follicular Cancer Center - OP Exam [address] lymphoma of lymph nodes [address] [place] [address] of multiple regions (HCC ) [place], [place] [phone] (Primary Dx) [address] [phone] Social History Tobacco Use Types Packs/Day Years [...] of lymphoma. 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 [...] was meant to be sent out to [facility] for second opinion, but I do [...] pathology report, reviewed by pathology ( and [facility]) and not concerning for transformation 3. [...] pathology has been additionally reviewed at the [facility] by Dr. Gia Peters. In summary, [...]
--- OUTSIDE RECORDS SUMMARY | 2017-08-05 09:47 | XMS REPORT | Encounter Summary ---
Author Author [facility] Organization [facility] Address Unknown Phone Unavailable Care Team Providers Care Pet Care Associate Name Role Phone PCP Unavailable Reason for Visit * Reason Comments Test prep questions Encounter Details Date Type Department Care Team Description 05/08/2017 Telephone [facility] Rosalba Espinosa RN Test (prep questions) Cancer Center - OP Exam [address] [address] Social History Tobacco Use Types [...]
--- OUTSIDE RECORDS SUMMARY | 2017-08-05 09:47 | XMS REPORT | Encounter Summary ---
Author Author [facility] Organization [facility] Address Unknown Phone Unavailable Care Team Providers Care Document Imaging Specialist Name Role Phone PCP Unavailable Reason for Visit * Reason Comments Appointment Encounter Details Date Type Department Care Team Description 05/05/2017 Telephone [facility] Rosalba Espinosa RN Appointment Cancer Center - OP Exam [address] [address] Social History Tobacco Use Types [...] she should get her scan locally in [place]. Informed patient that we would prefer she [...]
--- OUTSIDE RECORDS SUMMARY | 2017-08-05 09:47 | XMS REPORT | Encounter Summary ---
Author Author [facility] Organization [facility] Address Unknown Phone Unavailable Care Team Providers Care Assistant Golf Course Superintendent Name Role Phone PCP Unavailable Encounter Details Date Type Department Care Team Description 05/07/2017 Ancillary [facility] Outpatient, Radiologist Diagnosis unknown Orders Hospital Radiology [address] [facility] [address] [address] Social History Tobacco Use Types [...]
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
[2017-08-05] MEDS ORDERED: OXYC-465 PO (10:55)
[2017-08-05] MEDS ORDERED: ONDANSETRON 4 MG (ZOFRAN) ORAL DISSOLVE TAB PO ONE (11:00)
[2017-08-05] MEDS ORDERED: morphine INJ 10 MG/ML 1ML (SYR OR VIAL) IJ ONE (11:00)
[2017-08-05 11:56] VITALS: BP 126/88
== END 2017-08-05 11:56 | disposition home or self-care (01) ==
LOC: EDUNIT# 09:36 → ER 09:39
DX: M54.5 Low back pain (principal); F17.210 Nicotine dependence, cigarettes, uncomplicated; Z87.440 Personal history of urinary (tract) infections; Z82.49 Family history of ischemic heart disease and other diseases of the circulatory system; Z87.19 Personal history of other diseases of the digestive system; Z85.72 Personal history of non-Hodgkin lymphomas
CPT/HCPCS: 96372; 99284

== ENCOUNTER 2017-08-06 11:15 | Outpatient (RCR) | payer MEDICARE, OTHER ==
[~2017-08-06 11:15] MED LIST changes: +OXYC-465 PO
== END 2017-08-25 14:12 | disposition home or self-care (01) ==
PROVIDERS: ATTEND Family Medicine
DX: M54.31 Sciatica, right side (principal)

== ENCOUNTER → 2017-08-07 | Outpatient (CLI) | payer MEDICARE ==
--- NOTE | 2017-08-07 17:43 | Diagnostic Imaging Report ---
PROCEDURE: MRI lumbar spine. TECHNIQUE: Multiplanar, multisequence MRI of the lumbar spine was performed without contrast. INDICATION: Increasing pain in right SI joint region and low back. FINDINGS: There is some straightening of the lordotic curve and lumbar spine due to degenerative disc and facet disease. Body height is well maintained without abnormal marrow signal to suggest fractures or pathologic lesion. The conus medullaris and cauda equina are in good position. L1-L2: The disc shows normal contour. Facets show no hypertrophy. No stenosis. L2-L3: There is narrowing of the disc space. There is paramedian disc bulge on the right. Mild facet and ligamentous hypertrophy is present, causing moderate encroachment upon the right neuroforamen. No central stenosis. L3-L4: There is mild broad-based disc bulge with mild posterior facet and ligamentous hypertrophy, causing mild encroachment upon the neuroforamen with no central stenosis. L4-L5: Minimal broad-based disc bulge with mild posterior facet and ligamentous hypertrophy. No significant stenosis noted. L5-S1: There is mild central disc protrusion. No encroachment is seen upon the lateral recesses or neuroforamen. Mild posterior facet and ligamentous hypertrophy. Paraspinal soft tissues appear normal. There is sclerotic lesion noted in the right iliac wing. This was present on previous CT scan of the pelvis on 02/17/2017. IMPRESSION: 1. Diffuse degenerative disc and facet disease. Most prominent changes noted at L2-L3 and L3-L4 levels, causing moderate encroachment upon the neuroforamen. 2. There is no evidence of central canal stenosis. 3. No large disc herniations are present. Dictated by: Dictated on workstation # [id number]
== END ==
LOC: RAD 16:01
PROVIDERS: ATTEND Family Medicine
DX: M51.16 Intervertebral disc disorders with radiculopathy, lumbar region (principal)
CPT/HCPCS: 72148

== ENCOUNTER 2017-10-08 13:33 | Outpatient (RCR) | payer MEDICARE, OTHER ==
[~2017-10-08 13:33] MED LIST changes: +ACETAMINOPHEN 500 MG TAB (TYLENOL) CANCER CTR PO PRN; +ACHD5005 PO; -HYDR-3812 PO; +NS IV 1000 ML (CANCER CTR) IV SCH; +diphenhydrAMINE 25 MG TAB (BENADRYL) CANCER CENTER PO SCH; +riTUXimab 500 MG, riTUXimab FOR IV INJ CONC 100 MG in NS (IVPB) CANCER CENTER ONLY 150 ML IV SCH
== END 2017-10-26 | disposition home or self-care (01) ==
LOC: ONC 13:33
PROVIDERS: ATTEND Internal Medicine Hematology & Oncology
DX: C85.13 Unspecified B-cell lymphoma, intra-abdominal lymph nodes (principal); F17.210 Nicotine dependence, cigarettes, uncomplicated; K57.92 Diverticulitis of intestine, part unspecified, without perforation or abscess without bleeding; R19.7 Diarrhea, unspecified; M89.8X0 Other specified disorders of bone, multiple sites; M25.50 Pain in unspecified joint; Z79.899 Other long term (current) drug therapy; Z45.2 Encounter for adjustment and management of vascular access device
CPT/HCPCS: 96523; 99213

== ENCOUNTER → 2017-10-29 | Outpatient (CLI) | payer MEDICARE ==
[~2017-10-29] MED LIST changes: -ACETAMINOPHEN 500 MG TAB (TYLENOL) CANCER CTR PO PRN; -NS IV 1000 ML (CANCER CTR) IV SCH; -diphenhydrAMINE 25 MG TAB (BENADRYL) CANCER CENTER PO SCH; -riTUXimab 500 MG, riTUXimab FOR IV INJ CONC 100 MG in NS (IVPB) CANCER CENTER ONLY 150 ML IV SCH
--- NOTE | 2017-10-29 15:17 | Diagnostic Imaging Report ---
INDICATION: Left shoulder pain. TIME OF EXAM: 2:57 PM Three views of the left shoulder were obtained. FINDINGS: The glenohumeral and acromioclavicular alignment are normal. Acromiohumeral space is normal. There are degenerative changes at the glenohumeral joint. No fractures are seen. 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 IMPRESSION: Chronic changes. No acute bony abnormality is detected. Dictated by: Dictated on workstation # [id number]
== END ==
LOC: RAD 14:26
PROVIDERS: ATTEND Nurse Practitioner Family
DX: M19.012 Primary osteoarthritis, left shoulder (principal)
CPT/HCPCS: 73030

== ENCOUNTER → 2017-11-07 | Outpatient (CLI) | payer MEDICARE ==
--- NOTE | 2017-11-07 12:23 | Diagnostic Imaging Report ---
PROCEDURE: MRI left upper extremity without contrast. TECHNIQUE: Multiplanar, multisequence non contrast-enhanced MRI of the left upper extremity was accomplished. INDICATION: Left shoulder pain for one month, repetitive motion. COMPARISON: Radiographs from 10/29/2017. FINDINGS: No acute fracture or dislocation is seen in the left shoulder. There are severe degenerative changes in the left acromioclavicular joint. Osteophytes are seen at the glenohumeral joint, as well. Prominent subcortical cystlike changes are seen at the greater tuberosity. This is likely due to degenerative change. There is also mild focus of bone marrow edema underlying the articular surface of the humeral head, likely related to degenerative change, as well. There is a small joint effusion present. A very large calcified joint body is seen in the axillary pouch, measuring 12 x 7 mm on axial imaging. The supraspinatus tendon demonstrates low-grade articular surface partial-thickness tearing. There is high-grade intrasubstance partial thickness tearing of the infraspinatus tendon, which extends to the distal articular surface. The teres minor tendon is intact. There is tendinosis of the subscapularis tendon without high-grade partial or full-thickness tear seen. The long head of the biceps tendon demonstrates a longitudinal split tear extending throughout the bicipital groove and proximally. There is extensive degenerative tearing of the labrum. There is moderate cartilage loss in the glenohumeral joint. No large para-labral cysts are seen. The acromion demonstrates a curved undersurface without significant hooking. The coracoclavicular and coracoacromial ligaments are intact. The inferior glenohumeral ligament is intact. There is mild generalized atrophy in the left rotator cuff. No masses or fluid collections are seen in the soft tissues. IMPRESSION: 1. Advanced degenerative changes in the left acromioclavicular and glenohumeral joints. A large joint body is seen in the axillary pouch. 2. High-grade intrasubstance partial thickness tearing of the infraspinatus, with additional partial-thickness tearing of the supraspinatus tendon. There is generalized atrophy of the rotator cuff musculature. 3. Longitudinal split tear of the proximal long head of the biceps tendon. Dictated by: Dictated on workstation # [id number]
== END ==
LOC: RAD 09:59
PROVIDERS: ATTEND Nurse Practitioner Family
DX: S46.112A Strain of muscle, fascia and tendon of long head of biceps, left arm, initial encounter (principal); S46.012A Strain of muscle(s) and tendon(s) of the rotator cuff of left shoulder, initial encounter; M19.012 Primary osteoarthritis, left shoulder; M62.89 Other specified disorders of muscle; X50.3XXA Overexertion from repetitive movements, initial encounter
CPT/HCPCS: 73221

== ENCOUNTER → 2017-12-28 | Outpatient (CLI) | payer MEDICARE ==
[~2017-12-28] MED LIST changes: +CATHETER FLUSH 10 ML SYR IV PRN; +IOHEXOL 350 MG/ML 100 ML (OMNIPAQUE 350) VIAL IV ONE; +NS 100 ML (IVPB) BAG IV ONE
--- NOTE | 2017-12-28 11:21 | Diagnostic Imaging Report ---
PROCEDURE: CT chest with contrast, CT abdomen and pelvis with and without contrast. TECHNIQUE: Pre and post intravenous contrast axial imaging of the abdomen and pelvis and post contrast axial imaging of the chest were performed. INDICATION: Lymphoma, lumbosacral pain, history of bowel resection. COMPARISON: Most recent study for comparison is a pelvic CT dated 03/09/2017. Study is also compared with an abdominopelvic CT 02/04/2017. The most recent chest was performed 12/02/2016. FINDINGS: CHEST: No lung mass or pulmonary nodule. No pleural or pericardial effusion. A few benign calcified granulomata incidentally noted. There is no axillary, hilar or mediastinal lymphadenopathy. No pneumonia. ABDOMEN AND PELVIS: The liver is stable and negative. There is cholelithiasis without evidence for acute cholecystitis. The nonfocal spleen normal in size. The adrenals and pancreas are negative. At the level of the lower pole cortex of the left kidney, there is some left para-aortic retroperitoneal induration of the fat substantially improved from prior and measuring 1.5 x 0.9 cm today previously 2.7 x 2.0 cm. Not only is it much smaller, it is also much less dense and less conspicuous. The adrenals are negative. The kidneys are negative. No new mass or adverse development. No adenopathy or abnormal soft tissue along the pelvic sidewalls. The ilioinguinal chains appeared normal. The bladder unremarkable. The uterus and adnexa unremarkable. There are postsurgical changes to the right hip. Mixed lytic and sclerotic lesion right innominate bone is not appreciably changed from the previous exam. The left bony hemipelvis unremarkable aside from some chronic degenerative changes to the hip. No pathological fracture. No substantial spinal stenosis. IMPRESSION: CHEST: Stable negative chest. ABDOMEN: Left periaortic retroperitoneal induration at the level of the lower pole of the left kidney nearly completely resolved in the interim. Stable negative liver and spleen. No obstructive features. PELVIS: Mixed lytic and sclerotic lesion right innominate bone unchanged from previous exam with no new pelvic bony pathology and no pathological fracture. No pelvic adenopathy, ascites or inflammatory process. Dictated by: Dictated on workstation # [id number]
== END ==
LOC: RAD 09:02
PROVIDERS: ATTEND Internal Medicine Hematology & Oncology
DX: C82.19 Follicular lymphoma grade II, extranodal and solid organ sites (principal); M89.8X8 Other specified disorders of bone, other site; Z90.49 Acquired absence of other specified parts of digestive tract
CPT/HCPCS: 71260; 74178

== ENCOUNTER 2018-01-21 09:51 | Outpatient (RCR) | payer MEDICARE, OTHER ==
[2017-12-10 09:26] LABS: BASOPHILS % (AUTO) 1 % (0-10); EOSINOPHILS # (AUTO) 0.1 10^3/uL (0.0-0.3); EOSINOPHILS % (AUTO) 2 % (0-10); HEMATOCRIT 38 % (35-52); HEMOGLOBIN 13.2 G/DL (11.5-16.0); LYMPHOCYTES # (AUTO) 0.5 X 10^3 (1.0-4.0); LYMPHOCYTES % (AUTO) 8 % (12-44); MEAN CORPUSCULAR HEMOGLOBIN 33 PG (25-34); MEAN CORPUSCULAR HGB CONC 35 G/DL (32-36); MEAN CORPUSCULAR VOLUME 93 FL (80-99); MEAN PLATELET VOLUME 9.3 FL (7.4-10.4); MONOCYTES # (AUTO) 0.6 X 10^3 (0.0-1.0); MONOCYTES % (AUTO) 9 % (0-12); NEUTROPHILS # (AUTO) 4.9 X 10^3 (1.8-7.8); NEUTROPHILS % (AUTO) 81 % (42-75); PLATELET COUNT 185 10^3/uL (130-400); RED BLOOD COUNT 4.05 10^6/uL (4.35-5.85); RED CELL DISTRIBUTION WIDTH 13.4 % (10.0-14.5); WHITE BLOOD COUNT 6.1 10^3/uL (4.3-11.0)
[2017-12-10 09:46] LABS: ALANINE AMINOTRANSFERASE 13 U/L (0-55); ALBUMIN 4.4 GM/DL (3.2-4.5); ALKALINE PHOSPHATASE 89 U/L (40-136); BILIRUBIN,TOTAL 0.5 MG/DL (0.1-1.0); BUN/CREATININE RATIO 21; CALCIUM 9.3 MG/DL (8.5-10.1); CARBON DIOXIDE 22 MMOL/L (21-32); CHLORIDE 103 MMOL/L (98-107); CREATININE SERUM 0.82 MG/DL (0.60-1.30); GFR ESTIMATED > 60; GLUCOSE 96 MG/DL (70-105); POTASSIUM 4.2 MMOL/L (3.6-5.0); SODIUM 138 MMOL/L (135-145)
[~2018-01-21 09:51] MED LIST changes: -CATHETER FLUSH 10 ML SYR IV PRN; -IOHEXOL 350 MG/ML 100 ML (OMNIPAQUE 350) VIAL IV ONE; -NS 100 ML (IVPB) BAG IV ONE
== END 2018-02-15 | disposition home or self-care (01) ==
LOC: ONC 09:51
PROVIDERS: ATTEND Internal Medicine Hematology & Oncology
DX: C85.13 Unspecified B-cell lymphoma, intra-abdominal lymph nodes (principal); Z45.2 Encounter for adjustment and management of vascular access device
CPT/HCPCS: 36591; 80053; 83615; 85025; 96523; 99213

== ENCOUNTER 2018-03-04 10:01 | Outpatient (RCR) | payer MEDICARE, OTHER | END 2018-03-04 11:22 | disposition home or self-care (01) | PROVIDERS: ATTEND Nurse Practitioner Family | DX: M19.012 Primary osteoarthritis, left shoulder (principal); M75.42 Impingement syndrome of left shoulder ==

== ENCOUNTER 2018-05-19 09:55 | Outpatient (RCR) | payer MEDICARE ==
[2018-03-24 14:51] LABS: BASOPHILS % (AUTO) 1 % (0-10); EOSINOPHILS # (AUTO) 0.3 10^3/uL (0.0-0.3); EOSINOPHILS % (AUTO) 5 % (0-10); HEMATOCRIT 38 % (35-52); HEMOGLOBIN 13.3 G/DL (11.5-16.0); LYMPHOCYTES # (AUTO) 0.8 X 10^3 (1.0-4.0); LYMPHOCYTES % (AUTO) 11 % (12-44); MEAN CORPUSCULAR HEMOGLOBIN 32 PG (25-34); MEAN CORPUSCULAR HGB CONC 35 G/DL (32-36); MEAN CORPUSCULAR VOLUME 92 FL (80-99); MEAN PLATELET VOLUME 9.2 FL (7.4-10.4); MONOCYTES # (AUTO) 0.5 X 10^3 (0.0-1.0); MONOCYTES % (AUTO) 8 % (0-12); NEUTROPHILS # (AUTO) 5.4 X 10^3 (1.8-7.8); NEUTROPHILS % (AUTO) 76 % (42-75); PLATELET COUNT 227 10^3/uL (130-400); RED BLOOD COUNT 4.16 10^6/uL (4.35-5.85); RED CELL DISTRIBUTION WIDTH 13.5 % (10.0-14.5); WHITE BLOOD COUNT 7.1 10^3/uL (4.3-11.0)
[2018-03-24 15:26] LABS: ALANINE AMINOTRANSFERASE 7 U/L (0-55); ALBUMIN 4.3 GM/DL (3.2-4.5); ALKALINE PHOSPHATASE 95 U/L (40-136); BILIRUBIN,TOTAL 0.3 MG/DL (0.1-1.0); BUN/CREATININE RATIO 15; CALCIUM 9.1 MG/DL (8.5-10.1); CARBON DIOXIDE 25 MMOL/L (21-32); CHLORIDE 103 MMOL/L (98-107); CREATININE SERUM 0.87 MG/DL (0.60-1.30); GFR ESTIMATED > 60; GLUCOSE 103 MG/DL (70-105); POTASSIUM 3.9 MMOL/L (3.6-5.0); SODIUM 138 MMOL/L (135-145); TOTAL PROTEIN 7.2 GM/DL (6.4-8.2)
[2018-05-19 10:49] LABS: BASOPHILS # (AUTO) 0.1 10^3/uL (0.0-0.1); BASOPHILS % (AUTO) 1 % (0-10); EOSINOPHILS # (AUTO) 0.3 10^3/uL (0.0-0.3); EOSINOPHILS % (AUTO) 5 % (0-10); HEMATOCRIT 39 % (35-52); HEMOGLOBIN 13.6 G/DL (11.5-16.0); LYMPHOCYTES % (AUTO) 14 % (12-44); MEAN CORPUSCULAR HEMOGLOBIN 33 PG (25-34); MEAN CORPUSCULAR HGB CONC 35 G/DL (32-36); MEAN CORPUSCULAR VOLUME 93 FL (80-99); MEAN PLATELET VOLUME 9.4 FL (7.4-10.4); MONOCYTES # (AUTO) 0.4 X 10^3 (0.0-1.0); MONOCYTES % (AUTO) 7 % (0-12); NEUTROPHILS # (AUTO) 4.9 X 10^3 (1.8-7.8); NEUTROPHILS % (AUTO) 73 % (42-75); PLATELET COUNT 197 10^3/uL (130-400); RED BLOOD COUNT 4.18 10^6/uL (4.35-5.85); WHITE BLOOD COUNT 6.6 10^3/uL (4.3-11.0)
[2018-05-19 11:15] LABS: ALANINE AMINOTRANSFERASE 14 U/L (0-55); ALBUMIN 4.3 GM/DL (3.2-4.5); ALKALINE PHOSPHATASE 85 U/L (40-136); BILIRUBIN,TOTAL 0.5 MG/DL (0.1-1.0); BUN/CREATININE RATIO 17; CALCIUM 9.6 MG/DL (8.5-10.1); CARBON DIOXIDE 25 MMOL/L (21-32); CHLORIDE 103 MMOL/L (98-107); CREATININE SERUM 0.81 MG/DL (0.60-1.30); GFR ESTIMATED > 60; GLUCOSE 97 MG/DL (70-105); POTASSIUM 4.4 MMOL/L (3.6-5.0); SODIUM 137 MMOL/L (135-145); TOTAL PROTEIN 7.4 GM/DL (6.4-8.2)
== END 2018-05-26 | disposition home or self-care (01) ==
LOC: ONC 09:55
PROVIDERS: ATTEND Internal Medicine Hematology & Oncology
DX: C85.13 Unspecified B-cell lymphoma, intra-abdominal lymph nodes (principal); Z45.2 Encounter for adjustment and management of vascular access device
CPT/HCPCS: 36591; 80053; 83615; 85025; 96523

== ENCOUNTER → 2018-05-24 | Outpatient (CLI) | payer MEDICARE ==
[~2018-05-24] MED LIST changes: +BARIUM SUSPENSION 2.1% (VANILLA SILQ) 450 ML PO ONE; +IOHEXOL 350 MG/ML 100 ML (OMNIPAQUE 350) VIAL IV ONE; +NS 250 ML (IVPB) BAG IV ONE
--- NOTE | 2018-05-24 09:40 | Diagnostic Imaging Report ---
PROCEDURE: CT chest with contrast, CT abdomen and pelvis with and without contrast. TECHNIQUE: Pre and post intravenous contrast axial imaging of the abdomen and pelvis and post contrast axial imaging of the chest were performed. INDICATION: Lymphoma. COMPARISON: Correlation is made with prior CT from 12/28/2017. FINDINGS: CT chest: Right chest wall port has the tip entering the upper portion of the right atrium. No axillary lymphadenopathy is identified. No definite mediastinal or hilar lymphadenopathy is identified. There are calcified lymph nodes in the mediastinum and right hilum, similar to prior exam and likely owing to either prior granulomatous exposure versus treated lymphoma. No noncalcified lymphadenopathy is identified. No pericardial or pleural effusion is detected. Parenchymal evaluation demonstrates the central airways to be patent. There is a calcified nodule in the superior segment of the right lower lobe. No noncalcified parenchymal nodules or masses are seen. IMPRESSION: Stable CT of the chest when compared with study 12/28/2017. No thoracic lymphadenopathy or pulmonary parenchymal abnormality is identified. CT abdomen and pelvis: Tiny low-density lesion in the dome of the right lobe of the liver appears stable. This is too small to characterize accurately but most likely represents a tiny cyst. No new liver mass is identified. There are multiple small stones within the gallbladder. No biliary ductal dilatation is identified. The pancreas and spleen are unremarkable. The adrenal glands are within normal limits. No adrenal mass is identified. The right and left kidneys are unremarkable. The abdominal aorta is heavily calcified but nonaneurysmal. Soft tissue thickening in the central retroperitoneum left periaortic location appears slightly more prominent on today's study measuring 18 mm x 11 mm compared with 18 mm x 9 mm. No additional abnormality in the central retroperitoneum is identified. No mesenteric lymphadenopathy is identified. Imaging through the pelvis is without evidence of inguinal or iliac lymphadenopathy. The bladder and uterus are unremarkable. A small amount of fluid is identified along the iliopsoas tendon, perhaps owing to iliopsoas bursitis. No free fluid in the abdomen or pelvis is identified. The mixed lytic and sclerotic lesion involving the right iliac bone appears to be stable. Postsurgical changes to the right hip are identified. IMPRESSION: 1. Cholelithiasis. 2. Stable to perhaps slight increase in size of left para-aortic lymphadenopathy when compared with the exam from 12/28/2017. 3. Right iliopsoas bursitis. Dictated by: Dictated on workstation # [id number]
== END ==
LOC: RAD 08:08
PROVIDERS: ATTEND Internal Medicine Hematology & Oncology
DX: C85.90 Non-Hodgkin lymphoma, unspecified, unspecified site (principal); K80.20 Calculus of gallbladder without cholecystitis without obstruction; M70.71 Other bursitis of hip, right hip
CPT/HCPCS: 71260; 74178

== ENCOUNTER 2018-06-16 12:54 | Outpatient (RCR) | payer MEDICARE ==
[~2018-06-16 12:54] MED LIST changes: -BARIUM SUSPENSION 2.1% (VANILLA SILQ) 450 ML PO ONE; -IOHEXOL 350 MG/ML 100 ML (OMNIPAQUE 350) VIAL IV ONE; -NS 250 ML (IVPB) BAG IV ONE
[2018-06-16 13:30] LABS: BASOPHILS % (AUTO) 1 % (0-10); EOSINOPHILS # (AUTO) 0.3 10^3/uL (0.0-0.3); EOSINOPHILS % (AUTO) 4 % (0-10); HEMATOCRIT 41 % (35-52); HEMOGLOBIN 14.1 G/DL (11.5-16.0); LYMPHOCYTES % (AUTO) 13 % (12-44); MEAN CORPUSCULAR HEMOGLOBIN 32 PG (25-34); MEAN CORPUSCULAR HGB CONC 35 G/DL (32-36); MEAN CORPUSCULAR VOLUME 93 FL (80-99); MEAN PLATELET VOLUME 9.4 FL (7.4-10.4); MONOCYTES # (AUTO) 0.5 X 10^3 (0.0-1.0); MONOCYTES % (AUTO) 7 % (0-12); NEUTROPHILS % (AUTO) 76 % (42-75); PLATELET COUNT 231 10^3/uL (130-400); RED BLOOD COUNT 4.37 10^6/uL (4.35-5.85); RED CELL DISTRIBUTION WIDTH 13.5 % (10.0-14.5); WHITE BLOOD COUNT 7.8 10^3/uL (4.3-11.0)
[2018-06-16 13:51] LABS: ALANINE AMINOTRANSFERASE 12 U/L (0-55); ALBUMIN 4.5 GM/DL (3.2-4.5); ALKALINE PHOSPHATASE 91 U/L (40-136); BILIRUBIN,TOTAL 0.4 MG/DL (0.1-1.0); BUN/CREATININE RATIO 14; CALCIUM 9.8 MG/DL (8.5-10.1); CARBON DIOXIDE 24 MMOL/L (21-32); CHLORIDE 103 MMOL/L (98-107); CREATININE SERUM 0.87 MG/DL (0.60-1.30); GFR ESTIMATED > 60; GLUCOSE 99 MG/DL (70-105); POTASSIUM 4.3 MMOL/L (3.6-5.0); SODIUM 137 MMOL/L (135-145); TOTAL PROTEIN 7.4 GM/DL (6.4-8.2)
== END 2018-07-11 | disposition home or self-care (01) ==
LOC: ONC 12:54
PROVIDERS: ATTEND Internal Medicine Hematology & Oncology
DX: C85.18 Unspecified B-cell lymphoma, lymph nodes of multiple sites (principal); C85.19 Unspecified B-cell lymphoma, extranodal and solid organ sites; M51.36 Other intervertebral disc degeneration, lumbar region; F17.210 Nicotine dependence, cigarettes, uncomplicated; Z87.440 Personal history of urinary (tract) infections; Z79.899 Other long term (current) drug therapy
CPT/HCPCS: 36591; 80053; 83615; 85025

== ENCOUNTER 2018-09-08 13:13 | Outpatient (RCR) | payer MEDICARE ==
[2018-09-08 13:40] LABS: BASOPHILS % (AUTO) 0 % (0-10); EOSINOPHILS # (AUTO) 0.1 10^3/uL (0.0-0.3); EOSINOPHILS % (AUTO) 2 % (0-10); HEMATOCRIT 38 % (35-52); HEMOGLOBIN 12.7 G/DL (11.5-16.0); LYMPHOCYTES % (AUTO) 14 % (12-44); MEAN CORPUSCULAR HEMOGLOBIN 31 PG (25-34); MEAN CORPUSCULAR HGB CONC 33 G/DL (32-36); MEAN CORPUSCULAR VOLUME 94 FL (80-99); MEAN PLATELET VOLUME 9.4 FL (7.4-10.4); MONOCYTES # (AUTO) 0.5 X 10^3 (0.0-1.0); MONOCYTES % (AUTO) 8 % (0-12); NEUTROPHILS # (AUTO) 5.5 X 10^3 (1.8-7.8); NEUTROPHILS % (AUTO) 77 % (42-75); PLATELET COUNT 227 10^3/uL (130-400); RED CELL DISTRIBUTION WIDTH 14.1 % (10.0-14.5); WHITE BLOOD COUNT 7.2 10^3/uL (4.3-11.0)
[2018-09-08 14:04] LABS: ALANINE AMINOTRANSFERASE 10 U/L (0-55); ALBUMIN 4.2 GM/DL (3.2-4.5); ALKALINE PHOSPHATASE 96 U/L (40-136); BILIRUBIN,TOTAL 0.3 MG/DL (0.1-1.0); BUN/CREATININE RATIO 15; CALCIUM 9.3 MG/DL (8.5-10.1); CARBON DIOXIDE 24 MMOL/L (21-32); CHLORIDE 106 MMOL/L (98-107); CREATININE SERUM 0.86 MG/DL (0.60-1.30); GFR ESTIMATED > 60; GLUCOSE 117 MG/DL (70-105); POTASSIUM 4.3 MMOL/L (3.6-5.0); SODIUM 140 MMOL/L (135-145); TOTAL PROTEIN 7.3 GM/DL (6.4-8.2)
== END 2018-10-12 | disposition home or self-care (01) ==
LOC: ONC 13:13
PROVIDERS: ATTEND Internal Medicine Hematology & Oncology
DX: Z45.2 Encounter for adjustment and management of vascular access device (principal); C85.19 Unspecified B-cell lymphoma, extranodal and solid organ sites
CPT/HCPCS: 36591; 80053; 83615; 85025; 96523

== ENCOUNTER → 2018-11-08 | Outpatient (CLI) | payer MEDICARE ==
[~2018-11-08] MED LIST changes: +BARIUM SUSPENSION 2.1% (VANILLA SILQ) 450 ML PO ONE; +IOHEXOL 350 MG/ML 100 ML (OMNIPAQUE 350) VIAL IV ONE; +NS 100 ML (IVPB) BAG IV ONE; +RECEIVED CONTRAST (Hold Metformin) IV SCH
--- NOTE | 2018-11-08 13:40 | Diagnostic Imaging Report ---
PROCEDURE: CT abdomen and pelvis with and without contrast. TECHNIQUE: Precontrast acquisitions were acquired through the abdomen and pelvis. Multiple contiguous axial images were obtained through the abdomen and pelvis after the administration of intravenous contrast. INDICATION: Lymphoma. FINDINGS: The previous CT chest, abdomen, and pelvis exam of 05/24/2018 noted cholelithiasis but failed to show any sign of acute cholecystitis. On this study, there are still numerous laminated gallstones within the gallbladder but there is no evidence for wall thickening or pericholecystic fluid to suggest an acute abnormality. The prior exam also identified a tiny ill-defined area of low density in the dome of the liver. That finding is again evident and no different. The liver is otherwise homogeneous. The spleen, pancreas, adrenals, kidneys, aorta, and inferior vena cava show no sign of an acute abnormality. The stomach is partially filled with oral contrast and difficult to assess. The previous study did note an 11 x 18 mm periaortic node on the left. That node is again visualized and now measures 13 x 19 mm. No other significant adenopathy is noted. There is no pelvic mass or free fluid collection evident. There are postsurgical changes again seen involving the sigmoid colon. The uterus does not appear to be enlarged and there is a calcified fibroid in the body of the uterus. The urinary bladder is grossly unremarkable. The appendix was not well visualized but there are no indirect signs of acute appendicitis. As noted on the prior exam, there is fluid about the tendon sheath of the iliopsoas on the right. This may be secondary to iliopsoas tendinitis/bursitis. The lesion of mixed density involving the right ilium seen previously is again evident and no different. There is no acute bony abnormality appreciated. The lung bases are generally clear. IMPRESSION: 1. There is no acute abnormality of the abdomen or pelvis. 2. The periaortic node on the left seen previously measures slightly larger on this exam. The area of mixed density in the right ilium seen previously is essentially no different. Both these findings are suspicious for neoplasm. 3. There is cholelithiasis without evidence for acute cholecystitis. 4. There is persistent iliopsoas tendinitis/ bursitis on the right. Dictated by: Dictated on workstation # [id number]
== END ==
LOC: RAD 11:33
PROVIDERS: ATTEND Internal Medicine Hematology & Oncology
DX: C85.90 Non-Hodgkin lymphoma, unspecified, unspecified site (principal); K80.20 Calculus of gallbladder without cholecystitis without obstruction; M85.9 Disorder of bone density and structure, unspecified
CPT/HCPCS: 74178

== ENCOUNTER → 2018-12-07 | Outpatient (CLI) | payer MEDICARE ==
[~2018-12-07] MED LIST changes: -BARIUM SUSPENSION 2.1% (VANILLA SILQ) 450 ML PO ONE; -IOHEXOL 350 MG/ML 100 ML (OMNIPAQUE 350) VIAL IV ONE; -NS 100 ML (IVPB) BAG IV ONE; -RECEIVED CONTRAST (Hold Metformin) IV SCH
== END ==
LOC: PREOP 05:32
PROVIDERS: ATTEND Surgery
DX: Z01.818 Encounter for other preprocedural examination (principal)

== ENCOUNTER 2019-01-07 14:10 | Outpatient (RCR) | payer MEDICARE ==
[2018-11-03 10:38] LABS: BASOPHILS % (AUTO) 1 % (0-10); EOSINOPHILS # (AUTO) 0.1 10^3/uL (0.0-0.3); EOSINOPHILS % (AUTO) 1 % (0-10); HEMATOCRIT 41 % (35-52); HEMOGLOBIN 13.3 G/DL (11.5-16.0); LYMPHOCYTES % (AUTO) 15 % (12-44); MEAN CORPUSCULAR HEMOGLOBIN 30 PG (25-34); MEAN CORPUSCULAR HGB CONC 33 G/DL (32-36); MEAN CORPUSCULAR VOLUME 93 FL (80-99); MEAN PLATELET VOLUME 9.6 FL (7.4-10.4); MONOCYTES # (AUTO) 0.5 X 10^3 (0.0-1.0); MONOCYTES % (AUTO) 7 % (0-12); NEUTROPHILS # (AUTO) 4.8 X 10^3 (1.8-7.8); NEUTROPHILS % (AUTO) 76 % (42-75); PLATELET COUNT 226 10^3/uL (130-400); WHITE BLOOD COUNT 6.4 10^3/uL (4.3-11.0)
[2018-11-03 11:03] LABS: ALANINE AMINOTRANSFERASE 7 U/L (0-55); ALBUMIN 4.4 GM/DL (3.2-4.5); ALKALINE PHOSPHATASE 88 U/L (40-136); BILIRUBIN,TOTAL 0.4 MG/DL (0.1-1.0); BUN/CREATININE RATIO 14; CALCIUM 9.5 MG/DL (8.5-10.1); CARBON DIOXIDE 27 MMOL/L (21-32); CHLORIDE 103 MMOL/L (98-107); CREATININE SERUM 0.87 MG/DL (0.60-1.30); GFR ESTIMATED > 60; GLUCOSE 111 MG/DL (70-105); POTASSIUM 4.9 MMOL/L (3.6-5.0); SODIUM 139 MMOL/L (135-145); TOTAL PROTEIN 7.5 GM/DL (6.4-8.2)
== END 2019-01-11 | disposition home or self-care (01) ==
LOC: ONC 14:10
PROVIDERS: ATTEND Internal Medicine Hematology & Oncology
DX: Z45.2 Encounter for adjustment and management of vascular access device (principal); C85.19 Unspecified B-cell lymphoma, extranodal and solid organ sites
CPT/HCPCS: 36415; 80053; 83615; 85025; 96523; 99213

== ENCOUNTER → 2019-05-09 | Outpatient (CLI) | payer MEDICARE ==
--- NOTE | 2019-05-09 14:00 | Diagnostic Imaging Report ---
PROCEDURE; CT pelvis with and without contrast. TECHNIQUE: After oral contrast administration, imaging was obtained from the iliac crest to the lesser trochanters. Repeat imaging was performed after intravenous contrast administration. Auto Exposure Controls were utilized during the CT exam to meet ALARA standards for radiation dose reduction. INDICATION: Back and leg pain. Findings: Comparison is 11/08/2018. There are no dilated loops of bowel. A left para-aortic lymph node is increased in size measuring 2.0 x 2.8 cm, previously 1.5 x 2.3 cm. There is extensive atherosclerosis of the iliac vasculature. Low-attenuation focus in the right iliac fossa likely represents a para labral cyst along the iliac distended sheath. There has been internal fixation of the right humeral head. There is a chronic mixed lytic and sclerotic lesion involving the right sacrum. No acute fracture seen. Impression: 1. Mild increase in size of left aortic lymph node. 2. Stable mixed lytic and sclerotic lesion in the right ilium. Dictated by: Dictated on workstation # [id number]
== END ==
LOC: RAD 11:26
PROVIDERS: ATTEND Internal Medicine Hematology & Oncology
DX: C85.90 Non-Hodgkin lymphoma, unspecified, unspecified site (principal); M89.8X8 Other specified disorders of bone, other site; R59.0 Localized enlarged lymph nodes
CPT/HCPCS: 72194

== ENCOUNTER 2019-07-27 09:54 | Outpatient (RCR) | payer MEDICARE ==
[2019-05-04 10:14] LABS: BASOPHILS % (AUTO) 0 % (0-10); EOSINOPHILS # (AUTO) 0.3 10^3/uL (0.0-0.3); EOSINOPHILS % (AUTO) 4 % (0-10); HEMATOCRIT 39 % (35-52); LYMPHOCYTES # (AUTO) 1.1 X 10^3 (1.0-4.0); LYMPHOCYTES % (AUTO) 16 % (12-44); MEAN CORPUSCULAR HEMOGLOBIN 31 PG (25-34); MEAN CORPUSCULAR HGB CONC 33 G/DL (32-36); MEAN CORPUSCULAR VOLUME 92 FL (80-99); MEAN PLATELET VOLUME 9.4 FL (7.4-10.4); MONOCYTES # (AUTO) 0.6 X 10^3 (0.0-1.0); MONOCYTES % (AUTO) 8 % (0-12); NEUTROPHILS # (AUTO) 4.8 X 10^3 (1.8-7.8); NEUTROPHILS % (AUTO) 72 % (42-75); PLATELET COUNT 205 10^3/uL (130-400); RED CELL DISTRIBUTION WIDTH 13.6 % (10.0-14.5); WHITE BLOOD COUNT 6.7 10^3/uL (4.3-11.0)
[2019-05-04 10:36] LABS: ALANINE AMINOTRANSFERASE 6 U/L (0-55); ALBUMIN 4.1 GM/DL (3.2-4.5); ALKALINE PHOSPHATASE 97 U/L (40-136); BILIRUBIN,TOTAL 0.4 MG/DL (0.1-1.0); BUN/CREATININE RATIO 14; CALCIUM 9.5 MG/DL (8.5-10.1); CARBON DIOXIDE 26 MMOL/L (21-32); CHLORIDE 105 MMOL/L (98-107); CREATININE SERUM 0.86 MG/DL (0.60-1.30); GFR ESTIMATED > 60; GLUCOSE 93 MG/DL (70-105); POTASSIUM 4.1 MMOL/L (3.6-5.0); SODIUM 140 MMOL/L (135-145)
[2019-07-27 10:31] LABS: BASOPHILS % (AUTO) 0 % (0-10); EOSINOPHILS # (AUTO) 0.2 10^3/uL (0.0-0.3); EOSINOPHILS % (AUTO) 2 % (0-10); HEMATOCRIT 40 % (35-52); HEMOGLOBIN 13.1 G/DL (11.5-16.0); LYMPHOCYTES % (AUTO) 13 % (12-44); MEAN CORPUSCULAR HEMOGLOBIN 30 PG (25-34); MEAN CORPUSCULAR HGB CONC 33 G/DL (32-36); MEAN CORPUSCULAR VOLUME 92 FL (80-99); MEAN PLATELET VOLUME 9.3 FL (7.4-10.4); MONOCYTES # (AUTO) 0.6 X 10^3 (0.0-1.0); MONOCYTES % (AUTO) 8 % (0-12); NEUTROPHILS # (AUTO) 5.6 X 10^3 (1.8-7.8); NEUTROPHILS % (AUTO) 76 % (42-75); PLATELET COUNT 225 10^3/uL (130-400); RED CELL DISTRIBUTION WIDTH 14.4 % (10.0-14.5); WHITE BLOOD COUNT 7.4 10^3/uL (4.3-11.0)
[2019-07-27 10:50] LABS: ALANINE AMINOTRANSFERASE 13 U/L (0-55); ALKALINE PHOSPHATASE 98 U/L (40-136); BILIRUBIN,TOTAL 0.4 MG/DL (0.1-1.0); CALCIUM 8.9 MG/DL (8.5-10.1); CARBON DIOXIDE 24 MMOL/L (21-32); CHLORIDE 103 MMOL/L (98-107); CREATININE SERUM 0.84 MG/DL (0.60-1.30); GFR ESTIMATED > 60; GLUCOSE 81 MG/DL (70-105); POTASSIUM 4.8 MMOL/L (3.6-5.0); SODIUM 136 MMOL/L (135-145); TOTAL PROTEIN 7.2 GM/DL (6.4-8.2)
[2019-07-27 11:08] LABS: BUN/CREATININE RATIO 17
== END 2019-08-02 | disposition home or self-care (01) ==
LOC: ONC 09:54
PROVIDERS: ATTEND Internal Medicine Hematology & Oncology
DX: C85.19 Unspecified B-cell lymphoma, extranodal and solid organ sites (principal); Z45.2 Encounter for adjustment and management of vascular access device
CPT/HCPCS: 36591; 80053; 83615; 85025; 96523

== ENCOUNTER 2019-10-25 13:20 | Outpatient (RCR) | payer MEDICARE, OTHER ==
[~2019-10-25 13:20] MED LIST changes: -CETI10TA20 PO; +CETI10TA21 PO; -MORP-34 PO; +MORP-69 PO; -ONDA8TAB12 PO; +ONDA8TAB15 PO; -TRAM50TA2 PO; +TRM50T PO
== END 2019-12-05 | disposition home or self-care (01) ==
LOC: ONC 13:20
PROVIDERS: ATTEND Internal Medicine Hematology & Oncology
DX: Z45.2 Encounter for adjustment and management of vascular access device (principal); C85.90 Non-Hodgkin lymphoma, unspecified, unspecified site
CPT/HCPCS: 96523

== ENCOUNTER 2020-01-17 11:00 | Outpatient (RCR) | payer MEDICARE, OTHER ==
[2020-01-17 11:09] LABS: BASOPHILS % (AUTO) 1 % (0-10); EOSINOPHILS # (AUTO) 0.1 10^3/uL (0.0-0.3); EOSINOPHILS % (AUTO) 1 % (0-10); HEMATOCRIT 41 % (35-52); HEMOGLOBIN 13.6 G/DL (11.5-16.0); LYMPHOCYTES # (AUTO) 0.9 X 10^3 (1.0-4.0); LYMPHOCYTES % (AUTO) 14 % (12-44); MEAN CORPUSCULAR HEMOGLOBIN 31 PG (25-34); MEAN CORPUSCULAR HGB CONC 34 G/DL (32-36); MEAN CORPUSCULAR VOLUME 93 FL (80-99); MEAN PLATELET VOLUME 9.5 FL (7.4-10.4); MONOCYTES # (AUTO) 0.4 X 10^3 (0.0-1.0); MONOCYTES % (AUTO) 6 % (0-12); NEUTROPHILS # (AUTO) 5.3 X 10^3 (1.8-7.8); NEUTROPHILS % (AUTO) 79 % (42-75); PLATELET COUNT 188 10^3/uL (130-400); RED CELL DISTRIBUTION WIDTH 13.8 % (10.0-14.5); WHITE BLOOD COUNT 6.7 10^3/uL (4.3-11.0)
[2020-01-17 11:16] LABS: ALBUMIN 4.3 GM/DL (3.2-4.5); CHLORIDE 103 MMOL/L (98-107); POTASSIUM 3.9 MMOL/L (3.6-5.0); SODIUM 138 MMOL/L (135-145)
[2020-01-17 11:17] LABS: CALCIUM 9.2 MG/DL (8.5-10.1)
[2020-01-17 11:18] LABS: GLUCOSE 95 MG/DL (70-105); TOTAL PROTEIN 7.2 GM/DL (6.4-8.2)
[2020-01-17 11:19] LABS: CARBON DIOXIDE 24 MMOL/L (21-32)
[2020-01-17 11:20] LABS: BILIRUBIN,TOTAL 0.4 MG/DL (0.1-1.0)
[2020-01-17 11:22] LABS: ALKALINE PHOSPHATASE 89 U/L (40-136); CREATININE SERUM 0.81 MG/DL (0.60-1.30); GFR ESTIMATED > 60
[2020-01-17 11:23] LABS: BUN/CREATININE RATIO 15
[2020-01-17 11:25] LABS: ALANINE AMINOTRANSFERASE 10 U/L (0-55)
== END 2020-03-13 | disposition home or self-care (01) ==
LOC: ONC 11:00
PROVIDERS: ATTEND Internal Medicine Hematology & Oncology
DX: Z45.2 Encounter for adjustment and management of vascular access device (principal); C85.90 Non-Hodgkin lymphoma, unspecified, unspecified site
CPT/HCPCS: 36591; 80053; 83615; 85025; 96523

== ENCOUNTER 2020-03-19 10:45 | Outpatient (RCR) | payer MEDICARE, OTHER | END 2020-04-17 09:52 | disposition home or self-care (01) | LOC: ONC 10:45 | PROVIDERS: ATTEND Internal Medicine Hematology & Oncology | DX: Z45.2 Encounter for adjustment and management of vascular access device (principal); C85.90 Non-Hodgkin lymphoma, unspecified, unspecified site | CPT/HCPCS: 96523 ==

== ENCOUNTER 2020-04-17 09:55 | Outpatient (RCR) | payer MEDICARE, OTHER | END 2020-05-03 16:00 | disposition home or self-care (01) | LOC: ONC 09:55 | PROVIDERS: ATTEND Internal Medicine Hematology & Oncology | DX: Z45.2 Encounter for adjustment and management of vascular access device (principal); C88.4 Extranodal marginal zone B-cell lymphoma of mucosa-associated lymphoid tissue [MALT-lymphoma]; K80.20 Calculus of gallbladder without cholecystitis without obstruction | CPT/HCPCS: 99213 ==

== ENCOUNTER → 2020-06-20 | Outpatient (CLI) | payer MEDICARE ==
[~2020-06-20] MED LIST changes: +CATHETER FLUSH 10 ML SYR IV PRN; +HOLD METFORMIN - RECEIVED CONTRAST 20 ML VIAL IV SCH; +IOHEXOL 350 MG/ML 100 ML (OMNIPAQUE 350) VIAL IV ONE; +NS 100 ML (IVPB) BAG IV ONE; -OXYC-465 PO; +OXYC-556 PO
--- NOTE | 2020-06-20 13:32 | Diagnostic Imaging Report ---
EXAMINATION: CT Neck and Chest with contrast. CT Abdomen and Pelvis with and without intravenous contrast. TECHNIQUE: Multiple contiguous axial images were obtained through the neck, chest, abdomen and pelvis after the uneventful administration of intravenous contrast. Pre-contrast images of the abdomen and pelvis were also obtained. All CT scans use one or more of the following dose optimizing techniques: automated exposure control, MA and/or KvP adjustment based on a patient size and exam type, or iterative reconstruction. HISTORY: Lymphoma COMPARISON: 05/09/2019, 11/08/2018 and 05/24/2018 FINDINGS: Neck CT: Scattered subcentimeter lymph nodes are seen in the neck. None are pathologically enlarged or abnormally enhancing. The muscles of the neck are normal. Vessels of the neck demonstrate normal course and caliber. Fascial planes are preserved and the deep spaces of the neck are normal. The visualized airway is widely patent. The base of the skull and the temporal bones are normal. Limited views of the brain including the cerebellum and brainstem are normal. The limited view of the [place] is unremarkable. The visualized portions of the orbits are normal. The spinal canal is normal in caliber. Intervertebral disk heights are normal. Neural foramina are normal. Chest CT: There is an area of consolidation and groundglass in the lingula. A few patchy peribronchial vascular nodules are seen in the right lung as well. No pleural effusion or pneumothorax. There is new bilateral axillary lymphadenopathy. Left axillary lymph nodes measuring up to 2.4 cm. Right axillary lymph nodes measuring up to 2.0 cm. There is no mediastinal lymphadenopathy. Heart size is normal. There are mild coronary artery calcifications. No pericardial effusion. Aorta is normal in caliber. Abdomen and Pelvis CT: There is a new peripherally enhancing mass in segment 4A of the liver measuring 3.1 cm. There is no biliary ductal dilation. Gallstones are present in the gallbladder. Pancreas is normal. Spleen is normal. Adrenal glands are normal. The kidneys are normal. There is no hydronephrosis. Urinary bladder is normal. Visualized bowel is normal in caliber without obstruction or inflammation. No free fluid or air. A large lymph node conglomerate in the retroperitoneum is increased in size measuring 6.6 x 4.4 cm, previously 2.5 x 2.1 cm. There are bilateral iliac chain lymph node masses measuring 6.9 x 3.8 cm on the left and 2.3 x 1.5 cm on the right. These are new from prior exam. There is new bilateral inguinal lymphadenopathy measuring up to 2.6 cm on the right and 2.2 cm on the left. Aorta is normal in caliber without aneurysm. There is an unchanged mixed lytic and sclerotic lesion in the right iliac wing which may reflect prior trauma or biopsy. No new osseous lesions are seen. IMPRESSION: 1. New lymphadenopathy in both axillae, retroperitoneum, iliac chains and inguinal regions. 2. New liver mass concerning for lymphomatous involvement of the liver. 3. Areas of consolidation and peribronchial vascular nodularity in the lungs may represent an acute infection, but could also represent lymphomatous involvement of the lung. Dictated by: Dictated on workstation # [id number]
== END ==
LOC: RAD 11:45
PROVIDERS: ATTEND Nurse Practitioner Adult Health
DX: C82.18 Follicular lymphoma grade II, lymph nodes of multiple sites (principal); J18.1 Lobar pneumonia, unspecified organism; R59.9 Enlarged lymph nodes, unspecified; R16.0 Hepatomegaly, not elsewhere classified
CPT/HCPCS: 70491; 71260; 74178

== ENCOUNTER → 2020-08-09 | Outpatient (RCR) | payer MEDICARE, OTHER ==
[2020-05-11 14:03] LABS: BASOPHILS % (AUTO) 0 % (0-10); EOSINOPHILS # (AUTO) 0.1 10^3/uL (0.0-0.3); EOSINOPHILS % (AUTO) 1 % (0-10); HEMATOCRIT 42 % (35-52); LYMPHOCYTES # (AUTO) 1.2 X 10^3 (1.0-4.0); LYMPHOCYTES % (AUTO) 14 % (12-44); MEAN CORPUSCULAR HEMOGLOBIN 30 PG (25-34); MEAN CORPUSCULAR HGB CONC 34 G/DL (32-36); MEAN CORPUSCULAR VOLUME 90 FL (80-99); MEAN PLATELET VOLUME 9.5 FL (7.4-10.4); MONOCYTES # (AUTO) 0.5 X 10^3 (0.0-1.0); MONOCYTES % (AUTO) 6 % (0-12); NEUTROPHILS # (AUTO) 6.3 X 10^3 (1.8-7.8); NEUTROPHILS % (AUTO) 78 % (42-75); PLATELET COUNT 168 10^3/uL (130-400); WHITE BLOOD COUNT 8.1 10^3/uL (4.3-11.0)
[2020-05-11 14:23] LABS: BILIRUBIN,TOTAL 0.3 MG/DL (0.1-1.0); CREATININE SERUM 0.98 MG/DL (0.60-1.30); POTASSIUM 3.9 MMOL/L (3.6-5.0); TOTAL PROTEIN 6.9 GM/DL (6.4-8.2)
[2020-06-13 14:23] LABS: BASOPHILS % (AUTO) 0 % (0-10); EOSINOPHILS # (AUTO) 0.1 10^3/uL (0.0-0.3); EOSINOPHILS % (AUTO) 1 % (0-10); HEMATOCRIT 42 % (35-52); HEMOGLOBIN 14.2 G/DL (11.5-16.0); LYMPHOCYTES # (AUTO) 1.3 X 10^3 (1.0-4.0); LYMPHOCYTES % (AUTO) 18 % (12-44); MEAN CORPUSCULAR HEMOGLOBIN 31 PG (25-34); MEAN CORPUSCULAR HGB CONC 34 G/DL (32-36); MEAN CORPUSCULAR VOLUME 90 FL (80-99); MEAN PLATELET VOLUME 9.5 FL (7.4-10.4); MONOCYTES # (AUTO) 0.6 X 10^3 (0.0-1.0); MONOCYTES % (AUTO) 8 % (0-12); NEUTROPHILS # (AUTO) 5.3 X 10^3 (1.8-7.8); NEUTROPHILS % (AUTO) 73 % (42-75); PLATELET COUNT 205 10^3/uL (130-400); WHITE BLOOD COUNT 7.3 10^3/uL (4.3-11.0)
[2020-06-13 14:42] LABS: ALANINE AMINOTRANSFERASE 13 U/L (0-55); ALKALINE PHOSPHATASE 89 U/L (40-136); BILIRUBIN,TOTAL 0.4 MG/DL (0.1-1.0); BUN/CREATININE RATIO 10; CALCIUM 8.8 MG/DL (8.5-10.1); CARBON DIOXIDE 25 MMOL/L (21-32); CHLORIDE 102 MMOL/L (98-107); CREATININE SERUM 0.82 MG/DL (0.60-1.30); GFR ESTIMATED > 60; GLUCOSE 87 MG/DL (70-105); POTASSIUM 3.8 MMOL/L (3.6-5.0); SODIUM 138 MMOL/L (135-145); TOTAL PROTEIN 6.7 GM/DL (6.4-8.2)
[2020-07-05 09:09] LABS: BASOPHILS % (AUTO) 0 % (0-10); EOSINOPHILS # (AUTO) 0.2 10^3/uL (0.0-0.3); EOSINOPHILS % (AUTO) 2 % (0-10); HEMATOCRIT 40 % (35-52); HEMOGLOBIN 13.3 g/dL (11.5-16.0); LYMPHOCYTES # (AUTO) 1.1 10^3/uL (1.0-4.0); LYMPHOCYTES % (AUTO) 11 % (12-44); MEAN CORPUSCULAR HEMOGLOBIN 30 pg (25-34); MEAN CORPUSCULAR HGB CONC 33 g/dL (32-36); MEAN CORPUSCULAR VOLUME 92 fL (80-99); MEAN PLATELET VOLUME 9.3 fL (9.0-12.2); MONOCYTES # (AUTO) 0.9 10^3/uL (0.0-1.0); MONOCYTES % (AUTO) 9 % (0-12); NEUTROPHILS # (AUTO) 7.7 10^3/uL (1.8-7.8); NEUTROPHILS % (AUTO) 77 % (42-75); PLATELET COUNT 209 10^3/uL (130-400)
[2020-07-05 09:28] LABS: ALANINE AMINOTRANSFERASE 8 U/L (0-55); ALBUMIN 4.2 GM/DL (3.2-4.5); ALKALINE PHOSPHATASE 76 U/L (40-136); BILIRUBIN,TOTAL 0.6 MG/DL (0.1-1.0); BUN/CREATININE RATIO 13; CALCIUM 8.9 MG/DL (8.5-10.1); CARBON DIOXIDE 24 MMOL/L (21-32); CHLORIDE 104 MMOL/L (98-107); CREATININE SERUM 0.84 MG/DL (0.60-1.30); GFR ESTIMATED > 60; GLUCOSE 108 MG/DL (70-105); POTASSIUM 3.8 MMOL/L (3.6-5.0); SODIUM 137 MMOL/L (135-145); TOTAL PROTEIN 6.9 GM/DL (6.4-8.2)
[2020-07-12 11:21] LABS: BASOPHILS # (AUTO) 0.1 10^3/uL (0.0-0.1); BASOPHILS % (AUTO) 1 % (0-10); EOSINOPHILS # (AUTO) 0.1 10^3/uL (0.0-0.3); EOSINOPHILS % (AUTO) 1 % (0-10); HEMATOCRIT 40 % (35-52); HEMOGLOBIN 12.9 g/dL (11.5-16.0); LYMPHOCYTES # (AUTO) 0.3 10^3/uL (1.0-4.0); LYMPHOCYTES % (AUTO) 3 % (12-44); MEAN CORPUSCULAR HEMOGLOBIN 30 pg (25-34); MEAN CORPUSCULAR HGB CONC 33 g/dL (32-36); MEAN CORPUSCULAR VOLUME 93 fL (80-99); MEAN PLATELET VOLUME 9.2 fL (9.0-12.2); MONOCYTES # (AUTO) 0.9 10^3/uL (0.0-1.0); MONOCYTES % (AUTO) 9 % (0-12); NEUTROPHILS # (AUTO) 8.4 10^3/uL (1.8-7.8); NEUTROPHILS % (AUTO) 86 % (42-75); PLATELET COUNT 208 10^3/uL (130-400); WHITE BLOOD COUNT 9.8 10^3/uL (4.3-11.0)
[2020-07-12 11:44] LABS: BUN/CREATININE RATIO 16; CALCIUM 8.7 MG/DL (8.5-10.1); CARBON DIOXIDE 23 MMOL/L (21-32); CHLORIDE 103 MMOL/L (98-107); CREATININE SERUM 0.85 MG/DL (0.60-1.30); GFR ESTIMATED > 60; GLUCOSE 80 MG/DL (70-105); POTASSIUM 4.2 MMOL/L (3.6-5.0); SODIUM 137 MMOL/L (135-145)
[2020-07-19 10:20] LABS: BASOPHILS # (AUTO) 0.1 10^3/uL (0.0-0.1); BASOPHILS % (AUTO) 1 % (0-10); EOSINOPHILS # (AUTO) 0.1 10^3/uL (0.0-0.3); EOSINOPHILS % (AUTO) 2 % (0-10); HEMATOCRIT 39 % (35-52); HEMOGLOBIN 12.5 g/dL (11.5-16.0); LYMPHOCYTES # (AUTO) 0.6 10^3/uL (1.0-4.0); LYMPHOCYTES % (AUTO) 7 % (12-44); MEAN CORPUSCULAR HEMOGLOBIN 30 pg (25-34); MEAN CORPUSCULAR HGB CONC 32 g/dL (32-36); MEAN CORPUSCULAR VOLUME 94 fL (80-99); MEAN PLATELET VOLUME 9.3 fL (9.0-12.2); MONOCYTES # (AUTO) 0.8 10^3/uL (0.0-1.0); MONOCYTES % (AUTO) 10 % (0-12); NEUTROPHILS # (AUTO) 6.1 10^3/uL (1.8-7.8); NEUTROPHILS % (AUTO) 80 % (42-75); PLATELET COUNT 223 10^3/uL (130-400); WHITE BLOOD COUNT 7.7 10^3/uL (4.3-11.0)
[2020-07-19 10:38] LABS: BUN/CREATININE RATIO 16; CALCIUM 9.2 MG/DL (8.5-10.1); CARBON DIOXIDE 22 MMOL/L (21-32); CHLORIDE 103 MMOL/L (98-107); CREATININE SERUM 0.83 MG/DL (0.60-1.30); GFR ESTIMATED > 60; GLUCOSE 94 MG/DL (70-105); POTASSIUM 3.9 MMOL/L (3.6-5.0); SODIUM 138 MMOL/L (135-145)
[2020-07-26 10:51] LABS: BASOPHILS # (AUTO) 0.1 10^3/uL (0.0-0.1); BASOPHILS % (AUTO) 1 % (0-10); EOSINOPHILS # (AUTO) 0.1 10^3/uL (0.0-0.3); EOSINOPHILS % (AUTO) 2 % (0-10); HEMATOCRIT 39 % (35-52); HEMOGLOBIN 12.8 g/dL (11.5-16.0); LYMPHOCYTES # (AUTO) 0.5 10^3/uL (1.0-4.0); LYMPHOCYTES % (AUTO) 8 % (12-44); MEAN CORPUSCULAR HEMOGLOBIN 31 pg (25-34); MEAN CORPUSCULAR HGB CONC 33 g/dL (32-36); MEAN CORPUSCULAR VOLUME 94 fL (80-99); MEAN PLATELET VOLUME 9.4 fL (9.0-12.2); MONOCYTES # (AUTO) 0.5 10^3/uL (0.0-1.0); MONOCYTES % (AUTO) 8 % (0-12); NEUTROPHILS # (AUTO) 5.2 10^3/uL (1.8-7.8); NEUTROPHILS % (AUTO) 80 % (42-75); PLATELET COUNT 202 10^3/uL (130-400); WHITE BLOOD COUNT 6.4 10^3/uL (4.3-11.0)
[2020-07-26 11:16] LABS: BUN/CREATININE RATIO 16; CALCIUM 9.1 MG/DL (8.5-10.1); CARBON DIOXIDE 25 MMOL/L (21-32); CHLORIDE 102 MMOL/L (98-107); CREATININE SERUM 0.79 MG/DL (0.60-1.30); GFR ESTIMATED > 60; GLUCOSE 104 MG/DL (70-105); MAGNESIUM 2.4 MG/DL (1.6-2.4); SODIUM 137 MMOL/L (135-145)
[2020-08-02 10:00] LABS: BASOPHILS # (AUTO) 0.1 10^3/uL (0.0-0.1); BASOPHILS % (AUTO) 1 % (0-10); EOSINOPHILS # (AUTO) 0.1 10^3/uL (0.0-0.3); EOSINOPHILS % (AUTO) 1 % (0-10); HEMATOCRIT 41 % (35-52); HEMOGLOBIN 13.3 g/dL (11.5-16.0); LYMPHOCYTES # (AUTO) 0.9 10^3/uL (1.0-4.0); LYMPHOCYTES % (AUTO) 12 % (12-44); MEAN CORPUSCULAR HEMOGLOBIN 31 pg (25-34); MEAN CORPUSCULAR HGB CONC 33 g/dL (32-36); MEAN CORPUSCULAR VOLUME 95 fL (80-99); MEAN PLATELET VOLUME 9.4 fL (9.0-12.2); MONOCYTES # (AUTO) 0.8 10^3/uL (0.0-1.0); MONOCYTES % (AUTO) 10 % (0-12); NEUTROPHILS # (AUTO) 5.7 10^3/uL (1.8-7.8); NEUTROPHILS % (AUTO) 76 % (42-75); PLATELET COUNT 195 10^3/uL (130-400); WHITE BLOOD COUNT 7.6 10^3/uL (4.3-11.0)
[2020-08-02 10:17] LABS: ALANINE AMINOTRANSFERASE 11 U/L (0-55); ALBUMIN 4.1 GM/DL (3.2-4.5); ALKALINE PHOSPHATASE 79 U/L (40-136); BILIRUBIN,TOTAL 0.5 MG/DL (0.1-1.0); BUN/CREATININE RATIO 16; CALCIUM 9.1 MG/DL (8.5-10.1); CARBON DIOXIDE 26 MMOL/L (21-32); CHLORIDE 101 MMOL/L (98-107); CREATININE SERUM 0.88 MG/DL (0.60-1.30); GFR ESTIMATED > 60; GLUCOSE 91 MG/DL (70-105); POTASSIUM 4.1 MMOL/L (3.6-5.0); SODIUM 136 MMOL/L (135-145); TOTAL PROTEIN 6.8 GM/DL (6.4-8.2)
[~2020-08-09] VITALS: Ht 158.8 cm; Wt 67.6 kg
[~2020-08-09] MED LIST changes: +ACETAMINOPHEN 325 MG TAB (TYLENOL) CANCER CTR ONE; +ACETAMINOPHEN 500 MG TAB (TYLENOL) CANCER CTR ONE; +BENDAMUSTINE HCL IV SCH; -CATHETER FLUSH 10 ML SYR IV PRN; +CENTER ONLY IV SCH; -CETI10TA21 PO; +CETI10TA49 PO; -HOLD METFORMIN - RECEIVED CONTRAST 20 ML VIAL IV SCH; -IOHEXOL 350 MG/ML 100 ML (OMNIPAQUE 350) VIAL IV ONE; +MEPERIDINE (DEMEROL) INJ 50 MG/ML CANCER CTR ONE; -NS 100 ML (IVPB) BAG IV ONE; +NS IV 1000 ML (CANCER CTR) IV SCH; +NS IV 500 ML (CANCER CENTER) 500 ML ONE; +NS IV SCH; -PANT40TA3 PO; +PANT40TA52 PO; +RITUXIMAB ABBS IV SCH; +diphenhydrAMINE 25 MG TAB (BENADRYL) CANCER CENTER PO ONE; +diphenhydrAMINE 50 MG/ML INJ (CANCER CENTER) ONE
[2020-08-09 10:06] LABS: BASOPHILS # (AUTO) 0.1 10^3/uL (0.0-0.1); BASOPHILS % (AUTO) 1 % (0-10); EOSINOPHILS # (AUTO) 0.1 10^3/uL (0.0-0.3); EOSINOPHILS % (AUTO) 1 % (0-10); HEMATOCRIT 39 % (35-52); HEMOGLOBIN 12.8 g/dL (11.5-16.0); LYMPHOCYTES # (AUTO) 0.2 10^3/uL (1.0-4.0); LYMPHOCYTES % (AUTO) 2 % (12-44); MEAN CORPUSCULAR HEMOGLOBIN 31 pg (25-34); MEAN CORPUSCULAR HGB CONC 33 g/dL (32-36); MEAN CORPUSCULAR VOLUME 96 fL (80-99); MEAN PLATELET VOLUME 9.3 fL (9.0-12.2); MONOCYTES # (AUTO) 0.7 10^3/uL (0.0-1.0); MONOCYTES % (AUTO) 7 % (0-12); NEUTROPHILS # (AUTO) 8.4 10^3/uL (1.8-7.8); NEUTROPHILS % (AUTO) 89 % (42-75); PLATELET COUNT 173 10^3/uL (130-400); WHITE BLOOD COUNT 9.5 10^3/uL (4.3-11.0)
[2020-08-09 10:28] LABS: BUN/CREATININE RATIO 12; CALCIUM 8.7 MG/DL (8.5-10.1); CARBON DIOXIDE 25 MMOL/L (21-32); CHLORIDE 103 MMOL/L (98-107); CREATININE SERUM 0.82 MG/DL (0.60-1.30); GFR ESTIMATED > 60; GLUCOSE 131 MG/DL (70-105); MAGNESIUM 1.7 MG/DL (1.6-2.4); POTASSIUM 3.7 MMOL/L (3.6-5.0); SODIUM 138 MMOL/L (135-145)
== END | disposition home or self-care (01) ==
LOC: ONC 05-11 12:52
PROVIDERS: ATTEND Internal Medicine Hematology & Oncology
DX: Z51.11 Encounter for antineoplastic chemotherapy (principal); C82.30 Follicular lymphoma grade IIIa, unspecified site; Z88.0 Allergy status to penicillin; Z88.2 Allergy status to sulfonamides; Z79.899 Other long term (current) drug therapy
CPT/HCPCS: 80053; 83615; 85025; G0463; 36591; 80048; 83735; 84443; 84550; 96375; 96409; 96411; 96413; 96415; 99213

== ENCOUNTER → 2020-09-24 | Outpatient (CLI) | payer MEDICARE ==
[~2020-09-24] MED LIST changes: -ACETAMINOPHEN 325 MG TAB (TYLENOL) CANCER CTR ONE; -ACETAMINOPHEN 500 MG TAB (TYLENOL) CANCER CTR ONE; -BENDAMUSTINE HCL IV SCH; +CATHETER FLUSH 10 ML SYR IV PRN; -CENTER ONLY IV SCH; +HOLD METFORMIN - RECEIVED CONTRAST 20 ML VIAL IV SCH; +IOHEXOL 350 MG/ML 100 ML (OMNIPAQUE 350) VIAL IV ONE; -MEPERIDINE (DEMEROL) INJ 50 MG/ML CANCER CTR ONE; +NS 100 ML (IVPB) BAG IV ONE; -NS IV 1000 ML (CANCER CTR) IV SCH; -NS IV 500 ML (CANCER CENTER) 500 ML ONE; -NS IV SCH; -RITUXIMAB ABBS IV SCH; -diphenhydrAMINE 25 MG TAB (BENADRYL) CANCER CENTER PO ONE; -diphenhydrAMINE 50 MG/ML INJ (CANCER CENTER) ONE
--- NOTE | 2020-09-24 10:07 | Diagnostic Imaging Report ---
PROCEDURE: CT Neck, Chest Abdomen and Pelvis with contrast, Abdomen and Pelvis without. TECHNIQUE: Multiple contiguous axial images were obtained through the neck, chest, abdomen, and pelvis after the uneventful bolus administration of intravenous contrast. Precontrast acquisitions through the abdomen and pelvis were performed. Sagittal and coronal reformations are then performed. Auto Exposure Controls were utilized during the CT exam to meet ALARA standards for radiation dose reduction. INDICATION: Lymphoma. It is compared with CT studies performed 06/20/2020. NECK: Nasopharynx, oropharynx and hypopharynx unremarkable. We again note no pathological-appearing cervical lymph nodes, no fluid collection. Prevertebral and retropharyngeal spaces unremarkable and no bony destructive process. Orbits and sinonasal spaces unremarkable. CHEST: There is near complete resolution of bilateral axillary adenopathy. Largest residual node is on the right superiorly measuring 1.0 x 0.8 cm, previously that mass measured 2.5 x 2.2 cm. Largest residual left-sided node 9 mm x 9 mm, previously 2.6 x 2.3 cm. There has been near complete resolution of nonspecific infiltrate in the lingular segment of the left upper lobe. The remaining areas of infiltrate and bronchovascular nodularity and thickening have resolved. No adverse interval development. No thoracic effusion or pneumothorax. No pathological-appearing hilar or mediastinal lymph nodes. No suspicious bony lesion. ABDOMEN/PELVIS: There has been marked improvements in a periaortic retroperitoneal lymphadenopathy. The largest aggregate residual frank tissue is left of the aorta at the level of the lower pole of the left kidney measuring 2.0 x 1.3 cm. Previously the largest aggregate of retroperitoneal tissue was at the level of the aorta bifurcation and measured 7.8 cm transverse x 4.5 cm in AP. There has been near complete resolution of left greater than right pelvic sidewall adenopathy, largest node medial to the left acetabular roof is a 1.7 x 1.4 cm, previously 5.5 x 4.8 cm. Inguinal adenopathy has also shown near complete resolution, largest node on the left 1.7 x 0.8 cm today, it previously measured 3.5 x 2.2 cm. Infiltrative lesion in the anterior aspect of the dome of the liver at the junction of the right and left lobes has nearly resolved its 9 mm diameter today and it previously measured 3 cm. No new liver lesion. Gallstones present without biliary dilatation. Spleen normal in size and nonfocal. The pancreas unremarkable. There is no evidence for renal infiltration or obstruction. There is no ascites. The uterus, adnexa and urinary bladder unremarkable. No suspect bony lesion. IMPRESSION: NECK: Stable negative neck. CHEST: Marked improvements in axillary adenopathy and near complete resolution of bilateral pulmonary parenchymal infiltrates with no adverse development. ABDOMEN/PELVIS: Marked reduction in retroperitoneal abdominal pelvic lymphadenopathy and tena reduction in infiltrative liver lesion. No obstructive phenomena, ascites or adverse development. Dictated by: Dictated on workstation # [id number]
== END ==
LOC: RAD 08:45
PROVIDERS: ATTEND Nurse Practitioner Adult Health
DX: C85.90 Non-Hodgkin lymphoma, unspecified, unspecified site (principal); K76.89 Other specified diseases of liver; R91.8 Other nonspecific abnormal finding of lung field; R59.0 Localized enlarged lymph nodes
CPT/HCPCS: 70491; 71260; 74178

== ENCOUNTER 2020-10-11 10:05 | Outpatient (RCR) | payer MEDICARE, OTHER ==
[2020-08-16 10:36] LABS: BASOPHILS % (AUTO) 0 % (0-10); EOSINOPHILS # (AUTO) 0.1 10^3/uL (0.0-0.3); EOSINOPHILS % (AUTO) 1 % (0-10); HEMATOCRIT 38 % (35-52); HEMOGLOBIN 12.7 g/dL (11.5-16.0); LYMPHOCYTES # (AUTO) 0.4 10^3/uL (1.0-4.0); LYMPHOCYTES % (AUTO) 7 % (12-44); MEAN CORPUSCULAR HEMOGLOBIN 31 pg (25-34); MEAN CORPUSCULAR HGB CONC 33 g/dL (32-36); MEAN CORPUSCULAR VOLUME 94 fL (80-99); MEAN PLATELET VOLUME 9.4 fL (9.0-12.2); MONOCYTES # (AUTO) 0.6 10^3/uL (0.0-1.0); MONOCYTES % (AUTO) 11 % (0-12); NEUTROPHILS # (AUTO) 4.6 10^3/uL (1.8-7.8); NEUTROPHILS % (AUTO) 80 % (42-75); PLATELET COUNT 215 10^3/uL (130-400); WHITE BLOOD COUNT 5.7 10^3/uL (4.3-11.0)
[2020-08-16 10:52] LABS: BUN/CREATININE RATIO 8; CALCIUM 8.8 MG/DL (8.5-10.1); CARBON DIOXIDE 25 MMOL/L (21-32); CHLORIDE 102 MMOL/L (98-107); CREATININE SERUM 0.87 MG/DL (0.60-1.30); GFR ESTIMATED > 60; GLUCOSE 127 MG/DL (70-105); MAGNESIUM 1.9 MG/DL (1.6-2.4); POTASSIUM 3.5 MMOL/L (3.6-5.0); SODIUM 138 MMOL/L (135-145)
[2020-08-23 09:27] LABS: BASOPHILS # (AUTO) 0.1 10^3/uL (0.0-0.1); BASOPHILS % (AUTO) 1 % (0-10); EOSINOPHILS # (AUTO) 0.1 10^3/uL (0.0-0.3); EOSINOPHILS % (AUTO) 1 % (0-10); HEMATOCRIT 40 % (35-52); HEMOGLOBIN 13.1 g/dL (11.5-16.0); LYMPHOCYTES # (AUTO) 0.5 10^3/uL (1.0-4.0); LYMPHOCYTES % (AUTO) 7 % (12-44); MEAN CORPUSCULAR HEMOGLOBIN 31 pg (25-34); MEAN CORPUSCULAR HGB CONC 33 g/dL (32-36); MEAN CORPUSCULAR VOLUME 95 fL (80-99); MEAN PLATELET VOLUME 9.3 fL (9.0-12.2); MONOCYTES # (AUTO) 0.6 10^3/uL (0.0-1.0); MONOCYTES % (AUTO) 9 % (0-12); NEUTROPHILS # (AUTO) 5.4 10^3/uL (1.8-7.8); NEUTROPHILS % (AUTO) 81 % (42-75); PLATELET COUNT 262 10^3/uL (130-400); WHITE BLOOD COUNT 6.7 10^3/uL (4.3-11.0)
[2020-08-23 09:53] LABS: BUN/CREATININE RATIO 10; CARBON DIOXIDE 24 MMOL/L (21-32); CHLORIDE 103 MMOL/L (98-107); CREATININE SERUM 0.84 MG/DL (0.60-1.30); GFR ESTIMATED > 60; GLUCOSE 103 MG/DL (70-105); POTASSIUM 3.7 MMOL/L (3.6-5.0); SODIUM 139 MMOL/L (135-145)
[2020-08-29 10:18] LABS: BASOPHILS # (AUTO) 0.1 10^3/uL (0.0-0.1); BASOPHILS % (AUTO) 1 % (0-10); EOSINOPHILS # (AUTO) 0.1 10^3/uL (0.0-0.3); EOSINOPHILS % (AUTO) 1 % (0-10); HEMATOCRIT 39 % (35-52); HEMOGLOBIN 13.1 g/dL (11.5-16.0); LYMPHOCYTES # (AUTO) 0.4 10^3/uL (1.0-4.0); LYMPHOCYTES % (AUTO) 7 % (12-44); MEAN CORPUSCULAR HEMOGLOBIN 32 pg (25-34); MEAN CORPUSCULAR HGB CONC 33 g/dL (32-36); MEAN CORPUSCULAR VOLUME 94 fL (80-99); MEAN PLATELET VOLUME 9.5 fL (9.0-12.2); MONOCYTES # (AUTO) 0.5 10^3/uL (0.0-1.0); MONOCYTES % (AUTO) 8 % (0-12); NEUTROPHILS # (AUTO) 5.6 10^3/uL (1.8-7.8); NEUTROPHILS % (AUTO) 83 % (42-75); PLATELET COUNT 206 10^3/uL (130-400); WHITE BLOOD COUNT 6.7 10^3/uL (4.3-11.0)
[2020-08-29 10:35] LABS: ALANINE AMINOTRANSFERASE 12 U/L (0-55); ALBUMIN 4.1 GM/DL (3.2-4.5); ALKALINE PHOSPHATASE 83 U/L (40-136); BILIRUBIN,TOTAL 0.5 MG/DL (0.1-1.0); BUN/CREATININE RATIO 11; CALCIUM 9.1 MG/DL (8.5-10.1); CARBON DIOXIDE 22 MMOL/L (21-32); CHLORIDE 102 MMOL/L (98-107); CREATININE SERUM 0.83 MG/DL (0.60-1.30); GFR ESTIMATED > 60; GLUCOSE 138 MG/DL (70-105); POTASSIUM 3.7 MMOL/L (3.6-5.0); SODIUM 138 MMOL/L (135-145); TOTAL PROTEIN 6.8 GM/DL (6.4-8.2)
[2020-09-05 09:59] LABS: BASOPHILS % (AUTO) 1 % (0-10); EOSINOPHILS # (AUTO) 0.1 10^3/uL (0.0-0.3); EOSINOPHILS % (AUTO) 2 % (0-10); HEMATOCRIT 38 % (35-52); HEMOGLOBIN 12.5 g/dL (11.5-16.0); LYMPHOCYTES # (AUTO) 0.1 10^3/uL (1.0-4.0); LYMPHOCYTES % (AUTO) 2 % (12-44); MEAN CORPUSCULAR HEMOGLOBIN 31 pg (25-34); MEAN CORPUSCULAR HGB CONC 33 g/dL (32-36); MEAN CORPUSCULAR VOLUME 95 fL (80-99); MEAN PLATELET VOLUME 9.3 fL (9.0-12.2); MONOCYTES # (AUTO) 0.5 10^3/uL (0.0-1.0); MONOCYTES % (AUTO) 7 % (0-12); NEUTROPHILS # (AUTO) 6.8 10^3/uL (1.8-7.8); NEUTROPHILS % (AUTO) 89 % (42-75); PLATELET COUNT 201 10^3/uL (130-400); WHITE BLOOD COUNT 7.6 10^3/uL (4.3-11.0)
[2020-09-05 10:23] LABS: BUN/CREATININE RATIO 10; CALCIUM 8.6 MG/DL (8.5-10.1); CARBON DIOXIDE 27 MMOL/L (21-32); CHLORIDE 102 MMOL/L (98-107); CREATININE SERUM 0.82 MG/DL (0.60-1.30); GFR ESTIMATED > 60; GLUCOSE 109 MG/DL (70-105); MAGNESIUM 1.8 MG/DL (1.6-2.4); POTASSIUM 3.4 MMOL/L (3.6-5.0); SODIUM 139 MMOL/L (135-145)
[2020-09-12 10:47] LABS: BASOPHILS # (AUTO) 0.1 10^3/uL (0.0-0.1); BASOPHILS % (AUTO) 1 % (0-10); EOSINOPHILS # (AUTO) 0.1 10^3/uL (0.0-0.3); EOSINOPHILS % (AUTO) 2 % (0-10); HEMATOCRIT 40 % (35-52); HEMOGLOBIN 13.1 g/dL (11.5-16.0); LYMPHOCYTES # (AUTO) 0.3 10^3/uL (1.0-4.0); LYMPHOCYTES % (AUTO) 4 % (12-44); MEAN CORPUSCULAR HEMOGLOBIN 31 pg (25-34); MEAN CORPUSCULAR HGB CONC 33 g/dL (32-36); MEAN CORPUSCULAR VOLUME 95 fL (80-99); MEAN PLATELET VOLUME 9.2 fL (9.0-12.2); MONOCYTES # (AUTO) 0.6 10^3/uL (0.0-1.0); MONOCYTES % (AUTO) 8 % (0-12); NEUTROPHILS % (AUTO) 85 % (42-75); PLATELET COUNT 246 10^3/uL (130-400); WHITE BLOOD COUNT 7.1 10^3/uL (4.3-11.0)
[2020-09-12 11:04] LABS: ALANINE AMINOTRANSFERASE 15 U/L (0-55); ALBUMIN 4.1 GM/DL (3.2-4.5); ALKALINE PHOSPHATASE 79 U/L (40-136); BILIRUBIN,TOTAL 0.4 MG/DL (0.1-1.0); BUN/CREATININE RATIO 10; CALCIUM 9.3 MG/DL (8.5-10.1); CARBON DIOXIDE 27 MMOL/L (21-32); CHLORIDE 102 MMOL/L (98-107); CREATININE SERUM 0.84 MG/DL (0.60-1.30); GFR ESTIMATED > 60; GLUCOSE 97 MG/DL (70-105); MAGNESIUM 2.2 MG/DL (1.6-2.4); SODIUM 139 MMOL/L (135-145)
[2020-09-19 10:55] LABS: BASOPHILS # (AUTO) 0.1 10^3/uL (0.0-0.1); BASOPHILS % (AUTO) 1 % (0-10); EOSINOPHILS # (AUTO) 0.1 10^3/uL (0.0-0.3); EOSINOPHILS % (AUTO) 2 % (0-10); HEMATOCRIT 39 % (35-52); HEMOGLOBIN 12.6 g/dL (11.5-16.0); LYMPHOCYTES # (AUTO) 0.4 10^3/uL (1.0-4.0); LYMPHOCYTES % (AUTO) 6 % (12-44); MEAN CORPUSCULAR HEMOGLOBIN 31 pg (25-34); MEAN CORPUSCULAR HGB CONC 33 g/dL (32-36); MEAN CORPUSCULAR VOLUME 96 fL (80-99); MEAN PLATELET VOLUME 9.5 fL (9.0-12.2); MONOCYTES # (AUTO) 0.6 10^3/uL (0.0-1.0); MONOCYTES % (AUTO) 10 % (0-12); NEUTROPHILS # (AUTO) 5.3 10^3/uL (1.8-7.8); NEUTROPHILS % (AUTO) 81 % (42-75); PLATELET COUNT 226 10^3/uL (130-400); WHITE BLOOD COUNT 6.6 10^3/uL (4.3-11.0)
[2020-09-19 11:18] LABS: BUN/CREATININE RATIO 10; CALCIUM 9.1 MG/DL (8.5-10.1); CARBON DIOXIDE 26 MMOL/L (21-32); CHLORIDE 103 MMOL/L (98-107); GFR ESTIMATED > 60; GLUCOSE 101 MG/DL (70-105); MAGNESIUM 1.9 MG/DL (1.6-2.4); POTASSIUM 3.8 MMOL/L (3.6-5.0); SODIUM 138 MMOL/L (135-145)
[2020-09-27 09:38] LABS: BASOPHILS # (AUTO) 0.1 10^3/uL (0.0-0.1); BASOPHILS % (AUTO) 1 % (0-10); EOSINOPHILS # (AUTO) 0.1 10^3/uL (0.0-0.3); EOSINOPHILS % (AUTO) 2 % (0-10); HEMATOCRIT 38 % (35-52); HEMOGLOBIN 12.4 g/dL (11.5-16.0); LYMPHOCYTES # (AUTO) 0.3 10^3/uL (1.0-4.0); LYMPHOCYTES % (AUTO) 4 % (12-44); MEAN CORPUSCULAR HEMOGLOBIN 31 pg (25-34); MEAN CORPUSCULAR HGB CONC 33 g/dL (32-36); MEAN CORPUSCULAR VOLUME 95 fL (80-99); MEAN PLATELET VOLUME 9.3 fL (9.0-12.2); MONOCYTES # (AUTO) 0.5 10^3/uL (0.0-1.0); MONOCYTES % (AUTO) 8 % (0-12); NEUTROPHILS # (AUTO) 5.6 10^3/uL (1.8-7.8); NEUTROPHILS % (AUTO) 84 % (42-75); PLATELET COUNT 206 10^3/uL (130-400); WHITE BLOOD COUNT 6.6 10^3/uL (4.3-11.0)
[2020-09-27 10:00] LABS: ALANINE AMINOTRANSFERASE 21 U/L (0-55); ALBUMIN 3.9 GM/DL (3.2-4.5); ALKALINE PHOSPHATASE 78 U/L (40-136); BILIRUBIN,TOTAL 0.4 MG/DL (0.1-1.0); BUN/CREATININE RATIO 7; CALCIUM 8.7 MG/DL (8.5-10.1); CARBON DIOXIDE 26 MMOL/L (21-32); CHLORIDE 106 MMOL/L (98-107); CREATININE SERUM 0.88 MG/DL (0.60-1.30); GFR ESTIMATED > 60; GLUCOSE 125 MG/DL (70-105); POTASSIUM 3.9 MMOL/L (3.6-5.0); SODIUM 141 MMOL/L (135-145); TOTAL PROTEIN 6.7 GM/DL (6.4-8.2)
[~2020-10-11 10:05] MED LIST changes: +ACETAMINOPHEN 325 MG TAB (TYLENOL) CANCER CTR ONE; +ACETAMINOPHEN 325 MG TAB (TYLENOL) CANCER CTR PO PRN; +BENDAMUSTINE HCL IV SCH; -CATHETER FLUSH 10 ML SYR IV PRN; +CENTER ONLY IV SCH; -HOLD METFORMIN - RECEIVED CONTRAST 20 ML VIAL IV SCH; -IOHEXOL 350 MG/ML 100 ML (OMNIPAQUE 350) VIAL IV ONE; -NS 100 ML (IVPB) BAG IV ONE; +NS IV 1000 ML (CANCER CTR) IV SCH; +NS IV SCH; +RITUXIMAB ABBS IV SCH; +diphenhydrAMINE 25 MG TAB (BENADRYL) CANCER CENTER PO ONE; +diphenhydrAMINE 25 MG TAB (BENADRYL) CANCER CENTER PO SCH
[2020-10-11 10:24] LABS: BASOPHILS % (AUTO) 0 % (0-10); EOSINOPHILS % (AUTO) 0 % (0-10); HEMATOCRIT 36 % (35-52); LYMPHOCYTES # (AUTO) 0.3 10^3/uL (1.0-4.0); LYMPHOCYTES % (AUTO) 3 % (12-44); MEAN CORPUSCULAR HEMOGLOBIN 32 pg (25-34); MEAN CORPUSCULAR HGB CONC 33 g/dL (32-36); MEAN CORPUSCULAR VOLUME 95 fL (80-99); MEAN PLATELET VOLUME 9.1 fL (9.0-12.2); MONOCYTES % (AUTO) 12 % (0-12); NEUTROPHILS # (AUTO) 7.1 10^3/uL (1.8-7.8); NEUTROPHILS % (AUTO) 84 % (42-75); PLATELET COUNT 267 10^3/uL (130-400); WHITE BLOOD COUNT 8.5 10^3/uL (4.3-11.0)
[2020-10-11 10:42] LABS: BUN/CREATININE RATIO 12; CALCIUM 9.2 MG/DL (8.5-10.1); CARBON DIOXIDE 27 MMOL/L (21-32); CHLORIDE 101 MMOL/L (98-107); CREATININE SERUM 0.77 MG/DL (0.60-1.30); GFR ESTIMATED > 60; GLUCOSE 117 MG/DL (70-105); MAGNESIUM 2.2 MG/DL (1.6-2.4); POTASSIUM 3.6 MMOL/L (3.6-5.0); SODIUM 137 MMOL/L (135-145)
== END 2020-10-15 15:57 | disposition home or self-care (01) ==
LOC: ONC 10:05
PROVIDERS: ATTEND Internal Medicine Hematology & Oncology
DX: C82.30 Follicular lymphoma grade IIIa, unspecified site (principal); Z88.0 Allergy status to penicillin; Z88.2 Allergy status to sulfonamides; Z79.899 Other long term (current) drug therapy
CPT/HCPCS: 36591; 80048; 80053; 83615; 83735; 85025; 96375; 96409; 96411; 96413

== ENCOUNTER → 2020-11-08 | Outpatient (CLI) | payer MEDICARE, OTHER ==
[~2020-11-08] MED LIST changes: -ACETAMINOPHEN 325 MG TAB (TYLENOL) CANCER CTR ONE; -ACETAMINOPHEN 325 MG TAB (TYLENOL) CANCER CTR PO PRN; -BENDAMUSTINE HCL IV SCH; -CENTER ONLY IV SCH; -NS IV 1000 ML (CANCER CTR) IV SCH; -NS IV SCH; -RITUXIMAB ABBS IV SCH; -diphenhydrAMINE 25 MG TAB (BENADRYL) CANCER CENTER PO ONE; -diphenhydrAMINE 25 MG TAB (BENADRYL) CANCER CENTER PO SCH
--- NOTE | 2020-11-08 11:51 | Diagnostic Imaging Report ---
PROCEDURE: MRI lumbar spine. TECHNIQUE: Multiplanar, multisequence MRI of the lumbar spine was performed without contrast. INDICATION: Low back pain. COMPARISON: CT abdomen and pelvis 08/15/2016, 11/08/2018. MRI lumbar spine 08/07/2017. FINDINGS: There are five lumbar-type vertebral bodies for the purposes of this report. Grade 1 retrolisthesis of L2 on L3 and L3 on L4. Since the prior exams, there is new height loss of the superior endplate of L5 of approximately 10-20%. This demonstrates edema and no retropulsion. Vertebral body heights are otherwise preserved. No other abnormal bone marrow signal. Small Schmorl's nodes in the superior endplates of L2 and L4. No abnormal signal in the conus which terminates at L2. Normal morphology of the cauda equina. Partially visualized T2 hyperintensities in the right iliac bone. There has been a mixed sclerotic and lytic lesion in this location dating back to 08/15/2016. L1-L2: No spinal canal or neural foraminal narrowing. L2-L3: Annular disc bulge results in mild right lateral recess narrowing. No spinal canal narrowing. Mild right neural foraminal narrowing. L3-L4: Annular disc bulge results in mild right lateral recess and neural foraminal narrowing. Mild left neural foraminal narrowing. No spinal canal narrowing. L4-L5: Mild facet arthropathy. Mild bilateral neural foraminal narrowing. No spinal canal or lateral recess narrowing. L5-S1: Annular disc bulge results in no substantial spinal canal or lateral recess narrowing. Moderate left and mild right neural foraminal narrowing. IMPRESSION: 1. Acute appearing superior endplate compression fracture of L5 resulting in 10-20% height loss and no retropulsion. 2. Spondylotic changes result in no high-grade spinal canal stenosis. Scattered lateral recess and neural foraminal narrowing as above. Dictated by: Dictated on workstation # [id number]
== END ==
LOC: RAD 10:02
PROVIDERS: ATTEND Physician Assistant
DX: C82.00 Follicular lymphoma grade I, unspecified site (principal); M47.26 Other spondylosis with radiculopathy, lumbar region; M51.16 Intervertebral disc disorders with radiculopathy, lumbar region; M48.061 Spinal stenosis, lumbar region without neurogenic claudication; M43.16 Spondylolisthesis, lumbar region; M51.46 Schmorl's nodes, lumbar region
CPT/HCPCS: 72148

== ENCOUNTER → 2020-12-19 | Outpatient (CLI) | payer MEDICARE ==
[~2020-12-19] MED LIST changes: +CATHETER FLUSH 10 ML SYR IV PRN; -CIPR500T4 PO; +CIPR500T5 PO; +HOLD METFORMIN - RECEIVED CONTRAST 20 ML VIAL IV SCH; +IOHEXOL 350 MG/ML 100 ML (OMNIPAQUE 350) VIAL IV ONE; +NS 100 ML (IVPB) BAG IV ONE; -OXYC-471 PO; +OXYC1TAB11 PO
--- NOTE | 2020-12-19 14:22 | Diagnostic Imaging Report ---
PROCEDURE: CT Neck, Chest Abdomen and Pelvis with contrast, Abdomen and Pelvis without. TECHNIQUE: Multiple contiguous axial images were obtained through the neck, chest, abdomen, and pelvis after the uneventful bolus administration of intravenous contrast. Precontrast acquisitions through the abdomen and pelvis were performed. Sagittal and coronal reformations are then performed. Auto Exposure Controls were utilized during the CT exam to meet ALARA standards for radiation dose reduction. INDICATION: Non-Hodgkin's lymphoma. COMPARISON: Correlation is made with prior CT from 09/24/2020. CT NECK: Visualized intracranial structures are unremarkable. Posterior nasopharynx and oropharynx are unremarkable. Larynx is unremarkable. No thyroid mass is detected. Submandibular and parotid glands are unremarkable. No cervical lymphadenopathy is identified. No fluid collections are identified. IMPRESSION: Stable CT soft tissue neck study. No lymphadenopathy is detected. CT CHEST: A right chest wall port has the tip at the SVC right atrial junction. No axillary lymphadenopathy is identified on today's study. No mediastinal or hilar lymphadenopathy is seen. There are some calcified lymph nodes in the mediastinum and right hilum. No pericardial or pleural fluid is identified. A pulmonary parenchymal evaluation shows no definite noncalcified nodules. No masses are seen. IMPRESSION: Stable CT of the chest. No thoracic lymphadenopathy is detected. CT ABDOMEN AND PELVIS: Previously noted low-density lesion in the anterior aspect of the dome of the liver at the junction of right and left lobes is barely visible on today's study. No new liver mass is identified. Gallbladder contains multiple stones. There is no biliary ductal dilatation. The pancreas and spleen are unremarkable. No adrenal mass is detected. Kidneys are unremarkable. Aorta is heavily calcified but nonaneurysmal. The retroperitoneum continues to show improvement. Ashok mass along the left periaortic region at the level of the lower pole left kidney continues to show decrease in size measuring approximately 2.3 x 1.6 cm compared with 2.7 x 1.5 cm on prior exam. No inguinal lymphadenopathy is seen. The soft tissue density along the left pelvic sidewall at the level of the acetabulum does show decrease in size. This is difficult to measure but definitely is decreased. No definite right-sided pelvic sidewall lymphadenopathy is identified. The bowel loops are normal caliber. There is no ascites. IMPRESSION: 1. Improvement in abdominal and pelvic lymphadenopathy when compared to the exam from 09/24/2020. No new abnormalities detected. Liver lesion is also decreased in size. 2. Cholelithiasis. Dictated by: Dictated on workstation # [id number]
== END ==
LOC: RAD 13:15
PROVIDERS: ATTEND Internal Medicine Hematology & Oncology
DX: C85.90 Non-Hodgkin lymphoma, unspecified, unspecified site (principal); K80.20 Calculus of gallbladder without cholecystitis without obstruction
CPT/HCPCS: 70491; 71260; 74178

== ENCOUNTER 2020-12-26 09:54 | Outpatient (RCR) | payer MEDICARE, OTHER ==
[2020-10-18 10:46] LABS: BASOPHILS % (AUTO) 1 % (0-10); EOSINOPHILS # (AUTO) 0.2 10^3/uL (0.0-0.3); EOSINOPHILS % (AUTO) 3 % (0-10); HEMATOCRIT 36 % (35-52); HEMOGLOBIN 11.8 g/dL (11.5-16.0); LYMPHOCYTES # (AUTO) 0.3 10^3/uL (1.0-4.0); LYMPHOCYTES % (AUTO) 4 % (12-44); MEAN CORPUSCULAR HEMOGLOBIN 32 pg (25-34); MEAN CORPUSCULAR HGB CONC 33 g/dL (32-36); MEAN CORPUSCULAR VOLUME 96 fL (80-99); MONOCYTES # (AUTO) 0.7 10^3/uL (0.0-1.0); MONOCYTES % (AUTO) 10 % (0-12); NEUTROPHILS % (AUTO) 82 % (42-75); PLATELET COUNT 234 10^3/uL (130-400); WHITE BLOOD COUNT 7.3 10^3/uL (4.3-11.0)
[2020-10-18 11:03] LABS: BUN/CREATININE RATIO 11; CALCIUM 8.6 MG/DL (8.5-10.1); CARBON DIOXIDE 26 MMOL/L (21-32); CHLORIDE 101 MMOL/L (98-107); CREATININE SERUM 0.81 MG/DL (0.60-1.30); GFR ESTIMATED > 60; GLUCOSE 91 MG/DL (70-105); MAGNESIUM 2.1 MG/DL (1.6-2.4); POTASSIUM 3.7 MMOL/L (3.6-5.0); SODIUM 136 MMOL/L (135-145)
[2020-10-24 10:50] LABS: BASOPHILS # (AUTO) 0.1 10^3/uL (0.0-0.1); BASOPHILS % (AUTO) 1 % (0-10); EOSINOPHILS # (AUTO) 0.1 10^3/uL (0.0-0.3); EOSINOPHILS % (AUTO) 2 % (0-10); HEMATOCRIT 36 % (35-52); HEMOGLOBIN 11.8 g/dL (11.5-16.0); LYMPHOCYTES # (AUTO) 0.3 10^3/uL (1.0-4.0); LYMPHOCYTES % (AUTO) 4 % (12-44); MEAN CORPUSCULAR HEMOGLOBIN 31 pg (25-34); MEAN CORPUSCULAR HGB CONC 32 g/dL (32-36); MEAN CORPUSCULAR VOLUME 95 fL (80-99); MEAN PLATELET VOLUME 9.7 fL (9.0-12.2); MONOCYTES # (AUTO) 0.7 10^3/uL (0.0-1.0); MONOCYTES % (AUTO) 10 % (0-12); NEUTROPHILS # (AUTO) 5.4 10^3/uL (1.8-7.8); NEUTROPHILS % (AUTO) 82 % (42-75); PLATELET COUNT 177 10^3/uL (130-400); WHITE BLOOD COUNT 6.5 10^3/uL (4.3-11.0)
[2020-10-24 11:17] LABS: ALANINE AMINOTRANSFERASE 12 U/L (0-55); ALBUMIN 3.9 GM/DL (3.2-4.5); ALKALINE PHOSPHATASE 112 U/L (40-136); BILIRUBIN,TOTAL 0.4 MG/DL (0.1-1.0); BUN/CREATININE RATIO 10; CALCIUM 9.4 MG/DL (8.5-10.1); CARBON DIOXIDE 27 MMOL/L (21-32); CHLORIDE 101 MMOL/L (98-107); CREATININE SERUM 0.86 MG/DL (0.60-1.30); GFR ESTIMATED > 60; GLUCOSE 111 MG/DL (70-105); SODIUM 137 MMOL/L (135-145); TOTAL PROTEIN 6.9 GM/DL (6.4-8.2)
[2020-10-31 14:48] LABS: BASOPHILS % (AUTO) 1 % (0-10); EOSINOPHILS # (AUTO) 0.2 10^3/uL (0.0-0.3); EOSINOPHILS % (AUTO) 2 % (0-10); HEMATOCRIT 34 % (35-52); HEMOGLOBIN 11.3 g/dL (11.5-16.0); LYMPHOCYTES # (AUTO) 0.1 X 10^3 (1.0-4.0); LYMPHOCYTES % (AUTO) 2 % (12-44); MEAN CORPUSCULAR HEMOGLOBIN 32 pg (25-34); MEAN CORPUSCULAR HGB CONC 33 g/dL (32-36); MEAN CORPUSCULAR VOLUME 95 fL (80-99); MEAN PLATELET VOLUME 9.5 fL (9.0-12.2); MONOCYTES # (AUTO) 0.5 X 10^3 (0.0-1.0); MONOCYTES % (AUTO) 7 % (0-12); NEUTROPHILS # (AUTO) 6.4 X 10^3 (1.8-7.8); NEUTROPHILS % (AUTO) 88 % (42-75); PLATELET COUNT 225 10^3/uL (130-400); WHITE BLOOD COUNT 7.3 10^3/uL (4.3-11.0)
[2020-10-31 15:07] LABS: CHLORIDE 98 MMOL/L (98-107); POTASSIUM 3.5 MMOL/L (3.6-5.0); SODIUM 137 MMOL/L (135-145)
[2020-10-31 15:08] LABS: CALCIUM 8.6 MG/DL (8.5-10.1)
[2020-10-31 15:09] LABS: GLUCOSE 124 MG/DL (70-105)
[2020-10-31 15:10] LABS: CARBON DIOXIDE 29 MMOL/L (21-32)
[2020-10-31 15:13] LABS: CREATININE SERUM 0.86 MG/DL (0.60-1.30); GFR ESTIMATED > 60
[2020-10-31 15:14] LABS: BUN/CREATININE RATIO 12
[2020-10-31 15:15] LABS: MAGNESIUM 1.9 MG/DL (1.6-2.4)
[2020-11-07 10:33] LABS: BASOPHILS % (AUTO) 1 % (0-10); EOSINOPHILS # (AUTO) 0.1 10^3/uL (0.0-0.3); EOSINOPHILS % (AUTO) 2 % (0-10); HEMATOCRIT 37 % (35-52); LYMPHOCYTES # (AUTO) 0.2 10^3/uL (1.0-4.0); LYMPHOCYTES % (AUTO) 3 % (12-44); MEAN CORPUSCULAR HEMOGLOBIN 31 pg (25-34); MEAN CORPUSCULAR HGB CONC 32 g/dL (32-36); MEAN CORPUSCULAR VOLUME 96 fL (80-99); MEAN PLATELET VOLUME 9.3 fL (9.0-12.2); MONOCYTES # (AUTO) 0.6 10^3/uL (0.0-1.0); MONOCYTES % (AUTO) 10 % (0-12); NEUTROPHILS # (AUTO) 4.8 10^3/uL (1.8-7.8); NEUTROPHILS % (AUTO) 83 % (42-75); PLATELET COUNT 205 10^3/uL (130-400); WHITE BLOOD COUNT 5.8 10^3/uL (4.3-11.0)
[2020-11-07 10:50] LABS: BUN/CREATININE RATIO 11; CALCIUM 9.1 MG/DL (8.5-10.1); CARBON DIOXIDE 25 MMOL/L (21-32); CHLORIDE 101 MMOL/L (98-107); CREATININE SERUM 0.84 MG/DL (0.60-1.30); GFR ESTIMATED > 60; GLUCOSE 89 MG/DL (70-105); POTASSIUM 3.8 MMOL/L (3.6-5.0); SODIUM 137 MMOL/L (135-145)
[2020-11-14 10:22] LABS: BASOPHILS # (AUTO) 0.1 10^3/uL (0.0-0.1); BASOPHILS % (AUTO) 1 % (0-10); EOSINOPHILS # (AUTO) 0.1 10^3/uL (0.0-0.3); EOSINOPHILS % (AUTO) 2 % (0-10); HEMATOCRIT 38 % (35-52); HEMOGLOBIN 12.5 g/dL (11.5-16.0); LYMPHOCYTES # (AUTO) 0.3 10^3/uL (1.0-4.0); LYMPHOCYTES % (AUTO) 5 % (12-44); MEAN CORPUSCULAR HEMOGLOBIN 32 pg (25-34); MEAN CORPUSCULAR HGB CONC 33 g/dL (32-36); MEAN CORPUSCULAR VOLUME 96 fL (80-99); MEAN PLATELET VOLUME 9.5 fL (9.0-12.2); MONOCYTES # (AUTO) 0.6 10^3/uL (0.0-1.0); MONOCYTES % (AUTO) 11 % (0-12); NEUTROPHILS # (AUTO) 4.3 10^3/uL (1.8-7.8); NEUTROPHILS % (AUTO) 80 % (42-75); PLATELET COUNT 210 10^3/uL (130-400); WHITE BLOOD COUNT 5.4 10^3/uL (4.3-11.0)
[2020-11-14 10:46] LABS: BUN/CREATININE RATIO 14; CALCIUM 9.2 MG/DL (8.5-10.1); CARBON DIOXIDE 26 MMOL/L (21-32); CHLORIDE 103 MMOL/L (98-107); GFR ESTIMATED > 60; GLUCOSE 105 MG/DL (70-105); MAGNESIUM 2.2 MG/DL (1.6-2.4); POTASSIUM 4.1 MMOL/L (3.6-5.0); SODIUM 139 MMOL/L (135-145)
[2020-11-22 09:24] LABS: BASOPHILS # (AUTO) 0.1 10^3/uL (0.0-0.1); BASOPHILS % (AUTO) 1 % (0-10); EOSINOPHILS # (AUTO) 0.2 10^3/uL (0.0-0.3); EOSINOPHILS % (AUTO) 3 % (0-10); HEMATOCRIT 37 % (35-52); HEMOGLOBIN 12.3 g/dL (11.5-16.0); LYMPHOCYTES # (AUTO) 0.3 10^3/uL (1.0-4.0); LYMPHOCYTES % (AUTO) 5 % (12-44); MEAN CORPUSCULAR HEMOGLOBIN 31 pg (25-34); MEAN CORPUSCULAR HGB CONC 33 g/dL (32-36); MEAN CORPUSCULAR VOLUME 94 fL (80-99); MEAN PLATELET VOLUME 9.5 fL (9.0-12.2); MONOCYTES # (AUTO) 0.6 10^3/uL (0.0-1.0); MONOCYTES % (AUTO) 10 % (0-12); NEUTROPHILS # (AUTO) 5.1 10^3/uL (1.8-7.8); NEUTROPHILS % (AUTO) 81 % (42-75); PLATELET COUNT 185 10^3/uL (130-400); WHITE BLOOD COUNT 6.3 10^3/uL (4.3-11.0)
[2020-11-22 09:45] LABS: ALANINE AMINOTRANSFERASE 7 U/L (0-55); ALBUMIN 3.9 GM/DL (3.2-4.5); ALKALINE PHOSPHATASE 87 U/L (40-136); BILIRUBIN,TOTAL 0.3 MG/DL (0.1-1.0); BUN/CREATININE RATIO 14; CARBON DIOXIDE 24 MMOL/L (21-32); CHLORIDE 104 MMOL/L (98-107); CREATININE SERUM 0.87 MG/DL (0.60-1.30); GFR ESTIMATED > 60; GLUCOSE 104 MG/DL (70-105); POTASSIUM 3.9 MMOL/L (3.6-5.0); SODIUM 138 MMOL/L (135-145); TOTAL PROTEIN 6.7 GM/DL (6.4-8.2)
[2020-11-29 12:19] LABS: BASOPHILS % (AUTO) 0 % (0-10); EOSINOPHILS # (AUTO) 0.1 10^3/uL (0.0-0.3); EOSINOPHILS % (AUTO) 2 % (0-10); HEMATOCRIT 34 % (35-52); HEMOGLOBIN 11.4 g/dL (11.5-16.0); LYMPHOCYTES # (AUTO) 0.1 10^3/uL (1.0-4.0); LYMPHOCYTES % (AUTO) 2 % (12-44); MEAN CORPUSCULAR HEMOGLOBIN 31 pg (25-34); MEAN CORPUSCULAR HGB CONC 33 g/dL (32-36); MEAN CORPUSCULAR VOLUME 95 fL (80-99); MEAN PLATELET VOLUME 9.6 fL (9.0-12.2); MONOCYTES # (AUTO) 0.5 10^3/uL (0.0-1.0); MONOCYTES % (AUTO) 7 % (0-12); NEUTROPHILS # (AUTO) 5.9 10^3/uL (1.8-7.8); NEUTROPHILS % (AUTO) 88 % (42-75); PLATELET COUNT 158 10^3/uL (130-400); WHITE BLOOD COUNT 6.7 10^3/uL (4.3-11.0)
[2020-11-29 12:40] LABS: BUN/CREATININE RATIO 14; CALCIUM 8.7 MG/DL (8.5-10.1); CARBON DIOXIDE 28 MMOL/L (21-32); CHLORIDE 101 MMOL/L (98-107); CREATININE SERUM 0.91 MG/DL (0.60-1.30); GFR ESTIMATED > 60; GLUCOSE 89 MG/DL (70-105); POTASSIUM 3.8 MMOL/L (3.6-5.0); SODIUM 137 MMOL/L (135-145)
[2020-12-06 13:54] LABS: BASOPHILS # (AUTO) 0.1 10^3/uL (0.0-0.1); BASOPHILS % (AUTO) 1 % (0-10); EOSINOPHILS # (AUTO) 0.2 10^3/uL (0.0-0.3); EOSINOPHILS % (AUTO) 2 % (0-10); HEMATOCRIT 36 % (35-52); HEMOGLOBIN 11.9 g/dL (11.5-16.0); LYMPHOCYTES # (AUTO) 0.3 10^3/uL (1.0-4.0); LYMPHOCYTES % (AUTO) 4 % (12-44); MEAN CORPUSCULAR HEMOGLOBIN 31 pg (25-34); MEAN CORPUSCULAR HGB CONC 33 g/dL (32-36); MEAN CORPUSCULAR VOLUME 94 fL (80-99); MEAN PLATELET VOLUME 9.7 fL (9.0-12.2); MONOCYTES # (AUTO) 0.8 10^3/uL (0.0-1.0); MONOCYTES % (AUTO) 12 % (0-12); NEUTROPHILS # (AUTO) 5.3 10^3/uL (1.8-7.8); NEUTROPHILS % (AUTO) 80 % (42-75); PLATELET COUNT 211 10^3/uL (130-400); WHITE BLOOD COUNT 6.6 10^3/uL (4.3-11.0)
[2020-12-06 14:11] LABS: CALCIUM 8.9 MG/DL (8.5-10.1); CREATININE SERUM 0.96 MG/DL (0.60-1.30); POTASSIUM 4.3 MMOL/L (3.6-5.0)
[2020-12-13 10:35] LABS: BASOPHILS # (AUTO) 0.1 10^3/uL (0.0-0.1); BASOPHILS % (AUTO) 1 % (0-10); EOSINOPHILS # (AUTO) 0.1 10^3/uL (0.0-0.3); EOSINOPHILS % (AUTO) 3 % (0-10); HEMATOCRIT 36 % (35-52); HEMOGLOBIN 11.9 g/dL (11.5-16.0); LYMPHOCYTES # (AUTO) 0.2 10^3/uL (1.0-4.0); LYMPHOCYTES % (AUTO) 5 % (12-44); MEAN CORPUSCULAR HEMOGLOBIN 31 pg (25-34); MEAN CORPUSCULAR HGB CONC 33 g/dL (32-36); MEAN CORPUSCULAR VOLUME 95 fL (80-99); MEAN PLATELET VOLUME 9.1 fL (9.0-12.2); MONOCYTES # (AUTO) 0.5 10^3/uL (0.0-1.0); MONOCYTES % (AUTO) 10 % (0-12); NEUTROPHILS # (AUTO) 3.9 10^3/uL (1.8-7.8); NEUTROPHILS % (AUTO) 82 % (42-75); PLATELET COUNT 205 10^3/uL (130-400); WHITE BLOOD COUNT 4.8 10^3/uL (4.3-11.0)
[2020-12-13 10:52] LABS: CREATININE SERUM 0.96 MG/DL (0.60-1.30); POTASSIUM 4.2 MMOL/L (3.6-5.0)
[2020-12-20 09:42] LABS: BASOPHILS % (AUTO) 1 % (0-10); EOSINOPHILS # (AUTO) 0.2 10^3/uL (0.0-0.3); EOSINOPHILS % (AUTO) 3 % (0-10); HEMATOCRIT 37 % (35-52); HEMOGLOBIN 12.4 g/dL (11.5-16.0); LYMPHOCYTES # (AUTO) 0.3 10^3/uL (1.0-4.0); LYMPHOCYTES % (AUTO) 6 % (12-44); MEAN CORPUSCULAR HEMOGLOBIN 31 pg (25-34); MEAN CORPUSCULAR HGB CONC 33 g/dL (32-36); MEAN CORPUSCULAR VOLUME 94 fL (80-99); MEAN PLATELET VOLUME 9.6 fL (9.0-12.2); MONOCYTES # (AUTO) 0.6 10^3/uL (0.0-1.0); MONOCYTES % (AUTO) 11 % (0-12); NEUTROPHILS # (AUTO) 4.2 10^3/uL (1.8-7.8); NEUTROPHILS % (AUTO) 79 % (42-75); PLATELET COUNT 166 10^3/uL (130-400); WHITE BLOOD COUNT 5.3 10^3/uL (4.3-11.0)
[2020-12-20 09:59] LABS: CREATININE SERUM 0.96 MG/DL (0.60-1.30); POTASSIUM 4.2 MMOL/L (3.6-5.0)
[~2020-12-26] VITALS: Ht 158.8 cm; Wt 62.1 kg
[~2020-12-26 09:54] MED LIST changes: +ACETAMINOPHEN 325 MG TAB (TYLENOL) CANCER CTR PO PRN; +BENDAMUSTINE HCL IV SCH; -CATHETER FLUSH 10 ML SYR IV PRN; +CENTER ONLY IV SCH; -HOLD METFORMIN - RECEIVED CONTRAST 20 ML VIAL IV SCH; -IOHEXOL 350 MG/ML 100 ML (OMNIPAQUE 350) VIAL IV ONE; -NS 100 ML (IVPB) BAG IV ONE; +NS IV 1000 ML (CANCER CTR) IV SCH; +NS IV SCH; +RITUXIMAB ABBS IV SCH; +diphenhydrAMINE 25 MG TAB (BENADRYL) CANCER CENTER PO SCH
[2020-12-26 10:10] LABS: BASOPHILS % (AUTO) 1 % (0-10); EOSINOPHILS # (AUTO) 0.1 10^3/uL (0.0-0.3); EOSINOPHILS % (AUTO) 2 % (0-10); HEMATOCRIT 38 % (35-52); HEMOGLOBIN 12.6 g/dL (11.5-16.0); LYMPHOCYTES # (AUTO) 0.2 10^3/uL (1.0-4.0); LYMPHOCYTES % (AUTO) 4 % (12-44); MEAN CORPUSCULAR HEMOGLOBIN 31 pg (25-34); MEAN CORPUSCULAR HGB CONC 33 g/dL (32-36); MEAN CORPUSCULAR VOLUME 94 fL (80-99); MEAN PLATELET VOLUME 9.5 fL (9.0-12.2); MONOCYTES # (AUTO) 0.4 10^3/uL (0.0-1.0); MONOCYTES % (AUTO) 7 % (0-12); NEUTROPHILS # (AUTO) 5.2 10^3/uL (1.8-7.8); NEUTROPHILS % (AUTO) 86 % (42-75); PLATELET COUNT 182 10^3/uL (130-400)
[2020-12-26 10:28] LABS: ALANINE AMINOTRANSFERASE 11 U/L (0-55); ALBUMIN 4.1 GM/DL (3.2-4.5); ALKALINE PHOSPHATASE 89 U/L (40-136); BILIRUBIN,TOTAL 0.4 MG/DL (0.1-1.0); BUN/CREATININE RATIO 13; CALCIUM 9.1 MG/DL (8.5-10.1); CARBON DIOXIDE 23 MMOL/L (21-32); CHLORIDE 105 MMOL/L (98-107); CREATININE SERUM 0.88 MG/DL (0.60-1.30); GFR ESTIMATED > 60; GLUCOSE 145 MG/DL (70-105); POTASSIUM 3.8 MMOL/L (3.6-5.0); SODIUM 139 MMOL/L (135-145)
[2021-01-07] MEDS ORDERED: ACETAMINOPHEN 500 MG TAB (TYLENOL) CANCER CTR PO PRN (11:30)
[2021-01-07] MEDS ORDERED: NS IV SCH (11:30)
[2021-01-07] MEDS ORDERED: CENTER ONLY IV SCH (11:30)
[2021-01-07] MEDS ORDERED: RITUXIMAB ABBS IV SCH (11:30)
== END 2021-01-16 | disposition home or self-care (01) ==
LOC: ONC 09:54
PROVIDERS: ATTEND Internal Medicine Hematology & Oncology
DX: C82.30 Follicular lymphoma grade IIIa, unspecified site (principal); Z88.0 Allergy status to penicillin; Z88.2 Allergy status to sulfonamides; Z79.899 Other long term (current) drug therapy
CPT/HCPCS: 36591; 80048; 80053; 83615; 83735; 85025; 96375; 96409; 96411; 96413

== ENCOUNTER → 2021-01-15 | Outpatient (CLI) | payer MEDICARE, OTHER ==
[~2021-01-15] MED LIST changes: -ACETAMINOPHEN 325 MG TAB (TYLENOL) CANCER CTR PO PRN; -BENDAMUSTINE HCL IV SCH; -CENTER ONLY IV SCH; -NS IV 1000 ML (CANCER CTR) IV SCH; -NS IV SCH; -RITUXIMAB ABBS IV SCH; -diphenhydrAMINE 25 MG TAB (BENADRYL) CANCER CENTER PO SCH
--- NOTE | 2021-01-15 11:42 | Diagnostic Imaging Report ---
INDICATION: Postmenopausal state. COMPARISON: None available. FINDINGS: AP Spine L1-L4: [BMD (g/cm2): 0.946] [T-Score: -2.1] [Z-Score: -0.3] [BMD Previous: NA] [BMD % Change: NA] LT Hip Neck: [BMD (g/cm2): 0.539] [T-Score: -3.6] [Z-Score: -1.7] LT Hip Total: [BMD (g/cm2):0.571] [T-Score:-3.5] [Z-Score: -1.8] [BMD Previous: NA] [BMD % Change: NA] RT Hip Neck: [BMD (g/cm2):NA] [T-Score:NA] [Z-Score:NA] RT Hip Total: [BMD (g/cm2):NA] [T-score:NA] [Z-Score:NA] [BMD Previous:NA] [BMD % Change:NA] *Indicates significant change from prior examination based on 95% confidence level. World Health Organization criteria for BMD interpretation classify patients as Normal (T-score at or above -1.0), Osteopenic (T-score between -1.0 and -2.5) or Osteoporotic (T-score at or below -2.5). LIMITATIONS AND MODIFICATION: The right hip was not evaluated secondary to postsurgical changes. FRACTURE RISK (FRAX SCORE): The ten year probability of (%): Major Osteoporotic Fracture: [44.0] Hip Fracture: [27.8] IMPRESSION: 1. Osteoporosis. 2. Baseline examination. 3. See below National Osteoporosis Foundation guidelines on when to potentially initiate pharmacologic therapy. Based on the National Osteoporosis Foundation Guidelines, pharmacologic treatment should be initiated in any of the following, unless clinical conditions suggest otherwise: * Any patient with prior fragility fracture of the hip or vertebrae. A spine fracture indicates 5X risk for subsequent spine fracture and 2X risk for subsequent hip fracture. * Osteoporosis (T-score <-2.5). * Postmenopausal women and men age 50 and older with low bone mass/osteopenia (T-score between -1.0 and -2.5) by DXA and 10-year major osteoporotic fracture greater than 20% or a 10-year probability of hip fracture greater than 3%. These fracture risks are supplied above in the FRAX score, if applicable. * Clinician judgement and/or patient preferences may indicate treatment for people with 10-year fracture probabilities above or below these levels. Dictated by: Dictated on workstation # [id number]
== END ==
LOC: RAD 08:45
PROVIDERS: ATTEND Internal Medicine Hematology & Oncology
DX: M81.0 Age-related osteoporosis without current pathological fracture (principal); Z78.0 Asymptomatic menopausal state; Z87.81 Personal history of (healed) traumatic fracture
CPT/HCPCS: 77080

== ENCOUNTER → 2021-02-26 | Outpatient (CLI) | payer MEDICARE ==
[~2021-02-26] VITALS: Ht 157.5 cm; Wt 59.0 kg
[~2021-02-26] MED LIST changes: +CALC600T91 PO; +CHEMOTHERAPY; +ERGO2500 PO; +[UNRECOGNIZED DRUG - OTHER]
== END | disposition home or self-care (01) ==
LOC: PREOP 05:39
PROVIDERS: ATTEND Surgery
DX: Z01.818 Encounter for other preprocedural examination (principal)

== ENCOUNTER 2021-03-07 05:37 | Outpatient (CLI) | payer MEDICARE ==
[~2021-03-07] VITALS: Ht 157.5 cm; Wt 60.0 kg
== END 2021-03-07 16:38 | disposition home or self-care (01) ==
LOC: PREOP 05:37
PROVIDERS: ATTEND Surgery
DX: Z01.818 Encounter for other preprocedural examination (principal)

== ENCOUNTER 2021-03-12 11:24 | Day surgery (SDC) | payer MEDICARE ==
[~2021-03-12] VITALS: Ht 157.5 cm; Wt 60.0 kg
[~2021-03-12 11:24] MED LIST changes: +LACTATED RINGERS 1,000 ML IV ONE
[2021-03-12] MEDS ORDERED: LACTATED RINGERS 1,000 ML IV STA (11:28)
[2021-03-12 11:55] VITALS: BP 122/80
[2021-03-12] MEDS ORDERED: PROPOFOL INJECTION 50 ML IV ONE (13:43)
--- NOTE | 2021-03-12 14:16 | Progress Note-Post Operative ---
Post-Operative Progess Note Surgeon (s)/Sewer And Drain Technician (s) Surgeon ENRIQUE ROCHA DO Sewer And Drain Technician: na Pre-Operative Diagnosis change in bowel habits Post-Operative Diagnosis normal colon Procedure & Operative Findings Date of Procedure 03/12/21 Procedure Performed/Findings colonoscopy Anesthesia Type per music assistant Estimated Blood Loss Estimated blood loss (mL): none Specimens/Packing Specimens Removed none ENRIQUE ROCHA DO Mar 12, 2021 14:16
--- NOTE | 2021-03-12 14:17 | Discharge Inst-Simple/Standard ---
Discharge Inst-Standard Patient Instructions/Follow Up Plan of Care/Instructions/FU: Repeat colonoscopy on as needed basis. Activity as Tolerated: Yes Discharge Diet: Regular Diet ENRIQUE ROCHA DO Mar 12, 2021 14:17
[2021-03-12 14:20] VITALS: BP 91/52
[2021-03-12 14:25] VITALS: BP_SYST 88; BP_SYST 89; BP_DIAS 46; BP_DIAS 49
--- NOTE | 2021-03-12 14:27 | Anesthesia-General Post-Op ---
MAC Patient Condition Mental Status/LOC: Same as Preop Cardiovascular: Satisfactory Nausea/Vomiting: Absent Respiratory: Satisfactory Pain: Controlled Complications: Absent Post Op Complications Complications None Follow Up Care/Instructions Patient Instructions None needed. Anesthesiology Discharge Order Discharge Order Patient is doing well, no complaints, stable vital signs, no apparent adverse anesthesia problems. No complications reported per nursing. RUSS WOLFE CRNA Mar 12, 2021 14:27
[2021-03-12 14:45] VITALS: BP 118/54
--- NOTE | 2021-03-12 15:50 | OPERATIVE REPORT ---
DATE OF SERVICE: 03/12/2021 PREOPERATIVE DIAGNOSIS: Change in bowel habits. POSTOPERATIVE DIAGNOSIS: Normal colon. PROCEDURE: Colonoscopy. SURGEON: Enrique Buchanan DO ANESTHESIA: Per RADIOGRAPHIC TECHNOLOGIST. ESTIMATED BLOOD LOSS: None. COMPLICATIONS: None. INDICATIONS: The patient is a 75-year-old female with change in bowel habits. She has been recommended colonoscopy for further evaluation. She understands risks and benefits and wishes to proceed. Consent was signed in the chart. DESCRIPTION OF PROCEDURE: The patient was taken to the endoscopy suite, placed in left lateral recumbent position. Timeout was performed. Digital rectal exam was performed. No palpable polyps, masses or ulcerations. Scope was inserted in the rectum, advanced all the way to the cecum without difficulty. There were no polyps, masses or ulcerations. Scope was then slowly retracted back noting with prep adequate. No polyps, masses or ulcerations in the cecum, ascending, transverse, descending and sigmoid colon. Once in the rectum, scope was retroflexed noting no other pathology. Scope was returned to its normal position, slowly withdrawn until completely removed. The patient tolerated procedure well without any complications. She was taken to recovery room in stable condition. RECOMMENDATIONS: The patient will need repeat colonoscopy on as needed basis. If any changes will be seen at that time. Job ID: [id number] DocumentID: [id number] Dictated Date: 03/12/2021 14:19:30 Manager Fixed Income Date: 03/12/2021 15:49:26 Dictated By: ENRIQUE BUCHANAN DO
[2021-03-14] MEDS ORDERED: DOCU-143 PO (09:30)
[2021-03-14] MEDS ORDERED: ACHD5005 PO (09:30)
== END 2021-03-12 14:47 | disposition home or self-care (01) ==
LOC: ENDO 11:24
PROVIDERS: ATTEND Surgery
DX: R19.4 Change in bowel habit (principal); K43.2 Incisional hernia without obstruction or gangrene; R03.0 Elevated blood-pressure reading, without diagnosis of hypertension; F17.210 Nicotine dependence, cigarettes, uncomplicated; Z79.899 Other long term (current) drug therapy; Z85.72 Personal history of non-Hodgkin lymphomas; Z88.0 Allergy status to penicillin; Z88.2 Allergy status to sulfonamides; Z79.891 Long term (current) use of opiate analgesic; Z90.49 Acquired absence of other specified parts of digestive tract

== ENCOUNTER 2021-03-14 05:58 | Day surgery (SDC) | payer MEDICARE ==
[~2021-03-14] VITALS: Ht 157 cm; Wt 60.0 kg
[2021-03-14] VITALS (11 sets, daily range): BP systolic 121–153; BP diastolic 45–74
[~2021-03-14 05:58] MED LIST changes: -LACTATED RINGERS 1,000 ML IV ONE
[2021-03-14] MEDS ORDERED: WATER (STERILE) FOR INJECTION 10 ML ONE (06:41)
[2021-03-14] MEDS ORDERED: ceFAZolin INJECTION 1,000 MG ONE (06:41)
[2021-03-14] MEDS: LACTATED RINGERS 1,000 ML IV PRN ×2 (07:04→09:12)
[2021-03-14 07:11] LABS: BASOPHILS % (AUTO) 1 % (0-10); EOSINOPHILS # (AUTO) 0.1 10^3/uL (0.0-0.3); EOSINOPHILS % (AUTO) 3 % (0-10); HEMATOCRIT 38 % (35-52); HEMOGLOBIN 12.5 g/dL (11.5-16.0); LYMPHOCYTES # (AUTO) 0.3 10^3/uL (1.0-4.0); LYMPHOCYTES % (AUTO) 5 % (12-44); MEAN CORPUSCULAR HEMOGLOBIN 32 pg (25-34); MEAN CORPUSCULAR HGB CONC 33 g/dL (32-36); MEAN CORPUSCULAR VOLUME 96 fL (80-99); MEAN PLATELET VOLUME 9.1 fL (9.0-12.2); MONOCYTES # (AUTO) 0.5 10^3/uL (0.0-1.0); MONOCYTES % (AUTO) 9 % (0-12); NEUTROPHILS # (AUTO) 4.2 10^3/uL (1.8-7.8); NEUTROPHILS % (AUTO) 82 % (42-75); PLATELET COUNT 180 10^3/uL (130-400); WHITE BLOOD COUNT 5.1 10^3/uL (4.3-11.0)
[2021-03-14] MEDS ORDERED: LIDOCAINE PF 2% 5 ML (XYLOCAINE) VIAL ONE (07:12)
[2021-03-14] MEDS ORDERED: fentaNYL INJ 100 MCG/2 ML AMP ONE (07:12)
[2021-03-14] MEDS ORDERED: proPOfol 200 MG/20 ML (DIPRIVAN) VIAL IV ONE (07:12)
[2021-03-14] MEDS ORDERED: ONDANSETRON 4 MG/2 ML (SDV) Z0FRAN ONE (07:12)
[2021-03-14] MEDS ORDERED: ROCURONIUM 10 MG/ML 5 ML SYRINGE IV ONE (07:12)
[2021-03-14] MEDS ORDERED: MIDAZOLAM 2 MG/2 ML (VERSED) VIAL ONE (07:12)
[2021-03-14 07:39] LABS: BAND NEUTROPHILS 0 %; LYMPHOCYTES % (MANUAL) 6 %; NEUTROPHILS % (MANUAL) 81 %
[2021-03-14 07:40] LABS: BASOPHILS % (MANUAL) 1 %; EOSINOPHILS % (MANUAL) 5 %; MONOCYTES % (MANUAL) 7 %; RBC MORPH NORMAL
[2021-03-14] MEDS ORDERED: LIDOCAINE/EPI 1%-1:100,000 (XYLOCAINE) 20ML ONE (08:03)
[2021-03-14] MEDS ORDERED: SEVOFLURANE (ULTANE) 15 ML INHAL SOLN ONE (09:22)
[2021-03-14] MEDS ORDERED: PHENYLEPHRINE 100 MCG/ML 10 ML (ANESTHESIA) SYR ONE (09:22)
[2021-03-14] MEDS ORDERED: GLYCOPYRROLATE 0.2 MG/ML (ROBINUL) 2 ML VIAL ONE (09:24)
[2021-03-14] MEDS ORDERED: NEOSTIGMINE 3 MG/3 ML VIAL ONE (09:24)
[2021-03-14] MEDS ORDERED: ACHD5005 PO (09:30)
[2021-03-14] MEDS ORDERED: DOCU-143 PO (09:30)
--- NOTE | 2021-03-14 09:33 | Discharge Inst-Simple/Standard ---
Discharge Inst-Standard Discharge Medications New, Converted or Re-Newed RX: Transmitted to Pharmacy Patient Instructions/Follow Up Plan of Care/Instructions/FU: 2-3 weeks [place] Activity as Tolerated: No Discharge Diet: Regular Diet Other Inst to Patient Follow up Appt: Make appointment for 2-3 weeks. Instructions: No lifting greater than 10 pounds. No strenuous activity. May shower in 24 hours, no tub bath or soaking. Use incentive spirometer at home as directed. No Smoking Skin/Wound Care: You have special glue over your incision that will fall off on it's own. Symptoms to Report: Appetite Changes, Extremity Discoloration, Numbness/Tingling, Swelling Increa sed, Bleeding Excessive, Eyesight Changes, Pain Increased, Urine Color Change, Constipation(Persistent), Fever over 101 degree F, Pain/Pressure in chest, Urinating Difficulty, Cough Up/Vomit Blood, Heart Beat Irreg/Pounding, Pain/Pressure in jaw, Vaginal Bleeding Increase, Cramps in feet or legs, Lightheadedness, Pain/Pressure in shoulder, Diarrhea(Persistent), Memory Changes Suddenly, Questions/Concerns, Weight gain consecutive days, Dizziness/Fainting, Nausea/Vomiting, Shortness of Breath, Weight gain over 2 pounds If questions or concerns contact your physician Or seek help at emergency department. ENRIQUE ROCHA DO Mar 14, 2021 09:33
--- NOTE | 2021-03-14 09:38 | Progress Note-Post Operative ---
Post-Operative Progess Note Surgeon (s)/Ethical Hacker (s) Surgeon ENRIQUE ROCHA DO Ethical Hacker: Dr. Cabrera to assist in retraction dissection and closure. Pre-Operative Diagnosis incisional hernia Post-Operative Diagnosis incarcerated incisional hernia, diastasis Procedure & Operative Findings Date of Procedure 03/14/21 Procedure Performed/Findings PROCEDURE: Laparoscopic incarcerated incisional hernia, repair diastasis, repair with mesh. COMPLICATIONS: None. INDICATIONS: The patient is a 75, female with an incisional hernia, which has continued to increase in size and cause discomfort. The patient was explained the risk and benefits of the procedure and wished to proceed with the procedure. Consent was signed on the chart. DESCRIPTION OF PROCEDURE: The patient was taken into the operating suite, prepped and draped in sterile fashion. Surgical pause was performed. Local anesthetic was infiltrated in left upper quadrant. A 15 blade scalpel was used to make a small skin incision. Cautery was used to dissect down to the fascia, which was then scored and divided the muscle, went through the posterior sheath and a balloon trocar was inserted into the abdomen. The abdomen was then insufflated. Multiple adhesions, incarcerated incsional hernia and diastasis. A 5 mm trocar was placed in the right lower quadrant and a 5 mm trocar was placed in left lower quadrant. Ligasure and blunt dissection was used to take down all the adhesions. The defect was then closed using 0 Vicryl with a Ryan-Moraes, along with closing the diastasis with 0-vicryl through stab incsisions and Ryan-Moraes. Echo Ventralight mesh was then inserted in the abdomen grabbed through the stab incision. The balloon was inflated on the mesh. Circumferential tacks were placed with a SecureStrap Tacker. The balloon was then removed and inner crown was created as well. The mesh was tacked with pressure being decreased. The 12 mm fascial defect was then closed using 0 Vicryl. The abdomen was then desufflated,the trocars were removed. The skin was then closed using 4-0 Monocryl in a running subcuticular fashion. The abdomen was washed and dried and Skin Affix was placed over the incisions. The patient tolerated procedure well without any complications. She was taken to recovery room in stable condition. Anesthesia Type general Estimated Blood Loss Estimated blood loss (mL): minimal Specimens/Packing Specimens Removed ENRIQUE Shepherd DO Mar 14, 2021 09:38
[2021-03-14] MEDS ORDERED: morphine INJ 10 MG/ML 1ML (SYR OR VIAL) ONE (09:39)
--- NOTE | 2021-03-14 09:50 | Anesthesia-General Post-Op ---
General Patient Condition Mental Status/LOC: Same as Preop Cardiovascular: Satisfactory Nausea/Vomiting: Absent Respiratory: Satisfactory Pain: Controlled Complications: Absent Post Op Complications Complications None Follow Up Care/Instructions Patient Instructions None needed. Anesthesia/Patient Condition Patient Condition Patient is doing well, no complaints, stable vital signs, no apparent adverse anesthesia problems. No complications reported per nursing. RUSS WOLFE CRNA Mar 14, 2021 09:50
[2021-03-14] MEDS ORDERED: PROMETHAZINE INJ 25 MG/ML (PHENERGAN) AMP IVP ONE (10:00)
[2021-03-14] MEDS ORDERED: HYDROmorphone 2 MG/ML VIAL (DILAUDID) IV ONE (10:00)
[2021-03-14] MEDS ORDERED: MEPERIDINE (DEMEROL) INJ 50 MG/ML IVP ONE (10:00)
[2021-03-14] MEDS ORDERED: ONDANSETRON 4 MG/2 ML (SDV) Z0FRAN IVP PRN (10:00)
[2021-03-14] MEDS ORDERED: morphine INJ 10 MG/ML 1ML (SYR OR VIAL) IVP ONE (10:00)
[2021-03-14] MEDS ORDERED: HYDROcodone/APAP 5 MG/325 MG (LORTAB) TAB PO ONE (11:15)
== END 2021-03-14 12:00 ==
LOC: SDC 05:58
PROVIDERS: ATTEND Surgery
DX: K43.2 Incisional hernia without obstruction or gangrene (principal); M62.08 Separation of muscle (nontraumatic), other site; R19.4 Change in bowel habit; K66.0 Peritoneal adhesions (postprocedural) (postinfection); R03.0 Elevated blood-pressure reading, without diagnosis of hypertension; F17.210 Nicotine dependence, cigarettes, uncomplicated; Z90.49 Acquired absence of other specified parts of digestive tract; Z79.899 Other long term (current) drug therapy; Z88.1 Allergy status to other antibiotic agents; Z88.8 Allergy status to other drugs, medicaments and biological substances; Z79.891 Long term (current) use of opiate analgesic; Z85.72 Personal history of non-Hodgkin lymphomas
CPT/HCPCS: 49655; 85007; 85027; 87081; 94664; C1781; 36415

== ENCOUNTER 2021-03-27 10:57 | Outpatient (RCR) | payer MEDICARE, OTHER ==
[2021-01-23 09:48] LABS: BASOPHILS # (AUTO) 0.1 10^3/uL (0.0-0.1); BASOPHILS % (AUTO) 1 % (0-10); EOSINOPHILS # (AUTO) 0.1 10^3/uL (0.0-0.3); EOSINOPHILS % (AUTO) 2 % (0-10); HEMATOCRIT 38 % (35-52); HEMOGLOBIN 12.7 g/dL (11.5-16.0); LYMPHOCYTES # (AUTO) 0.3 10^3/uL (1.0-4.0); LYMPHOCYTES % (AUTO) 5 % (12-44); MEAN CORPUSCULAR HEMOGLOBIN 32 pg (25-34); MEAN CORPUSCULAR HGB CONC 34 g/dL (32-36); MEAN CORPUSCULAR VOLUME 94 fL (80-99); MEAN PLATELET VOLUME 9.6 fL (9.0-12.2); MONOCYTES # (AUTO) 0.4 10^3/uL (0.0-1.0); MONOCYTES % (AUTO) 8 % (0-12); NEUTROPHILS # (AUTO) 4.8 10^3/uL (1.8-7.8); NEUTROPHILS % (AUTO) 85 % (42-75); PLATELET COUNT 195 10^3/uL (130-400); WHITE BLOOD COUNT 5.6 10^3/uL (4.3-11.0)
[2021-01-23 10:06] LABS: ALANINE AMINOTRANSFERASE 10 U/L (0-55); ALBUMIN 4.2 GM/DL (3.2-4.5); ALKALINE PHOSPHATASE 99 U/L (40-136); BILIRUBIN,TOTAL 0.5 MG/DL (0.1-1.0); BUN/CREATININE RATIO 13; CALCIUM 9.1 MG/DL (8.5-10.1); CARBON DIOXIDE 25 MMOL/L (21-32); CHLORIDE 104 MMOL/L (98-107); CREATININE SERUM 0.87 MG/DL (0.60-1.30); GFR ESTIMATED > 60; GLUCOSE 109 MG/DL (70-105); POTASSIUM 3.7 MMOL/L (3.6-5.0); SODIUM 139 MMOL/L (135-145)
[~2021-03-27 10:57] MED LIST changes: +ACETAMINOPHEN 500 MG TAB (TYLENOL) CANCER CTR PO PRN; +CENTER ONLY IV SCH; +NS IV 1000 ML (CANCER CTR) IV SCH; +NS IV SCH; +RITUXIMAB ABBS IV SCH; +diphenhydrAMINE 25 MG TAB (BENADRYL) CANCER CENTER PO SCH
[2021-03-27 11:37] LABS: BASOPHILS % (AUTO) 1 % (0-10); EOSINOPHILS # (AUTO) 0.1 10^3/uL (0.0-0.3); EOSINOPHILS % (AUTO) 1 % (0-10); HEMATOCRIT 36 % (35-52); HEMOGLOBIN 12.1 g/dL (11.5-16.0); LYMPHOCYTES # (AUTO) 0.4 10^3/uL (1.0-4.0); LYMPHOCYTES % (AUTO) 5 % (12-44); MEAN CORPUSCULAR HEMOGLOBIN 32 pg (25-34); MEAN CORPUSCULAR HGB CONC 34 g/dL (32-36); MEAN CORPUSCULAR VOLUME 95 fL (80-99); MEAN PLATELET VOLUME 9.1 fL (9.0-12.2); MONOCYTES # (AUTO) 0.5 10^3/uL (0.0-1.0); MONOCYTES % (AUTO) 6 % (0-12); NEUTROPHILS # (AUTO) 6.6 10^3/uL (1.8-7.8); NEUTROPHILS % (AUTO) 87 % (42-75); PLATELET COUNT 315 10^3/uL (130-400); WHITE BLOOD COUNT 7.7 10^3/uL (4.3-11.0)
[2021-03-27 11:55] LABS: ALANINE AMINOTRANSFERASE 9 U/L (0-55); ALBUMIN 3.9 GM/DL (3.2-4.5); ALKALINE PHOSPHATASE 88 U/L (40-136); BILIRUBIN,TOTAL 0.3 MG/DL (0.1-1.0); BUN/CREATININE RATIO 12; CALCIUM 9.7 MG/DL (8.5-10.1); CARBON DIOXIDE 28 MMOL/L (21-32); CHLORIDE 100 MMOL/L (98-107); CREATININE SERUM 0.83 MG/DL (0.60-1.30); GFR ESTIMATED > 60; GLUCOSE 99 MG/DL (70-105); POTASSIUM 4.2 MMOL/L (3.6-5.0); SODIUM 138 MMOL/L (135-145); TOTAL PROTEIN 7.2 GM/DL (6.4-8.2)
[2021-03-27 12:04] LABS: BILIRUBIN,URINE NEGATIVE (NEGATIVE); CLARITY,URINE CLEAR; COLOR,URINE YELLOW; GLUCOSE, URINE (UA) NEGATIVE (NEGATIVE); KETONES,URINE NEGATIVE (NEGATIVE); LEUKOCYTE ESTERASE ,URINE NEGATIVE (NEGATIVE); NITRITE,URINE NEGATIVE (NEGATIVE); PROTEIN,URINE NEGATIVE (NEGATIVE)
[2021-03-27 12:22] LABS: BACTERIA,URINE NEGATIVE /HPF; SQUAMOUS EPITHELIAL CELL,UR RARE /HPF
== END 2021-04-23 | disposition home or self-care (01) ==
LOC: ONC 10:57
PROVIDERS: ATTEND Internal Medicine Hematology & Oncology
DX: C82.30 Follicular lymphoma grade IIIa, unspecified site (principal); M81.0 Age-related osteoporosis without current pathological fracture; Z88.0 Allergy status to penicillin; Z88.2 Allergy status to sulfonamides; Z79.899 Other long term (current) drug therapy
CPT/HCPCS: 80053; 82306; 83615; 85025; 96413; G0463; 36591; 81000

== ENCOUNTER 2021-07-17 09:00 | Outpatient (RCR) | payer MEDICARE, OTHER ==
[2021-05-22 09:28] LABS: BASOPHILS % (AUTO) 1 % (0-10); EOSINOPHILS # (AUTO) 0.1 10^3/uL (0.0-0.3); EOSINOPHILS % (AUTO) 2 % (0-10); HEMATOCRIT 40 % (35-52); HEMOGLOBIN 13.4 g/dL (11.5-16.0); LYMPHOCYTES # (AUTO) 0.4 10^3/uL (1.0-4.0); LYMPHOCYTES % (AUTO) 7 % (12-44); MEAN CORPUSCULAR HEMOGLOBIN 32 pg (25-34); MEAN CORPUSCULAR HGB CONC 33 g/dL (32-36); MEAN CORPUSCULAR VOLUME 95 fL (80-99); MONOCYTES # (AUTO) 0.5 10^3/uL (0.0-1.0); MONOCYTES % (AUTO) 8 % (0-12); NEUTROPHILS # (AUTO) 5.2 10^3/uL (1.8-7.8); NEUTROPHILS % (AUTO) 82 % (42-75); PLATELET COUNT 202 10^3/uL (130-400); WHITE BLOOD COUNT 6.3 10^3/uL (4.3-11.0)
[2021-05-22 09:46] LABS: ALBUMIN 4.1 GM/DL (3.2-4.5); BILIRUBIN,TOTAL 0.5 MG/DL (0.1-1.0); CALCIUM 9.7 MG/DL (8.5-10.1); CREATININE SERUM 0.88 MG/DL (0.60-1.30); POTASSIUM 4.1 MMOL/L (3.6-5.0); TOTAL PROTEIN 7.5 GM/DL (6.4-8.2)
[2021-07-17 09:20] LABS: BASOPHILS % (AUTO) 1 % (0-10); EOSINOPHILS # (AUTO) 0.1 10^3/uL (0.0-0.3); EOSINOPHILS % (AUTO) 2 % (0-10); HEMATOCRIT 39 % (35-52); HEMOGLOBIN 12.7 g/dL (11.5-16.0); LYMPHOCYTES # (AUTO) 0.4 10^3/uL (1.0-4.0); LYMPHOCYTES % (AUTO) 6 % (12-44); MEAN CORPUSCULAR HEMOGLOBIN 31 pg (25-34); MEAN CORPUSCULAR HGB CONC 33 g/dL (32-36); MEAN CORPUSCULAR VOLUME 95 fL (80-99); MEAN PLATELET VOLUME 9.1 fL (9.0-12.2); MONOCYTES # (AUTO) 0.5 10^3/uL (0.0-1.0); MONOCYTES % (AUTO) 7 % (0-12); NEUTROPHILS # (AUTO) 5.4 10^3/uL (1.8-7.8); NEUTROPHILS % (AUTO) 84 % (42-75); PLATELET COUNT 201 10^3/uL (130-400); WHITE BLOOD COUNT 6.4 10^3/uL (4.3-11.0)
[2021-07-17 09:45] LABS: BILIRUBIN,TOTAL 0.4 MG/DL (0.1-1.0); CALCIUM 9.5 MG/DL (8.5-10.1); CREATININE SERUM 0.84 MG/DL (0.60-1.30); POTASSIUM 4.3 MMOL/L (3.6-5.0); TOTAL PROTEIN 6.9 GM/DL (6.4-8.2)
== END 2021-08-20 | disposition home or self-care (01) ==
LOC: ONC 09:00
PROVIDERS: ATTEND Internal Medicine Hematology & Oncology
DX: Z51.11 Encounter for antineoplastic chemotherapy (principal); Z45.2 Encounter for adjustment and management of vascular access device; C82.30 Follicular lymphoma grade IIIa, unspecified site; M81.0 Age-related osteoporosis without current pathological fracture; E55.9 Vitamin D deficiency, unspecified; Z79.899 Other long term (current) drug therapy; Z72.0 Tobacco use; Z78.0 Asymptomatic menopausal state; Z92.21 Personal history of antineoplastic chemotherapy; Z87.19 Personal history of other diseases of the digestive system; Z87.440 Personal history of urinary (tract) infections
CPT/HCPCS: 80053; 83615; 85025; 96413; G0463; 36591

== ENCOUNTER 2021-09-11 09:53 | Outpatient (RCR) | payer MEDICARE, OTHER ==
[~2021-09-11 09:53] MED LIST changes: +ONDA-106 PO; -ONDA8TAB15 PO
[2021-09-11 10:17] LABS: BASOPHILS % (AUTO) 1 % (0-10); EOSINOPHILS # (AUTO) 0.1 10^3/uL (0.0-0.3); EOSINOPHILS % (AUTO) 1 % (0-10); HEMATOCRIT 39 % (35-52); HEMOGLOBIN 12.8 g/dL (11.5-16.0); LYMPHOCYTES # (AUTO) 0.4 10^3/uL (1.0-4.0); LYMPHOCYTES % (AUTO) 6 % (12-44); MEAN CORPUSCULAR HEMOGLOBIN 32 pg (25-34); MEAN CORPUSCULAR HGB CONC 33 g/dL (32-36); MEAN CORPUSCULAR VOLUME 96 fL (80-99); MEAN PLATELET VOLUME 9.2 fL (9.0-12.2); MONOCYTES # (AUTO) 0.4 10^3/uL (0.0-1.0); MONOCYTES % (AUTO) 6 % (0-12); NEUTROPHILS % (AUTO) 86 % (42-75); PLATELET COUNT 207 10^3/uL (130-400)
[2021-09-11 10:40] LABS: BILIRUBIN,TOTAL 0.4 MG/DL (0.1-1.0); CALCIUM 9.2 MG/DL (8.5-10.1); CREATININE SERUM 0.88 MG/DL (0.60-1.30); TOTAL PROTEIN 6.9 GM/DL (6.4-8.2)
[2021-09-11 10:50] LABS: BILIRUBIN,URINE NEGATIVE (NEGATIVE); CLARITY,URINE CLEAR; COLOR,URINE YELLOW; GLUCOSE, URINE (UA) NEGATIVE (NEGATIVE); KETONES,URINE NEGATIVE (NEGATIVE); LEUKOCYTE ESTERASE ,URINE 3+ (NEGATIVE); NITRITE,URINE NEGATIVE (NEGATIVE); PROTEIN,URINE NEGATIVE (NEGATIVE)
[2021-09-11 10:59] LABS: BACTERIA,URINE FEW /HPF; RBC,URINE 0-2 /HPF; WBC,URINE 50-100 /HPF
[2021-09-11 11:00] LABS: SQUAMOUS EPITHELIAL CELL,UR 0-2 /HPF
== END 2021-10-11 | disposition home or self-care (01) ==
LOC: ONC 09:53
PROVIDERS: ATTEND Internal Medicine Hematology & Oncology
DX: Z51.11 Encounter for antineoplastic chemotherapy (principal); Z45.2 Encounter for adjustment and management of vascular access device; C82.30 Follicular lymphoma grade IIIa, unspecified site; M81.0 Age-related osteoporosis without current pathological fracture; E55.9 Vitamin D deficiency, unspecified; R82.998 Other abnormal findings in urine; Z79.899 Other long term (current) drug therapy; Z72.0 Tobacco use; Z78.0 Asymptomatic menopausal state; Z92.21 Personal history of antineoplastic chemotherapy; Z87.19 Personal history of other diseases of the digestive system; Z87.440 Personal history of urinary (tract) infections
CPT/HCPCS: 80053; 81000; 83615; 85025; 87077; 87088; 87186; 96413; G0463; 36591

== ENCOUNTER 2021-11-07 13:43 | Outpatient (RCR) | payer MEDICARE ==
[~2021-11-07 13:43] MED LIST changes: -ACETAMINOPHEN 500 MG TAB (TYLENOL) CANCER CTR PO PRN; -CENTER ONLY IV SCH; -NS IV 1000 ML (CANCER CTR) IV SCH; -NS IV SCH; -RITUXIMAB ABBS IV SCH; -diphenhydrAMINE 25 MG TAB (BENADRYL) CANCER CENTER PO SCH
== END 2021-11-11 | disposition home or self-care (01) ==
PROVIDERS: ATTEND Nurse Practitioner
DX: M54.42 Lumbago with sciatica, left side (principal)

== ENCOUNTER 2021-11-21 13:00 | Outpatient (RCR) | payer MEDICARE | END 2021-12-05 13:22 | disposition home or self-care (01) | PROVIDERS: ATTEND Nurse Practitioner | DX: M54.42 Lumbago with sciatica, left side (principal) ==

== ENCOUNTER 2022-01-22 17:22 | Emergency (ER) | payer MEDICARE ==
[~2022-01-22] VITALS: Ht 154.9 cm; Wt 60.3 kg
[2022-01-22] MEDS ORDERED: KETOROLAC 30 MG/ML VIAL IM ONE (18:30)
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
[2022-01-22] MEDS ORDERED: ACHD5005 PO (19:01)
[2022-01-22] MEDS ORDERED: DOXY100T2 PO (19:01)
[2022-01-22] MEDS ORDERED: RX-CYCLOBENZAPRINE 10 MG (FLEXERIL) TAB PPK#3 PO STA (19:44)
[2022-01-22 19:58] VITALS: BP 137/81
== END 2022-01-22 20:00 | disposition home or self-care (01) ==
LOC: EDUNIT# 17:22 → ER 17:24
DX: M54.32 Sciatica, left side (principal)
CPT/HCPCS: 99284

== ENCOUNTER 2022-03-08 13:00 | Emergency (ER) | payer MEDICARE, MEDICAID ==
[~2022-03-08] VITALS: Ht 160 cm; Wt 61.0 kg
[~2022-03-08 13:00] MED LIST changes: +DOXY100T2 PO
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
[2022-03-08] MEDS ORDERED: KETOROLAC 30 MG/ML VIAL IM ONE (14:00)
[2022-03-08] MEDS ORDERED: ORPHENADRINE 60 MG/2 ML (NORFLEX) AMP (ED ONLY) IM ONE (14:00)
[2022-03-08] MEDS ORDERED: METH-732 PO ×2 (14:36→14:41)
[2022-03-08 14:43] VITALS: BP 183/105
== END 2022-03-08 14:43 | disposition home or self-care (01) ==
LOC: EDUNIT# 13:00 → ER 13:01
DX: M54.16 Radiculopathy, lumbar region (principal)
CPT/HCPCS: 99284

== ENCOUNTER 2022-03-10 16:25 | Emergency (ER) | payer MEDICARE, MEDICAID ==
[~2022-03-10] VITALS: Ht 160 cm; Wt 61.0 kg
[~2022-03-10 16:25] MED LIST changes: +METH-732 PO
[2022-03-10] MEDS ORDERED: KETOROLAC 30 MG/ML VIAL IM ONE (16:45)
[2022-03-10] MEDS ORDERED: ORPHENADRINE 60 MG/2 ML (NORFLEX) AMP (ED ONLY) ONE (16:53)
[2022-03-10] MEDS ORDERED: HYDROcodone/APAP 5 MG/325 MG (LORTAB) TAB PO ONE (17:00)
[2022-03-10] MEDS ORDERED: ORPHENADRINE 60 MG/2 ML (NORFLEX) AMP (ED ONLY) IM ONE (17:00)
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
[2022-03-10 17:39] VITALS: BP 179/82
== END 2022-03-10 17:39 | disposition home or self-care (01) ==
LOC: EDUNIT# 16:25 → ER 16:26
DX: M54.16 Radiculopathy, lumbar region (principal)
CPT/HCPCS: 99284

== ENCOUNTER 2022-03-28 18:51 | Emergency (ER) | payer MEDICARE, MEDICAID ==
[~2022-03-28] VITALS: Ht 162 cm; Wt 61.0 kg
[2022-03-28 19:32] VITALS: BP 206/100
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
[2022-03-28] MEDS ORDERED: HYDR-3820 PO (20:13)
[2022-03-28 21:02] LABS: CALCIUM 9.6 MG/DL (8.5-10.1); CREATININE SERUM 0.9 MG/DL (0.60-1.30); POTASSIUM 4.3 MMOL/L (3.6-5.0)
[2022-03-28] MEDS ORDERED: methylPREDNISolone 40 MG/ML (DEPO MEDROL) VIAL IM ONE (21:30)
== END 2022-03-28 21:33 | disposition home or self-care (01) ==
LOC: EDUNIT# 18:51 → ER 18:55
DX: M54.42 Lumbago with sciatica, left side (principal); Z20.822 Contact with and (suspected) exposure to COVID-19; Z28.310 Unvaccinated for COVID-19
CPT/HCPCS: 36415; 80048; 87636; 99284

== ENCOUNTER 2022-04-07 16:03 | Emergency (ER) | payer MEDICARE, MEDICAID ==
[~2022-04-07] VITALS: Ht 160 cm; Wt 60.3 kg
[~2022-04-07 16:03] MED LIST changes: +HYDR-3820 PO
[2022-04-07] MEDS ORDERED: ASPIRIN 81 MG CHEW (CHILDREN'S ASA) PO ONE (16:45)
--- NOTE | 2022-04-07 17:15 | Diagnostic Imaging Report ---
INDICATION: Chest pain EXAM: Frontal chest obtained at 05:08 p.m. and compared with 02/16/2017. The heart and mediastinal silhouette are normal in appearance. The lungs are clear. There is no pneumothorax or pleural fluid. Port-A-Cath is unchanged. IMPRESSION: No acute process in the chest. Dictated by: Dictated on workstation # [id number]
[2022-04-07 17:17] LABS: BASOPHILS # (AUTO) 0.1 10^3/uL (0.0-0.1); BASOPHILS % (AUTO) 1 % (0-10); EOSINOPHILS # (AUTO) 0.1 10^3/uL (0.0-0.3); EOSINOPHILS % (AUTO) 2 % (0-10); HEMATOCRIT 41 % (35-52); HEMOGLOBIN 13.3 g/dL (11.5-16.0); LYMPHOCYTES # (AUTO) 0.6 10^3/uL (1.0-4.0); LYMPHOCYTES % (AUTO) 11 % (12-44); MEAN CORPUSCULAR HEMOGLOBIN 32 pg (25-34); MEAN CORPUSCULAR HGB CONC 33 g/dL (32-36); MEAN CORPUSCULAR VOLUME 97 fL (80-99); MEAN PLATELET VOLUME 9.3 fL (9.0-12.2); MONOCYTES # (AUTO) 0.5 10^3/uL (0.0-1.0); MONOCYTES % (AUTO) 9 % (0-12); NEUTROPHILS # (AUTO) 4.7 10^3/uL (1.8-7.8); NEUTROPHILS % (AUTO) 78 % (42-75); PLATELET COUNT 225 10^3/uL (130-400)
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
[2022-04-07 17:27] LABS: ALBUMIN 4.4 GM/DL (3.2-4.5); POTASSIUM 4.5 MMOL/L (3.6-5.0)
[2022-04-07 17:28] LABS: CALCIUM 9.2 MG/DL (8.5-10.1)
[2022-04-07 17:30] LABS: TOTAL PROTEIN 7.4 GM/DL (6.4-8.2)
[2022-04-07 17:31] LABS: BILIRUBIN,TOTAL 0.3 MG/DL (0.1-1.0)
[2022-04-07 17:33] LABS: CREATININE SERUM 1.08 MG/DL (0.60-1.30)
[2022-04-07 17:36] LABS: INR 0.9 (0.8-1.4); MAGNESIUM 2.3 MG/DL (1.6-2.4); PROTHROMBIN TIME PATIENT 12.5 SEC (12.2-14.7)
[2022-04-07 18:40] VITALS: BP 158/58
== END 2022-04-07 18:46 | disposition home or self-care (01) ==
LOC: EDUNIT# 16:03 → ER 16:05
DX: R06.02 Shortness of breath (principal); R07.89 Other chest pain; T39.395A Adverse effect of other nonsteroidal anti-inflammatory drugs [NSAID], initial encounter; J98.01 Acute bronchospasm; G89.29 Other chronic pain; M54.9 Dorsalgia, unspecified; Z79.1 Long term (current) use of non-steroidal anti-inflammatories (NSAID); Z28.310 Unvaccinated for COVID-19
CPT/HCPCS: 36415; 71045; 80053; 83735; 83874; 83880; 84484; 85025; 85379; 85610; 85730; 93005; 93041

== ENCOUNTER 2022-09-17 05:33 | Outpatient (CLI) | payer MEDICARE, MEDICAID ==
[~2022-09-17] VITALS: Ht 162.5 cm; Wt 57.7 kg
[2022-09-19] MEDS ORDERED: PREG25CA19 PO (11:11)
[2022-09-19] MEDS ORDERED: [UNRECOGNIZED DRUG - CODE] PO (11:11)
[2022-09-19] MEDS ORDERED: PREN1TAB79 PO (11:11)
[2022-09-19] MEDS ORDERED: AZEL205.10 NS (11:11)
== END 2022-09-19 11:29 | disposition home or self-care (01) ==
LOC: PREOP 05:33
PROVIDERS: ATTEND Surgery
DX: Z01.818 Encounter for other preprocedural examination (principal)

== ENCOUNTER 2022-09-24 05:59 | Day surgery (SDC) | payer MEDICARE, MEDICAID ==
[2022-09-24] VITALS (9 sets, daily range): BP systolic 117–145; BP diastolic 54–92
[~2022-09-24] VITALS: Ht 158.7 cm; Wt 57.7 kg
[~2022-09-24 05:59] MED LIST changes: +AZEL205.10 NS; +PREG25CA19 PO; +PREN1TAB79 PO; +[UNRECOGNIZED DRUG - CODE] PO
[2022-09-24] MEDS ORDERED: CLINDAMYCIN 600 MG/50 ML IVPB 50 ML IV ONE (07:00)
[2022-09-24] MEDS ORDERED: LACTATED RINGERS 1,000 ML IV PRN (07:00)
[2022-09-24] MEDS ORDERED: proPOfol 200 MG/20 ML (DIPRIVAN) VIAL IV ONE (07:23)
[2022-09-24] MEDS ORDERED: ONDANSETRON 4 MG/2 ML (SDV) Z0FRAN ONE (07:23)
[2022-09-24] MEDS ORDERED: LIDOCAINE PF 2% 5 ML (XYLOCAINE) VIAL ONE (07:23)
[2022-09-24] MEDS ORDERED: fentaNYL INJ 100 MCG/2 ML AMP ONE (07:23)
[2022-09-24] MEDS ORDERED: BUP/EPI 0.25% 1:200,000 (MARCAINE) 30 ML VIAL ONE (07:24)
--- NOTE | 2022-09-24 07:26 | Progress Note-Pre Operative ---
Pre-Operative Progress Note Date of Available H&P: Sep 08, 2022 Date H&P Reviewed: Sep 24, 2022 Time H&P Reviewed: 07:25 History & Physical: H&P Reviewed, Patient Examed, No changes noted Pre-Operative Diagnosis: inguinal lymphadenopathy, history nonhodkins lymphoma ENRIQUE ROCHA DO Sep 24, 2022 07:26
[2022-09-24] MEDS ORDERED: ONDANSETRON 4 MG/2 ML (SDV) Z0FRAN IVP PRN (07:30)
[2022-09-24] MEDS ORDERED: morphine INJ 10 MG/ML 1ML (SYR OR VIAL) IVP ONE (07:30)
[2022-09-24] MEDS ORDERED: SEVOFLURANE (ULTANE) 15 ML INHAL SOLN ONE (08:22)
--- NOTE | 2022-09-24 08:40 | Discharge Inst-Simple/Standard ---
Discharge Inst-Standard Patient Instructions/Follow Up Plan of Care/Instructions/FU: 2 weeks Chanel Activity as Tolerated: No Discharge Diet: Regular Diet Other Inst to Patient Follow up Appt: Make appointment for 2 week. Instructions: No lifting greater than 10 pounds. No strenuous activity. May shower in 24 hours, no tub bath or soaking. Use incentive spirometer at home as directed. No Smoking Skin/Wound Care: You have special glue over your incision that will fall off on it's own. Symptoms to Report: Appetite Changes, Extremity Discoloration, Numbness/Tingling, Swelling Increased, Bleeding Excessive, Eyesight Changes, Pain Increased, Urine Color Change, Constipation(Persistent), Fever over 101 degree F, Pain/Pressure in chest, Urinating Difficulty, Cough Up/Vomit Blood, Heart Beat Irreg/Pounding, Pain/Pressure in jaw, Vaginal Bleeding Increase, Cramps in feet or legs, Lightheadedness, Pain/Pressure in shoulder, Diarrhea(Persistent), Memory Changes Suddenly, Questions/Concerns, Weight gain consecutive days, Dizziness/Fainting, Nausea/Vomiting, Shortness of Breath, Weight gain over 2 pounds If questions or concerns contact your physician Or seek help at emergency department. ENRIQUE ROCHA DO Sep 24, 2022 08:40
[2022-09-24] MEDS ORDERED: ACHD5005 PO (08:41)
--- NOTE | 2022-09-24 09:40 | Anesthesia-General Post-Op ---
General Patient Condition Mental Status/LOC: Same as Preop Cardiovascular: Satisfactory Nausea/Vomiting: Absent Respiratory: Satisfactory Pain: Controlled Complications: Absent Post Op Complications Complications None Follow Up Care/Instructions Patient Instructions None needed. Anesthesia/Patient Condition Patient Condition Patient is doing well, no complaints, stable vital signs, no apparent adverse anesthesia problems. No complications reported per nursing. MONTSERRAT WINSTON DO Sep 24, 2022 09:40
--- NOTE | 2022-09-25 04:54 | OPERATIVE REPORT ---
DATE OF SERVICE: 09/24/2022 PREOPERATIVE DIAGNOSES: Bilateral lymphadenopathy, history of non-Hodgkin's lymphoma. POSTOPERATIVE DIAGNOSES: Bilateral lymphadenopathy, history of non-Hodgkin's lymphoma. PROCEDURE: Excision of a left inguinal mass 5 x 3.5 x 2 cm. SURGEON: Enrique Buchanan DO ANESTHESIA: General. ESTIMATED BLOOD LOSS: Minimal. COMPLICATIONS: None. INDICATIONS: The patient is a 76-year-old female with lymphadenopathy bilaterally. She was recommended excision of the mass and understands the risks and benefits. Consent was signed on the chart. DESCRIPTION OF PROCEDURE: The patient was taken to the operating suite, prepped and draped in sterile fashion. Timeout was performed. Local anesthetic was infiltrated. A 15 blade scalpel was used to make an incision over the mass. Cautery was used to dissect down through the subcutaneous tissues running circumferentially around the mass. This was able to be excised. Overall, dimensions 5 x 3.5 x 2 cm. Once removed, hemostasis was achieved. The wound was irrigated with copious amounts of irrigation. Mikey's fascia was then reapproximated using 3-0 Vicryl. The subcutaneous tissues were then closed with 3-0 Vicryl. Skin was then closed with Monocryl in a running subcuticular fashion with 4-0 Monocryl. Skin Affix was then placed over the skin incision. The patient tolerated the procedure well without complications, taken to the recovery room in stable condition. Job ID: [id number] DocumentID: [id number] Dictated Date: 09/24/2022 23:14:37 Treasury Agent Date: 09/25/2022 04:51:00 Dictated By: ENRIQUE BUCHANAN DO
== END 2022-09-24 10:02 | disposition home or self-care (01) ==
LOC: SDC 05:59
PROVIDERS: ATTEND Surgery
DX: C83.35 Diffuse large B-cell lymphoma, lymph nodes of inguinal region and lower limb (principal); F17.210 Nicotine dependence, cigarettes, uncomplicated; Z28.310 Unvaccinated for COVID-19
CPT/HCPCS: 87081; 88184; 88185; 88307; 88341; 88342; 88360; 88365

== ENCOUNTER 2022-11-16 13:24 | Emergency (ER) | payer MEDICARE, MEDICAID ==
[~2022-11-16] VITALS: Ht 162.5 cm; Wt 58.9 kg
[2022-11-16] MEDS ORDERED: NS IV ONE (15:00)
[2022-11-16] MEDS ORDERED: L.E.T. SOLUTION 3 ML SYR TOP ONE (15:00)
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
[2022-11-16 15:38] LABS: BILIRUBIN,URINE NEGATIVE (NEGATIVE); CLARITY,URINE CLEAR; COLOR,URINE YELLOW; GLUCOSE, URINE (UA) NEGATIVE (NEGATIVE); KETONES,URINE NEGATIVE (NEGATIVE); LEUKOCYTE ESTERASE ,URINE NEGATIVE (NEGATIVE); NITRITE,URINE NEGATIVE (NEGATIVE); PROTEIN,URINE NEGATIVE (NEGATIVE)
[2022-11-16 15:40] LABS: BASOPHILS % (AUTO) 0 % (0-10); EOSINOPHILS # (AUTO) 0.3 10^3/uL (0.0-0.3); EOSINOPHILS % (AUTO) 2 % (0-10); HEMATOCRIT 35 % (35-52); HEMOGLOBIN 11.8 g/dL (11.5-16.0); LYMPHOCYTES # (AUTO) 0.1 X 10^3 (1.0-4.0); LYMPHOCYTES % (AUTO) 1 % (12-44); MEAN CORPUSCULAR HEMOGLOBIN 32 pg (25-34); MEAN CORPUSCULAR HGB CONC 34 g/dL (32-36); MEAN CORPUSCULAR VOLUME 94 fL (80-99); MEAN PLATELET VOLUME 8.9 fL (9.0-12.2); MONOCYTES # (AUTO) 0.5 X 10^3 (0.0-1.0); MONOCYTES % (AUTO) 3 % (0-12); NEUTROPHILS % (AUTO) 94 % (42-75); PLATELET COUNT 210 10^3/uL (130-400); WHITE BLOOD COUNT 14.8 10^3/uL (4.3-11.0)
[2022-11-16 15:47] LABS: BACTERIA,URINE NEGATIVE /HPF; RBC,URINE RARE /HPF; SQUAMOUS EPITHELIAL CELL,UR RARE /HPF; WBC,URINE RARE /HPF
[2022-11-16 15:48] LABS: ALBUMIN 3.1 GM/DL (3.2-4.5)
[2022-11-16 15:50] LABS: CALCIUM 8.1 MG/DL (8.5-10.1); INR 1.2 (0.8-1.4); PROTHROMBIN TIME PATIENT 15.5 SEC (12.2-14.7)
[2022-11-16 15:51] LABS: TOTAL PROTEIN 5.6 GM/DL (6.4-8.2)
[2022-11-16 15:53] LABS: BILIRUBIN,TOTAL 0.5 MG/DL (0.1-1.0); EOSINOPHILS % (MANUAL) 4 %; LYMPHOCYTES % (MANUAL) 1 %; MONOCYTES % (MANUAL) 1 %; NEUTROPHILS % (MANUAL) 94 %; RBC MORPH NORMAL
[2022-11-16 15:55] LABS: CREATININE SERUM 0.74 MG/DL (0.60-1.30)
--- NOTE | 2022-11-16 16:22 | Diagnostic Imaging Report ---
INDICATION: Shortness of breath. COMPARISON: Prior examination from 04/07/2022. FINDINGS: Heart size is normal. The lungs are clear. There is no pleural effusion or pneumothorax. The mediastinum is unremarkable. [id number] catheter has its tip in the superior vena cava. IMPRESSION: No acute cardiopulmonary abnormality. Dictated by: Dictated on workstation # [id number]
[2022-11-16] MEDS ORDERED: fluCOnazole (DIFLUCAN) 100 MG TAB PO ONE (17:15)
[2022-11-16] MEDS ORDERED: DOXYCYCLINE 100 MG (VIBRAMYCIN) TABLET PO ONE (17:15)
[2022-11-16] MEDS ORDERED: FLUC100T PO (17:21)
[2022-11-16] MEDS ORDERED: DOXY100C5 PO (17:21)
[2022-11-16 17:27] VITALS: BP 161/83
== END 2022-11-16 17:29 | disposition home or self-care (01) ==
LOC: EDUNIT# 13:24 → ER 13:26
DX: J32.9 Chronic sinusitis, unspecified (principal); C85.90 Non-Hodgkin lymphoma, unspecified, unspecified site; R23.3 Spontaneous ecchymoses; F17.210 Nicotine dependence, cigarettes, uncomplicated; Z28.310 Unvaccinated for COVID-19
CPT/HCPCS: 36415; 71045; 80053; 81000; 83605; 85007; 85027; 85610; 85730; 87040; 87088

== ENCOUNTER 2023-03-10 09:15 | Emergency (ER) | payer MEDICAID, MEDICARE ==
[~2023-03-10 09:15] MED LIST changes: +DOXY100C5 PO; +FLUC100T PO
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
[2023-03-10] MEDS ORDERED: KETOROLAC 15 MG/ML VIAL IVP ONE (09:45)
[2023-03-10] MEDS ORDERED: NS 100 ML (IVPB) BAG IV ONE (10:00)
[2023-03-10] MEDS ORDERED: HOLD METFORMIN - RECEIVED CONTRAST 20 ML VIAL IV SCH (10:00)
[2023-03-10] MEDS ORDERED: IOHEXOL 350 MG/ML 100 ML (OMNIPAQUE 350) VIAL IV ONE (10:00)
[2023-03-10 10:07] LABS: BASOPHILS # (AUTO) 0.1 10^3/uL (0.0-0.1); BASOPHILS % (AUTO) 1 % (0-10); MEAN CORPUSCULAR HEMOGLOBIN 31 pg (25-34); MEAN CORPUSCULAR HGB CONC 34 g/dL (32-36); NEUTROPHILS % (AUTO) 81 % (42-75)
[2023-03-10 10:08] LABS: EOSINOPHILS # (AUTO) 0.1 10^3/uL (0.0-0.3); EOSINOPHILS % (AUTO) 1 % (0-10); HEMATOCRIT 39 % (35-52); HEMOGLOBIN 13.2 g/dL (11.5-16.0); LYMPHOCYTES # (AUTO) 0.5 10^3/uL (1.0-4.0); LYMPHOCYTES % (AUTO) 7 % (12-44); MEAN CORPUSCULAR VOLUME 91 fL (80-99); MONOCYTES # (AUTO) 0.5 10^3/uL (0.0-1.0); MONOCYTES % (AUTO) 8 % (0-12); NEUTROPHILS # (AUTO) 5.3 10^3/uL (1.8-7.8); WHITE BLOOD COUNT 6.6 10^3/uL (4.3-11.0)
[2023-03-10 10:11] LABS: PLATELET COUNT 14 10^3/uL (130-400)
--- NOTE | 2023-03-10 10:16 | Diagnostic Imaging Report ---
CHEST PA/LAT (2 VIEW) Indication: Chest pain and left shoulder pain Comparison: 11/16/2022 Findings: No pulmonary mass or consolidation. No pleural effusion or pneumothorax. Normal heart size and mediastinal contours. Stable right IJ Port-A-Cath. Impression: No acute cardiopulmonary process. Dictated by: Dictated on workstation # [id number]
[2023-03-10 10:19] LABS: ALBUMIN 3.4 GM/DL (3.2-4.5); CHLORIDE 98 MMOL/L (98-107); POTASSIUM 3.4 MMOL/L (3.6-5.0); SODIUM 136 MMOL/L (135-145)
[2023-03-10 10:20] LABS: CALCIUM 8.4 MG/DL (8.5-10.1)
[2023-03-10 10:20] LABS: BILIRUBIN,URINE NEGATIVE (NEGATIVE); CLARITY,URINE CLEAR; COLOR,URINE YELLOW; GLUCOSE, URINE (UA) NEGATIVE (NEGATIVE); KETONES,URINE TRACE (NEGATIVE); LEUKOCYTE ESTERASE ,URINE NEGATIVE (NEGATIVE); NITRITE,URINE NEGATIVE (NEGATIVE); PROTEIN,URINE 1+ (NEGATIVE)
[2023-03-10 10:21] LABS: GLUCOSE 73 MG/DL (70-105)
[2023-03-10 10:22] LABS: TOTAL PROTEIN 5.4 GM/DL (6.4-8.2)
[2023-03-10 10:23] LABS: CARBON DIOXIDE 23 MMOL/L (21-32)
[2023-03-10 10:24] LABS: BILIRUBIN,TOTAL 1.4 MG/DL (0.1-1.0)
[2023-03-10 10:25] LABS: ALKALINE PHOSPHATASE 341 U/L (40-136); CREATININE SERUM 0.82 MG/DL (0.60-1.30); GFR ESTIMATED 75
[2023-03-10 10:26] LABS: BUN/CREATININE RATIO 21
[2023-03-10 10:28] LABS: ALANINE AMINOTRANSFERASE 49 U/L (0-55)
[2023-03-10 10:29] LABS: LIPASE 10 U/L (8-78)
[2023-03-10 10:30] LABS: RBC,URINE 0-2 /HPF
[2023-03-10 10:31] LABS: AMORPHOUS SEDIMENT,UR FEW AMOR URATES /LPF; BACTERIA,URINE MODERATE /HPF; WBC,URINE 0-2 /HPF
[2023-03-10 10:55] LABS: BAND NEUTROPHILS 31 %; LYMPHOCYTES % (MANUAL) 2 %; MONOCYTES % (MANUAL) 5 %; NEUTROPHILS % (MANUAL) 60 %; REACTIVE LYMPHOCYTES 2 %
[2023-03-10 10:56] LABS: ANISOCYTOSIS SLIGHT; BURR CELLS SLIGHT
--- NOTE | 2023-03-10 11:15 | Diagnostic Imaging Report ---
CTA chest, abdomen and pelvis Technique: Thin axial sections through the chest, abdomen and pelvis are obtained following intravenous contrast bolus. Multiplanar MIP images were reconstructed and reviewed. All CT scans use one or more of the following dose optimizing techniques: automated exposure control, MA and/or KvP adjustment based on patient size and exam type or iterative reconstruction. INDICATION: Shortness of breath. Lower abdominal pain. History of B-cell lymphoma. Comparison: 05/09/2019. 12/19/2020. FINDINGS: CTA chest: No evidence of pulmonary emboli to the subsegmental pulmonary arteries. The heart size is within normal limits. No pericardial effusion is present. There is calcified aortic and coronary atherosclerotic plaque without aneurysm. A right port is visualized with the tip in the low SVC. Partially calcified mediastinal and right hilar lymph nodes are seen. The lungs demonstrate no pulmonary nodules or masses. Calcified granulomas seen in the right lower lobe. There are no focal areas of consolidation. No pneumothoraces are present. No central endobronchial obstructing lesions are identified. There are no pleural effusions. No acute osseous abnormalities. CT abdomen and pelvis: The spleen is prominent. Calcified granulomas are visualized within the spleen. The liver, pancreas, adrenal glands, and kidneys have a normal appearance. Gallstones are seen within the gallbladder lumen. The gallbladder is nondistended. The portal vein is patent. The bowel loops are nondilated. The appendix is visualized in the right lower quadrant and has a normal appearance. Partial sigmoid colon resection changes are noted. There is no free fluid or free air. No acute osseous abnormalities. There is calcified aortic and iliac atherosclerotic plaque without aneurysm. Ureters and bladder are normal. Pathologically enlarged lymph nodes are seen in the left inguinal region, with the largest demonstrating central decreased attenuation and measuring 6.4 x 5.3 cm. Additional enlarged left external iliac lymph nodes are seen, the largest measuring 2.5 x 1.9 cm. IMPRESSION: 1. No evidence of pulmonary emboli to the subsegmental pulmonary arteries. 2. Pathologically enlarged lymphadenopathy in the left external iliac chain and left inguinal region. These would be amenable to biopsy or FNA if indicated. 3. Splenomegaly. 4. No lymphadenopathy in the chest. 5. Cholelithiasis without CT evidence of acute cholecystitis. Dictated by: Dictated on workstation # [id number]
[2023-03-10 11:41] VITALS: BP 108/52
== END 2023-03-10 11:44 | disposition home or self-care (01) ==
LOC: EDUNIT# 09:15 → ER 09:17
DX: M25.512 Pain in left shoulder (principal); R10.9 Unspecified abdominal pain; D69.6 Thrombocytopenia, unspecified; F17.210 Nicotine dependence, cigarettes, uncomplicated; C83.30 Diffuse large B-cell lymphoma, unspecified site; Z79.899 Other long term (current) drug therapy; Z87.19 Personal history of other diseases of the digestive system
CPT/HCPCS: 36415; 36556; 71046; 71275; 74177; 80053; 81000; 83690; 84484; 85007; 85027; 87077; 87088; 87186; 93005

== ENCOUNTER 2023-03-11 19:18 | Emergency (ER) | payer MEDICARE ==
[~2023-03-11] VITALS: Ht 161 cm; Wt 55.0 kg
[2023-03-11] MEDS ORDERED: OXYMETAZOLINE (AFRIN) 0.05% NA 30 ML BTL STA (19:39)
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
[2023-03-11] MEDS ORDERED: NS IV 500 ML 500 ML IV SCH (19:45)
[2023-03-11 20:23] LABS: BASOPHILS % (AUTO) 1 % (0-10); HEMOGLOBIN 11.5 g/dL (11.5-16.0); MONOCYTES # (AUTO) 0.2 10^3/uL (0.0-1.0); MONOCYTES % (AUTO) 5 % (0-12)
[2023-03-11 20:25] LABS: EOSINOPHILS % (AUTO) 0 % (0-10); HEMATOCRIT 34 % (35-52); LYMPHOCYTES # (AUTO) 0.3 10^3/uL (1.0-4.0); LYMPHOCYTES % (AUTO) 6 % (12-44); MEAN CORPUSCULAR HEMOGLOBIN 31 pg (25-34); MEAN CORPUSCULAR HGB CONC 34 g/dL (32-36); MEAN CORPUSCULAR VOLUME 92 fL (80-99); MEAN PLATELET VOLUME 13.8 fL (9.0-12.2); NEUTROPHILS # (AUTO) 3.7 10^3/uL (1.8-7.8); NEUTROPHILS % (AUTO) 84 % (42-75); WHITE BLOOD COUNT 4.4 10^3/uL (4.3-11.0)
[2023-03-11 20:28] LABS: PLATELET COUNT 12 10^3/uL (130-400)
[2023-03-11 20:32] LABS: ALBUMIN 3.1 GM/DL (3.2-4.5); POTASSIUM 3.6 MMOL/L (3.6-5.0)
[2023-03-11 20:33] LABS: PROTHROMBIN TIME PATIENT 22.8 SEC (12.2-14.7)
[2023-03-11 20:34] LABS: TOTAL PROTEIN 4.9 GM/DL (6.4-8.2)
[2023-03-11 20:38] LABS: CREATININE SERUM 0.92 MG/DL (0.60-1.30)
[2023-03-11 20:58] LABS: BAND NEUTROPHILS 15 %; BASOPHILS % (MANUAL) 0 %; EOSINOPHILS % (MANUAL) 0 %; LYMPHOCYTES % (MANUAL) 3 %; MONOCYTES % (MANUAL) 6 %; NEUTROPHILS % (MANUAL) 76 %
[2023-03-11 20:59] LABS: CRENATED RBC MARKED; ELLIPT/OVALOCYTES SLIGHT
[2023-03-11 21:08] VITALS: BP 111/60
[2023-03-11 21:27] VITALS: BP 113/62
[2023-03-11] MEDS ORDERED: HEParin (CENTRAL IV FLUSH) 500 UNIT/5 ML SYR ONE (21:52)
[2023-03-11 22:01] VITALS: BP 114/65
[2023-03-11 22:03] VITALS: BP 114/65
[2023-03-14] MEDS ORDERED: CIPR-225 PO (09:34)
== END 2023-03-11 22:06 | disposition home or self-care (01) ==
LOC: EDUNIT# 19:18 → ER 19:19
DX: R04.0 Epistaxis (principal); D69.6 Thrombocytopenia, unspecified; C83.30 Diffuse large B-cell lymphoma, unspecified site; F17.210 Nicotine dependence, cigarettes, uncomplicated; Z79.82 Long term (current) use of aspirin
CPT/HCPCS: 80053; 85007; 85027; 85610; 85730; 86850; 86900; 86901; 99282; P9035; 36415

== ENCOUNTER 2023-03-16 10:34 | Inpatient (IN) | payer MEDICARE ==
[~2023-03-16] VITALS: Ht 160 cm; Wt 62.1 kg
[2023-03-16] MEDS ORDERED: NS IV 1000 ML 1,000 ML IV SCH ×2 (11:15→19:00)
[2023-03-16 12:34] LABS: MAGNESIUM 1.7 MG/DL (1.6-2.4)
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
[2023-03-16 13:34] LABS: CLARITY,URINE CLOUDY; COLOR,URINE YELLOW; GLUCOSE, URINE (UA) NEGATIVE (NEGATIVE); KETONES,URINE NEGATIVE (NEGATIVE); LEUKOCYTE ESTERASE ,URINE NEGATIVE (NEGATIVE); NITRITE,URINE NEGATIVE (NEGATIVE); PH,URINE 5.5 (5-9); PROTEIN,URINE TRACE (NEGATIVE)
[2023-03-16 13:55] LABS: BILIRUBIN,URINE 2+ (NEGATIVE)
[2023-03-16 13:56] LABS: AMORPHOUS SEDIMENT,UR FEW AMOR URATES /LPF; BACTERIA,URINE FEW /HPF
[2023-03-16 13:57] LABS: GRANULAR CASTS,URINE RARE /LPF; HYALINE CASTS, URINE RARE /LPF
[2023-03-16] MEDS ORDERED: fentaNYL INJ 100 MCG/2 ML AMP IVP ONE (14:30)
--- NOTE | 2023-03-16 14:58 | Diagnostic Imaging Report ---
PROCEDURE: US Gallbladder. TECHNIQUE: Multiple real-time grayscale images were obtained over the right upper quadrant in various projections. INDICATION: Hyperbilirubinemia. FINDINGS: Partly contracted gallbladder likely has some intraluminal sludge. No visible echogenic or shadowing stone. There is hepatic steatosis, but no intra- or extra-hepatic bile duct dilatation with the common duct measuring 4-5 mm. Much of the aorta, IVC, and pancreas were obscured by gas. The unobstructed right kidney at 10 cm appeared normal. No visible ascites. IMPRESSION: Echodense fatty liver. Partly contracted gallbladder with likely a small amount of intraluminal sludge, but no merlene stone. No biliary dilatation or visible ascites. Dictated by: Dictated on workstation # [id number]
[2023-03-16] MEDS ORDERED: HYDROcodone/APAP 5 MG/325 MG (LORTAB) TAB PO ONE ×2 (15:00→16:15)
--- NOTE | 2023-03-16 16:07 | Diagnostic Imaging Report ---
PROCEDURE: CT abdomen and pelvis without contrast. TECHNIQUE: Multiple contiguous axial images were obtained through the abdomen and pelvis without the use of intravenous contrast. Auto Exposure Controls were utilized during the CT exam to meet ALARA standards for radiation dose reduction. INDICATION: 77-year-old female, B-cell lymphoma, on treatment. Urinary tract infection, weakness. CORRELATION STUDY: 03/10/2023. FINDINGS: Lung bases are clear. Heart size is normal. Liver is enlarged at 19.2 cm. Likely at least mild steatosis. Gallbladder contains multiple gallstones. No significant bile duct dilatation. The spleen is enlarged at 14 cm in length. Previously approximately 11.6 cm. Pancreas is atrophic. Adrenal glands are unremarkable. Generalized thinning of the renal parenchyma of both kidneys. Renal contour is stable. No calcification. No calcification in the renal collecting system. There is moderate aortoiliac wall calcification. Stomach is relatively decompressed. No small bowel obstruction. There is moderate stool in the colon. Normal appendix is present. The cecum blurs inseparably with the fundal aspect of the uterus. There is a calcification in the uterus. No definitive abnormal gas collection within the uterus. The wall of the cecum does appear to be distorted. No abdominal ascites or drainable abscess. Urinary bladder is decompressed. Large necrotic left inguinal masses persist. Largest currently measures approximately 6.7 x 5.2 (previously 6.4 x 5.3 cm). The additional marker lesion measures 2.5 x 2.3 cm (previously 2.5 x 1.9 cm). IMPRESSION: 1. Abnormal appearance about the cecum which appears to blur inseparably with the fundal aspect of the uterus. A merlene fistula is not demonstrated; however, concern for a developing fistula is not excluded. Consideration for post CT imaging with good, prolonged oral contrast is recommended. 2. Large left pelvic lymph nodes, overall generally stable. 3. Cholelithiasis. 4. Slight increased severity splenomegaly. Dictated by: Dictated on workstation # [id number]
[2023-03-16] MEDS ORDERED: PROMETHAZINE INJ 25 MG/ML (PHENERGAN) AMP IVP ONE (16:15)
[2023-03-16 16:38] LABS: BILIRUBIN,TOTAL 8.6 MG/DL (0.1-1.0)
[2023-03-16 16:42] LABS: BILIRUBIN,DIRECT 6.9 MG/DL (0.0-0.3); BILIRUBIN,INDIRECT 1.7 MG/DL
[2023-03-16 17:43] LABS: INR 2.5 (0.8-1.4); PROTHROMBIN TIME PATIENT 27.1 SEC (12.2-14.7)
[2023-03-16 17:46] LABS: RETICULOCYTE % 1.06 % (0.50-2.40)
[2023-03-16 19:00] VITALS: BP 102/64
[2023-03-16] MEDS ORDERED: BISACODYL 10 MG SUPP (DULCOLAX) PR PRN (19:00)
[2023-03-16] MEDS ORDERED: ONDANSETRON 4 MG (ZOFRAN) ORAL DISSOLVE TAB PO PRN (19:00)
[2023-03-16] MEDS ORDERED: polyethylene glycoL POWDER 17 GM (MIRALAX) PACK PO PRN (19:00)
[2023-03-16] MEDS ORDERED: ACETAMINOPHEN 325 MG TABLET PO PRN (19:00)
[2023-03-16] MEDS ORDERED: diphenhydrAMINE 50 MG/ML INJ (BENADRYL) IVP PRN (19:00)
[2023-03-16] MEDS ORDERED: MELATONIN 3 MG TABLET PO PRN (19:00)
[2023-03-16] MEDS ORDERED: ANTACID SUSP 30 ML UDC (MYLANTA) PO PRN (19:00)
[2023-03-16] MEDS ORDERED: CALCIUM CARBONATE 500 MG (TUMS) TAB.CHEW PO PRN (19:00)
[2023-03-16] MEDS ORDERED: LACTULOSE SYRUP 10GM/15ML (ENULOSE) 30ML UDC PO PRN (19:00)
[2023-03-16] MEDS ORDERED: diphenhydrAMINE 25 MG TAB (BENADRYL) PO PRN (19:00)
[2023-03-16] MEDS ORDERED: MILK OF MAGNESIA 400 MG/5 ML 30 ML UDC PO PRN (19:00)
[2023-03-16] MEDS: METOCLOPRAMIDE INJ 10 MG/2 ML (REGLAN) IVP PRN (19:57)
[2023-03-16] MEDS: DOCUSATE SODIUM 100 MG (COLACE) CAP PO SCH (19:58)
[2023-03-16] MEDS: SENNOSIDES 8.6 MG (SENOKOT) TAB PO SCH ×2 (19:58→20:00)
[2023-03-16] MEDS: HYDROmorphone 2 MG/ML VIAL (DILAUDID) IV PRN (19:58)
[2023-03-16 21:28] VITALS: BP 102/64
[2023-03-16] MEDS ORDERED: RT-ALBUTEROL SULF 2.5 MG/3 ML PRE-MIX VIAL INH PRN (21:45)
[2023-03-16 23:51] VITALS: BP 100/60
[2023-03-17] VITALS (9 sets, daily range): BP systolic 99–127; BP diastolic 48–61
[2023-03-17] MEDS: ONDANSETRON 4 MG/2 ML (SDV) Z0FRAN IV PRN (00:06)
[2023-03-17] MEDS: METOCLOPRAMIDE INJ 10 MG/2 ML (REGLAN) IVP PRN (04:37)
[2023-03-17 04:46] LABS: BASOPHILS % (AUTO) 0 % (0-10)
[2023-03-17 04:48] LABS: EOSINOPHILS % (AUTO) 0 % (0-10); HEMATOCRIT 23 % (35-52); HEMOGLOBIN 8.2 g/dL (11.5-16.0); LYMPHOCYTES # (AUTO) 0.2 10^3/uL (1.0-4.0); LYMPHOCYTES % (AUTO) 9 % (12-44); MEAN CORPUSCULAR HEMOGLOBIN 31 pg (25-34); MEAN CORPUSCULAR HGB CONC 35 g/dL (32-36); MEAN CORPUSCULAR VOLUME 87 fL (80-99); MEAN PLATELET VOLUME 12.2 fL (9.0-12.2); MONOCYTES # (AUTO) 0.2 10^3/uL (0.0-1.0); MONOCYTES % (AUTO) 8 % (0-12); NEUTROPHILS # (AUTO) 1.8 10^3/uL (1.8-7.8); NEUTROPHILS % (AUTO) 76 % (42-75); WHITE BLOOD COUNT 2.3 10^3/uL (4.3-11.0)
[2023-03-17 04:53] LABS: PLATELET COUNT 13 10^3/uL (130-400)
[2023-03-17 05:00] LABS: ALBUMIN 2.3 GM/DL (3.2-4.5)
[2023-03-17 05:02] LABS: CALCIUM 7.4 MG/DL (8.5-10.1)
[2023-03-17 05:03] LABS: TOTAL PROTEIN 3.7 GM/DL (6.4-8.2)
[2023-03-17 05:05] LABS: BILIRUBIN,TOTAL 9.4 MG/DL (0.1-1.0)
[2023-03-17 05:07] LABS: CREATININE SERUM 1.79 MG/DL (0.60-1.30)
[2023-03-17 05:08] LABS: BILIRUBIN,DIRECT 7.2 MG/DL (0.0-0.3); BILIRUBIN,INDIRECT 2.2 MG/DL
[2023-03-17] MEDS ORDERED: DEXTROSE 50% 50 ML (IMS) SYR ONE (05:28)
--- NOTE | 2023-03-17 05:37 | History & Physical-Hospitalist ---
History of Present Illness Date Seen 03/17/23 Time Seen by a Provider: 09:00 Attending Physician Candace Wooten MD PCP Admitting Physician: Chetna Amaya DO Attending Physician: Chetna Amaya DO Referring Physician Date of Admission Mar 16, 2023 at 18:44 Home Medications & Allergies Home Medications Reviewed patient Home Medication Reconciliation performed by pharmacy medication reconciliations digital field service technician and/or nursing. Patients Allergies have been reviewed. Allergies Allergies Coded Allergies potassium chloride (Verified Allergy, Intermediate, NUMBNESS IN HANDS, 03/16/23) cefdinir (Verified Allergy, Unknown, itching all over, 03/16/23) nitrofurantoin (Verified Adverse Reaction, Intermediate, N/V, 03/16/23) Penicillins (Verified Adverse Reaction, Unknown, 03/16/23) Sulfa (Sulfonamide Antibiotics) (Verified Adverse Reaction, Unknown, NAUSEA, 03/16/23) azithromycin (Verified Adverse Reaction, Unknown, 03/16/23) REPORTS SEVERE ABDOMINAL CRAMPING cephalexin (Verified Adverse Reaction, Unknown, 03/16/23) REPORTS SEVERE ABDOMINAL CRAMPING doxycycline (Verified Adverse Reaction, Unknown, Diarrhea, 03/16/23) levofloxacin (Verified Adverse Reaction, Unknown, NAUSEA, 03/16/23) Past Sezldep-Bbserx-Uuwcmk Hx Patient Social History Tobacco Use?: Yes Tobacco type used: Cigarettes Smoking Status: Current Everyday Smoker Use of E-Cig and/or Vaping dev: No Substance use?: No Alcohol Use?: No Pt feels they are or have been: No Immunizations Up To Date Tetanus Booster (TDap): Unknown Hepatitis A: No Hepatitis B: No PED Vaccines UTD: No Seasonal Allergies Seasonal Allergies: Yes Current Status Advance Directives: No Communicates: Verbally Primary Language: Kyrgyz Preferred Spoken Language: Kyrgyz Implanted or Applied Medical D: Port-a-cath Past Medical History Surgeries: Bowel Surgery, Orthopedic Currently Using CPAP: No Currently Using BIPAP: No Sexually Transmitted Disease: No HIV/AIDS: No UTI-Chronic Chronic Constipation, Diverticulosis, Esophagitis Arthritis, Chronic Back Pain, Fractures Cataract Loss of Vision: Denies Hearing Impairment: Denies Lymphoma Did You Recieve Any Treatments: Yes What Type of Treatment Did You: Chemotherapy Sleep Difficulties Blood Disorders: No Adverse Reaction/Blood Tranf: No (HAS HAD BLOOD WITH NO REACTION) Family Medical History Arthritis 19 MOTHER FH: hearing loss 19 FATHER 19 MOTHER Myocardial infarction 19 MOTHER Physical Exam Physical Exam Vital Signs Vital Signs - First Documented 03/16/23 03/16/23 10:45 21:28 Temp 37.1 Pulse 112 Resp 16 B/P (MAP) 109/50 (69) Pulse Ox 96 O2 Delivery Room Air FiO2 21 Capillary Refill : Less Than 3 Seconds Height, Weight, BMI Height: 5'2.00" Weight: 140lbs. 2.0oz. 63.823123fr; 24.25 BMI Method:Estimated Results Results/Procedures Labs Laboratory Tests 03/17/23 04:39 Patient resulted labs reviewed. Clinical Quality Measures DVT/VTE Risk/Contraindication: Contraindications-Pharm: Other *list below* Other: low platelets CHETNA AMAYA DO Mar 17, 2023 05:37
--- NOTE | 2023-03-17 05:37 | History & Physical ---
History of Present Illness HPI/Chief Complaint Chief complaint: Weakness and hepatotoxicity from lymphoma treatment HPI: This is a 77-year-old female clinic patient of Dr. Wooten and oncology Dr. Kumari who presents to the ER with weakness found to have elevated liver enzymes and required admission for observation IV fluid and supportive care. Patient is a DO NOT RESUSCITATE. She reports she feels miserable and hurts everywhere. We will try to reconcile her home medication keep her comfortable and monitor patient closely. Her INR is 2.7 and platelet count is decreased. Elevated bilirubin is a concern considering the severity of her liver failure. Source: patient, RN/MD, old records Exam Limitations: clinical condition Date Seen 03/17/23 Time Seen by a Provider: 09:00 Attending Physician Candace Wooten MD PCP Admitting Physician: Chetna Voss DO Attending Physician: Chetna Voss DO Referring Physician Date of Admission Mar 16, 2023 at 18:44 Home Medications & Allergies Home Medications Reviewed patient Home Medication Reconciliation performed by pharmacy medication reconciliations commercial service technician and/or nursing. Patients Allergies have been reviewed. Allergies Allergies Coded Allergies potassium chloride (Verified Allergy, Intermediate, NUMBNESS IN HANDS, 03/16/23) cefdinir (Verified Allergy, Unknown, itching all over, 03/16/23) nitrofurantoin (Verified Adverse Reaction, Intermediate, N/V, 03/16/23) Penicillins (Verified Adverse Reaction, Unknown, 03/16/23) Sulfa (Sulfonamide Antibiotics) (Verified Adverse Reaction, Unknown, NAUSEA, 03/16/23) azithromycin (Verified Adverse Reaction, Unknown, 03/16/23) REPORTS SEVERE ABDOMINAL CRAMPING cephalexin (Verified Adverse Reaction, Unknown, 03/16/23) REPORTS SEVERE ABDOMINAL CRAMPING doxycycline (Verified Adverse Reaction, Unknown, Diarrhea, 03/16/23) levofloxacin (Verified Adverse Reaction, Unknown, NAUSEA, 03/16/23) Past Mfdchsc-Ewdicr-Qwfjnw Hx Past Med/Social Hx: Reviewed Nursing Past Med/Soc Hx, Reviewed and Corrections made Patient Social History Marrital Status: single Employed/Student: retired Alcohol Use: Denies Use Alcohol Beverage of Choice: Wine Smoking Status: Current Everyday Smoker Type Used: Cigarettes 2nd Hand Smoke Exposure: No Recent Hopitalizations: No Immunizations Up To Date Tetanus Booster (TDap): Unknown Pediatric: No Seasonal Allergies Seasonal Allergies: Yes Past Medical History Surgeries: Bowel Surgery, Orthopedic Currently Using CPAP: No Currently Using BIPAP: No Reproductive: No Sexually Transmitted Disease: No HIV/AIDS: No Female Reproductive Disorders: Denies Genitourinary: UTI-Chronic Gastrointestinal: Chronic Constipation, Diverticulosis, Esophagitis Musculoskeletal: Arthritis, Chronic Back Pain, Fractures HEENT: Cataract Loss of Vision: Denies Hearing Impairment: Denies Cancer: Lymphoma Did You Recieve Any Treatments: Yes What Type of Treatment Did You: Chemotherapy Psychosocial: Sleep Difficulties History of Blood Disorders: No Adverse Reaction to Blood Coats: No (HAS HAD BLOOD WITH NO REACTION) Family History Arthritis 19 MOTHER FH: hearing loss 19 FATHER 19 MOTHER Myocardial infarction 19 MOTHER Review of Systems Constitutional: see HPI, dizziness, malaise, weakness EENTM: no symptoms reported Respiratory: dyspnea on exertion Cardiovascular: no symptoms reported Gastrointestinal: nausea, vomiting Genitourinary: decreased output Musculoskeletal: back pain, joint pain, muscle pain, muscle stiffness, muscle cramps Skin: no symptoms reported Psychiatric/Neurological: No Symptoms Reported All Other Systems Reviewed Negative Unless Noted: Yes Physical Exam Physical Exam Vital Signs Vital Signs - First Documented 03/16/23 03/16/23 03/17/23 10:45 21:28 07:51 Temp 37.1 Pulse 112 Resp 16 B/P (MAP) 109/50 (69) Pulse Ox 96 O2 Delivery Room Air O2 Flow Rate 0.00 FiO2 21 Capillary Refill : Less Than 3 Seconds Height, Weight, BMI Height: 5'2.00" Weight: 140lbs. 2.0oz. [id number]; 24.25 BMI Method:Estimated General Appearance: WD/WN, Chronically ill, Mild Distress, Other (Pale and bowser and ashen) Eyes: Bilateral Eye Normal Inspection, Bilateral Eye PERRL HEENT: PERRL/EOMI, Normal ENT Inspection, Pharynx Normal Neck: Full Range of Motion, Normal Inspection, Non Tender, Supple, Carotid Bruit Respiratory: Chest Non Tender, Lungs Clear, Normal Breath Sounds, No Accessory Muscle Use, No Respiratory Distress Cardiovascular: Regular Rate, Rhythm, No Edema, No Gallop, No JVD, No Murmur, Normal Peripheral Pulses Gastrointestinal: Normal Bowel Sounds, No Organomegaly, No Pulsatile Mass, Non Tender, Soft Back: Normal Inspection, No CVA Tenderness, No Vertebral Tenderness Extremity: Normal Capillary Refill, Normal Inspection, Normal Range of Motion, Non Tender, No Calf Tenderness, No Pedal Edema Neurologic/Psychiatric: Alert, Oriented x3, No Motor/Sensory Deficits, Abnormal Gait, Depressed Affect, Motor Weakness (Generalized) Skin: Normal Color, Warm/Dry Lymphatic: No Adenopathy Results Results/Procedures Labs Laboratory Tests 03/17/23 04:39 Patient resulted labs reviewed. 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
[2023-03-17] MEDS ORDERED: DEXTROSE 50% 50 ML (IMS) SYR IV ONE (05:45)
[2023-03-17] MEDS: D5 NS 1000 ML IV SOLUTION 1,000 ML IV SCH ×2 (06:15→18:03)
[2023-03-17 07:15] LABS: INR 2.7 (0.8-1.4); PROTHROMBIN TIME PATIENT 28.6 SEC (12.2-14.7)
[2023-03-17] MEDS: DOCUSATE SODIUM 100 MG (COLACE) CAP PO SCH ×2 (08:39→20:33)
[2023-03-17] MEDS: SENNOSIDES 8.6 MG (SENOKOT) TAB PO SCH ×2 (08:42→20:33)
--- NOTE | 2023-03-17 11:01 | Physical Therapy Evaluation ---
PT Evaluation-General Medical Diagnosis Admission Date Mar 16, 2023 at 18:44 Medical Diagnosis: abdominal pain/generalized weakness Onset Date: Mar 16, 2023 Therapy Diagnosis Therapy Diagnosis: debility/weakness Height/Weight Height (Feet): 5 Height (Inches): 2.00 Weight (Pounds): 140 Weight (Ounces): 2.0 Precautions Precautions/Isolations: Fall Prevention, Standard Precautions Referral Physician: Jose Luis Reason for Referral: Evaluation/Treatment Medical History Pertinent Medical History: Lymphoma, Smoking Current History ER secondary to UTI/cancer weakness Reviewed History: Yes Social History Home: Single Level Prior Prior Level of Function SCALE: Activities may be completed with or without assistive devices. 1-Rwpanxmlit-knblnxn completes the activity by him/herself with no assistance from a helper. 5-Set-up or Clean-up Assistance-helper sets up or cleans up; patient completes activity. [place] assists only prior to or following the activity. 4-Supervision or Touching Assistance-helper provides verbal cues and/or touching/steadying and/or contact guard assistance as patient completes activity. Assistance may be provided throughout the activity or intermittently. 3-Partial/Moderate Assistance-helper does LESS THAN HALF the effort. [place] lifts, holds or supports trunk or limbs, but provides less than half the effort. 2-Substantial/Maximal Assistance-helper does MORE THAN HALF the effort. [place] lifts or holds trunk or limbs and provides more than half the effort. 3-Rupwmwkbs-ehmvka does ALL the effort. Patient does none of the effort to complete the activity. Or, the assistance of 2 or more helpers is required for the patient to complete the activity. If activity was not attempted, code reason: 7-Patient Refused. 9-Not Applicable-not attempted and the patient did not perform the activity before the current illness, exacerbation or injury. 10-Not Attempted due to Environmental Limitations-(lack of equipment, weather restraints, etc.). 88-Not Attempted due to Medical Conditions or Safety Concerns. Bed Mobility: 6 Transfers (B,C,W/C): 6 Gait: 6 Indoor Mobility (Ambulation): Independent Stairs: Independent Prior Devices Use: None independent per patient PT Evaluation-Current Subjective Patient reluctantly agrees to PT. Objective Patient Orientation: Normal For Age Attachments: IV ROM/Strength ROM Lower Extremities bilateral LE WFL Strength Lower Extremities 4-/5 grossly bilateral LE all planes Integumentary/Posture Integumentary refer to nursing notes Bowel Incontinence: No Bladder Incontinence: No Posture WFL Neuromuscular (Tone, Coordination, Reflexes) grossly intact Sensory Vision: Functional Hearing: Functional Transfers Sit to Stand (QC): 4 Chair/Htq-yz-Ekgnu Xfer(QC): 4 Toilet Transfer (QC): 4 Gait Mode of Locomotion: Walk Anticipated Mode of Locomotion: Walk Walk 10 feet (QC): 4 Walk 50 ft with 2 Turns(QC): 4 Walk 150 ft (QC): 4 Distance: 150' Gait Assistive Device: FWW Comments/Gait Description slow, steady, functional gait sequence Balance Sitting Static: Normal Sitting Dynamic: Normal Standing Static: Fair Standing Dynamic: Fair Assessment/Needs Patient requires much encouragement to participate with therapy and to perform any activity. Patient will benefit from skilled PT to address functional strength and mobility to improve current LOF to safely return to home at maximum LOF. Rehab Potential: Fair PT Nursing Home Goals Nursing Home Goals PT Assistant Secretary Goals Time Frame: Mar 28, 2023 Roll Left & Right (QC): 6 Sit to Lying (QC): 6 Lying-Sitting on Side/Bed(QC): 6 Sit to Stand (QC): 6 Chair/Ktt-vp-Wfjkb Xfer(QC): 6 Toilet Transfer (QC): 6 Walk 10 feet (QC): 6 Walk 50ft with 2 Turns (QC): 6 Walk 150 ft (QC): 6 PT Plan Problem List Problem List: Activity Tolerance, Functional Strength, Safety, Balance, Gait, Transfer, Bed Mobility Treatment/Plan Treatment Plan: Continue Plan of Care Treatment Plan: Bed Mobility, Education, Functional Activity Gaetano, Functional Strength, Gait, Safety, Therapeutic Exercise, Transfers Treatment Duration: Mar 28, 2023 Frequency: 6 times per week Estimated Hrs Per Day: .25 hour per day Time Time In: 953 Time Out: 1010 DATE: Mar 17, 2023 Total Billed Treatment Time: 17 Total Billed Treatment 1 visit EVMod 17 min MADISON VÁZQUEZ PT Mar 17, 2023 11:01
[2023-03-17] MEDS ORDERED: ONDA8TAB13 PO (11:11)
[2023-03-17] MEDS ORDERED: AZEL23SP NSEACH (11:11)
--- NOTE | 2023-03-17 13:14 | Occupational Therapy Eval ---
OT Evaluation-General/PLF Medical Diagnosis Admission Date Mar 16, 2023 at 18:44 Medical Diagnosis: abdominal pain/generalized weakness Onset Date: Mar 16, 2023 Therapy Diagnosis Therapy Diagnosis: weakness Height/Weight Height (Feet): 5 Height (Inches): 2.00 Weight (Pounds): 140 Weight (Ounces): 2.0 Precautions Precautions/Isolations: Fall Prevention, Standard Precautions Weight Bear Status Weight Bearing Restriction: Full Weight Bearing Referral Physician: Jose Luis Referral Reason: Activity Tolerance, Evaluation/Treatment Medical History Pertinent Medical History: Lymphoma, Smoking Reviewed History: Yes Social History Home: Single Level ADL-Prior Level of Function SCALE: Activities may be completed with or without assistive devices. 8-Dyotdzvqoa-crzbava completes the activity by him/herself with no assistance from a helper. 5-Set-up or Clean-up Assistance-helper sets up or cleans up; patient completes activity. [place] assists only prior to or following the activity. 4-Supervision or Touching Assistance-helper provides verbal cues and/or touching/steadying and/or contact guard assistance as patient completes activity. Assistance may be provided throughout the activity or intermittently. 3-Partial/Moderate Assistance-helper does LESS THAN HALF the effort. [place] lifts, holds or supports trunk or limbs, but provides less than half the effort. 2-Substantial/Maximal Assistance-helper does MORE THAN HALF the effort. [place] lifts or holds trunk or limbs and provides more than half the effort. 7-Ueflbdrkw-sfxrnw does ALL the effort. Patient does none of the effort to complete the activity. Or, the assistance of 2 or more helpers is required for the patient to complete the activity. If activity was not attempted, code reason: 7-Patient Refused. 9-Not Applicable-not attempted and the patient did not perform the activity before the current illness, exacerbation or injury. 10-Not Attempted due to Environmental Limitations-(lack of equipment, weather restraints, etc.). 88-Not Attempted due to Medical Conditions or Safety Concerns. Self Care: Independent Functional Cognition: Independent Drive Self: Yes OT Current Status Subjective Requires encouragement for OOB activity , benefits of therapy provided to patient in regards to pain, constipation and energy tolerance.Patient agrees to therapy Mental Status/Objective Patient Orientation: Person, Time, Situation Current Upper Extremity ROM BUE ROM WFLS Upper Extremity Coordination B UE FMC/GMC WFLS ADL-Treatment ADL-Current Resting in bed with legging on, required prompting to don slip on sandals Eating (QC): 6 Oral Hygiene (QC): 5 Shower/Bathe Self (QC): 7 Upper Body Dressing (QC): 5 Lower Body Dressing (QC): 4 (poorly control stand to sit sequences, required education w/ FWW use, c/o dizziness) On/Off Footwear (QC): 4 Toileting Hygiene (QC): 5 Education OT Patient Education: Correct positioning, Exercise program (patietn encouraged to ambulate and perform activty to improve health healing process), Modified ADL techniques, Progress toward Goal/Update tx plan, Purpose of tx/functional activities, Reviewed precautions, Rehab process, Safety issues, Transfer techniques, Use of adapted equipment Teaching Recipient: Patient Teaching Methods: Demonstration, Discussion Response to Teaching: Reinforcement Needed OT Mcfp Goals Marketing Technologist Goals Eating (QC): 6 Oral Hygiene (QC): 6 Toileting Hygiene (QC): 6 Shower/Bathe Self (QC): 6 Upper Body Dressing (QC): 6 Lower Body Dressing (QC): 6 On/Off Footwear (QC): 6 1=Demonstrate adherence to instructed precautions during ADL tasks. 2=Patient will verbalize/demonstrate understanding of assistive devices/modifications for ADL. 3=Patient will improve strength/tolerance for activity to enable patient to perform ADL's. OT Education/Plan Problem List/Assessment Assessment: Decreased Activ Tolerance, Impaired Self-Care Skills Discharge Recommendations Plan/Recommendations: Continue POC Treatment Plan/Plan of Care Patient would benefit from OT for education, treatment and training to promote independence in ADL's, mobility, safety and/or upper extremity function for ADL's. Plan of Care: ADL Retraining, Functional Mobility, Group Exercise/Act as Ind, UE Funct Exercise/Act Treatment Duration: Mar 21, 2023 Frequency: 3 times per week (3-5 times per week) Estimated Hrs Per Day: .25 hour per day Agreement: Yes Rehab Potential: Fair Time Start Time: 09:53 Stop Time: 10:10 DATE: Mar 17, 2023 Total Time Billed (hr/min): 17 Billed Treatment Time EVM 17 min TREMAINE LAL OT Mar 17, 2023 13:14
[2023-03-17] MEDS: HYDROcodone/APAP 5 MG/325 MG (LORTAB) TAB PO PRN (20:32)
[2023-03-17] MEDS ORDERED: ONDANSETRON 4 MG (ZOFRAN) ORAL DISSOLVE TAB PO PRN (21:45)
[2023-03-18] MEDS: ONDANSETRON 4 MG/2 ML (SDV) Z0FRAN IV PRN ×2 (00:41→19:42)
[2023-03-18 03:35] VITALS: BP 120/54
--- NOTE | 2023-03-18 05:42 | Progress Note ---
Subjective Date Seen by a Provider: Mar 18, 2023 Time Seen by a Provider: 12:00 Subjective/Events-last exam Feels miserable No falls Discomfort is widespread Labs not improved Jaundiced Declines for me to call any friend of family BM+ Review of Systems General: Fatigue, Malaise Objective Exam Last Set of Vital Signs Vital Signs Date Time Temp Pulse Resp B/P (MAP) Pulse Ox O2 Delivery O2 Flow Rate FiO2 03/18/23 03:35 36.5 98 18 120/54 (76) 99 Room Air 0.00 0.00 03/16/23 21:28 21 Capillary Refill : Less Than 3 Seconds I&O Intake and Output 03/18/23 00:00 Intake Total 1200 ml Balance 1200 ml Intake Oral 1200 ml # Voids 12 # Bowel Movements 4 General: Alert, Oriented X3, Cooperative, No Acute Distress Lungs: Clear to Auscultation, Normal Air Movement Heart: Regular Rate, Normal S1, Normal S2, No Murmurs Psych/Mental Status: Mental Status NL, Mood NL Results Lab Laboratory Tests 03/17/23 06:14: Glucometer 129H 03/17/23 06:55: Prothrombin Time 28.6H, INR Comment 2.7H, Venous Blood pH 7.29L, Venous Blood Partial Pressure CO2 38L, Venous Blood HCO3 18L Assessment/Plan Assessment/Plan Assess & Plan/Chief Complaint Assessment: Severe weakness from chemotherapy 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
[2023-03-18] MEDS: D5 NS 1000 ML IV SOLUTION 1,000 ML IV SCH ×2 (06:00→16:46)
[2023-03-18] MEDS: PANTOPRAZOLE 40 MG (PROTONIX) TAB PO SCH (06:00)
[2023-03-18 06:12] LABS: BASOPHILS % (AUTO) 0 % (0-10); EOSINOPHILS % (AUTO) 0 % (0-10); HEMOGLOBIN 7.9 g/dL (11.5-16.0)
[2023-03-18 06:14] LABS: HEMATOCRIT 22 % (35-52); LYMPHOCYTES # (AUTO) 0.1 10^3/uL (1.0-4.0); LYMPHOCYTES % (AUTO) 6 % (12-44); MEAN CORPUSCULAR HEMOGLOBIN 31 pg (25-34); MEAN CORPUSCULAR HGB CONC 35 g/dL (32-36); MEAN CORPUSCULAR VOLUME 88 fL (80-99); MONOCYTES # (AUTO) 0.3 10^3/uL (0.0-1.0); MONOCYTES % (AUTO) 11 % (0-12); NEUTROPHILS # (AUTO) 1.8 10^3/uL (1.8-7.8); NEUTROPHILS % (AUTO) 78 % (42-75); WHITE BLOOD COUNT 2.3 10^3/uL (4.3-11.0)
[2023-03-18 06:19] LABS: SMEAR SCAN COMMENT YES
[2023-03-18 06:20] LABS: PLATELET COUNT 6 10^3/uL (130-400)
[2023-03-18 06:21] LABS: ALBUMIN 2.2 GM/DL (3.2-4.5); POTASSIUM 4.2 MMOL/L (3.6-5.0)
[2023-03-18 06:22] LABS: CALCIUM 7.2 MG/DL (8.5-10.1)
[2023-03-18 06:23] LABS: TOTAL PROTEIN 3.3 GM/DL (6.4-8.2)
[2023-03-18 06:25] LABS: BILIRUBIN,TOTAL 9.5 MG/DL (0.1-1.0)
[2023-03-18 06:27] LABS: CREATININE SERUM 1.57 MG/DL (0.60-1.30)
[2023-03-18 06:29] LABS: BILIRUBIN,DIRECT 7.5 MG/DL (0.0-0.3)
[2023-03-18 08:00] VITALS: BP 119/56
[2023-03-18] MEDS ORDERED: AZELASTINE NS SCH (09:00)
[2023-03-18] MEDS ORDERED: FLUTICASONE NS SCH (09:00)
[2023-03-18] MEDS: DOCUSATE SODIUM 100 MG (COLACE) CAP PO SCH ×2 (09:37→21:00)
[2023-03-18] MEDS: SENNOSIDES 8.6 MG (SENOKOT) TAB PO SCH ×2 (09:37→23:25)
[2023-03-18 11:12] VITALS: BP 121/56
--- NOTE | 2023-03-18 11:58 | Occupational Ther Daily Note ---
OT Current Status-Daily Note Subjective Patient sleeping prone on arrival, easily aroused, Patient behavior quickly changes into demands and impatience and condescending tone. Mental Status/Objective Patient Orientation: Person, Place, Time, Situation ADL-Treatment Blood noted on gown and linens, patient refuses to change and agrees to ambulate to bathroom, requires encouragement to manage own clothing and hygiene. Therapy Code Descriptions/Definitions Functional [place] Measure: 0=Not Assessed/NA 4=Minimal Assistance 1=Total Assistance 5=Supervision or Setup 2=Maximal Assistance 6=Modified [place] 3=Moderate Assistance 7=Complete IndependenceSCALE: Activities may be completed with or without assistive devices. 9-Iecbkhqfyb-imutsdm completes the activity by him/herself with no assistance from a helper. 5-Set-up or Clean-up Assistance-helper sets up or cleans up; patient completes activity. [place] assists only prior to or following the activity. 4-Supervision or Touching Assistance-helper provides verbal cues and/or touching/steadying and/or contact guard assistance as patient completes activity. Assistance may be provided throughout the activity or intermittently. 3-Partial/Moderate Assistance-helper does LESS THAN HALF the effort. [place] lifts, holds or supports trunk or limbs, but provides less than half the effort. 2-Substantial/Maximal Assistance-helper does MORE THAN HALF the effort. [place] lifts or holds trunk or limbs and provides more than half the effort. 2-Juqeqnbhs-oeppks does ALL the effort. Patient does none of the effort to complete the activity. Or, the assistance of 2 or more helpers is required for the patient to complete the activity. If activity was not attempted, code reason: 7-Patient Refused. 9-Not Applicable-not attempted and the patient did not perform the activity before the current illness, exacerbation or injury. 10-Not Attempted due to Environmental Limitations-(lack of equipment, weather restraints, etc.). 88-Not Attempted due to Medical Conditions or Safety Concerns. Eating (QC): 6 (water, no ice, wants a can of COKE but not oipen) Oral Hygiene (QC): 7 Shower/Bathe Self (QC): 7 Upper Body Dressing (QC): 7 Lower Body Dressing (QC): 7 On/Off Footwear: 7 (refuses logan wear any foot coverings) Toileting Hygiene (QC): 5 Toilet Transfer (QC): 5 Patient educated in use of call light that she uses and additional instruction provided for use of buttons to HOB/FOB positioning. Education OT Patient Education: Correct positioning, Energy conservation, Exercise program, Modified ADL techniques, Progress toward Goal/Update tx plan, Purpose of tx/functional activities, Reviewed precautions, Rehab process, Safety issues, Transfer techniques, Use of adapted equipment Teaching Recipient: Patient Teaching Methods: Demonstration, Discussion Response to Teaching: Reinforcement Needed OT Automatic Clipper And Stripper Goals Automatic Clipper And Stripper Goals Eating (QC): 6 Oral Hygiene (QC): 6 Toileting Hygiene (QC): 6 Shower/Bathe Self (QC): 6 Upper Body Dressing (QC): 6 Lower Body Dressing (QC): 6 On/Off Footwear (QC): 6 1=Demonstrate adherence to instructed precautions during ADL tasks. 2=Patient will verbalize/demonstrate understanding of assistive devices/modifications for ADL. 3=Patient will improve strength/tolerance for activity to enable patient to perform ADL's. OT Education/Plan Problem List/Assessment Assessment: Decreased Activ Tolerance, Impaired Self-Care Skills Discharge Recommendations Plan/Recommendations: Continue POC Treatment Plan/Plan of Care Treatment,Training & Education: Yes Patient would benefit from OT for education, treatment and training to promote independence in ADL's, mobility, safety and/or upper extremity function for ADL's. Plan of Care: ADL Retraining, Functional Mobility, Group Exercise/Act as Ind, UE Funct Exercise/Act Treatment Duration: Mar 21, 2023 Frequency: 3 times per week (3-5 times per week) Estimated Hrs Per Day: .25 hour per day Agreement: Yes Rehab Potential: Fair Time Start Time: 10:12 Stop Time: 10:30 DATE: Mar 18, 2023 Total Time Billed (hr/min): 18 Billed Treatment Time ADL 18 min TREMAINE LAL OT Mar 18, 2023 11:58
--- NOTE | 2023-03-18 13:52 | Physical Therapy Progress Note ---
Therapy Progress Note Patient refused treatment stating she is sick. Will attempt treatment again tomorrow and progress per patient tolerance. SHELLY CRUZ PT Mar 18, 2023 13:52
[2023-03-18 17:00] VITALS: BP 114/56
[2023-03-18] MEDS ORDERED: LORATADINE (CLARITIN) 10 MG TAB PO NR (19:30)
[2023-03-18 19:35] VITALS: BP 114/61
[2023-03-18] MEDS: HYDROcodone/APAP 5 MG/325 MG (LORTAB) TAB PO PRN (19:42)
[2023-03-18] MEDS: CHLORASEPTIC SPRAY 177 ML LIQUID MC PRN (19:43)
[2023-03-18 23:45] VITALS: BP 113/58
[2023-03-19] VITALS (11 sets, daily range): BP systolic 102–148; BP diastolic 55–79
[2023-03-19] MEDS: CHLORASEPTIC SPRAY 177 ML LIQUID MC PRN ×2 (03:30→06:18)
[2023-03-19] MEDS: HYDROcodone/APAP 5 MG/325 MG (LORTAB) TAB PO PRN ×2 (03:56→16:18)
--- NOTE | 2023-03-19 05:35 | Progress Note ---
Subjective Date Seen by a Provider: Mar 19, 2023 Time Seen by a Provider: 12:00 Subjective/Events-last exam Patient is worse Had a conversation with her about end-of-life Social work saw her and Dr. Kumari who evaluated her and gave her platelets and IV acyclovir Patient very uncomfortable and liver failure is progressing Review of Systems General: Fatigue, Malaise Gastrointestinal: Abdominal Pain Objective Exam Last Set of Vital Signs Vital Signs Date Time Temp Pulse Resp B/P (MAP) Pulse Ox O2 Delivery O2 Flow Rate FiO2 03/19/23 03:25 36.7 100 18 148/67 (94) 96 Room Air 03/18/23 19:35 0.00 03/16/23 21:28 21 Capillary Refill : Less Than 3 Seconds I&O Intake and Output 03/19/23 00:00 Intake Total 1960 ml Balance 1960 ml Intake Oral 1960 ml # Voids 16 # Bowel Movements 7 General: Alert, Oriented X3, Cooperative, No Acute Distress, Other (jaundiced) Lungs: Clear to Auscultation Heart: Regular Rate Psych/Mental Status: Mental Status NL Results Lab Laboratory Tests 03/18/23 06:10: White Blood Count 2.3L, Red Blood Count 2.55L, Hemoglobin 7.9L, Hematocrit 22L, Mean Corpuscular Volume 88, Mean Corpuscular Hemoglobin 31, Mean Corpuscular Hemoglobin Concent 35, Red Cell Distribution Width 13.4, Platelet Count 6*L, Mean Platelet Volume 12.0, Immature Granulocyte % (Auto) 5, Neutrophils (%) (Auto) 78H, Lymphocytes (%) (Auto) 6L, Monocytes (%) (Auto) 11, Eosinophils (%) (Auto) 0, Basophils (%) (Auto) 0, Neutrophils # (Auto) 1.8, Lymphocytes # (Auto) 0.1L, Monocytes # (Auto) 0.3, Eosinophils # (Auto) 0.0, Basophils # (Auto) 0.0, Immature Granulocyte # (Auto) 0.1, Percent Immature Platelet Fraction 18.4H, Sodium Level 128L, Potassium Level 4.2, Chloride Level 96L, Carbon Dioxide Level 14L, Anion Gap 18H, Blood Urea Nitrogen 54H, Creatinine 1.57H, Estimat Glomerular Filtration Rate 34, BUN/Creatinine Ratio 34, Glucose Level 93, Calcium Level 7.2L, Corrected Calcium 8.6, Total Bilirubin 9.5H, Direct Bilirubin 7.5H, Indirect Bilirubin 2.0, Aspartate Amino Transf (AST/SGOT) 172H, Alanine Aminotransferase (ALT/SGPT) 113H, Alkaline Phosphatase 554H, Total Protein 3.3L, Albumin 2.2L, Smear Scan YES Assessment/Plan Assessment/Plan Assess & Plan/Chief Complaint Assessment: Severe weakness from chemotherapy 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
[2023-03-19] MEDS: PANTOPRAZOLE 40 MG (PROTONIX) TAB PO SCH (06:17)
[2023-03-19 06:45] LABS: BASOPHILS % (AUTO) 0 % (0-10); EOSINOPHILS % (AUTO) 0 % (0-10); HEMATOCRIT 21 % (35-52); HEMOGLOBIN 7.4 g/dL (11.5-16.0); LYMPHOCYTES # (AUTO) 0.1 10^3/uL (1.0-4.0); LYMPHOCYTES % (AUTO) 6 % (12-44); MEAN CORPUSCULAR HEMOGLOBIN 31 pg (25-34); MEAN CORPUSCULAR HGB CONC 35 g/dL (32-36); MEAN CORPUSCULAR VOLUME 87 fL (80-99); MEAN PLATELET VOLUME 10.5 fL (9.0-12.2); MONOCYTES # (AUTO) 0.1 10^3/uL (0.0-1.0); MONOCYTES % (AUTO) 10 % (0-12); NEUTROPHILS # (AUTO) 1.1 10^3/uL (1.8-7.8); NEUTROPHILS % (AUTO) 80 % (42-75)
[2023-03-19 06:49] LABS: PLATELET COUNT 4 10^3/uL (130-400); WHITE BLOOD COUNT 1.3 10^3/uL (4.3-11.0)
[2023-03-19 06:59] LABS: INR 3.9 (0.8-1.4); PROTHROMBIN TIME PATIENT 37.6 SEC (12.2-14.7)
[2023-03-19 07:03] LABS: BILIRUBIN,DIRECT 8.4 MG/DL (0.0-0.3); BILIRUBIN,INDIRECT 3.9 MG/DL; CALCIUM 7.1 MG/DL (8.5-10.1); CREATININE SERUM 1.24 MG/DL (0.60-1.30); POTASSIUM 4.3 MMOL/L (3.6-5.0)
[2023-03-19 07:06] LABS: BILIRUBIN,TOTAL 12.3 MG/DL (0.1-1.0)
[2023-03-19] MEDS: LORATADINE (CLARITIN) 10 MG TAB PO SCH (08:45)
[2023-03-19] MEDS: D5 NS 1000 ML IV SOLUTION 1,000 ML IV SCH ×2 (08:45→20:30)
[2023-03-19] MEDS: SENNOSIDES 8.6 MG (SENOKOT) TAB PO SCH ×2 (08:48→20:24)
[2023-03-19] MEDS: DOCUSATE SODIUM 100 MG (COLACE) CAP PO SCH ×2 (08:48→20:23)
[2023-03-19 09:41] LABS: BAND NEUTROPHILS 11 %; EOSINOPHILS % (MANUAL) 1 %; LYMPHOCYTES % (MANUAL) 6 %; MONOCYTES % (MANUAL) 5 %; NEUTROPHILS % (MANUAL) 77 %; NUCLEATED RED BLOOD CELLS 2; PLATELET ESTIMATE 9; POIKILOCYTOSIS SLIGHT; POLYCHROMASIA SLIGHT
[2023-03-19 09:42] LABS: ANISOCYTOSIS SLIGHT; ELLIPT/OVALOCYTES SLIGHT; TARGET CELLS SLIGHT; TOXIC GRANULATION/VACUOLAZATIO 1+
[2023-03-19 09:43] LABS: CRENATED RBC SLIGHT
--- NOTE | 2023-03-19 11:08 | Physical Therapy Progress Note ---
Therapy Progress Note Patient declined PT on this date due to not feeling well. PT will attempt tomorrow a.m. 1 ref MADISON VÁZQUEZ PT Mar 19, 2023 11:08
--- NOTE | 2023-03-19 11:29 | Occupational Ther Daily Note ---
OT Current Status-Daily Note Subjective Supine in bed, refused to get OOB, agrees to wash face, comb hair and apply lip balm to corners of mouth, cracked and slightly caked Mental Status/Objective Patient Orientation: Person, Place, Situation Patient appearances yellow, tired and skin is sore to touch, extremities show edema distally, Patient reports she is very sick, the cancer is infecting her and she does not want to do more therapy today ADL-Treatment Therapy Code Descriptions/Definitions Functional [place] Measure: 0=Not Assessed/NA 4=Minimal Assistance 1=Total Assistance 5=Supervision or Setup 2=Maximal Assistance 6=Modified [place] 3=Moderate Assistance 7=Complete IndependenceSCALE: Activities may be completed with or without assistive devices. 6-Riyugwebsl-fllmngj completes the activity by him/herself with no assistance from a helper. 5-Set-up or Clean-up Assistance-helper sets up or cleans up; patient completes activity. [place] assists only prior to or following the activity. 4-Supervision or Touching Assistance-helper provides verbal cues and/or touching/steadying and/or contact guard assistance as patient completes activity. Assistance may be provided throughout the activity or intermittently. 3-Partial/Moderate Assistance-helper does LESS THAN HALF the effort. [place] lifts, holds or supports trunk or limbs, but provides less than half the effort. 2-Substantial/Maximal Assistance-helper does MORE THAN HALF the effort. [place] lifts or holds trunk or limbs and provides more than half the effort. 8-Lfnyoantj-btvqua does ALL the effort. Patient does none of the effort to complete the activity. Or, the assistance of 2 or more helpers is required for the patient to complete the activity. If activity was not attempted, code reason: 7-Patient Refused. 9-Not Applicable-not attempted and the patient did not perform the activity before the current illness, exacerbation or injury. 10-Not Attempted due to Environmental Limitations-(lack of equipment, weather restraints, etc.). 88-Not Attempted due to Medical Conditions or Safety Concerns. Eating (QC): 5 (COKE) Oral Hygiene (QC): 5 (spopnge swab with balm) Education OT Patient Education: Disease process, Modified ADL techniques, Progress toward Goal/Update tx plan, Purpose of tx/functional activities, Reviewed precautions, Rehab process, Safety issues Teaching Recipient: Patient Teaching Methods: Demonstration, Discussion Response to Teaching: Reinforcement Needed OT Sample Steamer Goals Assisted Goals Eating (QC): 6 Oral Hygiene (QC): 6 Toileting Hygiene (QC): 6 Shower/Bathe Self (QC): 6 Upper Body Dressing (QC): 6 Lower Body Dressing (QC): 6 On/Off Footwear (QC): 6 1=Demonstrate adherence to instructed precautions during ADL tasks. 2=Patient will verbalize/demonstrate understanding of assistive devices/ modifications for ADL. 3=Patient will improve strength/tolerance for activity to enable patient to perform ADL's. OT Education/Plan Discharge Recommendations Plan/Recommendations: Continue POC Treatment Plan/Plan of Care Patient would benefit from OT for education, treatment and training to promote independence in ADL's, mobility, safety and/or upper extremity function for ADL's. Plan of Care: ADL Retraining, Functional Mobility, Group Exercise/Act as Ind, UE Funct Exercise/Act Treatment Duration: Mar 21, 2023 Frequency: 3 times per week (3-5 times per week) Estimated Hrs Per Day: .25 hour per day Agreement: Yes Rehab Potential: Fair Time Start Time: 10:06 Stop Time: 10:16 DATE: Mar 19, 2023 Total Time Billed (hr/min): 10 Billed Treatment Time ADL 10 min TREMAINE LAL OT Mar 19, 2023 11:29
[2023-03-19] MEDS ORDERED: SALIVA STIMULANT GEL 1.5 OZ (BIOTENE) TUBE PO PRN (11:45)
[2023-03-19] MEDS: ACYCLOVIR INJECTION 500 MG in NS (IVPB) 100 ML IV SCH (18:14)
[2023-03-19] MEDS ORDERED: NS IV 500 ML 500 ML IV ONE (20:30)
[2023-03-19] MEDS ORDERED: NS IV 500 ML 500 ML ONE (21:11)
[2023-03-19] MEDS: HYDROmorphone 2 MG/ML VIAL (DILAUDID) IV PRN (23:51)
[2023-03-20 04:39] LABS: BASOPHILS % (AUTO) 1 % (0-10); EOSINOPHILS % (AUTO) 0 % (0-10); HEMOGLOBIN 7.4 g/dL (11.5-16.0); LYMPHOCYTES # (AUTO) 0.1 10^3/uL (1.0-4.0); LYMPHOCYTES % (AUTO) 5 % (12-44); NEUTROPHILS # (AUTO) 1.5 10^3/uL (1.8-7.8)
[2023-03-20 04:41] LABS: HEMATOCRIT 21 % (35-52); MEAN CORPUSCULAR HEMOGLOBIN 30 pg (25-34); MEAN CORPUSCULAR HGB CONC 35 g/dL (32-36); MEAN CORPUSCULAR VOLUME 86 fL (80-99); MONOCYTES # (AUTO) 0.1 10^3/uL (0.0-1.0); MONOCYTES % (AUTO) 8 % (0-12); NEUTROPHILS % (AUTO) 82 % (42-75); WHITE BLOOD COUNT 1.9 10^3/uL (4.3-11.0)
[2023-03-20 04:45] VITALS: BP 145/68
[2023-03-20 04:51] LABS: CALCIUM 7.3 MG/DL (8.5-10.1); CREATININE SERUM 1.44 MG/DL (0.60-1.30); POTASSIUM 4.7 MMOL/L (3.6-5.0); TOTAL PROTEIN 3.1 GM/DL (6.4-8.2)
[2023-03-20 04:53] LABS: PLATELET COUNT 9 10^3/uL (130-400)
--- NOTE | 2023-03-20 05:34 | Progress Note ---
Subjective Date Seen by a Provider: Mar 20, 2023 Time Seen by a Provider: 11:00 Subjective/Events-last exam Patient at end-of-life Comfort care protocol initiated Objective Exam Last Set of Vital Signs Vital Signs Date Time Temp Pulse Resp B/P (MAP) Pulse Ox O2 Delivery O2 Flow Rate FiO2 03/19/23 23:28 36.0 114 20 123/56 94 Room Air 03/19/23 19:20 0.00 03/19/23 18:40 21 Capillary Refill : Less Than 3 Seconds I&O Intake and Output 03/20/23 00:00 Intake Total 3380 ml Balance 3380 ml Intake Oral 1380 ml IV Total 2000 ml # Voids 11 # Bowel Movements 1 General: Other (In distress with pain) Results Lab Laboratory Tests 03/19/23 06:15: White Blood Count 1.3*L, Red Blood Count 2.41L, Hemoglobin 7.4L, Hematocrit 21L, Mean Corpuscular Volume 87, Mean Corpuscular Hemoglobin 31, Mean Corpuscular Hemoglobin Concent 35, Red Cell Distribution Width 13.5, Platelet Count 4*L, Mean Platelet Volume 10.5, Immature Granulocyte % (Auto) 4, Neutrophils (%) (Auto) 80H, Lymphocytes (%) (Auto) 6L, Monocytes (%) (Auto) 10, Eosinophils (%) (Auto) 0, Basophils (%) (Auto) 0, Neutrophils # (Auto) 1.1L, Lymphocytes # (Auto) 0.1L, Monocytes # (Auto) 0.1, Eosinophils # (Auto) 0.0, Basophils # (Auto) 0.0, Immature Granulocyte # (Auto) 0.1, Neutrophils % (Manual) 77, Lymphocytes % (Manual) 6, Monocytes % (Manual) 5, Eosinophils % (Manual) 1, Band Neutrophils 11, Nucleated Red Blood Cells 2, Toxic Granulation 1+, Platelet Estimate 9, Polychromasia SLIGHT, Poikilocytosis SLIGHT, Basophilic Stippling SLIGHT, Anisocytosis SLIGHT, Target Cells SLIGHT, Crenated Cell SLIGHT, Elliptocytes SLIGHT, Prothrombin Time 37.6H, INR Comment 3.9H, Sodium Level 128L , Potassium Level 4.3, Chloride Level 99, Carbon Dioxide Level 13L, Anion Gap 16H, Blood Urea Nitrogen 48H, Creatinine 1.24, Estimat Glomerular Filtration Rate 45, BUN/Creatinine Ratio 39, Glucose Level 58*L, Calcium Level 7.1L, Corrected Calcium 8.7, Total Bilirubin 12.3*H, Direct Bilirubin 8.4H, Indirect Bilirubin 3.9, Aspartate Amino Transf (AST/SGOT) 172H, Alanine Aminotransferase (ALT/SGPT) 107H, Alkaline Phosphatase 539H, Total Protein 3.0L, Albumin 2.0L 03/20/23 04:10: White Blood Count 1.9L, Red Blood Count 2.44L, Hemoglobin 7.4L, Hematocrit 21L, Mean Corpuscular Volume 86, Mean Corpuscular Hemoglobin 30, Mean Corpuscular Hemoglobin Concent 35, Red Cell Distribution Width 13.7, Platelet Count 9*L, Mean Platelet Volume 13.0H, Immature Granulocyte % (Auto) 5, Neutrophils (%) (Auto) 82H, Lymphocytes (%) (Auto) 5L, Monocytes (%) (Auto) 8, Eosinophils (%) (Auto) 0, Basophils (%) (Auto) 1, Neutrophils # (Auto) 1.5L, Lymphocytes # (Auto) 0.1L, Monocytes # (Auto) 0.1, Eosinophils # (Auto) 0.0, Basophils # (Auto) 0.0, Immature Granulocyte # (Auto) 0.1, Sodium Level 131L, Potassium [place] 4.7, Chloride Level 101, Carbon Dioxide Level 11L, Anion Gap 19H, Blood Urea Nitrogen 51H, Creatinine 1.44H, Estimat Glomerular Filtration Rate 38, BUN/Creatinine Ratio 35, Glucose Level 60*L, Calcium Level 7.3L, Corrected Calcium 8.9, Total Bilirubin 13.0*H, Aspartate Amino Transf (AST/SGOT) 150H, Alanine Aminotransferase (ALT/SGPT) 104H, Alkaline Phosphatase 516H, Total Protein 3.1L, Albumin 2.0L, Percent Immature Platelet Fraction 15.7H Assessment/Plan Assessment/Plan Assess & Plan/Chief Complaint Assessment: Severe weakness from chemotherapy 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
[2023-03-20] MEDS: PANTOPRAZOLE 40 MG (PROTONIX) TAB PO SCH (06:02)
[2023-03-20] MEDS: ACYCLOVIR INJECTION 500 MG in NS (IVPB) 100 ML IV SCH (06:02)
[2023-03-20 06:17] LABS: INR 3.4 (0.8-1.4); PROTHROMBIN TIME PATIENT 33.5 SEC (12.2-14.7)
[2023-03-20] MEDS: ONDANSETRON 4 MG/2 ML (SDV) Z0FRAN IV PRN ×2 (06:33→10:03)
[2023-03-20] MEDS: HYDROmorphone 2 MG/ML VIAL (DILAUDID) IV PRN ×2 (06:34→10:03)
[2023-03-20 07:17] VITALS: BP 123/53
[2023-03-20] MEDS: DOCUSATE SODIUM 100 MG (COLACE) CAP PO SCH (07:53)
[2023-03-20] MEDS: SENNOSIDES 8.6 MG (SENOKOT) TAB PO SCH (07:54)
[2023-03-20] MEDS: METOCLOPRAMIDE INJ 10 MG/2 ML (REGLAN) IVP PRN (07:55)
[2023-03-20] MEDS: LORATADINE (CLARITIN) 10 MG TAB PO SCH (08:52)
[2023-03-20] MEDS: D5 NS 1000 ML IV SOLUTION 1,000 ML IV SCH (08:52)
--- NOTE | 2023-03-20 10:16 | Physical Therapy Progress Note ---
Therapy Progress Note PT consulted with physician. PT to dismiss patient from services at this time due to decline in medical status. PT will require new orders to resume if status improved. MADISON VÁZQUEZ PT Mar 20, 2023 10:16
[2023-03-20] MEDS ORDERED: GLYCOPYRROLATE 0.2 MG/ML (ROBINUL) 2 ML VIAL IV PRN (10:30)
[2023-03-20] MEDS ORDERED: SALIVA SUBSTITUTE 60 ML SPRAY(MOUTHKOTE) MM PRN (10:30)
[2023-03-20] MEDS ORDERED: ACETAMINOPHEN 650 MG SUPP (TYLENOL) PR PRN (10:30)
[2023-03-20] MEDS ORDERED: RT-ALBUTEROL/IPRATROPIUM 3 ML (DUONEB) VIAL INH PRN (10:30)
[2023-03-20] MEDS ORDERED: morphine INJ 4 MG/ML 1 ML (VIAL/SYRINGE) IV PRN (10:30)
[2023-03-20] MEDS ORDERED: ARTIFICAL TEARS 0.4 ML UNIT DOSE (REFRESH PLUS) OU PRN (10:30)
[2023-03-20] MEDS ORDERED: LORazepam 1 MG (ATIVAN) TAB SL PRN (10:30)
[2023-03-20] MEDS ORDERED: BISACODYL 10 MG SUPP (DULCOLAX) PR PRN (10:30)
[2023-03-20] MEDS ORDERED: ONDANSETRON 4 MG/2 ML (SDV) Z0FRAN IVP PRN (10:30)
[2023-03-20] MEDS ORDERED: PROMETHAZINE INJ 25 MG/ML (PHENERGAN) AMP IVP PRN (10:30)
[2023-03-20] MEDS ORDERED: ATROPINE 1% OPHTHALMIC SOLN 2 ML SL PRN (10:30)
[2023-03-20] MEDS ORDERED: SCOPOLAMINE 1.5 MG (TRANSDERM-SCOP) PATCH TOP SCH (10:30)
--- NOTE | 2023-03-20 10:32 | Occ Therapy Progress Note ---
Therapy Progress Note Patient is no longer appropriate for therapy, Please discontinue Occupational therapy services. and SW notified TREMAINE LAL OT Mar 20, 2023 10:32
[2023-03-20] MEDS ORDERED: SALIVA STIMULANT GEL 1.5 OZ (BIOTENE) TUBE MM PRN (10:45)
[2023-03-20] MEDS: LORazepam INJ 2 MG/ML (ATIVAN) VIAL IVP PRN ×2 (11:00→16:39)
--- NOTE | 2023-03-20 14:27 | Physician Query-Final Dx ---
RENAE SHERMAN 03/20/23 1426: Final Diagnosis Give Final Diagnosis The medical record reflects the following clinical evidence: Clinical Indicators: WBC 1.3 to 2.3, RBC 2.41 to 2.89, Platelets 4-13. Documentation of "severe weakness due to chemotherapy" Risk Factor(s): Hx of Lymphoma and recent chemotherapy, to the ER with weakness and elevated liver enzymes, Treatment: Lab monitoring, Blood products/platelets given, protective measures due to risk for infection and close monitoring, PT/OT Pancytopenia likely due to Chemotherapy, Present on admission Other explanation of clinical findings Unable to determine (no explanation for clinical findings) Please clarify and document your clinical opinion in the progress notes and discharge summary including the definitive and/or presumptive diagnosis, (suspected or probable), related to the above clinical findings. Please include clinical findings supporting your diagnosis. Renae Sherman, MSN, RN Clinical [employer]und[employer] Worker [phone] [email or web address] HEIID VOSS DO 03/20/23 2148: Final Diagnosis Give Final Diagnosis Pancytopenia likely due to Chemotherapy, Present on admission RENAE SHERMAN Mar 20, 2023 14:26 HEIDI VOSS DO Mar 20, 2023 21:48
--- NOTE | 2023-03-21 05:17 | Discharge Summary ---
Diagnosis/Chief Complaint Date of Admission Mar 18, 2023 at 12:51 Date of Discharge Mar 21, 2023 at 01:37 Discharge Diagnosis Acute liver failure Discharge Summary Discharge Physical Examination Allergies: Coded Allergies: potassium chloride (Verified Allergy, Intermediate, NUMBNESS IN HANDS, 03/16/23) cefdinir (Verified Allergy, Unknown, itching all over, 03/16/23) nitrofurantoin (Verified Adverse Reaction, Intermediate, N/V, 03/16/23) Penicillins (Verified Adverse Reaction, Unknown, 03/16/23) Sulfa (Sulfonamide Antibiotics) (Verified Adverse Reaction, Unknown, NAUSEA, 03/16/23) azithromycin (Verified Adverse Reaction, Unknown, 03/16/23) REPORTS SEVERE ABDOMINAL CRAMPING cephalexin (Verified Adverse Reaction, Unknown, 03/16/23) REPORTS SEVERE ABDOMINAL CRAMPING doxycycline (Verified Adverse Reaction, Unknown, Diarrhea, 03/16/23) levofloxacin (Verified Adverse Reaction, Unknown, NAUSEA, 03/16/23) Vitals & I&Os Vital Signs Date Time Temp Pulse Resp B/P (MAP) Pulse Ox O2 Delivery O2 Flow Rate FiO2 03/20/23 20:00 Room Air 03/20/23 08:43 96 03/20/23 07:17 36.5 130 18 123/53 (76) 03/19/23 19:20 0.00 03/19/23 18:40 21 Hospital Course Was the Problem List Reviewed?: Yes Patient had a standard hospital course after she was admitted for supportive care for acute hepatotoxicity from lymphoma treated with chemotherapy. Patient had a lengthy course due to worsening liver failure prompting Dr. Quoc blue who gave platelet transfusion from thrombocytopenia but she progressed quickly and succumbed after end-of-life discussion Labs (last 24 hrs) Laboratory Tests 03/16/23 12:05: Red Blood Count 2.89L, Absolute Reticulocyte Count 31, Percent Reticulocyte Count 1.06, Prothrombin Time 27.1H, INR Comment 2.5H, Magnesium Level 1.7, Total Bilirubin 8.6H, Direct Bilirubin 6.9H, Indirect Bilirubin 1.7, Total Creatine Kinase 59, Lipase 6L 03/16/23 13:28: Urine Color YELLOW, Urine Clarity CLOUDY, Urine pH 5.5, Urine Specific [place] 1.020, Urine Protein TRACEH, Urine Glucose (UA) NEGATIVE, Urine Ketones NEG ATIVE, Urine Nitrite NEGATIVE, Urine Bilirubin 2+H, Urine Urobilinogen 1.0, Urine Leukocyte Esterase NEGATIVE, Urine RBC (Auto) NEGATIVE, Urine RBC NONE, Urine WBC NONE, Urine Squamous Epithelial Cells 2-5, Urine Crystals PRESENTH, Urine Amorphous Sediment FEW CASS URATESH, Urine Bacteria FEWH, Urine Casts PRESENT, Urine Hyaline Casts RARE, Urine Granular Casts RARE, Urine Mucus NEGATIVE, Urine Culture Indicated NO 03/17/23 04:39: Red Blood Count 2.68L, Total Bilirubin 9.4H, Direct Bilirubin 7.2H, Indirect Bilirubin 2.2, White Blood Count 2.3L, Hemoglobin 8.2#L, Hematocrit 23L, Mean Corpuscular Volume 87, Mean Corpuscular Hemoglobin 31, Mean Corpuscular Hemoglobin Concent 35, Red Cell Distribution Width 13.3, Platelet Count 13*L, Mean Platelet Volume 12.2, Immature Granulocyte % (Auto) 6, Neutrophils (%) (Auto) 76H, Lymphocytes (%) (Auto) 9L, Monocytes (%) (Auto) 8, Eosinophils (%) (Auto) 0, Basophils (%) (Auto) 0, Neutrophils # (Auto) 1.8, Lymphocytes # (Auto) 0.2L, Monocytes # (Auto) 0.2, Eosinophils # (Auto) 0.0, Basophils # (Auto) 0.0, Immature Granulocyte # (Auto) 0.1, Percent Immature Platelet Fraction 13.3H, Sodium Level 127L, Potassium Level 5.0, Chloride Level 93L, Carbon Dioxide Level 17L, Anion Gap 17H, Blood Urea Nitrogen 55H, Creatinine 1.79H, Estimat Glomerular Filtration Rate 29, BUN/Creatinine Ratio 31, Glucose Level 37*L, Calcium Level 7.4L, Corrected Calcium 8.8, Aspartate Amino Transf (AST/SGOT) 183H, Alanine Aminotransferase (ALT/SGPT) 116H, Alkaline Phosphatase 631H, Total Protein 3.7L, Albumin 2.3L 03/17/23 06:14: Glucometer 129H 03/17/23 06:55: Prothrombin Time 28.6H, INR Comment 2.7H, Venous Blood pH 7.29L, Venous Blood Partial Pressure CO2 38L, Venous Blood HCO3 18L 03/18/23 06:10: White Blood Count 2.3L, Red Blood Count 2.55L, Hemoglobin 7.9L, Hematocrit 22L, Mean Corpuscular Volume 88, Mean Corpuscular Hemoglobin 31, Mean Corpuscular Hemoglobin Concent 35, Red Cell Distribution Width 13.4, Platelet Count 6*L, Mean Platelet Volume 12.0, Immature Granulocyte % (Auto) 5, Neutrophils (%) (Auto) 78H, Lymphocytes (%) (Auto) 6L, Monocytes (%) (Auto) 11, Eosinophils (%) (Auto) 0, Basophils (%) (Auto) 0, Neutrophils # (Auto) 1.8, Lymphocytes # (Auto) 0.1L, Monocytes # (Auto) 0.3, Eosinophils # (Auto) 0.0, Basophils # (Auto) 0.0, Immature Granulocyte # (Auto) 0.1, Percent Immature Platelet Fraction 18.4H, Sodium Level 128L, Potassium Level 4.2, Chloride Level 96L, Carbon Dioxide Level 14L, Anion Gap 18H, Blood Urea Nitrogen 54H, Creatinine 1.57H, Estimat Glomerular Filtration Rate 34, BUN/Creatinine Ratio 34, Glucose Level 93, Calcium Level 7.2L, Corrected Calcium 8.6, Total Bilirubin 9.5H, Direct Bilirubin 7.5H, Indirect Bilirubin 2.0, Aspartate Amino Transf (AST/SGOT) 172H, Alanine Aminotransferase (ALT/SGPT) 113H, Alkaline Phosphatase 554H, Total Protein 3.3L, Albumin 2.2L, Smear Scan YES 03/19/23 06:15: Prothrombin Time 37.6H, INR Comment 3.9H, White Blood Count 1.3*L, Red Blood Count 2.41L, Hemoglobin 7.4L, Hematocrit 21L, Mean Corpuscular Volume 87, Mean Corpuscular Hemoglobin 31, Mean Corpuscular Hemoglobin Concent 35, Red Cell Distribution Width 13.5, Platelet Count 4*L, Mean Platelet Volume 10.5, Immature Granulocyte % (Auto) 4, Neutrophils (%) (Auto) 80H, Lymphocytes (%) (Auto) 6L, Monocytes (%) (Auto) 10, Eosinophils (%) (Auto) 0, Basophils (%) (Auto) 0, Neutrophils # (Auto) 1.1L, Lymphocytes # (Auto) 0.1L, Monocytes # (Auto) 0.1, Eosinophils # (Auto) 0.0, Basophils # (Auto) 0.0, Immature Granulocyte # (Auto) 0.1, Sodium Level 128L, Potassium Level 4.3, Chloride Level 99, Carbon Dioxide Level 13L, Anion Gap 16H, Blood Urea Nitrogen 48H, Creatinine 1.24, Estimat Glomerular Filtration Rate 45, BUN/Creatinine Ratio 39, Glucose Level 58*L, Calcium Level 7.1L, Corrected Calcium 8.7, Total Bilirubin 12.3*H, Direct Bilirubin 8.4H, Indirect Bilirubin 3.9, Aspartate Amino Transf (AST/SGOT) 172H, Alanine Aminotransferase (ALT/SGPT) 107H, Alkaline Phosphatase 539H, Total Protein 3.0L, Albumin 2.0L, Neutrophils % (Manual) 77, Lymphocytes % (Manual) 6, Monocytes % (Manual) 5, Eosinophils % (Manual) 1, Band Neutrophils 11, Nucleated Red Blood Cells 2, Toxic Granulation 1+, Platelet Estimate 9, Polychromasia SLIGHT, Poikilocytosis SLIGHT, Basophilic Stippling SLIGHT, Anisocytosis SLIGHT, Target Cells SLIGHT, Crenated Cell SLIGHT, Elliptocytes SLIGHT 03/20/23 04:10: White Blood Count 1.9L, Red Blood Count 2.44L, Hemoglobin 7.4L, Hematocrit 21L, Mean Corpuscular Volume 86, Mean Corpuscular Hemoglobin 30, Mean Corpuscular Hemoglobin Concent 35, Red Cell Distribution Width 13.7, Platelet Count 9*L, Mean Platelet Volume 13.0H, Immature Granulocyte % (Auto) 5, Neutrophils (%) (Auto) 82H, Lymphocytes (%) (Auto) 5L, Monocytes (%) (Auto) 8, Eosinophils (%) (Auto) 0, Basophils (%) (Auto) 1, Neutrophils # (Auto) 1.5L, Lymphocytes # ( Auto) 0.1L, Monocytes # (Auto) 0.1, Eosinophils # (Auto) 0.0, Basophils # (Auto) 0.0, Immature Granulocyte # (Auto) 0.1, Percent Immature Platelet Fraction 15.7H , Sodium Level 131L, Potassium Level 4.7, Chloride Level 101, Carbon Dioxide Level 11L, Anion Gap 19H, Blood Urea Nitrogen 51H, Creatinine 1.44H, Estimat Glomerular Filtration Rate 38, BUN/Creatinine Ratio 35, Glucose Level 60*L, Calcium Level 7.3L, Corrected Calcium 8.9, Total Bilirubin 13.0*H, Aspartate Amino Transf (AST/SGOT) 150H, Alanine Aminotransferase (ALT/SGPT) 104H, Alkaline Phosphatase 516H, Total Protein 3.1L, Albumin 2.0L 03/20/23 05:58: Prothrombin Time 33.5H, INR Comment 3.4H, Ammonia 37H 03/20/23 06:16: Glucometer 65L 03/20/23 06:49: Glucometer 72 03/20/23 13:47: Lab Scanned Report Transfusion Reaction Form Pending Labs Laboratory Tests 03/16/23 12:05: Red Blood Count 2.89, Absolute Reticulocyte Count 31, Percent Reticulocyte Count 1.06, Prothrombin Time 27.1, INR Comment 2.5, Magnesium Level 1.7, Total Bilirubin 8.6, Direct Bilirubin 6.9, Indirect Bilirubin 1.7, Total Creatine Kinase 59, Lipase 6 03/16/23 13:28: Urine Color YELLOW, Urine Clarity CLOUDY, Urine pH 5.5, Urine Specific [place] 1.020, Urine Protein TRACE, Urine Glucose (UA) NEGATIVE, Urine Ketones NEGATIVE, Urine Nitrite NEGATIVE, Urine Bilirubin 2+, Urine Urobilinogen 1.0, Urine Leukocyte Esterase NEGATIVE, Urine RBC (Auto) NEGATIVE, Urine RBC NONE, Urine WBC NONE, Urine Squamous Epithelial Cells 2-5, Urine Crystals PRESENT, Urine Amorphous Sediment FEW CASS URATES, Urine Bacteria FEW, Urine Casts PRESENT, Urine Hyaline Casts RARE, Urine Granular Casts RARE, Urine Mucus NEGATIVE, Urine Culture Indicated NO 03/17/23 04:39: Red Blood Count 2.68, Total Bilirubin 9.4, Direct Bilirubin 7.2, Indirect Bilirubin 2.2, White Blood Count 2.3, Hemoglobin 8.2, Hematocrit 23, Mean Corpuscular Volume 87, Mean Corpuscular Hemoglobin 31, Mean Corpuscular Hemoglobin Concent 35, Red Cell Distribution Width 13.3, Platelet Count 13, Mean Platelet Volume 12.2, Immature Granulocyte % (Auto) 6, Neutrophils (%) (Auto) 76, Lymphocytes (%) (Auto) 9, Monocytes (%) (Auto) 8, Eosinophils (%) (Auto) 0, Basophils (%) (Auto) 0, Neutrophils # (Auto) 1.8, Lymphocytes # (Auto) 0.2, Monocytes # (Auto) 0.2, Eosinophils # (Auto) 0.0, Basophils # (Auto) 0.0, Immature Granulocyte # (Auto) 0.1, Percent Immature Platelet Fraction 13.3, S odium Level 127, Potassium Level 5.0, Chloride Level 93, Carbon Dioxide Level 17, Anion Gap 17, Blood Urea Nitrogen 55, Creatinine 1.79, Estimat Glomerular Filtration Rate 29, BUN/Creatinine Ratio 31, Glucose Level 37, Calcium Level 7.4, Corrected Calcium 8.8, Aspartate Amino Transf (AST/SGOT) 183, Alanine Aminotransferase (ALT/SGPT) 116, Alkaline Phosphatase 631, Total Protein 3.7, Albumin 2.3 03/17/23 06:14: Glucometer 129 03/17/23 06:55: Prothrombin Time 28.6, INR Comment 2.7, Venous Blood pH 7.29, Venous Blood Partial Pressure CO2 38, Venous Blood HCO3 18 03/18/23 06:10: White Blood Count 2.3, Red Blood Count 2.55, Hemoglobin 7.9, Hematocrit 22, Mean Corpuscular Volume 88, Mean Corpuscular Hemoglobin 31, Mean Corpuscular Hemoglobin Concent 35, Red Cell Distribution Width 13.4, Platelet Count 6, Mean Platelet Volume 12.0, Immature Granulocyte % (Auto) 5, Neutrophils (%) (Auto) 78, Lymphocytes (%) (Auto) 6, Monocytes (%) (Auto) 11, Eosinophils (%) (Auto) 0, Basophils (%) (Auto) 0, Neutrophils # (Auto) 1.8, Lymphocytes # (Auto) 0.1, Monocytes # (Auto) 0.3, Eosinophils # (Auto) 0.0, Basophils # (Auto) 0.0, Immature Granulocyte # (Auto) 0.1, Percent Immature Platelet Fraction 18.4, Sodium Level 128, Potassium Level 4.2, Chloride Level 96, Carbon Dioxide Level 14, Anion Gap 18, Blood Urea Nitrogen 54, Creatinine 1.57, Estimat Glomerular Filtration Rate 34, BUN/Creatinine Ratio 34, Glucose Level 93, Calcium Level 7.2, Corrected Calcium 8.6, Total Bilirubin 9.5, Direct Bilirubin 7.5, Indirect Bilirubin 2.0, Aspartate Amino Transf (AST/SGOT) 172, Alanine Aminotransferase (ALT/SGPT) 113, Alkaline Phosphatase 554, Total Protein 3.3, Albumin 2.2, Smear Scan YES 03/19/23 06:15: Prothrombin Time 37.6, INR Comment 3.9, White Blood Count 1.3, Red Blood Count 2.41, Hemoglobin 7.4, Hematocrit 21, Mean Corpuscular Volume 87, Mean Corpuscular Hemoglobin 31, Mean Corpuscular Hemoglobin Concent 35, Red Cell Distribution Width 13.5, Platelet Count 4, Mean Platelet Volume 10.5, Immature Granulocyte % (Auto) 4, Neutrophils (%) (Auto) 80, Lymphocytes (%) (Auto) 6, Monocytes (%) (Auto) 10, Eosinophils (%) (Auto) 0, Basophils (%) (Auto) 0, Neutrophils # (Auto) 1.1, Lymphocytes # (Auto) 0.1, Monocytes # (Auto) 0.1, Eosinophils # (Auto) 0.0, Basophils # (Auto) 0.0, Immature Granulocyte # (Auto) 0.1, Sodium Level 128, Potassium Level 4.3, Chloride Level 99, Carbon Dioxide Level 13, Anion Gap 16, Blood Urea Nitrogen 48, Creatinine 1.24, Estimat Glomerular Filtration Rate 45, BUN/Creatinine Ratio 39, Glucose Level 58, Calcium Level 7.1, Corrected Calcium 8.7, Total Bilirubin 12.3, Direct Bilirubin 8.4, Indirect Bilirubin 3.9, Aspartate Amino Transf (AST/SGOT) 172, Alanine Aminotransferase (ALT/SGPT) 107, Alkaline Phosphatase 539, Total Protein 3.0, Albumin 2.0, Neutrophils % (Manual) 77, Lymphocytes % (Manual) 6, Monocytes % (Manual) 5, Eosinophils % (Manual) 1, Band Neutrophils 11, Nucleated Red Blood Cells 2, Toxic Granulation 1+, Platelet Estimate 9, Polychromasia SLIGHT, Poikilocytosis SLIGHT, Basophilic Stippling SLIGHT, Anisocytosis SLIGHT, Target Cells SLIGHT, Crenated Cell SLIGHT, Elliptocytes SLIGHT 03/20/23 04:10: White Blood Count 1.9, Red Blood Count 2.44, Hemoglobin 7.4, Hematocrit 21, Mean Corpuscular Volume 86, Mean Corpuscular Hemoglobin 30, Mean Corpuscular Hemoglobin Concent 35, Red Cell Distribution Width 13.7, Platelet Count 9, Mean Platelet Volume 13.0, Immature Granulocyte % (Auto) 5, Neutrophils (%) (Auto) 82, Lymphocytes (%) (Auto) 5, Monocytes (%) (Auto) 8, Eosinophils (%) (Auto) 0, Basophils (%) (Auto) 1, Neutrophils # (Auto) 1.5, Lymphocytes # (Auto) 0.1, Monocytes # (Auto) 0.1, Eosinophils # (Auto) 0.0, Basophils # (Auto) 0.0, Immature Granulocyte # (Auto) 0.1, Percent Immature Platelet Fraction 15.7, Sodium Level 131, Potassium Level 4.7, Chloride Level 101, Carbon Dioxide Level 11, Anion Gap 19, Blood Urea Nitrogen 51, Creatinine 1.44, Estimat Glomerular Filtration Rate 38, BUN/Creatinine Ratio 35, Glucose Level 60, Calcium Level 7.3, Corrected Calcium 8.9, Total Bilirubin 13.0, Aspartate Amino Transf (AST/SGOT) 150, Alanine Aminotransferase (ALT/SGPT) 104, Alkaline Phosphatase 516, Total Protein 3.1, Albumin 2.0 03/20/23 05:58: Prothrombin Time 33.5, INR Comment 3.4, Ammonia 37 03/20/23 06:16: Glucometer 65 03/20/23 06:49: Glucometer 72 03/20/23 13:47: Lab Scanned Report Transfusion Reaction Form Discharge Home Medications: Active Scripts Active Reported Ondansetron Odt (Ondansetron) 8 Mg Tab.rapdis 8 Mg PO Q8H PRN Dymista Nasal [place] (Azelastine/Fluticasone) 137 Mcg-50 Mcg/[place].pump 1 [place] NSEACH DAILY Pantoprazole Sodium 40 Mg Tablet.dr 40 Mg PO DAILY Instructions to patient/family Please see electronic discharge instructions given to patient. Clinical Quality Measures DVT/VTE Risk/Contraindication: Contraindications-Pharm: Other *list below* Other: low platelets HEIDI VOSS DO Mar 21, 2023 05:17
== END 2023-03-21 01:37 | disposition expired | DRG 441 ==
LOC: EDUNIT# 10:34 → ER 10:36 → 4TH 18:44 → OBSVTOIN 03-18 12:51
PROVIDERS: ADMIT Internal Medicine; ATTEND Internal Medicine
DX: K71.10 Toxic liver disease with hepatic necrosis, without coma (principal); D61.810 Antineoplastic chemotherapy induced pancytopenia; C85.16 Unspecified B-cell lymphoma, intrapelvic lymph nodes; N39.0 Urinary tract infection, site not specified; E87.1 Hypo-osmolality and hyponatremia; Z66 Do not resuscitate; Z51.5 Encounter for palliative care; F17.210 Nicotine dependence, cigarettes, uncomplicated; Z79.899 Other long term (current) drug therapy; Z88.1 Allergy status to other antibiotic agents; Z88.0 Allergy status to penicillin; Z88.2 Allergy status to sulfonamides; Z91.09 Other allergy status, other than to drugs and biological substances; T45.1X5A Adverse effect of antineoplastic and immunosuppressive drugs, initial encounter
CPT/HCPCS: 36415; 74176; 76705; 80053; 81000; 82140; 82247; 82248; 82550; 82805; 82947; 83690; 83735; 85007; 85025; 85027; 85045; 85610; 94760; G0378